=== PATIENT | female | born 1970 | race Caucasian/White ===

== ENCOUNTER 2019-11-18 09:57 | Outpatient (REF) | payer OTHER, SELFPAY | END 2019-11-18 09:58 | disposition home or self-care (01) | LOC: HO.HAP 09:57 | PROVIDERS: Visit Provider Nurse Practitioner Family | DX: Z46.1 Encounter for fitting and adjustment of hearing aid (principal) | CPT/HCPCS: 92700; V5160; V5261; V5267 ==

== ENCOUNTER 2019-11-29 09:13 | Outpatient (REF) | payer OTHER, SELFPAY ==
--- NOTE | 2019-11-29 09:19 | XR_ITS ---
EXAMINATION: XR WRIST, RIGHT XR HAND, RIGHT CLINICAL INFORMATION: Pain right wrist and right hand. COMPARISON: Radiographs right hand 06/15/2018 TECHNIQUE: The right wrist is imaged in 3 views. The right hand is imaged in an additional 3 views. There are a total of 6 views. FINDINGS: There is no fracture or dislocation right hand or right wrist. The ulnar variance is neutral. The bony mineralization is normal. There is no destructive process or periostitis. The carpus shows no joint narrowing or erosive change or chondrocalcinosis. The MCP and PIP joints are unremarkable. There is some borderline joint narrowing fourth and fifth finger DIP joints. There are no erosive changes. IMPRESSION: 1. No fracture, destructive process, or erosive changes. 2. Borderline joint narrowing fourth and fifth DIP joints.
== END 2019-11-29 09:14 | disposition home or self-care (01) ==
LOC: HO.HMGCX 09:13
PROVIDERS: PCP Nurse Practitioner Family; Visit Provider Hospitalist
DX: M25.531 Pain in right wrist (principal)
CPT/HCPCS: 73110; 73130

== ENCOUNTER 2019-12-02 12:05 | Outpatient (REF) | payer SELFPAY | END 2019-12-02 12:06 | disposition home or self-care (01) | LOC: HO.HAP 12:05 | PROVIDERS: PCP Nurse Practitioner Family; Referring Provider Nurse Practitioner Family; Visit Provider Nurse Practitioner Family | DX: Z13.89 Encounter for screening for other disorder (principal) | CPT/HCPCS: 92700 ==

== ENCOUNTER 2019-12-08 09:59 | Outpatient (REF) | payer SELFPAY ==
--- NOTE | 2019-12-09 10:54 | MHC.HEMONCSW ---
FAXED NEW [place] REQUEST FOR LOVENOX TO [facility]. REQUESTED EXPEDITED DECISION.
--- NOTE | 2019-12-09 15:15 | MHC.HEMONCSW ---
PER FAX, [facility] APPROVED LOVENOX 60MG BID FOR 30 DAY SUPPLY. EFFECTIVE DATES: 12/09/19 TO 06/08/20 FAX IS SUFFIENT DO NOT NEED AUTH NUMBER. FAX PLACED IN CHART.
== END 2019-12-08 10:00 | disposition home or self-care (01) ==
LOC: HO.HAP 09:59
PROVIDERS: PCP Nurse Practitioner Family; Visit Provider Nurse Practitioner Family
DX: Z13.89 Encounter for screening for other disorder (principal)

== ENCOUNTER 2019-12-08 10:49 | Outpatient (REF) | payer SELFPAY | END 2019-12-08 10:50 | disposition home or self-care (01) | LOC: HO.HAP 10:49 | PROVIDERS: Visit Provider Nurse Practitioner Family | DX: Z13.89 Encounter for screening for other disorder (principal) | CPT/HCPCS: 92700 ==

== ENCOUNTER 2019-12-16 16:00 | Outpatient (REF) | payer SELFPAY | END 2019-12-16 16:01 | disposition home or self-care (01) | LOC: HO.HAP 16:00 | PROVIDERS: Visit Provider Nurse Practitioner Family | DX: Z13.89 Encounter for screening for other disorder (principal) ==

== ENCOUNTER → 2019-12-19 08:27 | Outpatient (BNV) | payer OTHER, SELFPAY | PROVIDERS: PCP Nurse Practitioner Family; Visit Provider Internal Medicine | DX: N28.0 Ischemia and infarction of kidney (principal); D68.62 Lupus anticoagulant syndrome; Z79.01 Long term (current) use of anticoagulants | CPT/HCPCS: 99213; 99214 ==

== ENCOUNTER 2019-12-19 10:06 | Outpatient (REF) | payer SELFPAY | END 2019-12-19 10:07 | disposition home or self-care (01) | LOC: HO.HAP 10:06 | PROVIDERS: Visit Provider Nurse Practitioner Family | DX: Z13.89 Encounter for screening for other disorder (principal) | CPT/HCPCS: 92700 ==

== ENCOUNTER 2019-12-30 08:33 | Outpatient (REF) | payer SELFPAY | END 2019-12-30 08:34 | disposition home or self-care (01) | LOC: HO.HAP 08:33 | PROVIDERS: PCP Nurse Practitioner Family; Referring Provider Nurse Practitioner Family; Visit Provider Nurse Practitioner Family | DX: Z13.89 Encounter for screening for other disorder (principal) | CPT/HCPCS: 92700 ==

== ENCOUNTER → 2020-01-31 13:14 | Outpatient (BNVA) | payer OTHER, SELFPAY | PROVIDERS: PCP Nurse Practitioner Family; Visit Provider Internal Medicine Gastroenterology | DX: Z13.89 Encounter for screening for other disorder (principal) ==

== ENCOUNTER 2020-03-06 14:29 | Outpatient (REF) | payer SELFPAY | END 2020-03-06 14:30 | disposition home or self-care (01) | LOC: HO.HAP 14:29 | PROVIDERS: Visit Provider Nurse Practitioner Family | DX: Z13.89 Encounter for screening for other disorder (principal) ==

== ENCOUNTER 2020-03-22 15:27 | Outpatient (REF) | payer SELFPAY | END 2020-03-22 15:28 | disposition home or self-care (01) | LOC: HO.HAP 15:27 | PROVIDERS: Visit Provider Nurse Practitioner Family | DX: Z13.89 Encounter for screening for other disorder (principal) ==

== ENCOUNTER 2020-04-06 08:37 | Outpatient (REF) | payer OTHER, SELFPAY ==
[2020-04-06 11:10] LABS: MANUAL DIFF FLAG NO
[2020-04-06 11:30] LABS: Basophils Absolute Auto 0.1 X10*3/uL (0.0-0.2); Basophils Percent Auto 0.9 % (0-2); Eosinophils Absolute Auto 0.3 X10*3/uL (0.0-0.4); Hematocrit 35.6 % (37-47); Hemoglobin 11.8 g/dl (12.0-16.0); Imm Gran Abs Auto 0.02 X10*3/uL (0.00-0.03); Imm Gran Pct Auto 0.2 % (0.0-0.4); Lymphocytes Absolute Auto 3.2 X10*3/uL (1.2-4.9); Lymphocytes Percent Auto 38.8 % (20-40); Mean Corpuscular HGB Conc 33.1 g/dl (31.0-35.0); Mean Corpuscular Hemoglobin 32.5 pg (27.0-33.0); Mean Corpuscular Volume 98.1 fL (80-98); Mean Platelet Volume 12.7 fL (9.4-12.3); Monocytes Absolute Auto 0.7 X10*3/uL (0.1-1.2); Monocytes Percent Auto 9.1 % (2-11); Neutrophils Absolute Auto 3.8 X10*3/uL (2.0-8.3); Platelet Count 253 X10*3/uL (160-400); Red Blood Count 3.63 X10*6/uL (4.20-5.50); Red Cell Distribution Width 13.4 % (11.0-16.0); White Blood Count 8.2 X10*3/uL (4.8-10.8)
[2020-04-06 12:15] LABS: Alanine Aminotransferase 11 U/L (0-31); Albumin Level 4.2 g/dL (3.5-5.0); Alkaline Phosphatase 58 U/L (39-117); Anion Gap 14 (12-20); Aspartate Amino Transferase 12 U/L (5-31); Bilirubin Total 0.2 mg/dL (0.0-1.0); Blood Urea Nitrogen 9 mg/dL (9-16); Calcium 9.1 mg/dL (8.4-10.2); Carbon Dioxide 25 mmol/L (22-29); Chloride 106 mmol/L (96-108); Cholesterol 157 mg/dL; Estimated Glomerular Filt Rate > 60; Glucose Fasting 85 mg/dL (60-99); HDL Cholesterol 47 mg/dL; LDL Cholesterol Calculated 96 mg/dl; Potassium 4.5 mmol/L (3.3-5.1); Sodium 140 mmol/L (135-145); Total Protein 6.8 g/dL (6.5-8.0); Triglycerides 72 mg/dL
[2020-04-06 12:19] LABS: TSH reflex Free T4 0.76 uIU/mL (0.32-4.0)
[2020-04-06 12:44] LABS: SARS COV2 IgG Negative (Negative)
[2020-04-09 08:36] LABS: HBS Num1 17.13 mIU/mL (0-7.99); ~Hepatitis B Surface Antibody REACTIVE (Nonreactive)
[2020-04-10 17:37] LABS: Rubeola IgG (Measles) <13.50 AU/mL
== END 2020-04-06 08:38 | disposition home or self-care (01) ==
LOC: HO.HMGCLDS 08:37
PROVIDERS: Absent Provider Internal Medicine; PCP Nurse Practitioner Family; Visit Provider Internal Medicine
DX: Z00.00 Encounter for general adult medical examination without abnormal findings (principal); Z01.84 Encounter for antibody response examination; N28.0 Ischemia and infarction of kidney
CPT/HCPCS: 36415; 80053; 80061; 84443; 85025; 86706; 86735; 86762; 86765; 86769; 86787

== ENCOUNTER 2020-04-10 08:11 | Outpatient (REF) | payer OTHER, SELFPAY ==
[2020-04-11 07:02] LABS: Rubeola IgG (Measles) <13.50 AU/mL
[2020-04-11 08:30] LABS: HBS Num1 18.18 mIU/mL (0-7.99); ~Hepatitis B Surface Antibody REACTIVE (Nonreactive)
[2020-04-12 21:12] LABS: TS Negative Control Passed; TS Panel A 0; TS Panel B 0; TS Positive Control Passed; TSpotTB Negative (SeeBelow)
== END 2020-04-10 08:12 | disposition home or self-care (01) ==
LOC: HO.HMGCLDS 08:11
PROVIDERS: PCP Nurse Practitioner Family; Visit Provider Internal Medicine
DX: Z00.00 Encounter for general adult medical examination without abnormal findings (principal)
CPT/HCPCS: 36415; 86481; 86706; 86735; 86762; 86765; 86787

== ENCOUNTER 2020-04-24 11:01 | Outpatient (REF) | payer OTHER, SELFPAY ==
--- NOTE | ~2020-04-24 | XR_ITS ---
EXAMINATION: XR SHOULDER, RIGHT CLINICAL INFORMATION: Pain COMPARISON: Previous x-ray September 2008 TECHNIQUE: AP external rotation, Grashey, scapular Y, and axillary views of the right shoulder. FINDINGS: Bone alignment is normal. No fracture or dislocation is seen. The glenohumeral joint is normal. 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 There is soft tissue calcification adjacent to the right greater tuberosity suggestive of calcific tendinitis or bursitis. XR/XR shoulder RT min 2V IMPRESSION: Mild arthritis at the acromioclavicular joint. Soft tissue calcification adjacent to the greater tuberosity suggestive of calcific tendinitis or bursitis.
== END 2020-04-24 11:02 | disposition home or self-care (01) ==
LOC: HO.XRAY 11:01
PROVIDERS: PCP Nurse Practitioner Family; Visit Provider Nurse Practitioner Family
DX: M25.511 Pain in right shoulder (principal)
CPT/HCPCS: 73030

== ENCOUNTER 2020-04-27 11:33 | Emergency (ER) | payer OTHER, SELFPAY ==
--- NOTE | ~2020-04-27 | CT_ITS ---
EXAMINATION: CT OF THE HEAD AND CERVICAL SPINE WITHOUT CONTRAST CLINICAL INFORMATION: Head injury. Patient on blood thinning medicine. COMPARISON: Previous head CT most recent April 2018 TECHNIQUE: Axial images through the head and cervical spine without contrast. Sagittal and coronal reconstructions on the technologist workstation were performed. Patient dose 614+3 3 7 mg/cm. FINDINGS: Head CT: There is no evidence of an extra-axial collection. There is no evidence of intra-axial or extra-axial hemorrhage. The ventricles and extra-axial CSF spaces are appropriate. Gonzales-white matter differentiation is normal. No mass, mass effect or infarct is seen. Review of bone windows is normal. Visualized paranasal sinuses, mastoid air cells and middle ears are clear. Cervical spine: There is increased cervical kyphosis. Alignment is otherwise normal. No fracture or dislocation is seen. There is degenerative spondylosis at C4-C5 and C5-C6. There is disc space narrowing at C5-C6. There is left-sided neuroforaminal narrowing at C3-C4. Prevertebral soft tissues are normal. There are small bilateral cervical lymph nodes. There is evidence of mild emphysema. CT/CT head/brain wo con IMPRESSION: Head CT: Unremarkable exam. Cervical spine: Degenerative changes. No fracture or dislocation seen.
--- NOTE | ~2020-04-27 | CT_ITS ---
EXAMINATION: CT OF THE HEAD AND CERVICAL SPINE WITHOUT CONTRAST CLINICAL INFORMATION: Head injury. Patient on blood thinning medicine. COMPARISON: Previous head CT most recent April 2018 TECHNIQUE: Axial images through the head and cervical spine without contrast. Sagittal and coronal reconstructions on the technologist workstation were performed. Patient dose 614+3 3 7 mg/cm. FINDINGS: Head CT: There is no evidence of an extra-axial collection. There is no evidence of intra-axial or extra-axial hemorrhage. The ventricles and extra-axial CSF spaces are appropriate. Gonzales-white matter differentiation is normal. No mass, mass effect or infarct is seen. Review of bone windows is normal. Visualized paranasal sinuses, mastoid air cells and middle ears are clear. Cervical spine: There is increased cervical kyphosis. Alignment is otherwise normal. No fracture or dislocation is seen. There is degenerative spondylosis at C4-C5 and C5-C6. There is disc space narrowing at C5-C6. There is left-sided neuroforaminal narrowing at C3-C4. Prevertebral soft tissues are normal. There are small bilateral cervical lymph nodes. There is evidence of mild emphysema. CT/CT cervical spine wo con IMPRESSION: Head CT: Unremarkable exam. Cervical spine: Degenerative changes. No fracture or dislocation seen.
[2020-04-27 11:45] VITALS: BP 133/65; PULSE 85; RESP 18; TEMP 37.2; O2SAT 100; BMI 21.8
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
[2020-04-27] MEDS: Butalb/Acetamin/Caff 50/325/40 TABLET 1 TAB PO (13:37)
== END 2020-04-27 14:38 | disposition home or self-care (01) ==
PROVIDERS: Emergency Provider Emergency Medicine Emergency Medical Services; PCP Nurse Practitioner Family
DX: S09.90XA Unspecified injury of head, initial encounter (principal); S06.0X0A Concussion without loss of consciousness, initial encounter; Y04.2XXA Assault by strike against or bumped into by another person, initial encounter; G44.309 Post-traumatic headache, unspecified, not intractable; Y93.F9 Activity, other caregiving; Y92.531 Health care provider office as the place of occurrence of the external cause; Y99.0 Civilian activity done for income or pay
CPT/HCPCS: 70450; 72125; 99283; 99284

== ENCOUNTER → 2020-05-08 10:11 | Outpatient (BNVA) | payer OTHER, SELFPAY | PROVIDERS: PCP Nurse Practitioner Family; Visit Provider Internal Medicine Gastroenterology ==

== ENCOUNTER 2020-05-25 08:30 | Outpatient (REF) | payer OTHER, SELFPAY ==
[2020-05-26 08:21] LABS: Rubeola IgM (Measles) <20.00 AU/mL
== END 2020-05-25 08:31 | disposition home or self-care (01) ==
LOC: HO.HMGCLDS 08:30
PROVIDERS: PCP Nurse Practitioner Family; Visit Provider Nurse Practitioner Family
DX: Z01.84 Encounter for antibody response examination (principal)
CPT/HCPCS: 36415; 86735; 86762; 86765

== ENCOUNTER 2020-07-03 09:06 | Outpatient (REF) | payer OTHER, SELFPAY ==
[2020-07-04 09:27] LABS: Rubeola IgG (Measles) <13.50 AU/mL
== END 2020-07-03 09:07 | disposition home or self-care (01) ==
LOC: HO.HMGCLDS 09:06
PROVIDERS: PCP Nurse Practitioner Family; Visit Provider Nurse Practitioner Family
DX: Z01.84 Encounter for antibody response examination (principal)
CPT/HCPCS: 36415; 86735; 86762; 86765

== ENCOUNTER 2020-07-03 09:36 | Outpatient (REF) | payer OTHER, SELFPAY | END 2020-07-03 09:37 | disposition home or self-care (01) | LOC: HO.HAP 09:36 | PROVIDERS: Visit Provider Nurse Practitioner Family | DX: Z13.89 Encounter for screening for other disorder (principal) ==

== ENCOUNTER 2020-08-06 11:27 | Outpatient (REF) | payer OTHER, SELFPAY ==
--- NOTE | ~2020-08-06 | XR_ITS ---
EXAMINATION: XR RIBS, RIGHT CLINICAL INFORMATION: Trauma COMPARISON: Previous chest x-ray May 2019 TECHNIQUE: 3 views of the right ribs were obtained. FINDINGS: Lungs are clear. No consolidation, pneumothorax, or pleural effusion. The cardiomediastinal silhouette and pulmonary vasculature are normal. There are nondisplaced fractures of the right anterior ninth and 10th ribs. XR/XR ribs RT min 3V w CXR1V IMPRESSION: No evidence for acute disease in the chest. Nondisplaced right anterior ninth and 10th rib fractures.
== END 2020-08-06 11:28 | disposition home or self-care (01) ==
LOC: HO.HMGCX 11:27
PROVIDERS: PCP Nurse Practitioner Family; Visit Provider Nurse Practitioner Family
DX: S29.9XXA Unspecified injury of thorax, initial encounter (principal)
CPT/HCPCS: 71101

== ENCOUNTER 2020-08-08 08:21 | Outpatient (REF) | payer OTHER, SELFPAY ==
[2020-08-09 08:41] LABS: Rubeola IgG (Measles) <13.50 AU/mL
== END 2020-08-08 08:22 | disposition home or self-care (01) ==
LOC: HO.HMGCLDS 08:21
PROVIDERS: PCP Nurse Practitioner Family; Visit Provider Nurse Practitioner Family
DX: Z01.84 Encounter for antibody response examination (principal)
CPT/HCPCS: 36415; 86765

== ENCOUNTER 2020-08-20 08:44 | Outpatient (REF) | payer OTHER, SELFPAY ==
[2020-08-22 05:11] LABS: Rubeola IgG (Measles) <13.50 AU/mL
== END 2020-08-20 08:45 | disposition home or self-care (01) ==
LOC: HO.HMGCLDS 08:44
PROVIDERS: PCP Nurse Practitioner Family; Visit Provider Nurse Practitioner Family
DX: Z01.84 Encounter for antibody response examination (principal)
CPT/HCPCS: 36415; 86765

== ENCOUNTER 2020-10-26 16:03 | Outpatient (REF) | payer SELFPAY ==
--- NOTE | 2020-10-31 12:00 | MHC.AU.HFU ---
Hearing Instrument Follow-Up- Binaural Date of Visit: 10/29/20 Right Ear: Health Science Writer: Phonak Model: Rojaseo M 70-R Serial Number: [id number] Repair Warranty: 02/06/2023 S[employer] Tip #[id number] 03/10/2020 Battery Size: Rechargeable Color: Sand Beige Ditching Machine Operator: #1 Medium Type of Dome: Small open dome Type of Mold: C-Shell Skeleton Type of Wax Guard: CeruSheild Dispensed By: [facility] Date of Fittin11/18/2019 Left Ear: Health Science Writer: Phonak Model: Audeo M 70-R Serial Number: [id number] Repair Warranty: 02/06/2023 Slim Tip #[id number] 02/29/2020 Loss and Damage Warranty: Battery Size: Rechargeable Color: Sand Beige Ditching Machine Operator: #1 Medium Type of Dome: Small open dome Type of Mold: C-Shell Skeleton Type of Wax Guard: CeruShield Dispensed By: [facility] Date of Fittin11/18/2019 Follow-Up Summary: Both aids with web feeder dropped off 10/26/20 with patient noting on drop-off form the hearing aids are not changing. When web feeder was plugged in, the aids started charging and were fully charged on 10/31/20. Spoke with patient who reports the aids move around in the web feeder frequently and has only been able to use the new aids a few times a week. Mostly using old aids. Contacted Michelle at [facility] [employer] who is sending N/C web feeder. Recommendations (Other): AIDS ON OLD REPROGRAPHICS TECHNICIAN BY SOUND MEJIA RAMP. Schedule appointment when new web feeder in. Patient wants maintenance on old aids. Diagnosis Code(s): Primary Diagnosis: H90.3 Bilateral Sensorineural Hearing Loss Signature: Provider: Rojas Joe, RADHA-A
== END 2020-10-26 16:04 | disposition home or self-care (01) ==
LOC: HO.HAP 16:03
PROVIDERS: Visit Provider Nurse Practitioner Family
DX: Z13.89 Encounter for screening for other disorder (principal)

== ENCOUNTER 2020-11-08 10:28 | Outpatient (REF) | payer SELFPAY | END 2020-11-08 10:29 | disposition home or self-care (01) | LOC: HO.HAP 10:28 | PROVIDERS: Visit Provider Nurse Practitioner Family | DX: Z13.89 Encounter for screening for other disorder (principal) ==

== ENCOUNTER 2020-12-04 11:16 | Outpatient (REF) | payer OTHER, SELFPAY ==
[2020-12-04 13:44] LABS: MANUAL DIFF FLAG NO
[2020-12-04 13:56] LABS: Basophils Absolute Auto 0.1 X10*3/uL (0.0-0.2); Eosinophils Absolute Auto 0.3 X10*3/uL (0.0-0.4); Eosinophils Percent Auto 3.5 % (0-4); Hematocrit 36.3 % (37-47); Hemoglobin 12.2 g/dl (12.0-16.0); Imm Gran Abs Auto 0.02 X10*3/uL (0.00-0.03); Imm Gran Pct Auto 0.2 % (0.0-0.4); Lymphocytes Absolute Auto 3.6 X10*3/uL (1.2-4.9); Lymphocytes Percent Auto 44.2 % (20-40); Mean Corpuscular HGB Conc 33.6 g/dl (31.0-35.0); Mean Corpuscular Hemoglobin 32.6 pg (27.0-33.0); Mean Corpuscular Volume 97.1 fL (80-98); Mean Platelet Volume 12.6 fL (9.4-12.3); Monocytes Absolute Auto 0.7 X10*3/uL (0.1-1.2); Monocytes Percent Auto 8.5 % (2-11); Neutrophils Absolute Auto 3.4 X10*3/uL (2.0-8.3); Neutrophils Percent Auto 42.6 % (45-73); Platelet Count 252 X10*3/uL (160-400); Red Blood Count 3.74 X10*6/uL (4.20-5.50); Red Cell Distribution Width 13.3 % (11.0-16.0)
[2020-12-05 06:51] LABS: Immunoglobulin E 22 kU/L (<OR=114)
[2020-12-05 14:07] LABS: Absolute CD3 Count 2506 cells/uL (840-3060); Absolute CD4 Count 1340 cells/uL (490-1740); Absolute CD8 Count 1169 cells/uL (180-1170); Absolute Lymphocytes 3321 cells/uL (850-3900); CD4 CD8 Ratio 1.15 (0.86-5.00); Percent CD3 Cells 75 % (57-85); Percent CD4 Cells 40 % (30-61); Percent CD8 Cells 35 % (12-42)
[2020-12-06 08:53] LABS: HIV AB/AG Nonreactive (Nonreactive); HIV Num 1 0.06 S/CO (0.00-0.99)
[2020-12-06 11:31] LABS: Immunoglobulin A 233 mg/dL (47-310); Immunoglobulin G 896 mg/dL (600-1640); Immunoglobulin M 192 mg/dL (50-300)
== END 2020-12-04 11:17 | disposition home or self-care (01) ==
LOC: HO.HMGCLDS 11:16
PROVIDERS: PCP Nurse Practitioner Family; Visit Provider Pediatrics
DX: Z11.4 Encounter for screening for human immunodeficiency virus [HIV] (principal); Z11.1 Encounter for screening for respiratory tuberculosis
CPT/HCPCS: 36415; 82784; 82785; 85025; 86359; 86360; 86774; 87389

== ENCOUNTER 2020-12-27 09:16 | Outpatient (REF) | payer OTHER, SELFPAY ==
[2020-12-31 15:47] LABS: Complement Total CH50 >60 U/mL (31-60)
== END 2020-12-27 09:17 | disposition home or self-care (01) ==
LOC: HO.LAB 09:16
PROVIDERS: PCP Nurse Practitioner Family; Visit Provider Pediatrics
DX: D83.9 Common variable immunodeficiency, unspecified (principal)
CPT/HCPCS: 36415; 86162

== ENCOUNTER 2021-01-22 09:08 | Outpatient (REF) | payer OTHER, SELFPAY ==
[2021-01-22 10:56] LABS: MANUAL DIFF FLAG NO
[2021-01-22 11:06] LABS: Basophils Absolute Auto 0.1 X10*3/uL (0.0-0.2); Basophils Percent Auto 0.6 % (0-2); Eosinophils Absolute Auto 0.3 X10*3/uL (0.0-0.4); Eosinophils Percent Auto 2.8 % (0-4); Hematocrit 38.9 % (37.0-47.0); Hemoglobin 12.9 g/dl (12.0-16.0); Imm Gran Abs Auto 0.02 X10*3/uL (0.00-0.03); Imm Gran Pct Auto 0.2 % (0.0-0.4); Lymphocytes Absolute Auto 3.9 X10*3/uL (1.2-4.9); Lymphocytes Percent Auto 40.9 % (20-40); Mean Corpuscular HGB Conc 33.2 g/dl (31.0-35.0); Mean Corpuscular Hemoglobin 32.4 pg (27.0-33.0); Mean Corpuscular Volume 97.7 fL (80.0-98.0); Mean Platelet Volume 11.6 fL (9.4-12.3); Monocytes Absolute Auto 0.9 X10*3/uL (0.1-1.2); Monocytes Percent Auto 9.2 % (2-11); Neutrophils Absolute Auto 4.5 x10*3/uL (2.0-8.3); Neutrophils Percent Auto 46.3 % (45-73); Platelet Count 252 X10*3/uL (160-400); Red Blood Count 3.98 X10*6/uL (4.20-5.50); Red Cell Distribution Width 13.3 % (11.0-16.0); White Blood Count 9.6 X10*3/uL (4.8-10.8)
[2021-01-22 11:31] LABS: Alanine Aminotransferase 17 U/L (0-31); Albumin Level 4.6 g/dL (3.5-5.0); Alkaline Phosphatase 58 U/L (39-117); Anion Gap 14 (12-20); Aspartate Amino Transferase 16 U/L (5-31); Bilirubin Total 0.3 mg/dL (0.0-1.0); Blood Urea Nitrogen 11 mg/dL (9-16); Calcium 9.9 mg/dL (8.4-10.2); Carbon Dioxide 25 mmol/L (22-29); Chloride 105 mmol/L (96-108); Estimated Glomerular Filt Rate > 60; Glucose Random 92 mg/dL (60-115); Potassium 4.7 mmol/L (3.3-5.1); Sodium 139 mmol/L (135-145); Total Protein 7.5 g/dL (6.5-8.0)
[2021-01-22 11:52] LABS: Ferritin 66 ng/mL (10-250); Vitamin D 25-OH Total 51.9 ng/mL (>30)
[2021-01-22 12:42] LABS: Folate > 20.0 ng/mL (> or = 4.0); Vitamin B12 823 pg/mL (200-900)
[2021-01-25 18:42] LABS: Vitamin C 0.9 mg/dL (0.3-2.7)
[2021-01-25 23:11] LABS: Zinc 72 mcg/dL (60-130)
== END 2021-01-22 09:09 | disposition home or self-care (01) ==
LOC: HO.LAB 09:08
PROVIDERS: PCP Nurse Practitioner Family; Referring Provider Nurse Practitioner Family; Visit Provider Internal Medicine Gastroenterology
DX: K55.9 Vascular disorder of intestine, unspecified (principal); K21.9 Gastro-esophageal reflux disease without esophagitis; K75.81 Nonalcoholic steatohepatitis (NASH)
CPT/HCPCS: 36415; 80053; 82180; 82306; 82607; 82728; 82746; 84630; 85025

== ENCOUNTER 2021-01-22 10:09 | Outpatient (REF) | payer SELFPAY ==
--- NOTE | 2021-01-22 11:22 | MHC.AU.P13 ---
Hearing Instrument Problem Date of Visit: 01/22/21 Right Ear: Rotor Coil Taper: Phonak Model: Audeo M 70-R Serial Number: [id number] Repair Warranty: 02/06/2023 Repair and L&D S[employer] Tip #[id number] 03/10/2020 Battery Size: Rechargeable Color: Sand Beige Inside Outside Sales Representative: #1 Medium Type of Dome: Small open dome Type of Mold: C-Shell Skeleton Type of Wax Guard: CeruSheild Dispensed By: [facility] Date of Fittin11/18/2019 Left Ear: Rotor Coil Taper: Phonak Model: Audeo M 70-R Serial Number: [id number] Repair Warranty: 02/06/2023 Repair and L&D S[employer] Tip #[id number] 02/29/2020 Battery Size: Rechargeable Color: Sand Beige Inside Outside Sales Representative: #1 Medium Type of Dome: Small open dome Type of Mold: C-Shell Skeleton Type of Wax Guard: CeruShield Dispensed By: [facility] Date of Fittin11/18/2019 Follow-Up Summary: Hearing aids dropped off reporting left not working and no bluetooth. Aid was working. Both aids cleaned, charging looks ok, hooked up to ROSA M without difficulty. Left message for patient to schedule appointment to roll picker and possibly re-pair with patient's phone. Diagnosis Code(s): Primary Diagnosis: H90.3 Bilateral Sensorineural Hearing Loss Signature: Provider: Ivonne Couch BC-HIS
== END 2021-01-22 10:10 | disposition home or self-care (01) ==
LOC: HO.HAP 10:09
PROVIDERS: Visit Provider Nurse Practitioner Family
DX: Z13.89 Encounter for screening for other disorder (principal)

== ENCOUNTER 2021-01-23 13:33 | Outpatient (REF) | payer SELFPAY | END 2021-01-23 13:34 | disposition home or self-care (01) | LOC: HO.HAP 13:33 | PROVIDERS: Visit Provider Nurse Practitioner Family | DX: Z13.89 Encounter for screening for other disorder (principal) ==

== ENCOUNTER 2021-02-06 09:25 | Outpatient (REF) | payer OTHER, SELFPAY | END 2021-02-06 09:26 | disposition home or self-care (01) | LOC: HO.LAB 09:25 | PROVIDERS: PCP Nurse Practitioner Family; Visit Provider Pediatrics | DX: J30.9 Allergic rhinitis, unspecified (principal) | CPT/HCPCS: 36415; 82785; 86003 ==

== ENCOUNTER 2021-02-11 16:14 | Outpatient (REF) | payer OTHER, SELFPAY ==
--- NOTE | ~2021-02-11 | XR_ITS ---
EXAMINATION: XR FOOT, RIGHT CLINICAL INFORMATION: Pain COMPARISON: Previous x-ray December 2015 TECHNIQUE: AP, lateral, and oblique views of the right foot. FINDINGS: Bone alignment is normal. No acute fracture or dislocation is seen. There is mild joint space narrowing at the first MTP joint. There is a faint soft tissue calcification adjacent to the lateral fourth MTP joint. This is new in the interval from 2016 exam and questionable for changes related to old trauma. The joint spaces are otherwise normal. There are small calcaneal spurs. XR/XR foot RT min 3V IMPRESSION: Mild joint space narrowing at the first MTP joint. Faint soft tissue calcification adjacent to the lateral fourth MTP joint, question related to old trauma. Calcaneal spurs.
--- NOTE | ~2021-02-11 | XR_ITS ---
EXAMINATION: XR CHEST CLINICAL INFORMATION: Hiccups COMPARISON: Previous chest x-rays most recent July 2020 TECHNIQUE: 2 views of the chest were obtained. FINDINGS: No significant abnormality is noted involving the heart, lungs, mediastinum, bony thorax or soft tissues. XR/XR chest 2V IMPRESSION: Unremarkable examination.
== END 2021-02-11 16:15 | disposition home or self-care (01) ==
LOC: HO.HMGCX 16:14
PROVIDERS: Absent Provider Internal Medicine Gastroenterology; PCP Nurse Practitioner Family; Visit Provider Physician Assistant
DX: R06.6 Hiccough (principal); M79.671 Pain in right foot
CPT/HCPCS: 71046; 73630

== ENCOUNTER 2021-02-19 14:02 | Outpatient (REF) | payer OTHER, SELFPAY ==
--- NOTE | 2021-02-19 16:45 | MHC.AU.AHA ---
Adult Audiological Evaluation Date of Visit: 02/19/21 Reason for Appointment: Audiological re-evaluation to monitor the status of Ms. Hayes's hearing loss. She has a known bilateral, sensorineural hearing loss and uses hearing aids binaurally. She feels her hearing is gradually decreasing. She denies any significant changes to her medical history since her last visit. [place] [facility] [place] Borderline-normal/mild hearing loss sloping to a moderately severe sensorineural hearing loss bilaterally. Ear History: History of Ear Wax Buildup: Both Ears Medical History: Medical History: Tobacco Use, Blood clot in small intestine leading to emergency bowel resectioning in 2019, sepsist, gall bladder removal in 2018, GERD, Lupus, ESBL Allergies: Sulda, cefuroxime, metronidazole, oxycodone, egg, cefotetan, sulfacetamide, nitrofurantoin Medication List: albuterol sulfate 90 mcg/actuation (ProAir HFA) 2 puffs inhalation Q6H PRN, amitriptyline 75 mg PO DAILY, Bifidobacterium infantis (Align) 4 mg PO DAILY, budesonide-formoterol 160-4.5 mcg/actuation (Symbicort) 2 puffs inhalation Q12H 90 days, buspirone 10 mg PO BID, cholecalciferol (vitamin D3) 50 mcg PO DAILY, enoxaparin 70 mg subcut Q12H, famotidine 40 mg PO BEDTIME, fluticasone propionate 50 mcg/actuation 2 sprays intranasal DAILY, gemfibrozil 600 mg PO BID, ipratropium bromide 2.5 mL inhalation QID PRN, lansoprazole 30 mg PO DAILY, mecobalamin (vitamin B12) 1,000 mcg sublingual DAILY, montelukast 10 mg PO BEDTIME, multivitamin (Daily Multi-Vitamin) 1 tab PO DAILY, ondansetron 8 mg PO Q8H PRN, peppermint oil 50 mg PO; promethazine 12.5 mg PO Q6H PRN, tiotropium bromide 2.5 mcg/actuation (Spiriva Respimat) 2 puffs PO DAILY Hearing Instrument History- 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 Ear: 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: In[employer] In Context Model: Wheelyo M 70-R Serial Number: [id number] Battery Size: Rechargeable Repair Warranty: 02/06/2023 Loss and Damage Warranty: 02/06/2023 Dispensed By: [facility], [place] Date of Fittin11/18/2019 Hearing Instrument History- Left Ear: 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: Phonak Model: Audlieno M 70-R Serial Number: [id number] Battery Size: Rechargeable Warranty: 02/06/2023 Loss and Damage Warranty: 02/06/2023 Dispensed By: [facility], [place] Date of Fittin11/18/2019 Otoscopy: Right Ear: Partially occluded with cerumen Left Ear: Partially occluded with cerumen Tympanometry: Tympanometry performed due to: To assess integrity of the middle ear system Right Ear: Reduced Middle Ear Compliance (Type As) Left Ear: Reduced Middle Ear Compliance (Type As) Hearing Evaluation: Transducer(s) Used: Insert Earphones, Bone Conduction Method: Conventional Audiometry Stimuli Used: Pure Tones Right Ear: Description of Hearing: Borderline-normal hearing from 250-1000 Hz, sloping to a mild to moderately-severe sensorineural hearing loss from 8963-8872 Hz. Left Ear: Description of Hearing: Mild sloping to moderately-severe sensorineural hearing loss from 250-8000 Hz. Speech Recognition Threshold (SRT): Method Used: Monitored Live Voice Stimuli Used: Spondee Words Right Ear: 25 dBHL Left Ear: 30 dBHL Word Discrimination: Method: Recorded Lists Word Lists Used: NU-6 Right Ear: 84% at 70 dBHL Left Ear: 92% at 70 dBHL Comparison: Compared to the most recent evaluation: Hearing is stable. Recommendations: Audiological re-evaluation in one year. Hearing aid maintenance performed today. Hearing aid(s) reprogrammed with updated test results. Diagnosis: Primary Diagnosis: H90.3 Bilateral Sensorineural Hearing Loss Services Performed: Comprehensive Audiological Evaluation (CPT 57470) Tympanometry (CPT 49571) Signature: Provider: Ginny Asher, RADHA-A
== END 2021-02-19 14:03 | disposition home or self-care (01) ==
LOC: HO.SH 14:02
PROVIDERS: Visit Provider Nurse Practitioner Family
DX: H90.3 Sensorineural hearing loss, bilateral (principal)
CPT/HCPCS: 92557; 92567

== ENCOUNTER 2021-02-26 07:20 | Outpatient (REF) | payer OTHER, SELFPAY ==
[2021-02-26 11:50] LABS: INTERNATIONAL NORM RATIO 1.1 (0.9-1.1); Prothrombin Time 12.5 SEC (9.9-13.0)
--- NOTE | 2021-02-26 15:02 | MHC.HEMONC ---
INR 1.[address] Flor, pt to increase Warfarin to 7.5 mg daily and continue Lovenox as ordered. repeat INR on Thursday as she does not have appt at anticoagulant clinic until the . Pt is aware of all these directives.
== END 2021-02-26 07:21 | disposition home or self-care (01) ==
LOC: HO.HMGCLDS 07:20
PROVIDERS: Visit Provider Internal Medicine
DX: Z79.01 Long term (current) use of anticoagulants (principal)
CPT/HCPCS: 36415; 85610

== ENCOUNTER 2021-03-01 15:26 | Outpatient (REF) | payer OTHER, SELFPAY ==
[2021-03-01 16:00] LABS: INTERNATIONAL NORM RATIO 1.2 (0.9-1.1); Prothrombin Time 14.1 SEC (9.9-13.0)
[2021-03-01 16:19] LABS: MANUAL DIFF FLAG NO
[2021-03-01 16:39] LABS: Basophils Absolute Auto 0.1 X10*3/uL (0.0-0.2); Basophils Percent Auto 0.7 % (0-2); Eosinophils Absolute Auto 0.4 X10*3/uL (0.0-0.4); Eosinophils Percent Auto 3.9 % (0-4); Hematocrit 35.7 % (37.0-47.0); Hemoglobin 11.7 g/dl (12.0-16.0); Imm Gran Abs Auto 0.03 X10*3/uL (0.00-0.03); Imm Gran Pct Auto 0.3 % (0.0-0.4); Lymphocytes Absolute Auto 4.2 X10*3/uL (1.2-4.9); Lymphocytes Percent Auto 39.4 % (20-40); Mean Corpuscular HGB Conc 32.8 g/dl (31.0-35.0); Mean Corpuscular Hemoglobin 32.5 pg (27.0-33.0); Mean Corpuscular Volume 99.2 fL (80.0-98.0); Monocytes Percent Auto 9.6 % (2-11); Neutrophils Absolute Auto 4.9 x10*3/uL (2.0-8.3); Neutrophils Percent Auto 46.1 % (45-73); Platelet Count 208 X10*3/uL (160-400); Red Cell Distribution Width 13.2 % (11.0-16.0); White Blood Count 10.5 X10*3/uL (4.8-10.8)
[2021-03-01 16:41] LABS: Appearance Urine HAZY; Color Urine YELLOW; Glucose Urine UA NEG (NEG); Leukocyte Esterase Urine NEG (NEG); Nitrite Urine NEG (NEG); PH 7.5 (5.0-8.0); UACC Culture Trigger NO; Urine Blood 3+ (NEG); Urine Ketones NEG (NEG); Urine Protein 1+ MG/DL (NEG-TRACE)
[2021-03-01 17:10] LABS: RBC Urine TNTC /HPF (0); Squamous Epithelial Cell Urine TRACE /LPF; WBC Urine 0-2 /HPF (0-4)
== END 2021-03-01 15:27 | disposition home or self-care (01) ==
LOC: HO.LAB 15:26
PROVIDERS: PCP Nurse Practitioner Family; Visit Provider Internal Medicine
DX: D72.9 Disorder of white blood cells, unspecified (principal); Z79.01 Long term (current) use of anticoagulants
CPT/HCPCS: 36415; 81001; 85025; 85610

== ENCOUNTER 2021-05-01 02:57 | Inpatient (IN) | payer OTHER, SELFPAY ==
[2021-05-01] VITALS (10 sets, daily range): BP systolic 102–149; BP diastolic 56–82; PULSE 80–100; RESP 14–18; TEMP 36.6–36.9; O2SAT 97–100; BMI 23.4
--- NOTE | ~2021-05-01 | CT_ITS ---
EXAMINATION: CT ABDOMEN AND PELVIS WITH CONTRAST CLINICAL INFORMATION: left inguinal pain radiating into upper left thigh COMPARISON: 10/26/2019 TECHNIQUE: Multidetector volumetric images were obtained from the superior aspect of the liver through the pubic symphysis following administration 85 mL of Omnipaque 350 intravenous contrast. Sagittal and coronal reformatted images were obtained on the technologist's workstation. Oral contrast: No This CT examination was performed using dose optimization techniques as appropriate, variously including the following: *Automated exposure control *Adjustment of mA and/or kV according to patient size (this includes techniques or standardized protocols for targeted exams where dose is matched to indication/reason for exam; i.e. extremities or head) *Use of iterative reconstruction technique DLP: 442 mGy-cm FINDINGS: LUNG BASES: Mild dependent atelectasis. LIVER, GALLBLADDER, AND BILIARY TREE: The liver is normal in size, shape, and attenuation. No focal liver lesions are identified. Mild intrahepatic and extra hepatic biliary ductal dilatation is again noted, likely due in large part to prior cholecystectomy. The common bile duct measures up to 1 cm in diameter.. PANCREAS: Unremarkable. SPLEEN: Unremarkable. ADRENAL GLANDS: Unremarkable. KIDNEYS AND URETERS: There are multiple bilateral renal calculi at the calyces, numbering at least 5 on the left and 6 on the right. These measure up to 2 mm in diameter are not well assessed given the relatively small size. No hydronephrosis. Kidneys are normal in size and cortical thickness. No perinephric stranding. No hydroureter. BLADDER: Full. Normal with normal wall thickness and no calcifications. GASTROINTESTINAL TRACT: Anastomotic chain brenda are present in the right midabdomen. Stomach, small bowel, and colon are normal in caliber otherwise. Moderate volume of stool throughout the colon. There is fat stranding in the retroperitoneal fat extending from the left posterior pararenal space distally over the left iliopsoas. No intraperitoneal free air or free fluid. ABDOMINAL WALL: There is asymmetric expansion and soft tissue fullness in the left iliacus muscle with an ill-defined, complex collection measuring 5 x 3.5 x 14 cm (transverse by AP by craniocaudal). There is surrounding fat stranding in the adjacent fascial planes proximally and distally, more notable proximally in the retroperitoneum just anterior to the quadratus lumborum muscle. No separate collections are identified. Injection related changes are evident in the subcutaneous fat anteriorly. No hernias. LYMPH NODES: Normal. VASCULAR: Unremarkable. PELVIC VISCERA: An IUD is appropriately situated within the uterus. Ovaries are unremarkable. OSSEOUS STRUCTURES: Minimal degenerative spondylosis in the lumbar spine. Minimal osteoarthritis in the hips. Hip joints appear relatively well-preserved. CT/CT abdomen pelvis w con IMPRESSION: 1. Complex intramuscular collection within the left iliacus with surrounding fat stranding, potentially corresponding to an intramuscular hematoma or an abscess/infectious iliopsoas bursitis. No separate fluid collections are identified in this region. 2. Mild nephrolithiasis without evidence of obstructive uropathy.
--- NOTE | ~2021-05-01 | CT_ITS ---
EXAMINATION: CT ABDOMEN AND PELVIS WITHOUT CONTRAST CLINICAL INFORMATION: Left iliac is fluid collection. COMPARISON: None TECHNIQUE: Multidetector volumetric imaging was performed from the superior aspect of the liver through the pubic symphysis. Sagittal and coronal reformatted images were obtained on the technologist's workstation. This CT examination was performed using dose optimization techniques as appropriate, variously including the following: *Automated exposure control *Adjustment of mA and/or kV according to patient size (this includes techniques or standardized protocols for targeted exams where dose is matched to indication/reason for exam; i.e. extremities or head) *Use of iterative reconstruction technique DLP: 342 mGy-cm FINDINGS: LUNG BASES: There is minimal bibasilar atelectasis. The heart size is normal. LIVER, GALLBLADDER, AND BILIARY TREE: The liver is normal in size, shape, and attenuation. No focal hepatic lesion or biliary ductal dilatation is present. The gallbladder has been surgically removed. PANCREAS: Unremarkable. SPLEEN: Unremarkable. ADRENAL GLANDS: Unremarkable. KIDNEYS AND URETERS: The kidneys are normal in size, shape, and attenuation. There is a 1 mm nonobstructive radiopaque calculi upper pole calyx left kidney targeted and tumor radiopaque calculi lower pole right kidney. There is no hydronephrosis. BLADDER: The bladder is distended.. GASTROINTESTINAL TRACT: There is moderate to large scattered stool seen in the colon without any significant distention. The small bowel loops are normal caliber. Appendix is not seen well. The small bowel loops are normal caliber. There is anastomotic suture line in the redundant sigmoid colon left upper pelvis with widely patent lumen. The stomach is nondistended and appears unremarkable. ABDOMINAL WALL: No significant hernia is appreciated. LYMPH NODES: Normal. VASCULAR: Unremarkable. PELVIC VISCERA: Again visualized is moderate hematoma of left iliacus muscle with heterogeneity. The hyperdense area within measures 60 gallstones and consistent with hematoma. The surrounding hypodensities likely seroma or old hematoma. The hematoma measures 11.2 cm in craniocaudad length on sagittal image 43/5 and 5.7 x 3.8 cm on axial image 58/3. There is no free fluid in the pelvis. The uterus is anteverted and deviated to the left with a IUD in correct position. OSSEOUS STRUCTURES: No aggressive lytic or sclerotic process seen CT/CT abdomen pelvis wo con IMPRESSION: Large iliac is hematoma in various stages. There is no air fluid collection suspect any abscess at this time. Moderate to significant constipation without obstruction. Nonobstructive bilateral radiopaque renal calculi there is no hydronephrosis. The gallbladder has been surgical removed. Fleischner guidelines were followed.
[2021-05-01 03:53] LABS: Hematocrit 37.1 % (37.0-47.0); Hemoglobin 12.3 g/dl (12.0-16.0); Mean Corpuscular HGB Conc 33.2 g/dl (31.0-35.0); Mean Corpuscular Hemoglobin 31.9 pg (27.0-33.0); Mean Corpuscular Volume 96.1 fL (80.0-98.0); Mean Platelet Volume 11.7 fL (9.4-12.3); Platelet Count 219 X10*3/uL (160-400); Red Blood Count 3.86 X10*6/uL (4.20-5.50); Red Cell Distribution Width 13.5 % (11.0-16.0); White Blood Count 12.7 X10*3/uL (4.8-10.8)
[2021-05-01 04:06] LABS: Alanine Aminotransferase 18 U/L (0-31); Albumin Level 4.4 g/dL (3.5-5.0); Alkaline Phosphatase 55 U/L (39-117); Anion Gap 14 (12-20); Aspartate Amino Transferase 18 U/L (5-31); Bilirubin Total 0.4 mg/dL (0.0-1.0); Blood Urea Nitrogen 9 mg/dL (9-16); Calcium 9.7 mg/dL (8.4-10.2); Carbon Dioxide 24 mmol/L (22-29); Chloride 106 mmol/L (96-108); Creatinine Clr Calc Pharmacy 81.8; Estimated Glomerular Filt Rate > 60; Glucose Random 115 mg/dL (60-115); Potassium 4.4 mmol/L (3.3-5.1); Sodium 140 mmol/L (135-145); Total Protein 7.2 g/dL (6.5-8.0)
--- NOTE | 2021-05-01 04:48 | ED_ITS ---
HPI - Extremity Injury (Lower) General Chief Complaint: Extremity Injury, Lower Stated Complaint: upper leg pain Time Seen by Provider: 05/01/21 04:45 Source: patient Mode of arrival: EMS History of Present Illness HPI Narrative: 51-year-old female with history of lupus presents via EMS for left leg pain that has progressively worsened since Thursday and patient denies any trauma surrounding the pain. Of note, patient does require b.i.d. Lovenox dosing for her lupus condition and reportedly states that the Coumadin and Xarelto caused h er to bleed. Patient otherwise denies any nausea, vomiting, diarrhea but reports chills but no fevers. Related Data Home Medications Medication Instructions Recorded Confirmed Bifidobacterium infantis 4 mg 4 mg PO DAILY 11/21/19 03/11/21 capsule (Align) albuterol sulfate 90 mcg/actuation 2 puff INHALATION Q6H PRN 11/21/19 03/11/21 aerosol inhaler (ProAir HFA) ipratropium bromide 0.02 % 2.5 ml INHALATION QID PRN 11/21/19 03/11/21 solution for inhalation multivitamin (Daily Multi-Vitamin) 1 tab PO DAILY 11/21/19 03/11/21 promethazine 12.5 mg tablet 12.5 mg PO Q6H PRN 05/08/20 03/11/21 peppermint oil 50 mg 50 mg PO .COMPLEX cap 08/28/20 03/11/21 capsule,delayed release Previous Rx's Medication Instructions Recorded montelukast 10 mg tablet 10 mg PO BEDTIME #90 tab 05/15/20 famotidine 40 mg tablet 40 mg PO BEDTIME #90 tab 10/11/20 atorvastatin 20 mg tablet 20 mg PO BEDTIME 90 Days #90 tab 02/26/21 cholecalciferol (vitamin D3) 50 50 mcg PO DAILY 90 Days #90 cap 02/26/21 mcg (2,000 unit) capsule fluticasone propionate 50 2 spray INTRANASAL DAILY #48 ml 02/26/21 mcg/actuation nasal spray,suspension tiotropium bromide 2.5 2 puff PO DAILY #4 ml 03/08/21 mcg/actuation mist for inhalation (Spiriva Respimat) albuterol sulfate 2.5 mg (3 mL) INHALATION QID PRN 03/11/21 #90 ml amitriptyline 50 mg tablet 50 mg PO BEDTIME 90 Days #90 tab 03/11/21 lansoprazole 30 mg capsule,delayed 30 mg PO DAILY #90 cap 03/29/21 release sucralfate 100 mg/mL oral 10 ml PO BID #1000 ml 04/15/21 suspension (Carafate) ondansetron 8 mg disintegrating 8 mg PO Q8H PRN #30 tab 04/17/21 tablet buspirone 10 mg tablet 10 mg PO BID 90 Days #180 tab 04/18/21 mecobalamin (vitamin B12) 1,000 1,000 mcg SUBLINGUAL DAILY 30 Days 04/18/21 mcg disintegrating #30 tab tablet,sublingual budesonide-formoterol HFA 160 2 puff INHALATION Q12H 90 Days 04/24/21 mcg-4.5 mcg/actuation aerosol #10.2 g inhaler (Symbicort) enoxaparin 80 mg/0.8 mL 70 mg (0.7 mL) SUBCUT Q12H #60 ml 04/29/21 subcutaneous syringe Allergies Allergy/AdvReac Type Severity Reaction Status Date / Time Sulfa (Sulfonamide Allergy Severe ANAPHYLAXIS, Verified 03/11/21 08:32 Antibiotics) angioedema cefuroxime [From CEFTIN] Allergy Intermediate RASH Verified 03/11/21 08:32 metronidazole [From FLAGYL] Allergy Intermediate itch Verified 03/11/21 08:32 oxycodone [OXYCODONE] Allergy Intermediate ITCHY, Verified 03/11/21 08:32 itchiness, itching egg [EGG] Allergy Mild NAUSEA & Verified 03/11/21 08:32 VOMITING cefotetan Allergy Unknown rash Verified 03/11/21 08:32 sulfacetamide Allergy Unknown oral Verified 03/11/21 08:32 swelling, rash nitrofurantoin AdvReac Mild n/v Verified 03/11/21 08:32 [From MACROBID] Review of Systems Review of Systems: Pertinent positives and negatives as stated in HPI 10 point review of systems is otherwise negative. [facility] Past Medical History Source: nursing notes reviewed Medical History Carpal tunnel syndrome Encounter for screening for COVID-19 Immunizations incomplete Lupus Physical exam Right hand pain Right shoulder pain Right wrist pain Surgical History H/O left knee surgery H/O resection of small bowel History of esophagogastroduodenoscopy (EGD) History of shoulder surgery Hx of cholecystectomy Family History Family History Mother Multiple myeloma Father Bladder cancer Maternal Grandmother Lymphoma Maternal Grandfather Bone cancer Social History Social History Household Members: Significant Other Housing: Apartment Alcohol intake: current Alcohol intake frequency: does not drink Patient Tobacco Use Status: Former Tobacco user Quit Date: 2006 Tobacco use type: Cigarette Cigarette Packs Per Day: 1 e-Cigarette/Vaping Use: Never Used Advance Directives: No Advance Directives Information Provided: Yes 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al status: employed 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 GENERAL: Well developed, well nourished, in no acute distress. HEAD: Normocephalic/atraumatic EYES: PERRLA, EOMI OROPHARYNX: no oral lesions noted, posterior pharynx clear LUNGS: Normal breath sounds. No adventitious sounds or accessory muscle use. SpO2<97> CARDIOVASCULAR: Regular rate and rhythm without noted murmurs ABDOMEN: Soft, non-tender, non-distended with bowel sounds. MUSCULOSKELETAL: No tenderness, deformities, or effusions noted on gross inspection. EXTREMITIES: No cyanosis, clubbing or edema; LEFT LOWER EXTREMITY: No deformity noted, pain on palpation across quadriceps and into left inguinal area, distal DP/PT are palpable with warm foot and good capillary refill, no pain on full range of motion at ankle/knee, but patient experiencing significant pain on flexion at the hip. SKIN: Inspection of the skin reveals no rashes NEUROLOGIC: Alert and oriented x 4. Strength and sensation to light touch were grossly intact x 4. Course Course Course Narrative: 51-year-old female with history and clinical presentation concerning for possible intramuscular pathology as there is no palpable mass to suggest hernia and no overlying erythema or induration to suggest superficial abscess. Clinical exam and history inconsistent with radiculopathy. 0635: Review of all investigations significant for iliopsoas complex collection, and on re-evaluation after patient received pain medication she is resting comfortably and states that the pain has significantly improved. Will obtain lactic acid and blood cultures and ordered antibiotics. MDM - Extremity Injury (Lower) Lab Data Result diagrams: 05/01/21 03:40 05/01/21 03:40 Labs: Lab Results 05/01/21 05/01/21 05/01/21 Range/Units 03:40 03:40 03:40 WBC 12.7 H (4.8-10.8) X10*3/uL RBC 3.86 L (4.20-5.50) X10*6/uL Hgb 12.3 (12.0-16.0) g/dl Hct 37.1 (37.0-47.0) % MCV 96.1 (80.0-98.0) fL MCH 31.9 (27.0-33.0) pg MCHC 33.2 (31.0-35.0) g/dl RDW 13.5 (11.0-16.0) % Plt Count 219 (160-400) X10*3/uL MPV 11.7 (9.4-12.3) fL Absolute Nucleated RBC 0.000 (0.0-0.012) X10*3/uL Nucleated RBC % (auto) 0.0 (0.0-0.2) /100WBC ESR 42 H (0-20) MM/HR PT (9.9-13.0) SEC INR (0.9-1.1) APTT (24.1-38.0) SEC Sodium 140 (135-145) mmol/L Potassium 4.4 (3.3-5.1) mmol/L Chloride 106 (96-108) mmol/L Carbon Dioxide 24 (22-29) mmol/L Anion Gap 14 (12-20) BUN 9 (9-16) mg/dL Creatinine 0.74 (0.5-1.4) mg/dL Estim Creat Clear Calc 81.8 Estimated GFR > 60 Random Glucose 115 (60-115) mg/dL Calcium 9.7 (8.4-10.2) mg/dL Total Bilirubin 0.4 (0.0-1.0) mg/dL AST 18 (5-31) U/L ALT 18 (0-31) U/L Alkaline Phosphatase 55 (39-117) U/L C-Reactive Protein 0.99 H (< or = 0.50) mg/dL Total Protein 7.2 (6.5-8.0) g/dL Albumin 4.4 (3.5-5.0) g/dL 05/01/21 Range/Units 05:20 WBC (4.8-10.8) X10*3/uL RBC (4.20-5.50) X10*6/uL Hgb (12.0-16.0) g/dl Hct (37.0-47.0) % MCV (80.0-98.0) fL MCH (27.0-33.0) pg MCHC (31.0-35.0) g/dl RDW (11.0-16.0) % Plt Count (160-400) X10*3/uL MPV (9.4-12.3) fL Absolute Nucleated RBC (0.0-0.012) X10*3/uL Nucleated RBC % (auto) (0.0-0.2) /100WBC ESR (0-20) MM/HR PT 11.8 (9.9-13.0) SEC INR 1.0 (0.9-1.1) APTT 43.9 H (24.1-38.0) SEC Sodium (135-145) mmol/L Potassium (3.3-5.1) mmol/L Chloride (96-108) mmol/L Carbon Dioxide (22-29) mmol/L Anion Gap (12-20) BUN (9-16) mg/dL Creatinine (0.5-1.4) mg/dL Estim Creat Clear Calc Estimated GFR Random Glucose (60-115) mg/dL Calcium (8.4-10.2) mg/dL Total Bilirubin (0.0-1.0) mg/dL AST (5-31) U/L ALT (0-31) U/L Alkaline Phosphatase (39-117) U/L C-Reactive Protein (< or = 0.50) mg/dL Total Protein (6.5-8.0) g/dL Albumin (3.5-5.0) g/dL Discharge Plan Discharge Clinical Impression: Iliopsoas abscess, Lupus Patient Disposition: Admitted As Inpatient Prescriptions: No Action montelukast 10 mg tablet 10 mg PO BEDTIME Qty: 90 3RF famotidine 40 mg tablet 40 mg PO BEDTIME Qty: 90 1RF cholecalciferol (vitamin D3) 50 mcg (2,000 unit) capsule 50 mcg PO DAILY 90 Days Qty: 90 0RF atorvastatin 20 mg tablet 20 mg PO BEDTIME 90 Days Qty: 90 0RF fluticasone propionate 50 mcg/actuation spray,suspension 2 spray intranasal DAILY Qty: 48 1RF Spiriva Respimat 2.5 mcg/actuation mist 2 puff PO DAILY Qty: 4 2RF lansoprazole 30 mg capsule,delayed release(DR/EC) 30 mg PO DAILY Qty: 90 0RF sucralfate [Carafate] 100 mg/mL suspension 10 ml PO BID Qty: 1000 0RF ondansetron 8 mg tablet,disintegrating 8 mg PO Q8H PRN (Reason: for nausea/vomiting) Qty: 30 0RF buspirone 10 mg tablet 10 mg PO BID 90 Days Qty: 180 0RF mecobalamin (vitamin B12) 1,000 mcg tablet,disintegrating 1,000 mcg sublingual DAILY 30 Days Qty: 30 2RF Rx Instructions: place tablet under tongue and allow to dissolve for at least30 secs before swallowing budesonide-formoterol [Symbicort] 160-4.5 mcg/actuation HFA aerosol inhaler 2 puff inhalation Q12H 90 Days Qty: 10.2 4RF enoxaparin 80 mg/0.8 mL syringe 70 mg SUBCUT Q12H Qty: 60 6RF albuterol sulfate [ProAir HFA] 90 mcg/actuation HFA aerosol inhaler 2 puff inhalation Q6H PRN (Reason: Wheezing) 0RF ipratropium bromide 0.02 % solution 2.5 ml inhalation QID PRN (Reason: Wheezing) 0RF Align 4 mg capsule 4 mg PO DAILY 0RF multivitamin [Daily Multi-Vitamin] Tablet 1 tab PO DAILY 0RF peppermint oil 50 mg capsule,delayed release(DR/EC) 50 mg PO .COMPLEX 0RF Rx Instructions: 50 mg PO; amitriptyline 50 mg tablet 50 mg PO BEDTIME 90 Days Qty: 90 0RF albuterol sulfate 2.5 mg /3 mL (0.083 %) solution for nebulization 2.5 mg inhalation QID PRN (Reason: shortness of breath or wheezing) Qty: 90 0RF promethazine 12.5 mg tablet 12.5 mg PO Q6H PRN (Reason: Nausea) 0RF
[2021-05-01 04:59] LABS: C Reactive Protein 0.99 mg/dL (< or = 0.50)
[2021-05-01 05:28] LABS: Erythrocyte Sedimentation Rate 42 MM/HR (0-20)
[2021-05-01 05:34] LABS: Prothrombin Time 11.8 SEC (9.9-13.0)
[2021-05-01 05:36] LABS: Partial Thromboplastin Time 43.9 SEC (24.1-38.0)
[2021-05-01] MEDS: Ketorolac Tromethamine 15 MG/ML VIAL IM (05:40)
[2021-05-01] MEDS: iohexoL 350 MG/ML 100 ML INFUS..BTL 85 ML IV (05:56)
[2021-05-01] MEDS: Clindamycin Phosphate/D5W 600 MG/50 ML PIGGYBACK 100 MG IV (07:10)
--- NOTE | 2021-05-01 07:17 | PC.NURSE ---
I assumed nursing care of this pt upon her arrival to bed 2 from the waiting room. She presents seeking evaluation of L thigh/groin pain x 2-3 days. She denies any injury. She has remained alert, oriented x 3. She speaks in full sentences, no cyanosis, room air sat's WNL. No chest pain. No nausea or vomiting. Speech is clear and appropriate. She has taken PO fluids without difficulty. She has been to CT and has returned and is aware that she is TBADM. Blood cultures obtained. Clindamycin initiated (I was unable to scan this medication after mutiple attempts). Will continue to monitor.
--- NOTE | 2021-05-01 07:51 | PHA.MEDREC ---
Pharmacy Consult ? Medication Reconciliation Pharmacy has completed the medication reconciliation. Patient had a list of medications, she reports was updated last night with EMS. Patient confirms she is on Lovenoz 70 mg Q12H and last given at 04/30 @ 1630. Courtney Gordon, PharmD
[2021-05-01] MEDS: vancomycin HCL 1,250 MG in 0.9 % Sodium Chloride 250 ML 166.67 MG IV (08:14)
[2021-05-01 08:27] LABS: COVID-19 Test Negative (Negative)
[2021-05-01 08:29] LABS: Lactic Acid 0.4 mmol/L (0.5-2.0)
[2021-05-01 09:03] LABS: Hematocrit 34.4 % (37.0-47.0); Hemoglobin 11.5 g/dl (12.0-16.0)
--- NOTE | 2021-05-01 09:14 | P.HPHOSP_ITS ---
History of Present Illness Date of Service: 05/01/21 Chief Complaint: Leg pain This is a 51 year old female with a PMH of +lupus anticoagulant (on lovenox BID), prior portal vein thrombosis, asthma, and others listed below who presents to the emergency room with 3 days of progressive left leg pain. The patient rep orts that she first noticed the pain 3 days ago and that that point it was mild. 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 She denies any fevers or chills. She denies any symptoms of anemia such as dizziness/lightheadedness, chest pain/ sob. She denies any trauma to the region. She denies any bruising. In the ED, she was noted to have a L iliacus complex collectio measuring 5 x 3.5 x 14 cm. She was given IV vancomcyin + IV toradol. Her pain improved, but in light of her being on anticoagulation, she will be monitored closely. COVID 19 immunization status -- 3 doses of pfizer Review of Systems Review of Systems: negative except HPI [facility] Medical History (Updated 05/01/21 @ 09:43 by Bhargav Bauer MD) Carpal tunnel syndrome Encounter for screening for COVID-19 Immunizations incomplete Lupus Physical exam Portal vein thrombosis Right hand pain Right shoulder pain Right wrist pain Family History Mother Multiple myeloma Father Bladder cancer Maternal Grandmother Lymphoma Maternal Grandfather Bone cancer Surgical History H/O left knee surgery H/O resection of small bowel History of esophagogastroduodenoscopy (EGD) History of shoulder surgery Hx of cholecystectomy Social History Household Members: Significant Other Housing: Apartment Alcohol intake: current Alcohol intake frequency: does not drink Patient Tobacco Use Status: Former Tobacco user Quit Date: 2006 Tobacco use type: Cigarette Cigarette Packs Per Day: 1 e-Cigarette/Vaping Use: Never Used Use of substances other than those prescribed or required for medical reasons: No Advance Directives: No Advance Directives Information Provided: Yes 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al status: employed 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) Cognitive needs: No Hearing needs: No Vision needs: No Meds Allergies Allergy/AdvReac Type Severity Reaction Status Date / Time Sulfa (Sulfonamide Allergy Severe ANAPHYLAXIS, Verified 03/11/21 08:32 Antibiotics) angioedema cefuroxime [From CEFTIN] Allergy Intermediate RASH Verified 03/11/21 08:32 metronidazole [From FLAGYL] Allergy Intermediate itch Verified 03/11/21 08:32 oxycodone [OXYCODONE] Allergy Intermediate ITCHY, Verified 03/11/21 08:32 itchiness, itching egg [EGG] Allergy Mild NAUSEA & Verified 03/11/21 08:32 VOMITING cefotetan Allergy Unknown rash Verified 03/11/21 08:32 sulfacetamide Allergy Unknown oral Verified 03/11/21 08:32 swelling, rash nitrofurantoin AdvReac Mild n/v Verified 03/11/21 08:32 [From MACROBID] Active Medications: Current Medications Acetaminophen (Acetaminophen 325 Mg Tablet) 650 mg PO Q6H PRN PRN Reason: Pain, Mild (Pain Scale 1-3) Vancomycin HCl 1,250 mg/ (Sodium Chloride) 250 mls @ 166.667 mls/hr IV ONCE ONE Stop: 05/01/21 09:29 Last Admin: 05/01/21 08:14 Dose: 166.67 mls/hr Documented by: Ketorolac Tromethamine (Ketorolac Tromethamine 30 Mg/Ml Vial) 30 mg IVPUSH Q6H PRN PRN Reason: Pain, Severe (Pain Scale 7-10) Pharmacy Consult (Consult Rx Vancomycin Dosing) 1 each MISCELLANE DAILY PRN PRN Reason: Consult order Pharmacy Consult (Consult Rx Perform Med Rec) 1 each MISCELLANE ONCE PRN PRN Reason: Consult order Sodium Chloride (0.9 % Sodium Chloride Flush 3 Ml Syringe) 3 ml IVFLUSH [facility] Medications Medication Instructions Recorded Confirmed Last Taken Type Bifidobacterium infantis 4 mg 4 mg PO DAILY 11/21/19 05/01/21 04/30/21 History capsule (Align) albuterol sulfate 90 mcg/actuation 2 puff INHALATION Q6H PRN 11/21/19 05/01/21 Unknown History aerosol inhaler (ProAir HFA) ipratropium bromide 0.02 % 2.5 ml INHALATION QID PRN 11/21/19 05/01/21 Unknown History solution for inhalation multivitamin (Daily Multi-Vitamin) 1 tab PO DAILY 11/21/19 05/01/21 04/30/21 History cyanocobalamin (vitamin B-12) 1 tab SUBLINGUAL DAILY 05/01/21 05/01/21 04/30/21 History 1,000 mcg sublingual tablet Physical Exam Vital Signs and Narrative: Vital Signs: Last Vital Signs Temp 98.5 F 05/01/21 08:11 Pulse 84 05/01/21 08:11 Resp 17 05/01/21 08:11 BP 124/65 05/01/21 08:11 Pulse Ox 97 05/01/21 08:11 BMI result Body Mass Index 23.4 Const: Other: Constitutional - Awake and Alert, No apparent distress Eyes - PERRLA, EOMI Cardiovascular - S1S2, RRR, No edema Respiratory - Normal lung expansion, Normal respiratory effort, No respiratory distress, CTA bilaterally Gastrointestinal - NT / ND; +BS; No rebound or guarding - No CVA tenderness Extremities - no calf tenderness bilaterally, no swelling Musculoskeletal - LLE, mild fullness in the groin region; no ecchymosis / erythema apperciated; mild tenderness; L hip joint ROM limited secondary to pain Skin - Warm/Dry Neurological - Alert & oriented x3, No focal deficit Psychological - Appropriate affect Results Labs CBC and Chem 7: 05/01/21 08:57 05/01/21 03:40 Labs: Laboratory Results - last 24 hr 05/01/21 05/01/21 05/01/21 03:40 03:40 03:40 MCV 96.1 MCH 31.9 MCHC 33.2 RDW 13.5 Plt Count 219 MPV 11.7 Absolute Nucleated RBC 0.000 Nucleated RBC % (auto) 0.0 ESR 42 H PT INR APTT Anion Gap 14 Estim Creat Clear Calc 81.8 Estimated GFR > 60 Random Glucose 115 Lactic Acid Calcium 9.7 Total Bilirubin 0.4 AST 18 ALT 18 Alkaline Phosphatase 55 C-Reactive Protein 0.99 H Total Protein 7.2 Albumin 4.4 COVID-19 ([facility]) COVID-19 Clin Com 05/01/21 05/01/21 05/01/21 05:20 08:02 08:06 MCV MCH MCHC RDW Plt Count MPV Absolute Nucleated RBC Nucleated RBC % (auto) ESR PT 11.8 INR 1.0 APTT 43.9 H Anion Gap Estim Creat Clear Calc Estimated GFR Random Glucose Lactic Acid 0.4 L Calcium Total Bilirubin AST ALT Alkaline Phosphatase C-Reactive Protein Total Protein Albumin COVID-19 ([facility]) Negative COVID-19 Clin Com See Note Imaging Radiologist's Impressions: Impressions Abdomen/Pelvis CT 05/01/21 05:55 IMPRESSION: 1. Complex intramuscular collection within the left iliacus with surrounding fat stranding, potentially corresponding to an intramuscular hematoma or an abscess/infectious iliopsoas bursitis. No separate fluid collections are identified in this region. 2. Mild nephrolithiasis without evidence of obstructive uropathy. Assessment and Plan (1) Intramuscular hematoma: Status: Acute Plan This is a 51 year old female with a PMH of +lupus anticoagulant (on lovenox BID), prior portal vein thrombosis, asthma, and others listed below who presents to the emergency room with 3 days of progressive left leg pain. 1. Suspected L iliacus hematoma, acute blood loss with mild anemia less likely to be an abscess (no fevers, wbc count nearly normal, CRP on the lower side) possibly related to anticoagulation use given IV antibotics in the ED, will monitor off antibiotics at this time serial H/H -- q6 hours; transfuse if symptomatic of if drops below 8 Will get Gen surg on board 2. Chronic Lupus anticoagulant / anti-cardiolipin antibody has not tolerated xarelto + coumadin in the past and hence on lovenox; will hold for the time being 3. Chronic asthma continue baseline inhalers + meds 4. GERD continue baseline meds Full Code DVT pptx -- mechanical due to suspected hematoma Quality Stroke Does the patient have a stroke diagnosis?: No VTE Prior VTE?: No VTE Risk Level:: Medical - moderate - high VTE Device Contraindication: N/A - Device Ordered VTE Drug Contraindication: Treatment Not Indicated
[2021-05-01] MEDS: Ketorolac Tromethamine 30 MG/ML VIAL IVPUSH ×3 (10:06→22:35)
--- NOTE | 2021-05-01 13:03 | P.CONGS_ITS ---
History of Present Illness Consult details Consult date: 05/01/21 Narrative: 51-year-old female patient diagnosed with a lupus anticoagulant, currently on Lovenox after developing bleeding from Coumadin and Xarelto, now presenting with complaints of left groin pain. This started on Thursday and has gradually increased in severity. The pain increases with standing and walking. She denie s any history of trauma. She denied fever, chills, nausea or vomiting. She presented to the emergency department and underwent CT of the abdomen and pelvis. This revealed a hematoma of the left iliacus muscle measuring 5 x 3.4 x 14 cm. Review of Systems Constitutional: Constitutional: Denies chills, Denies fever(s), Denies headache(s) and Denies poor appetite ENT: Denies dizziness and Denies headache(s) Cardiovascular: Cardiovascular: Denies chest pain, Denies rapid heart rate, Denies palpitations and Denies slow heart rate Respiratory: Respiratory: Denies chest congestion, Denies cough, Denies pain on inspiration and Denies wheezing Gastrointestinal: Gastrointestinal: Reports abdominal pain, Denies bloating, Denies change in stool character, Denies constipation, Denies diarrhea, Denies nausea, Denies vomiting and Denies hematemesis Musculoskeletal: Musculoskeletal: Denies back pain, Denies arthralgias, Denies joint swelling, Reports muscle cramps and Denies numbness Integumentary/Breasts: Skin/Breast: Denies change in pigmentation, Denies erythema and Denies rash Neurologic: Denies dizziness, Denies headache(s) and Denies numbness Psychiatric: Psychiatric: Denies anxiety and Denies depression Endocrine: Endocrine: Denies palpitations Hematologic/Lymphatic: Hematologic/Lymphatic: Denies easy bleeding, Denies easy bruising and Denies lymphadenopathy Allergic/Immunologic: Allergic/Immunologic: Denies wheezing PMFSH Past Medical History Medical History Carpal tunnel syndrome Encounter for screening for COVID-19 Immunizations incomplete Lupus Physical exam Portal vein thrombosis Right hand pain Right shoulder pain Right wrist pain Family History Family History Mother Multiple myeloma Father Bladder cancer Maternal Grandmother Lymphoma Maternal Grandfather Bone cancer Surgical History Surgical History H/O left knee surgery H/O resection of small bowel History of esophagogastroduodenoscopy (EGD) History of shoulder surgery Hx of cholecystectomy Social History Social History Household Members: Significant Other Housing: Apartment Alcohol intake: current Alcohol intake frequency: does not drink Patient Tobacco Use Status: Former Tobacco user Quit Date: 2006 Tobacco use type: Cigarette Cigarette Packs Per Day: 1 e-Cigarette/Vaping Use: Never Used Use of substances other than those prescribed or required for medical reasons: No Advance Directives: No Advance Directives Information Provided: Yes 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al status: employed 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: [employer]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) Cognitive needs: No Hearing needs: No Vision needs: No Meds Allergies Allergy/AdvReac Type Severity Reaction Status Date / Time Sulfa (Sulfonamide Allergy Severe ANAPHYLAXIS, Verified 03/11/21 08:32 Antibiotics) angioedema cefuroxime [From CEFTIN] Allergy Intermediate RASH Verified 03/11/21 08:32 metronidazole [From FLAGYL] Allergy Intermediate itch Verified 03/11/21 08:32 oxycodone [OXYCODONE] Allergy Intermediate ITCHY, Verified 03/11/21 08:32 itchiness, itching egg [EGG] Allergy Mild NAUSEA & Verified 03/11/21 08:32 VOMITING cefotetan Allergy Unknown rash Verified 03/11/21 08:32 sulfacetamide Allergy Unknown oral Verified 03/11/21 08:32 swelling, rash nitrofurantoin AdvReac Mild n/v Verified 03/11/21 08:32 [From MACROBID] Active Medications: Current Medications Acetaminophen (Acetaminophen 325 Mg Tablet) 650 mg PO Q6H PRN PRN Reason: Pain, Mild (Pain Scale 1-3) Amitriptyline HCl (Amitriptyline Hcl 50 Mg Tablet) 50 mg PO BEDTIME [facility] Atorvastatin Calcium (Atorvastatin Calcium 20 Mg Tablet) 20 mg PO BEDTIME [facility] Buspirone HCl (Buspirone Hcl 10 Mg Tablet) 10 mg PO BID [facility] Famotidine (Famotidine 20 Mg Tablet) 40 mg PO BEDTIME [facility] Fluticasone/Vilanterol (Fluticasone/Vilanterol 200/25 Blst.W.Dev) 1 puff INHALE RDAILY [facility] Ketorolac Tromethamine (Ketorolac Tromethamine 30 Mg/Ml Vial) 30 mg IVPUSH Q6H PRN PRN Reason: Pain, Severe (Pain Scale 7-10) Last Admin: 05/01/21 10:06 Dose: 30 mg Documented by: Montelukast Sodium (Montelukast Sodium 10 Mg Tablet) 10 mg PO BEDTIME [facility] Multivitamins/Vitamin C (Multivitamin Tablet) 1 tab PO DAILY [facility] Omeprazole (Omeprazole 20 Mg Capsule.Dr) 20 mg PO DAILY@0630 [facility] Pharmacy Consult (Consult Rx Vancomycin Dosing) 1 each MISCELLANE DAILY PRN PRN Reason: Consult order Pharmacy Consult (Consult Rx Perform Med Rec) 1 each MISCELLANE ONCE PRN PRN Reason: Consult order Sodium Chloride (0.9 % Sodium Chloride Flush 3 Ml Syringe) 3 ml IVFLUSH QSHIFT [facility] Tiotropium [place] (Tiotropium [place] 18 Mcg Cap.W.Dev) 1 puff INHALE RDAILY [facility] Vitamin D (Cholecalciferol (Vitamin D3) 25 Mcg Tablet) 50 mcg PO DAILY [facility] Home Medications Medication Instructions Recorded Confirmed Last Taken Type Bifidobacterium infantis 4 mg 4 mg PO DAILY 11/21/19 05/01/21 04/30/21 History capsule (Align) albuterol sulfate 90 mcg/actuation 2 puff INHALATION Q6H PRN 11/21/19 05/01/21 Unknown History aerosol inhaler (ProAir HFA) ipratropium bromide 0.02 % 2.5 ml INHALATION QID PRN 11/21/19 05/01/21 Unknown History solution for inhalation multivitamin (Daily Multi-Vitamin) 1 tab PO DAILY 11/21/19 05/01/21 04/30/21 History cyanocobalamin (vitamin B-12) 1 tab SUBLINGUAL DAILY 05/01/21 05/01/21 04/30/21 History 1,000 mcg sublingual tablet Physical Exam Vital Signs: Vital Signs: Last Vital Signs Temp 98.5 F 05/01/21 08:11 Pulse 85 05/01/21 10:03 Resp 17 05/01/21 10:03 BP 135/79 05/01/21 10:03 Pulse Ox 99 05/01/21 10:03 BMI result Body Mass Index 23.4 Const: General: cooperative, comfortable and well developed Nutritional Appearance: well nourished Orientation/consciousness: patient oriented x3 Eyes: Sclerae: sclerae normal EOM: EOMs intact bilaterally Neck: Neck: Yes normal visual inspection Resp: Effort & Inspection: normal respiratory effort, no cough, no respiratory distress and no stridor Cardio: Jugular venous distension: no JVD GI: Other: Ecchymosis on abdominal wall from Lovenox injection Inspection: Yes normal to inspection Palpation (GI): Soft to palpation, nontender, no guarding and not rigid Skin: General skin exam: dry skin Rashes: no rashes Neuro: General: patient oriented x3 and no focal motor deficits Extrem: General: Yes full ROM and Yes no clubbing, cyanosis or edema Psych: Appearance: grossly normal Results Labs Result diagrams: 05/01/21 08:57 05/01/21 03:40 Labs: Abnormal lab results 05/01/21 05/01/21 05/01/21 Range/Units 03:40 03:40 03:40 WBC 12.7 H (4.8-10.8) X10*3/uL RBC 3.86 L (4.20-5.50) X10*6/uL Hgb (12.0-16.0) g/dl Hct (37.0-47.0) % ESR 42 H (0-20) MM/HR APTT (24.1-38.0) SEC Lactic Acid (0.5-2.0) mmol/L C-Reactive Protein 0.99 H (< or = 0.50) mg/dL 05/01/21 05/01/21 05/01/21 Range/Units 05:20 08:06 08:57 WBC (4.8-10.8) X10*3/uL RBC (4.20-5.50) X10*6/uL Hgb 11.5 L (12.0-16.0) g/dl Hct 34.4 L (37.0-47.0) % ESR (0-20) MM/HR APTT 43.9 H (24.1-38.0) SEC Lactic Acid 0.4 L (0.5-2.0) mmol/L C-Reactive Protein (< or = 0.50) mg/dL Short CBC 05/01/21 05/01/21 Range/Units 03:40 08:57 WBC 12.7 H (4.8-10.8) X10*3/uL Hgb 12.3 11.5 L (12.0-16.0) g/dl Hct 37.1 34.4 L (37.0-47.0) % Plt Count 219 (160-400) X10*3/uL BMP 05/01/21 03:40 Sodium 140 Potassium 4.4 Chloride 106 Carbon Dioxide 24 BUN 9 Creatinine 0.74 Calcium 9.7 Liver Function 05/01/21 Range/Units 03:40 Total Bilirubin 0.4 (0.0-1.0) mg/dL AST 18 (5-31) U/L ALT 18 (0-31) U/L Alkaline Phosphatase 55 (39-117) U/L Albumin 4.4 (3.5-5.0) g/dL All other labs normal. Imaging Abdomen CT scan report/results: image reviewed CT scan - pelvis: image reviewed Assessment and Plan (1) Intramuscular hematoma: Status: Acute Plan 51-year-old female patient presenting with complaints of left groin pain of 4 d ays duration. Workup reveals a isolated iliacus hematoma on the left side Most likely related to the anticoagulation for lupus anticoagulant. Patient should be observed off anticoagulation if possible and re-scanned in 1-2 days. I would not recommend operative exploration at this time and will follow along with you. Procedures Date of Service Date of Service: 05/01/21
[2021-05-01] MEDS: Acetaminophen 325 MG TABLET 650 MG PO (13:38)
[2021-05-01] MEDS: 0.9 % Sodium Chloride Flush 3 ML SYRINGE IVFLUSH ×2 (14:36→23:06)
[2021-05-01 14:52] LABS: Hematocrit 33.4 % (37.0-47.0); Hemoglobin 11.3 g/dl (12.0-16.0)
--- NOTE | 2021-05-01 18:16 | MHC.CM.PN ---
CM met with patient with bed assignment. JOY 05/01. HCP on file. HCP/S.O. Arnulfo Ureña ([phone]). PCP Jamaal López. 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 Vaccinated x3 with [employer]. No services. No DME. D/C plan: Home without services. Pt to arrange transportation. CM to follow for d/c needs.
[2021-05-01] MEDS: Morphine Sulfate 4 MG/ML CARTRIDGE IVPUSH (19:43)
[2021-05-01 21:00] LABS: Hematocrit 32.8 % (37.0-47.0); Hemoglobin 10.7 g/dl (12.0-16.0)
[2021-05-01] MEDS: busPIRone HCl 10 MG TABLET PO (21:10)
[2021-05-01] MEDS: Famotidine 20 MG TABLET 40 MG PO (21:10)
[2021-05-01] MEDS: Montelukast Sodium 10 MG TABLET PO (21:10)
[2021-05-01] MEDS: Atorvastatin Calcium 20 MG TABLET PO (21:10)
[2021-05-01] MEDS: Amitriptyline HCl 50 MG TABLET PO (21:10)
--- NOTE | 2021-05-01 23:49 | PC.NURSE ---
Pt arrived from ED around 2300. Pt A&OX3, pleasant and cooperative. Speech is clear and appropriate and pt is able to speak in complete sentences. LS-CTA. No cough or sob. BS+. Denies N/V/D. Left thigh has some petechia. Pt wanted to know if ordered anything for breakthrough pain. Pt states she cannot stand or move her left leg. States she has to lift it with her hands. Left leg up on a pillow for comfort. No c/o pain at present time unless moving leg around. Will continue to monitor.
[2021-05-02] MEDS: Morphine Sulfate 4 MG/ML CARTRIDGE IVPUSH ×5 (00:38→22:35)
[2021-05-02 03:08] LABS: Hematocrit 33.8 % (37.0-47.0)
[2021-05-02] MEDS: Acetaminophen 325 MG TABLET 650 MG PO ×2 (03:59→15:44)
[2021-05-02] MEDS: Ketorolac Tromethamine 30 MG/ML VIAL IVPUSH (04:40)
[2021-05-02] MEDS: Omeprazole 20 MG CAPSULE.DR PO (06:01)
--- NOTE | 2021-05-02 06:56 | PC.NURSE ---
Pt required a lot of attention throughout the shift trying to relieve her pain in the left thigh. See MAR. Pt rotated ice packs and hot packs. Repositioned several times with multiple pillows to support her left leg. Dr was notified earlier for Morphine for breakthrough pain which was ordered and given. Pt educated on Morphine and pain mgmt. Notified again this am with concerns of patient level of pain as patient slept very little, complained of pain and spasms and pt ws crying at time. Will pass this along in am.
[2021-05-02] MEDS: Cholecalciferol (Vitamin D3) 25 MCG TABLET 50 MCG PO (08:53)
[2021-05-02] MEDS: busPIRone HCl 10 MG TABLET PO ×2 (08:53→21:03)
[2021-05-02] MEDS: 0.9 % Sodium Chloride Flush 3 ML SYRINGE IVFLUSH ×2 (08:53→17:27)
[2021-05-02] MEDS: Multivitamin TABLET 1 TAB PO (08:53)
[2021-05-02 08:58] VITALS: BP 113/77; PULSE 96; RESP 18; O2SAT 98
[2021-05-02] MEDS: Fluticasone/Vilanterol 200/25 BLST.W.DEV 1 PUFF INHALE (11:50)
--- NOTE | 2021-05-02 11:50 | PC.NURSE ---
pts inhalers note yet brought up by pharmacy when med due at 0800 this morning. AM RT/RN documented not given. When medication became available through pharmacy, RT called to administer. Unable to undo previous not given documentation - documented as unscheduled dose given by RT.
--- NOTE | 2021-05-02 12:51 | PC.NURSE ---
pt BF/HCP at bedside with multiple concerns regarding plan of care of pt - this RN explained plan of care to both pt and BF/HCP - plan for CT today and pain management. BF?HCP not satisfied with t/w explanation of plan, requesting to speak with provider. Shy Moreau made aware of pt/visitor requests.
--- NOTE | 2021-05-02 13:33 | HO.PM.IMPN ---
Subjective Subjective Date of Service: 05/02/21 Interval History: Seen and examined this morning Reporting left thigh pain Denies fever, chills Review of Systems Review of Systems: Yes all other systems are reviewed and are negative Constitutional Constitutional: Denies chills and Denies fever(s) Cardiovascular Cardiovascular: Denies palpitations and Denies dyspnea Respiratory Respiratory: Denies cough and Denies dyspnea Gastrointestinal Gastrointestinal: Denies abdominal pain Endocrine Endocrine: Denies palpitations Physical Exam Vital Signs: Vital Signs: Last Vital Signs Temp 98.4 F 05/01/21 22:00 Pulse 96 05/02/21 08:58 Resp 18 05/02/21 08:58 BP 113/77 05/02/21 08:58 Pulse Ox 98 05/02/21 08:58 BMI result Body Mass Index 23.4 Const: Other: Awake, alert, appears uncomfortable Nutritional Appearance: average body habitus Resp: Effort & Inspection: normal respiratory effort and able to speak in complete sentences Cardio: Rate: regular rate Heart sounds: S1 normal heart sound present and S2 normal heart sound present GI: Other: Abdomen soft, nondistended, nontender Extrem: Other: no bruising or leg edema; moving all extremities spontaneously Objective Data Active Medications Acetaminophen (Acetaminophen 325 Mg Tablet) 650 mg PO Q6H PRN PRN Reason: Pain, Mild (Pain Scale 1-3) Last Admin: 05/02/21 03:59 Dose: 650 mg Documented by: NELLY Amitriptyline HCl (Amitriptyline Hcl 50 Mg Tablet) 50 mg PO BEDTIME [facility] Last Admin: 05/01/21 21:10 Dose: 50 mg Documented by: CHAPARRO Atorvastatin Calcium (Atorvastatin Calcium 20 Mg Tablet) 20 mg PO BEDTIME [facility] Last Admin: 05/01/21 21:10 Dose: 20 mg Documented by: CHAPARRO Buspirone HCl (Buspirone Hcl 10 Mg Tablet) 10 mg PO BID [facility] Last Admin: 05/02/21 08:53 Dose: 10 mg Documented by: YASMEEN Famotidine (Famotidine 20 Mg Tablet) 40 mg PO BEDTIME [facility] Last Admin: 05/01/21 21:10 Dose: 40 mg Documented by: CHAPARRO Fluticasone/Vilanterol (Fluticasone/Vilanterol 200/25 Blst.W.Dev) 1 puff INHALE RDAILY [facility] Last Admin: 05/02/21 11:50 Dose: 1 puff Documented by: YASMEEN Comments: see note Montelukast Sodium (Montelukast Sodium 10 Mg Tablet) 10 mg PO BEDTIME [facility] Last Admin: 05/01/21 21:10 Dose: 10 mg Documented by: CHAPARRO Morphine Sulfate (Morphine Sulfate 4 Mg/Ml Cartridge) 4 mg IVPUSH Q4H PRN; Protocol PRN Reason: Pain, Severe (Pain Scale 7-10) Last Admin: 05/02/21 12:43 Dose: 4 mg Documented by: YASMEEN Multivitamins/Vitamin C (Multivitamin Tablet) 1 tab PO DAILY [facility] Last Admin: 05/02/21 08:53 Dose: 1 tab Documented by: YASMEEN Omeprazole (Omeprazole 20 Mg Capsule.Dr) 20 mg PO DAILY@0630 [facility] Last Admin: 05/02/21 06:01 Dose: 20 mg Documented by: NELLY Pharmacy Consult (Consult Rx Vancomycin Dosing) 1 each MISCELLANE DAILY PRN PRN Reason: Consult order Pharmacy Consult (Consult Rx Perform Med Rec) 1 each MISCELLANE ONCE PRN PRN Reason: Consult order Sodium Chloride (0.9 % Sodium Chloride Flush 3 Ml Syringe) 3 ml IVFLUSH QSHIFT [facility] Last Admin: 05/02/21 08:53 Dose: 3 ml Documented by: YASMEEN Tiotropium [place] (Tiotropium [place] 18 Mcg Cap.W.Dev) 1 puff INHALE RDAILY [facility] Last Admin: 05/02/21 11:50 Dose: 1 puff Documented by: YASMEEN Comments: see note Vitamin D (Cholecalciferol (Vitamin D3) 25 Mcg Tablet) 50 mcg PO DAILY [facility] Last Admin: 05/02/21 08:53 Dose: 50 mcg Documented by: YASMEEN Labs CBC & Chem 7: 05/02/21 03:00 05/01/21 03:40 Microbiology Microbiology Results: Microbiology 05/01/21 07:07 Blood Culture - Preliminary Blood - Venous No growth after 24 hours. 05/01/21 07:07 Blood Culture - Preliminary Blood - Venous No growth after 24 hours. Assessment and Plan (1) Intramuscular hematoma: Status: Acute Plan This is a 51 year old female with a PMH of +lupus anticoagulant (on lovenox BID), prior portal vein thrombosis, asthma, and others listed below who presents to the emergency room with 3 days of progressive left leg pain. 1. Suspected L iliacus hematoma, acute blood loss with mild anemia less likely to be an abscess (no fevers, wbc count nearly normal, CRP on the lower side) possibly related to anticoagulation use given IV antibotics in the ED, will monitor off antibiotics at this time H/H has remained stable; transfuse if symptomatic or if drops below 8 hold Lovenox General surgery following Repeat CT scan this afternoon Pain management 2. Chronic Lupus anticoagulant / anti-cardiolipin antibody has not tolerated xarelto + coumadin in the past and hence on lovenox; will hold for the time being. d/w hematology likely resume early next week 3. Chronic asthma continue baseline inhalers + meds 4. GERD continue baseline meds Full Code DVT pptx -- mechanical due to suspected hematoma Attending-Dr. Bauer Requires ongoing inpatient hospitalization secondary to intramuscular hematoma requiring pain control with IV analgesia, repeat imaging Quality Stroke Does the patient have a stroke diagnosis?: No VTE Prior VTE?: No VTE Risk Level:: Medical - moderate - high VTE Device Contraindication: N/A - Device Ordered VTE Drug Contraindication: Treatment Not Indicated
[2021-05-02 16:00] VITALS: BP 123/75; PULSE 105; RESP 15; TEMP 38.2; O2SAT 99
--- NOTE | 2021-05-02 16:56 | PC.NURSE ---
PATIENT WAS INC OF URINE ,PATIENT WAS GIVEN A BED BATH ,BEDDING WAS CHANGE AND PATIENT REPOSITION .
[2021-05-02 18:18] VITALS: TEMP 37.2
[2021-05-02 20:00] VITALS: BP 108/71; PULSE 72; RESP 16; TEMP 37.1; O2SAT 99
[2021-05-02] MEDS: Montelukast Sodium 10 MG TABLET PO (21:03)
[2021-05-02] MEDS: Famotidine 20 MG TABLET 40 MG PO (21:03)
[2021-05-02] MEDS: Amitriptyline HCl 50 MG TABLET PO (21:03)
[2021-05-02] MEDS: Atorvastatin Calcium 20 MG TABLET PO (21:03)
[2021-05-03] VITALS (10 sets, daily range): BP systolic 93–113; BP diastolic 55–72; PULSE 83–94; RESP 18–20; TEMP 36.1–37.2; O2SAT 96–100; BMI 23.1; BMI 23.5
[2021-05-03] MEDS: Acetaminophen 325 MG TABLET 650 MG PO ×2 (00:33→07:39)
[2021-05-03] MEDS: 0.9 % Sodium Chloride Flush 3 ML SYRINGE IVFLUSH ×2 (00:35→17:56)
[2021-05-03] MEDS: Morphine Sulfate 4 MG/ML CARTRIDGE IVPUSH ×2 (02:29→06:47)
[2021-05-03] MEDS: Omeprazole 20 MG CAPSULE.DR PO (06:02)
--- NOTE | 2021-05-03 06:04 | PM.EVENT ---
Event Note Date of Service: 05/03/21 Event Note: Blood cultures show 1/2 bottles growing Gram-positive cocci. Likely contaminant, will start with IV antibiotics, repeat blood cultures
--- NOTE | 2021-05-03 06:41 | PHA.PROG ---
Admission Date/Time: May 01, 2021 09:05 Indication:BACTEREMIA Weight in k.1 kg Adjusted body weight in K.8 Jackson body weight in K Obesity Dosing Indication % IBW:12 % OVERWEIGHT Serum Creatinine - Last 168 Hours 05/01/21 03:40 Creatinine 0.74 Estimated CrCl and GFR - Last 168 Hours 05/01/21 03:40 Estim Creat Clear Calc 81.8 Estimated GFR > 60 Vancomycin Loading Dose: 1250 MG Current Vancomycin Dosing Regimen:1000 MG Q 12 HOURS Vancomycin Monitoring using AUC goal of 400 - 600 range with trough as surrogate marker: Date and Time for next Vancomycin Level to be drawn: Pharmacist Comments on Vancomycin Plan:PREDICTED AUC OF 541, WILL CHECK LEVEL AFTER 3 DOSES, ORDERED A NEW STAT SCR Vancomycin dosing will take advantage of [employer] as a clinical decision support tool that uses Bayesian modeling to calculate individual patient's pharmacokinetic parameters and forecast the patient's drug concentration time course with the target goal AUC 24 range of 400 - 600 mg/L/hr.
[2021-05-03] MEDS: vancomycin HCL 1,250 MG in 0.9 % Sodium Chloride 250 ML 166.67 MG IV (06:48)
[2021-05-03 06:51] LABS: Hematocrit 33.6 % (37.0-47.0); Mean Corpuscular HGB Conc 32.7 g/dl (31.0-35.0); Mean Corpuscular Hemoglobin 32.1 pg (27.0-33.0); Mean Platelet Volume 12.4 fL (9.4-12.3); Platelet Count 185 X10*3/uL (160-400); Red Blood Count 3.43 X10*6/uL (4.20-5.50); Red Cell Distribution Width 13.4 % (11.0-16.0); White Blood Count 10.5 X10*3/uL (4.8-10.8)
[2021-05-03 07:09] LABS: Creatinine Clr Calc Pharmacy 106.3; Estimated Glomerular Filt Rate > 60
[2021-05-03] MEDS: Cholecalciferol (Vitamin D3) 25 MCG TABLET 50 MCG PO (07:40)
[2021-05-03] MEDS: Multivitamin TABLET 1 TAB PO (07:40)
[2021-05-03 09:13] LABS: Basophils Percent Auto 0.4 % (0-2); Eosinophils Absolute Auto 0.3 X10*3/uL (0.0-0.4); Eosinophils Percent Auto 2.7 % (0-4); Imm Gran Abs Auto 0.04 X10*3/uL (0.00-0.03); Imm Gran Pct Auto 0.4 % (0.0-0.4); Lymphocytes Absolute Auto 2.6 X10*3/uL (1.2-4.9); Lymphocytes Percent Auto 25.2 % (20-40); MANUAL DIFF FLAG NO; Monocytes Percent Auto 9.7 % (2-11); Neutrophils Absolute Auto 6.2 x10*3/uL (2.0-8.3); Neutrophils Percent Auto 61.6 % (45-73)
[2021-05-03] MEDS: Fluticasone/Vilanterol 200/25 BLST.W.DEV 1 PUFF INHALE (09:25)
[2021-05-03 09:50] LABS: Lactic Acid 1.7 mmol/L (0.5-2.0)
[2021-05-03] MEDS: busPIRone HCl 10 MG TABLET PO ×2 (10:20→21:28)
[2021-05-03] MEDS: Morphine Sulfate 4 MG/ML CARTRIDGE 2 MG IVPUSH ×2 (12:13→17:55)
--- NOTE | 2021-05-03 14:12 | P.PNIM_ITS ---
Subjective Subjective Date of Service: 05/03/21 Interval History: seen and examined this morning pain under better control, still reporting pain with ambulation Review of Systems Review of Systems: Yes all other systems are reviewed and are negative Constitutional Constitutional: Denies chills and Denies fever(s) Cardiovascular Cardiovascular: Denies chest pain, Denies palpitations and Denies dyspnea Respiratory Respiratory: Denies cough and Denies dyspnea Endocrine Endocrine: Denies palpitations Physical Exam Vital Signs: Vital Signs: Last Vital Signs Temp 97.8 F 05/03/21 11:11 Pulse 83 05/03/21 11:11 Resp 18 05/03/21 11:11 BP 102/67 05/03/21 11:11 Pulse Ox 96 05/03/21 11:11 BMI result Body Mass Index 23.5 Const: General: cooperative, comfortable, no acute distress, alert and awake Nutritional Appearance: average body habitus Orientation/consciousness: patient oriented x3 Resp: Effort & Inspection: normal respiratory effort and able to speak in complete sentences Cardio: Rate: regular rate Heart sounds: S1 normal heart sound present and S2 normal heart sound present GI: Other: Abdomen soft, nondistended, nontender Neuro: General: patient oriented x3 Extrem: Other: no bruising or leg edema; moving all extremities spontaneously Objective Data Active Medications Acetaminophen (Acetaminophen 325 Mg Tablet) 650 mg PO Q6H PRN PRN Reason: Pain, Mild (Pain Scale 1-3) Last Admin: 05/03/21 07:39 Dose: 650 mg Documented by: OPHELIA Hydrocodone Bitart/Acetaminophen (Hydrocodone Bit/Acetam 5/325 Tablet) 1 tab PO Q4H PRN PRN Reason: Pain, Moderate (Pain Scale 4-6 Amitriptyline HCl (Amitriptyline Hcl 50 Mg Tablet) 50 mg PO BEDTIME [facility] Last Admin: 05/02/21 21:03 Dose: 50 mg Documented by: JOAN Atorvastatin Calcium (Atorvastatin Calcium 20 Mg Tablet) 20 mg PO BEDTIME [facility] Last Admin: 05/02/21 21:03 Dose: 20 mg Documented by: JOAN Buspirone HCl (Buspirone Hcl 10 Mg Tablet) 10 mg PO BID [facility] Last Admin: 05/03/21 10:20 Dose: 10 mg Documented by: OPHELIA Famotidine (Famotidine 20 Mg Tablet) 40 mg PO BEDTIME [facility] Last Admin: 05/02/21 21:03 Dose: 40 mg Documented by: JOAN Fluticasone/Vilanterol (Fluticasone/Vilanterol 200/25 Blst.W.Dev) 1 puff INHALE RDAILY [facility] Last Admin: 05/03/21 09:25 Dose: 1 puff Documented by: MARIANNA Vancomycin HCl 1,000 mg/ (Sodium Chloride) 270 mls @ 270 mls/hr IV Q12H [facility] Montelukast Sodium (Montelukast Sodium 10 Mg Tablet) 10 mg PO BEDTIME [facility] Last Admin: 05/02/21 21:03 Dose: 10 mg Documented by: JOAN Morphine Sulfate (Morphine Sulfate 4 Mg/Ml Cartridge) 2 mg IVPUSH Q4H PRN; Protocol PRN Reason: Pain, Severe (Pain Scale 7-10) Last Admin: 05/03/21 12:13 Dose: 2 mg Documented by: OPHELIA Multivitamins/Vitamin C (Multivitamin Tablet) 1 tab PO DAILY [facility] Last Admin: 05/03/21 07:40 Dose: 1 tab Documented by: OPHELIA Omeprazole (Omeprazole 20 Mg Capsule.Dr) 20 mg PO DAILY@0630 [facility] Last Admin: 05/03/21 06:02 Dose: 20 mg Documented by: VIANEY Pharmacy Consult (Consult Rx Vancomycin Dosing) 1 each MISCELLANE DAILY PRN PRN Reason: Consult order Pharmacy Consult (Consult Rx Perform Med Rec) 1 each MISCELLANE ONCE PRN PRN Reason: Consult order Pharmacy Consult (Consult Rx Vancomycin Dosing) 1 each MISCELLANE DAILY PRN PRN Reason: Consult order Sodium Chloride (0.9 % Sodium Chloride Flush 3 Ml Syringe) 3 ml IVFLUSH QSHIFT [facility] Last Admin: 05/03/21 07:40 Dose: Not Given Documented by: OPHELIA Non-Admin Reason: IV Running Tiotropium Leonard (Tiotropium Leonard 18 Mcg Cap.W.Dev) 1 puff INHALE RDAILY [facility] Last Admin: 05/03/21 09:25 Dose: 1 puff Documented by: MARIANNA Vitamin D (Cholecalciferol (Vitamin D3) 25 Mcg Tablet) 50 mcg PO DAILY [facility] Last Admin: 05/03/21 07:40 Dose: 50 mcg Documented by: OPHELIA Labs CBC & Chem 7: 05/03/21 06:17 05/03/21 06:17 Labs: Laboratory Results - last 24 hr 05/03/21 05/03/21 05/03/21 06:17 06:17 09:17 MCV 98.0 MCH 32.1 MCHC 32.7 RDW 13.4 Plt Count 185 MPV 12.4 H Immature Gran % (Auto) 0.4 Neut % (Auto) 61.6 Lymph % (Auto) 25.2 [place] % (Auto) 9.7 Eos % (Auto) 2.7 Baso % (Auto) 0.4 Lymph # (Auto) 2.6 [place] # (Auto) 1.0 Eos # (Auto) 0.3 Baso # (Auto) 0.0 Abs Immat Gran (auto) 0.04 H Absolute Neuts (auto) 6.2 Absolute Nucleated RBC 0.000 Nucleated RBC % (auto) 0.0 Estim Creat Clear Calc 106.3 Estimated GFR > 60 Lactic Acid 1.7 C-Reactive Protein 6.90 H Microbiology Microbiology Results: Microbiology 05/01/21 07:07 Blood Culture - Preliminary Blood - Venous No growth after 48 hours. 05/01/21 07:07 Blood Culture - Preliminary Blood - Venous Prelim: GPC Gram Stain only Assessment and Plan (1) Intramuscular hematoma: Status: Acute Plan This is a 51 year old female with a PMH of +lupus anticoagulant (on lovenox BID), prior portal vein thrombosis, asthma, and others listed below who presents to the emergency room with 3 days of progressive left leg pain. 1. Suspected L iliacus hematoma, acute blood loss with mild anemia less likely to be an abscess, initially no fevers, leukocytosis - isolated fever 100.8 05/02 and 1/2 BCx growing GPC - empirically started on vancomycin possibly related to anticoagulation use H/H has remained stable; transfuse if symptomatic or if drops below 8 hold Lovenox General surgery following Repeat CT scan 05/02 shows decrease in hematoma Continue Pain management Follow final blood culture results 2. Chronic Lupus anticoagulant / anti-cardiolipin antibody has not tolerated xarelto + coumadin in the past and hence on lovenox lovenox on hold due to hematoma. d/w hematology will hold Lovenox on d/c, she will follow up with Dr. Flor on Thursday and will likely resume at lower dose 3. Chronic asthma continue baseline inhalers + meds 4. GERD continue baseline meds Full Code DVT pptx -- mechanical due to suspected hematoma Attending-Dr. Bauer Seen by PT - rec home with PT and RW Requires ongoing inpatient hospitalization secondary to intramuscular hematoma requiring pain control with IV analgesia, repeat imaging Quality Stroke Does the patient have a stroke diagnosis?: No VTE Prior VTE?: No VTE Risk Level:: Medical - moderate - high VTE Device Contraindication: N/A - Device Ordered VTE Drug Contraindication: Treatment Not Indicated
--- NOTE | 2021-05-03 15:13 | MHC.CM.PN ---
Female 51 DX Leg pain No discharge planned for today. DP is home with out services. Family will provide transportation.
[2021-05-03] MEDS: Albuterol Sulfate (0.083%) 2.5 MG/3 ML VIAL.NEB INHALE (16:01)
[2021-05-03] MEDS: Nystatin Powder 15 GM BOTTLE 1 APPL TOPICAL ×2 (18:01→21:28)
[2021-05-03] MEDS: vancomycin HCL 1,000 MG in 0.9 % Sodium Chloride 250 ML 270 MG IV (21:19)
[2021-05-03] MEDS: HYDROcodone Bit/Acetam 5/325 TABLET 1 TAB PO (21:26)
[2021-05-03] MEDS: Famotidine 20 MG TABLET 40 MG PO (21:27)
[2021-05-03] MEDS: Amitriptyline HCl 50 MG TABLET PO (21:27)
[2021-05-03] MEDS: Atorvastatin Calcium 20 MG TABLET PO (21:27)
[2021-05-03] MEDS: Montelukast Sodium 10 MG TABLET PO (21:27)
[2021-05-04] MEDS: 0.9 % Sodium Chloride Flush 3 ML SYRINGE IVFLUSH ×2 (00:55→06:46)
[2021-05-04] MEDS: HYDROcodone Bit/Acetam 5/325 TABLET 1 TAB PO ×2 (02:46→06:57)
[2021-05-04 04:00] VITALS: BP 115/72; PULSE 76; RESP 18; TEMP 36.1; O2SAT 97
[2021-05-04 06:39] LABS: MANUAL DIFF FLAG NO
[2021-05-04 06:46] LABS: Basophils Absolute Auto 0.1 X10*3/uL (0.0-0.2); Basophils Percent Auto 0.6 % (0-2); Eosinophils Absolute Auto 0.4 X10*3/uL (0.0-0.4); Eosinophils Percent Auto 4.6 % (0-4); Hematocrit 32.6 % (37.0-47.0); Hemoglobin 10.6 g/dl (12.0-16.0); Imm Gran Abs Auto 0.02 X10*3/uL (0.00-0.03); Imm Gran Pct Auto 0.2 % (0.0-0.4); Lymphocytes Absolute Auto 2.8 X10*3/uL (1.2-4.9); Lymphocytes Percent Auto 33.7 % (20-40); Mean Corpuscular HGB Conc 32.5 g/dl (31.0-35.0); Mean Corpuscular Hemoglobin 31.7 pg (27.0-33.0); Mean Corpuscular Volume 97.6 fL (80.0-98.0); Monocytes Absolute Auto 1.1 X10*3/uL (0.1-1.2); Monocytes Percent Auto 12.9 % (2-11); Neutrophils Absolute Auto 3.9 x10*3/uL (2.0-8.3); Platelet Count 192 X10*3/uL (160-400); Red Blood Count 3.34 X10*6/uL (4.20-5.50); Red Cell Distribution Width 13.2 % (11.0-16.0); White Blood Count 8.2 X10*3/uL (4.8-10.8)
[2021-05-04] MEDS: vancomycin HCL 1,000 MG in 0.9 % Sodium Chloride 250 ML 270 MG IV (06:46)
[2021-05-04] MEDS: Omeprazole 20 MG CAPSULE.DR PO (06:46)
[2021-05-04 07:25] LABS: Anion Gap 12 (12-20); Blood Urea Nitrogen 8 mg/dL (9-16); Calcium 9.3 mg/dL (8.4-10.2); Carbon Dioxide 27 mmol/L (22-29); Chloride 104 mmol/L (96-108); Creatinine Clr Calc Pharmacy 90.4; Estimated Glomerular Filt Rate > 60; Glucose Random 91 mg/dL (60-115); Potassium 4.4 mmol/L (3.3-5.1); Sodium 139 mmol/L (135-145)
[2021-05-04 08:00] VITALS: BP 105/57; PULSE 71; RESP 20; TEMP 35.7; O2SAT 98
[2021-05-04] MEDS: Fluticasone/Vilanterol 200/25 BLST.W.DEV 1 PUFF INHALE (08:30)
[2021-05-04 08:31] VITALS: PULSE 86; RESP 17; O2SAT 97
--- NOTE | 2021-05-04 09:46 | PM.DS ---
DS: Providers Provider Date of Service: 05/04/21 Date of admission: 05/03/21 10:30 Date of discharge: 05/04/21 Primary care physician: PATRICIO Holland-TAYLOR Consults: 05/01/21 09:05 Consult to General Surgery Routine Consulting Provider: Jamaal Mendoza Reason for consultation: L iliacus collection -- likely hematoma Attending physician on discharge: Cristal Urbina Discharging clinician: Shy Moreau DS: Diagnosis Discharge Diagnosis (1) Intramuscular hematoma: Status: Acute DS: Summary Hospital Course Hospital Course: From H&P on day of admission This is a 51 year old female with a PMH of +lupus anticoagulant (on lovenox BID), prior portal vein thrombosis, asthma, and others listed below who presents to the emergency room with 3 days of progressive left leg pain. The patient reports that she first noticed the pain 3 days ago and that that point it was mild. 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 She denies any fevers or chills. She denies any symptoms of anemia such as dizziness/lightheadedness, chest pain/sob. She denies any trauma to the region. She denies any bruising. In the ED, she was noted to have a L iliacus complex collectio measuring 5 x 3.5 x 14 cm. She was given IV vancomcyin + IV toradol. Her pain improved, but in light of her being on anticoagulation, she will be monitored closely. Suspected L iliacus hematoma, acute blood loss with mild anemia. Likely related to use of lovenox for anticoagulation. Less likely to be an abscess. Mild leukocystosis on day of admission resolved. Had isolated fever 100.8 05/02 and 1/2 BCx growing GPC, was empirically started on vancomycin. Blood cultures ultimately returned as coagulase-negative Staph. She received 2 days of vancomycin in the hospital and will be discharged home to complete 7 day course of antibiotics to cover for any possible superimposed infection. Lovenox was placed on hold. She was seen by general surgery, but no intervention was required. Repeat CT scan 05/02 shows decrease in hematoma size. H/H has remained stable since admission. Patient is on Lovenox due to Chronic Lupus anticoagulant/anti-cardiolipin antibody. Has not tolerated xarelto + coumadin in the past and hence on lovenox. Discussed with hematology will hold Lovenox on discharge and she will follow up with Dr. Flor on Saturday 05/06 and will likely resume Lovenox at lower dose. She was seen by PT who recommended home with physical therapy. Time Spent with Patient Time attestation: Total time spent providing and/or coordinating discharge services: Discharge coordination time: Greater than 30 minutes Quality: Stroke Does the patient have a stroke diagnosis?: No Physical Exam Vital Signs: Vital Signs: Last Vital Signs Temp 96.3 F L 05/04/21 08:00 Pulse 86 05/04/21 08:31 Resp 17 05/04/21 08:31 BP 105/57 L 05/04/21 08:00 Pulse Ox 98 05/04/21 08:00 BMI result Body Mass Index 23.5 Const: Other: Awake, alert, appears uncomfortable General: cooperative, comfortable, no acute distress, alert and awake Nutritional Appearance: average body habitus Orientation/consciousness: patient oriented x3 Resp: Effort & Inspection: normal respiratory effort and able to speak in complete sentences Cardio: Rate: regular rate Heart sounds: S1 normal heart sound present and S2 normal heart sound present GI: Other: Abdomen soft, nondistended, nontender Neuro: General: patient oriented x3 Extrem: Other: no bruising or leg edema; moving all extremities spontaneously DS: Data Data Completed and Pending Labs on day of discharge: Laboratory Results - last 24 hr 05/03/21 05/04/21 05/04/21 09:17 06:17 06:17 WBC 8.2 RBC 3.34 L Hgb 10.6 L Hct 32.6 L MCV 97.6 MCH 31.7 MCHC 32.5 RDW 13.2 Plt Count 192 MPV 12.0 Immature Gran % (Auto) 0.2 Neut % (Auto) 48.0 Lymph % (Auto) 33.7 [place] % (Auto) 12.9 H Eos % (Auto) 4.6 H Baso % (Auto) 0.6 Lymph # (Auto) 2.8 [place] # (Auto) 1.1 Eos # (Auto) 0.4 Baso # (Auto) 0.1 Abs Immat Gran (auto) 0.02 Absolute Neuts (auto) 3.9 Absolute Nucleated RBC 0.000 Nucleated RBC % (auto) 0.0 Sodium 139 Potassium 4.4 Chloride 104 Carbon Dioxide 27 Anion Gap 12 BUN 8 L Creatinine 0.67 Estim Creat Clear Calc 90.4 Estimated GFR > 60 Random Glucose 91 Lactic Acid 1.7 Calcium 9.3 Preliminary micro results at discharge 05/03/21 06:17 Blood Culture - Preliminary Blood - Venous No growth after 24 hours. 05/03/21 06:17 Blood Culture - Preliminary Blood - Venous No growth after 24 hours. 05/01/21 07:07 Blood Culture - Preliminary Blood - Venous No growth after 48 hours. Discharge Plan Discharge Patient Disposition: Home Health Service Discharge Diagnosis: left iliacus hematoma Referrals: Shameka ROMERO [Outside] - 1 Week Jamaal López FNP- [Primary Care Provider] - 1 Week Discharge Medications: New hydrocodone-acetaminophen 5-325 mg tablet 1 tab PO Q6H PRN (Reason: pain) Qty: 12 0RF doxycycline hyclate 100 mg tablet 100 mg PO BID 5 Days Qty: 10 0RF (DME) Ultra-Light Rollator Misc See Rx Instructions .Route Qty: 1 0RF Rx Instructions: As directed Continued montelukast 10 mg tablet 10 mg PO BEDTIME Qty: 90 3RF famotidine 40 mg tablet 40 mg PO BEDTIME Qty: 90 1RF cholecalciferol (vitamin D3) 50 mcg (2,000 unit) capsule 50 mcg PO DAILY 90 Days Qty: 90 0RF atorvastatin 20 mg tablet 20 mg PO BEDTIME 90 Days Qty: 90 0RF fluticasone propionate 50 mcg/actuation spray,suspension 2 spray intranasal DAILY Qty: 48 1RF Spiriva Respimat 2.5 mcg/actuation mist 2 puff PO DAILY Qty: 4 2RF lansoprazole 30 mg capsule,delayed release(DR/EC) 30 mg PO DAILY Qty: 90 0RF ondansetron 8 mg tablet,disintegrating 8 mg PO Q8H PRN (Reason: for nausea/vomiting) Qty: 30 0RF buspirone 10 mg tablet 10 mg PO BID 90 Days Qty: 180 0RF budesonide-formoterol [Symbicort] 160-4.5 mcg/actuation HFA aerosol inhaler 2 puff inhalation Q12H 90 Days Qty: 10.2 4RF cyanocobalamin (vitamin B-12) 1,000 mcg tablet, sublingual 1 tab sublingual DAILY 0RF albuterol sulfate [ProAir HFA] 90 mcg/actuation HFA aerosol inhaler 2 puff inhalation Q6H PRN (Reason: Wheezing) 0RF ipratropium bromide 0.02 % solution 2.5 ml inhalation QID PRN (Reason: Wheezing) 0RF Align 4 mg capsule 4 mg PO DAILY 0RF multivitamin [Daily Multi-Vitamin] Tablet 1 tab PO DAILY 0RF amitriptyline 50 mg tablet 50 mg PO BEDTIME 90 Days Qty: 90 0RF albuterol sulfate 2.5 mg /3 mL (0.083 %) solution for nebulization 2.5 mg inhalation QID PRN (Reason: shortness of breath or wheezing) Qty: 90 0RF Held enoxaparin 80 mg/0.8 mL syringe 70 mg SUBCUT Q12H Qty: 60 6RF Hold Instructions: hold until you follow up with Dr. Flor Discharge Orders: Discharge Order (Routine); Ordered 05/04/21 Ordered By: Shy Moreau Diet: advance to usual diet Activity on Discharge: As tolerated Stand Alone Forms: Patient Portal Discharge page, Work/School Release Care Plan Goals: Resolution of hematoma Health Concerns: Left iliacus hematoma Plan of Treatment: Can use pain medication as prescribed for more severe pain, for less severe pain use Tylenol not to exceed 3g/day of Tylenol Take antibiotics as directed Do not take lovenox until follow up appointment with Dr. Flor on Saturday 05/06 Assessment: see discharge summary Discharge Date/Time: 05/04/21 13:10
--- NOTE | 2021-05-04 09:58 | W.MHC.F2F ---
Service Date Service Date: 05/04/21 Encounter Date of encounter: 05/04/21 Reasons for Services Signs and symptoms assessed: deconditioning, muscle weakness, impaired gait Reason for physical therapy: home safety and mobility, therapeutic exercises and gait/transfer training Overseeing Care: Jamaal López Homebound: Leaving the home is medically contraindicated at this time without the asist of a device and/or another person due th the listed conditions above and below. Reason homebound: unsteady gait / fall risk, pain with ambulation and poor balance / fall risk Certification: Based on the above findings, I certify that this patient is confined to the home and needs intermittent chcf care, physical therapy and/or speech therapy, or continues to need occupational therapy. The patient is under my care, and I have initiated the establishment of the plan of care. The patient will be followed by a physician who will periodically review the plan of care.
--- NOTE | 2021-05-04 10:24 | P.PNGS_ITS ---
Subjective Subjective Date of Service: 05/04/21 Interval history: Patient feels much improved. Able to ambulate without walker. Physical Exam Vital Signs: Vital Signs: Last Vital Signs Temp 96.3 F L 05/04/21 08:00 Pulse 86 05/04/21 08:31 Resp 17 05/04/21 08:31 BP 105/57 L 05/04/21 08:00 Pulse Ox 98 05/04/21 08:00 BMI result Body Mass Index 23.5 Const: General: cooperative and no acute distress Nutritional Appearance: well nourished Orientation/consciousness: patient oriented x3 Limitations: no limitations Resp: Effort & Inspection: normal respiratory effort GI: Other: Soft, nondistended, minimal tenderness to deep palpation in the left lower quadrant. Skin: Other: Warm, dry, no rash Neuro: General: patient oriented x3 Objective Data Active Medications Acetaminophen (Acetaminophen 325 Mg Tablet) 650 mg PO Q6H PRN PRN Reason: Pain, Mild (Pain Scale 1-3) Last Admin: 05/03/21 07:39 Dose: 650 mg Documented by: OPHELIA Hydrocodone Bitart/Acetaminophen (Hydrocodone Bit/Acetam 5/325 Tablet) 1 tab PO Q4H PRN PRN Reason: Pain, Moderate (Pain Scale 4-6 Last Admin: 05/04/21 06:57 Dose: 1 tab Documented by: ELSA Albuterol Sulfate (Albuterol Sulfate 90 Mcg 8 Gm Inhaler) 2 puff INHALE Q6H PRN PRN Reason: Wheezing Albuterol Sulfate (Albuterol Sulfate (0.083%) 2.5 Mg/3 Ml Vial.Neb) 2.5 mg INHALE QID PRN PRN Reason: shortness of breath or wheezing Last Admin: 05/03/21 16:01 Dose: 2.5 mg Documented by: MARIANNA Amitriptyline HCl (Amitriptyline Hcl 50 Mg Tablet) 50 mg PO BEDTIME [facility] Last Admin: 05/03/21 21:27 Dose: 50 mg Documented by: MARIANA Atorvastatin Calcium (Atorvastatin Calcium 20 Mg Tablet) 20 mg PO BEDTIME [facility] Last Admin: 05/03/21 21:27 Dose: 20 mg Documented by: MARIANA Buspirone HCl (Buspirone Hcl 10 Mg Tablet) 10 mg PO BID [facility] Last Admin: 05/03/21 21:28 Dose: 10 mg Documented by: MARIANA Famotidine (Famotidine 20 Mg Tablet) 40 mg PO BEDTIME [facility] Last Admin: 05/03/21 21:27 Dose: 40 mg Documented by: MARIANA Fluticasone/Vilanterol (Fluticasone/Vilanterol 200/25 Blst.W.Dev) 1 puff INHALE RDAILY [facility] Last Admin: 05/04/21 08:30 Dose: 1 puff Documented by: MARIANNA Vancomycin HCl 1,000 mg/ (Sodium Chloride) 270 mls @ 270 mls/hr IV Q12H [facility] Last Infusion: 05/04/21 09:39 Dose: 0 mls/hr Documented by: LEE Montelukast Sodium (Montelukast Sodium 10 Mg Tablet) 10 mg PO BEDTIME [facility] Last Admin: 05/03/21 21:27 Dose: 10 mg Documented by: MARIANA Morphine Sulfate (Morphine Sulfate 4 Mg/Ml Cartridge) 2 mg IVPUSH Q4H PRN; Protocol PRN Reason: Pain, Severe (Pain Scale 7-10) Last Admin: 05/03/21 17:55 Dose: 2 mg Documented by: MARIANA Multivitamins/Vitamin C (Multivitamin Tablet) 1 tab PO DAILY [facility] Last Admin: 05/03/21 07:40 Dose: 1 tab Documented by: OPHELIA Nystatin (Nystatin Powder 15 Gm Bottle) 1 appl TOPICAL TID [facility]; Protocol Last Admin: 05/03/21 21:28 Dose: 1 appl Documented by: MARIANA Omeprazole (Omeprazole 20 Mg Capsule.) 20 mg PO DAILY@0630 [facility] Last Admin: 05/04/21 06:46 Dose: 20 mg Documented by: ELSA Pharmacy Consult (Consult Rx Vancomycin Dosing) 1 each MISCELLANE DAILY PRN PRN Reason: Consult order Pharmacy Consult (Consult Rx Perform Med Rec) 1 each MISCELLANE ONCE PRN PRN Reason: Consult order Pharmacy Consult (Consult Rx Vancomycin Dosing) 1 each MISCELLANE DAILY PRN PRN Reason: Consult order Sodium Chloride (0.9 % Sodium Chloride Flush 3 Ml Syringe) 3 ml IVFLUSH QSHIFT [facility] Last Admin: 05/04/21 06:46 Dose: 3 ml Documented by: ELSA Tiotropium [place]arn[place] (Tiotropium [place] 18 Mcg Cap.W.Dev) 1 puff INHALE RDAILY [facility] Last Admin: 05/04/21 08:30 Dose: 1 puff Documented by: MARIANNA Vitamin D (Cholecalciferol (Vitamin D3) 25 Mcg Tablet) 50 mcg PO DAILY [facility] Last Admin: 05/03/21 07:40 Dose: 50 mcg Documented by: OPHELIA Labs CBC & Chem 7: 05/04/21 06:17 05/04/21 06:17 Labs: Laboratory Results - last 24 hr 05/04/21 05/04/21 06:17 06:17 MCV 97.6 MCH 31.7 MCHC 32.5 RDW 13.2 Plt Count 192 MPV 12.0 Immature Gran % (Auto) 0.2 Neut % (Auto) 48.0 Lymph % (Auto) 33.7 [place] % (Auto) 12.9 H Eos % (Auto) 4.6 H Baso % (Auto) 0.6 Lymph # (Auto) 2.8 [place] # (Auto) 1.1 Eos # (Auto) 0.4 Baso # (Auto) 0.1 Abs Immat Gran (auto) 0.02 Absolute Neuts (auto) 3.9 Absolute Nucleated RBC 0.000 Nucleated RBC % (auto) 0.0 Anion Gap 12 Estim Creat Clear Calc 90.4 Estimated GFR > 60 Random Glucose 91 Calcium 9.3 Microbiology Microbiology Results: Microbiology 05/03/21 06:17 Blood Culture - Preliminary Blood - Venous No growth after 24 hours. 05/03/21 06:17 Blood Culture - Preliminary Blood - Venous No growth after 24 hours. 05/01/21 07:07 Blood Culture - Final Blood - Venous Coag negative Staphylococcus 05/01/21 07:07 Blood Culture - Preliminary Blood - Venous No growth after 48 hours. Procedures Date of Service Date of Service: 05/04/21 Progress Note: A&P Assessment and plan (1) Intramuscular hematoma: Status: Acute Plan Patient continues to improve with decreased leg and abdominal pain today. Discharge today as planned. No surgical follow-up required. Fall Risk Details Current Medications: Current Medications Acetaminophen (Acetaminophen 325 Mg Tablet) 650 mg PO Q6H PRN PRN Reason: Pain, Mild (Pain Scale 1-3) Last Admin: 05/03/21 07:39 Dose: 650 mg Documented by: Hydrocodone Bitart/Acetaminophen (Hydrocodone Bit/Acetam 5/325 Tablet) 1 tab PO Q4H PRN PRN Reason: Pain, Moderate (Pain Scale 4-6 Last Admin: 05/04/21 06:57 Dose: 1 tab Documented by: Albuterol Sulfate (Albuterol Sulfate 90 Mcg 8 Gm Inhaler) 2 puff INHALE Q6H PRN PRN Reason: Wheezing Albuterol Sulfate (Albuterol Sulfate (0.083%) 2.5 Mg/3 Ml Vial.Neb) 2.5 mg INHALE QID PRN PRN Reason: shortness of breath or wheezing Last Admin: 05/03/21 16:01 Dose: 2.5 mg Documented by: Amitriptyline HCl (Amitriptyline Hcl 50 Mg Tablet) 50 mg PO BEDTIME [facility] Last Admin: 05/03/21 21:27 Dose: 50 mg Documented by: Atorvastatin Calcium (Atorvastatin Calcium 20 Mg Tablet) 20 mg PO BEDTIME [facility] Last Admin: 05/03/21 21:27 Dose: 20 mg Documented by: Buspirone HCl (Buspirone Hcl 10 Mg Tablet) 10 mg PO BID [facility] Last Admin: 05/03/21 21:28 Dose: 10 mg Documented by: Famotidine (Famotidine 20 Mg Tablet) 40 mg PO BEDTIME [facility] Last Admin: 05/03/21 21:27 Dose: 40 mg Documented by: Fluticasone/Vilanterol (Fluticasone/Vilanterol 200/25 Blst.W.Dev) 1 puff INHALE RDAILY [facility] Last Admin: 05/04/21 08:30 Dose: 1 puff Documented by: Vancomycin HCl 1,000 mg/ (Sodium Chloride) 270 mls @ 270 mls/hr IV Q12H [facility] Last Infusion: 05/04/21 09:39 Dose: Infused Documented by: Montelukast Sodium (Montelukast Sodium 10 Mg Tablet) 10 mg PO BEDTIME [facility] Last Admin: 05/03/21 21:27 Dose: 10 mg Documented by: Morphine Sulfate (Morphine Sulfate 4 Mg/Ml Cartridge) 2 mg IVPUSH Q4H PRN; Protocol PRN Reason: Pain, Severe (Pain Scale 7-10) Last Admin: 05/03/21 17:55 Dose: 2 mg Documented by: Multivitamins/Vitamin C (Multivitamin Tablet) 1 tab PO DAILY [facility] Last Admin: 05/03/21 07:40 Dose: 1 tab Documented by: Nystatin (Nystatin Powder 15 Gm Bottle) 1 appl TOPICAL TID [facility]; Protocol Last Admin: 05/03/21 21:28 Dose: 1 appl Documented by: Omeprazole (Omeprazole 20 Mg Capsule.Dr) 20 mg PO DAILY@0630 [facility] Last Admin: 05/04/21 06:46 Dose: 20 mg Documented by: Pharmacy Consult (Consult Rx Vancomycin Dosing) 1 each MISCELLANE DAILY PRN PRN Reason: Consult order Pharmacy Consult (Consult Rx Perform Med Rec) 1 each MISCELLANE ONCE PRN PRN Reason: Consult order Pharmacy Consult (Consult Rx Vancomycin Dosing) 1 each MISCELLANE DAILY PRN PRN Reason: Consult order Sodium Chloride (0.9 % Sodium Chloride Flush 3 Ml Syringe) 3 ml IVFLUSH QSHIFT [facility] Last Admin: 05/04/21 06:46 Dose: 3 ml Documented by: Tiotropium Farnam (Tiotropium [place] 18 Mcg Cap.W.Dev) 1 puff INHALE RDAILY [facility] Last Admin: 05/04/21 08:30 Dose: 1 puff Documented by: Vitamin D (Cholecalciferol (Vitamin D3) 25 Mcg Tablet) 50 mcg PO DAILY [facility] Last Admin: 05/03/21 07:40 Dose: 50 mcg Documented by: Time Spent With Patient Time: Total time spent is greater than 50% in coordination of care (as documented) at patient's floor/unit and/or counseling patient: Quality Stroke Does the patient have a stroke diagnosis?: No VTE Prior VTE?: No VTE Risk Level:: Medical - moderate - high VTE Device Contraindication: N/A - Device Ordered VTE Drug Contraindication: Treatment Not Indicated
--- NOTE | 2021-05-04 10:27 | MHC.CM.PN ---
Patient has been medically cleared for dc to home today, with home PT. [facility] is able to initiate home PT on 05/10/21 and [facility] is aware and has approved a 05/10/21 [facility] SOC.
[2021-05-04] MEDS: Cholecalciferol (Vitamin D3) 25 MCG TABLET 50 MCG PO (11:25)
[2021-05-04] MEDS: busPIRone HCl 10 MG TABLET PO (11:25)
[2021-05-04] MEDS: Multivitamin TABLET 1 TAB PO (11:26)
[2021-05-04] MEDS: Nystatin Powder 15 GM BOTTLE 1 APPL TOPICAL (11:26)
== END 2021-05-04 13:10 | disposition home health service (06) | DRG 556 ==
LOC: HO.ED 06:51 → HO.EDOVER 09:18 → HO.IMC 05-02 23:22
PROVIDERS: Internal Medicine; Admitting Provider Family Medicine; Emergency Provider Student in an Organized Health Care Education/Training Program; PCP Nurse Practitioner Family; Visit Provider Physician Assistant Medical
DX: M79.81 Nontraumatic hematoma of soft tissue (principal); D68.62 Lupus anticoagulant syndrome; D62 Acute posthemorrhagic anemia; T45.515A Adverse effect of anticoagulants, initial encounter; K21.9 Gastro-esophageal reflux disease without esophagitis; J45.909 Unspecified asthma, uncomplicated; Z20.822 Contact with and (suspected) exposure to COVID-19; Z87.891 Personal history of nicotine dependence; Z88.2 Allergy status to sulfonamides; Z79.51 Long term (current) use of inhaled steroids; Z79.899 Other long term (current) drug therapy
CPT/HCPCS: 36415; 74176; 74177; 80048; 80053; 82565; 83605; 85014; 85018; 85025; 85027; 85610; 85652; 85730; 86140; 87040; 87147; 87205; 87635; 96365; 96372; 97161; 99219; 99285; J1885; J2270; J3370; Q9967

== ENCOUNTER 2021-05-08 06:12 | Outpatient (REF) | payer OTHER, SELFPAY ==
[2021-05-08 11:33] LABS: Appearance Urine CLEAR; Color Urine YELLOW; Glucose Urine UA NEG (NEG); Leukocyte Esterase Urine NEG (NEG); Nitrite Urine NEG (NEG); Urine Blood NEG (NEG); Urine Ketones NEG (NEG); Urine Protein NEG (NEG-TRACE)
[2021-05-08 13:00] LABS: TSH reflex Free T4 3.45 uIU/mL (0.32-4.0)
[2021-05-08 13:32] LABS: Alanine Aminotransferase 18 U/L (0-31); Albumin Level 4.2 g/dL (3.5-5.0); Alkaline Phosphatase 56 U/L (39-117); Anion Gap 13 (12-20); Aspartate Amino Transferase 16 U/L (5-31); Bilirubin Total 0.3 mg/dL (0.0-1.0); Blood Urea Nitrogen 13 mg/dL (9-16); Calcium 9.7 mg/dL (8.4-10.2); Carbon Dioxide 26 mmol/L (22-29); Chloride 107 mmol/L (96-108); Cholesterol 99 mg/dL; Estimated Glomerular Filt Rate > 60; Glucose Fasting 101 mg/dL (60-99); HDL Cholesterol 31 mg/dL; LDL Cholesterol Calculated 46 mg/dl; Potassium 4.8 mmol/L (3.3-5.1); Sodium 141 mmol/L (135-145); Triglycerides 114 mg/dL
[2021-05-10 23:11] LABS: TS Negative Control Passed; TS Panel A 0; TS Panel B 0; TS Positive Control Passed; TSpotTB Negative (Negative)
== END 2021-05-08 06:13 | disposition home or self-care (01) ==
LOC: HO.HMGCLDS 06:12
PROVIDERS: PCP Nurse Practitioner Family; Visit Provider Nurse Practitioner Family
DX: Z00.00 Encounter for general adult medical examination without abnormal findings (principal); Z13.220 Encounter for screening for lipoid disorders; Z13.29 Encounter for screening for other suspected endocrine disorder; Z11.1 Encounter for screening for respiratory tuberculosis
CPT/HCPCS: 36415; 80053; 80061; 81003; 84443; 86481

== ENCOUNTER 2021-06-09 10:37 | Emergency (ER) | payer OTHER, SELFPAY ==
--- NOTE | ~2021-06-09 | XR_ITS ---
EXAMINATION: XR ribs LT min 3V w CXR1V CLINICAL INFORMATION: Reason for Exam left posterior rib pain s/p trauma COMPARISON: Chest radiograph 02/11/2021 TECHNIQUE: 3 views of the Left ribs. 1 view of the chest. XR/XR ribs LT min 3V w CXR1V FINDINGS/IMPRESSION: No displaced rib fracture. Please note that rib radiographs have low sensitivity for detection of rib fractures and if continued clinical concern CT chest is advised. Clear lungs. No pneumothorax. No pleural effusion. Normal cardiomediastinal silhouette. Right upper quadrant cholecystectomy clips.
[2021-06-09 10:51] VITALS: BP 132/82; PULSE 89; RESP 18; TEMP 36.8; O2SAT 100; BMI 22.8
--- NOTE | 2021-06-09 11:10 | PC.NURSE ---
Patient presented to ED with c/o rolling over right ankle in bouncy house obstacle house . Patient had own crutches used to transfer .Patient has been self treating with crow wrap , ibuprofen and ice . Wants to make sure nothing is broken .
--- NOTE | 2021-06-09 11:37 | ED.GENADULT ---
HPI - General Adult General Chief complaint: General Medical Stated complaint: l rib area inj at work Time Seen by Provider: 06/09/21 11:06 Source: patient Mode of arrival: ambulatory Limitations: no limitations History of Present Illness HPI narrative: 51 y/o female with history of +lupus anticoagulant on lovenox, hx portal vein thrombosis, asthma, recent admission her for iliopsoas hematoma who presents to the ER for evaluation of left posterior rib pain after she with hit in the back with a metal door from a med cart while at work yesterday morning. She reports some mild pain at the time. Last night she was able to sleep well because she is on muscle relaxers for her prior muscle hematoma. When she went to work this morning and was doing her regular duties there, including bending, lifting and twisting she had increased pain in her left middle back. She is worried about another intramuscular hematoma given she is on Lovenox. She denies any shortness of breath or chest pain. No hemoptysis. She denies any bruising or area of trauma on her back. MD complaint: Posterior rib pain on the left Onset (ago): day(s) (1) Location: back Radiation: non-radiation Severity: moderate Severity scale (1-10): 7 Quality: aching and sharp Pain Consistency: intermittent Relieving factors: rest Exacerbating factors: movement Associated symptoms: denies other symptoms Treatments prior to arrival: none Related Data Home Medications Medication Instructions Recorded Confirmed Bifidobacterium infantis 4 mg 4 mg PO DAILY 11/21/19 05/23/21 capsule (Align) albuterol sulfate 90 mcg/actuation 2 puff INHALATION Q6H PRN 11/21/19 05/23/21 aerosol inhaler (ProAir HFA) ipratropium bromide 0.02 % 2.5 ml INHALATION QID PRN 11/21/19 05/23/21 solution for inhalation multivitamin (Daily Multi-Vitamin) 1 tab PO DAILY 11/21/19 05/23/21 cyanocobalamin (vitamin B-12) 1 tab SUBLINGUAL DAILY 05/01/21 05/23/21 1,000 mcg sublingual tablet Previous Rx's Medication Instructions Recorded montelukast 10 mg tablet 10 mg PO BEDTIME #90 tab 05/15/20 famotidine 40 mg tablet 40 mg PO BEDTIME #90 tab 10/11/20 fluticasone propionate 50 2 spray INTRANASAL DAILY #48 ml 02/26/21 mcg/actuation nasal spray,suspension tiotropium bromide 2.5 2 puff PO DAILY #4 ml 03/08/21 mcg/actuation mist for inhalation (Spiriva Respimat) albuterol sulfate 2.5 mg (3 mL) INHALATION QID PRN 03/11/21 #90 ml lansoprazole 30 mg capsule,delayed 30 mg PO DAILY #90 cap 03/29/21 release ondansetron 8 mg disintegrating 8 mg PO Q8H PRN #30 tab 04/17/21 tablet buspirone 10 mg tablet 10 mg PO BID 90 Days #180 tab 04/18/21 budesonide-formoterol HFA 160 2 puff INHALATION Q12H 90 Days 04/24/21 mcg-4.5 mcg/actuation aerosol #10.2 g inhaler (Symbicort) enoxaparin 60 mg/0.6 mL 60 mg (0.6 mL) SUBCUT Q12H #60 ml 05/23/21 subcutaneous syringe atorvastatin 20 mg tablet 20 mg PO BEDTIME 90 Days #90 tab 05/29/21 cholecalciferol (vitamin D3) 50 50 mcg PO DAILY 90 Days #90 cap 05/29/21 mcg (2,000 unit) capsule cyclobenzaprine 5 mg tablet 5 mg PO DAILY PRN 4 Days #14 tab 05/29/21 amitriptyline 50 mg tablet 50 mg PO BEDTIME 90 Days #90 tab 06/05/21 Allergies Allergy/AdvReac Type Severity Reaction Status Date / Time Sulfa (Sulfonamide Allergy Severe ANAPHYLAXIS, Verified 05/23/21 09:10 Antibiotics) angioedema cefuroxime [From CEFTIN] Allergy Intermediate RASH Verified 05/23/21 09:10 metronidazole [From FLAGYL] Allergy Intermediate itch Verified 05/23/21 09:10 oxycodone [OXYCODONE] Allergy Intermediate ITCHY, Verified 05/23/21 09:10 itchiness, itching cefotetan Allergy Unknown rash Verified 05/23/21 09:10 sulfacetamide Allergy Unknown oral Verified 05/23/21 09:10 swelling, rash nitrofurantoin AdvReac Mild n/v Verified 05/23/21 09:10 [From MACROBID] Review of Systems Review of Systems: Constitutional: No Fever, No Chills Cardiovascular: No Chest Pain, No SOB Respiratory: No Cough, No Sputum, No Wheezing, No dyspnea Gastrointestinal: No Nausea, No Vomiting, No abdominal Pain Genitourinary: No Hematuria Musculoskeletal: No joint pain, + Myalgias Skin: No Skin Lesions, No rash Neuro: No Weakness, No Numbness, No Dizziness, No Headache Psych: + Anxiety/Panic, No Depression Heme/Lymph: No Bruising, No Lymphadenopathy PMFSH Past Medical History Medical History Carpal tunnel syndrome Encounter for screening for COVID-19 Immunizations incomplete Lupus Physical exam Portal vein thrombosis Right hand pain Right shoulder pain Right wrist pain Surgical History H/O left knee surgery H/O resection of small bowel History of esophagogastroduodenoscopy (EGD) History of shoulder surgery Hx of cholecystectomy Family History Family History Mother Multiple myeloma Father Bladder cancer Maternal Grandmother Lymphoma Maternal Grandfather Bone cancer Social History Social History Household Members: Significant Other Housing: Apartment Are you a primary career advisor to a significant other at home: No Do you presently have visiting nurse or other home services: No Alcohol intake: current Alcohol intake frequency: does not drink Patient Tobacco Use Status: Former Tobacco user Quit Date: 2006 Tobacco use type: Cigarette Cigarette Packs Per Day: 1 e-Cigarette/Vaping Use: Never Used Advance Directives: Yes Advance Directives on File: Yes Advance Directives Date on File: 05/02/21 Patient : No service: No 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al status: employed 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 Oriented X3. No acute distress. HEENT: normal external inspection Neck: Normal inspection. Neck supple. CVS: Normal heart rate and rhythm. Pulses normal. Respiratory: No respiratory distress. Breath sounds normal. Abdomen: Soft and nontender. +BS x4 Back: Normal inspection, no swelling, bruising, signs of trauma. Left lower posterior ribs with some generalized tenderness in the thoracic area without any point tenderness. Skin: Skin warm and dry. Normal skin color. Normal skin turgor. No rashes. Extremities: No lower extremity edema. Atraumatic x4 Neuro: Oriented X 3. Grossly normal, nonfocal Course Course Course Narrative: 51-year-old female presents to the ER for evaluation of left back, left posterior rib pain after minor trauma yesterday. On examination there is no swelling, hematoma, ecchymosis, point tenderness. She is concerned because she is on anticoagulation and had a recent intramuscular hematoma. Low clinical suspicion for pulmonary contusion, hematoma of the thoracic wall given there is no external evidence of this. Will get x-rays to assess for possible rib fracture. Reevaluation(s) Reevaluation #1: X-rays are negative, lungs are clear. At this time she is stable for discharge home with Tylenol, outpatient follow-up and light duty at work given pain. Stable for DC. Patient agrees with plan. Critical Care Time Critical Care Time Critical Care Time: No Discharge Plan Discharge Clinical Impression: Contusion of rib on left side Patient Disposition: Home, Self-Care Instructions: Rib Contusion (ED) Additional Instructions: Your x-ray today did not show any broken ribs Recommend icing the area several times per day Recommend Tylenol 1,000 mg every 6 hours as needed for pain Follow up with your PCP If you develop new or worsening symptoms call 911 or come back to the ER for further evaluation. Prescriptions: No Action montelukast 10 mg tablet 10 mg PO BEDTIME Qty: 90 3RF famotidine 40 mg tablet 40 mg PO BEDTIME Qty: 90 1RF fluticasone propionate 50 mcg/actuation spray,suspension 2 spray intranasal DAILY Qty: 48 1RF Spiriva Respimat 2.5 mcg/actuation mist 2 puff PO DAILY Qty: 4 2RF lansoprazole 30 mg capsule,delayed release(DR/EC) 30 mg PO DAILY Qty: 90 0RF ondansetron 8 mg tablet,disintegrating 8 mg PO Q8H PRN (Reason: for nausea/vomiting) Qty: 30 0RF buspirone 10 mg tablet 10 mg PO BID 90 Days Qty: 180 0RF budesonide-formoterol [Symbicort] 160-4.5 mcg/actuation HFA aerosol inhaler 2 puff inhalation Q12H 90 Days Qty: 10.2 4RF cholecalciferol (vitamin D3) 50 mcg (2,000 unit) capsule 50 mcg PO DAILY 90 Days Qty: 90 0RF atorvastatin 20 mg tablet 20 mg PO BEDTIME 90 Days Qty: 90 0RF cyclobenzaprine 5 mg tablet 5 mg PO DAILY PRN (Reason: muscle spasm) 4 Days Qty: 14 0RF amitriptyline 50 mg tablet 50 mg PO BEDTIME 90 Days Qty: 90 0RF enoxaparin 60 mg/0.6 mL Syringe 60 mg SUBCUT Q12H Qty: 60 3RF cyanocobalamin (vitamin B-12) 1,000 mcg tablet, sublingual 1 tab sublingual DAILY 0RF albuterol sulfate [ProAir HFA] 90 mcg/actuation HFA aerosol inhaler 2 puff inhalation Q6H PRN (Reason: Wheezing) 0RF ipratropium bromide 0.02 % solution 2.5 ml inhalation QID PRN (Reason: Wheezing) 0RF Align 4 mg capsule 4 mg PO DAILY 0RF multivitamin [Daily Multi-Vitamin] Tablet 1 tab PO DAILY 0RF albuterol sulfate 2.5 mg /3 mL (0.083 %) solution for nebulization 2.5 mg inhalation QID PRN (Reason: shortness of breath or wheezing) Qty: 90 0RF Referrals: Jamaal López, [employer] [Primary Care Provider] - (s/p left posterior rib/back injury) Stand Alone Forms: Work/School Release
[2021-06-09] MEDS: Lidocaine 4 % Patch ADH..PATCH 1 PATCH TRANSDERMA (12:33)
== END 2021-06-09 12:39 | disposition home or self-care (01) ==
PROVIDERS: Emergency Provider Emergency Medicine; PCP Nurse Practitioner Family
DX: S20.212A Contusion of left front wall of thorax, initial encounter (principal); R76.0 Raised antibody titer; J45.909 Unspecified asthma, uncomplicated; Z86.718 Personal history of other venous thrombosis and embolism; Z79.01 Long term (current) use of anticoagulants; W20.8XXA Other cause of strike by thrown, projected or falling object, initial encounter; Y93.9 Activity, unspecified; Y92.9 Unspecified place or not applicable; Y99.0 Civilian activity done for income or pay
CPT/HCPCS: 71101; 99283

== ENCOUNTER 2021-06-28 11:42 | Outpatient (REF) | payer OTHER, SELFPAY ==
[2021-07-01 04:04] LABS: HBS Num1 18.08 mIU/mL (0-7.99); ~Hepatitis B Surface Antibody REACTIVE (Nonreactive)
== END 2021-06-28 11:43 | disposition home or self-care (01) ==
LOC: HO.HMGCLDS 11:42
PROVIDERS: PCP Nurse Practitioner Family; Visit Provider Nurse Practitioner Family
DX: Z01.84 Encounter for antibody response examination (principal)
CPT/HCPCS: 36415; 86706

== ENCOUNTER 2021-08-02 07:35 | Outpatient (REF) | payer OTHER, SELFPAY ==
--- NOTE | ~2021-08-02 | CT_ITS ---
EXAMINATION: CT ABDOMEN AND PELVIS WITHOUT CONTRAST CLINICAL INFORMATION: Follow-up hematoma COMPARISON: Previous CT of the abdomen and pelvis April 2021 TECHNIQUE: Multidetector volumetric imaging was performed from the superior aspect of the liver through the pubic symphysis. Sagittal and coronal reformatted images were obtained on the technologist's workstation. This CT examination was performed using dose optimization techniques as appropriate, variously including the following: *Automated exposure control *Adjustment of mA and/or kV according to patient size (this includes techniques or standardized protocols for targeted exams where dose is matched to indication/reason for exam; i.e. extremities or head) *Use of iterative reconstruction technique DLP: 328 mGy-cm FINDINGS: LUNG BASES: The visualized lung bases are unremarkable. LIVER, GALLBLADDER, AND BILIARY TREE: The liver is normal in size, shape, and attenuation. No focal hepatic lesion or biliary ductal dilatation is present. The gallbladder has been removed. PANCREAS: Unremarkable. SPLEEN: Unremarkable. ADRENAL GLANDS: Unremarkable. KIDNEYS AND URETERS: There are small bilateral nonobstructing renal stones measuring 1 to 2 mm. BLADDER: Unremarkable. GASTROINTESTINAL TRACT: There is stool throughout the colon questionable for constipation. There are postsurgical changes to the small bowel. There is mild dilatation of the small bowel surgical anastomotic suture line. This is similar to previous. Small and large bowel are otherwise unremarkable. ABDOMINAL WALL: The previously identified left iliacus muscle hematoma is no longer seen. LYMPH NODES: Normal. VASCULAR: Unremarkable. PELVIC VISCERA: IUD in the uterus. OSSEOUS STRUCTURES: CT/CT abdomen pelvis wo con IMPRESSION: Resolved left iliacus muscle hematoma from April 2021. Small bilateral renal stones. Fleischner guidelines were followed.
== END 2021-08-02 07:36 | disposition home or self-care (01) ==
LOC: HO.CT 07:35
PROVIDERS: Visit Provider Internal Medicine
DX: S30.1XXD Contusion of abdominal wall, subsequent encounter (principal)
CPT/HCPCS: 74176

== ENCOUNTER → 2021-08-23 10:14 | Outpatient (BNVA) | payer OTHER, SELFPAY | PROVIDERS: PCP Nurse Practitioner Family; Referring Provider Nurse Practitioner Family; Visit Provider Internal Medicine Gastroenterology | DX: R10.9 Unspecified abdominal pain (principal) | CPT/HCPCS: 99212; Q3014 ==

== ENCOUNTER 2021-11-07 15:25 | Outpatient (REF) | payer MEDICAID, SELFPAY | END 2021-11-07 15:26 | disposition home or self-care (01) | LOC: HO.HAP 15:25 | PROVIDERS: Visit Provider Nurse Practitioner Family | DX: Z46.1 Encounter for fitting and adjustment of hearing aid (principal); H90.3 Sensorineural hearing loss, bilateral | CPT/HCPCS: V5267 ==

== ENCOUNTER 2022-02-05 07:57 | Outpatient (REF) | payer OTHER, SELFPAY ==
[2022-02-05 11:17] LABS: MANUAL DIFF FLAG NO
[2022-02-05 11:23] LABS: Basophils Percent Auto 0.5 % (0-2); Eosinophils Absolute Auto 0.3 X10*3/uL (0.0-0.4); Eosinophils Percent Auto 3.8 % (0-4); Hematocrit 40.5 % (37.0-47.0); Hemoglobin 13.5 g/dl (12.0-16.0); Imm Gran Abs Auto 0.02 X10*3/uL (0.00-0.03); Imm Gran Pct Auto 0.2 % (0.0-0.4); Lymphocytes Absolute Auto 3.1 X10*3/uL (1.2-4.9); Mean Corpuscular HGB Conc 33.3 g/dl (31.0-35.0); Mean Corpuscular Hemoglobin 32.3 pg (27.0-33.0); Mean Corpuscular Volume 96.9 fL (80.0-98.0); Mean Platelet Volume 12.2 fL (9.4-12.3); Monocytes Absolute Auto 0.9 X10*3/uL (0.1-1.2); Monocytes Percent Auto 9.9 % (2-11); Neutrophils Absolute Auto 4.5 x10*3/uL (2.0-8.3); Neutrophils Percent Auto 50.6 % (45-73); Platelet Count 236 X10*3/uL (160-400); Red Blood Count 4.18 X10*6/uL (4.20-5.50); Red Cell Distribution Width 13.5 % (11.0-16.0); White Blood Count 8.8 X10*3/uL (4.8-10.8)
[2022-02-05 11:51] LABS: Alanine Aminotransferase 17 U/L (0-31); Albumin Level 4.5 g/dL (3.5-5.0); Alkaline Phosphatase 75 U/L (39-117); Anion Gap 14 (12-20); Aspartate Amino Transferase 16 U/L (5-31); Bilirubin Total 0.3 mg/dL (0.0-1.0); Blood Urea Nitrogen 11 mg/dL (9-16); Calcium 10.1 mg/dL (8.4-10.2); Carbon Dioxide 26 mmol/L (22-29); Chloride 104 mmol/L (96-108); Estimated Glomerular Filt Rate > 60; Glucose Random 109 mg/dL (60-115); Magnesium 1.9 mg/dL (1.6-2.6); Potassium 5.1 mmol/L (3.3-5.1); Sodium 139 mmol/L (135-145); Total Protein 7.4 g/dL (6.5-8.0)
[2022-02-05 12:43] LABS: Vitamin B12 759 pg/mL (200-900)
== END 2022-02-05 07:58 | disposition home or self-care (01) ==
LOC: HO.HMGCLDS 07:57
PROVIDERS: PCP Nurse Practitioner Family; Visit Provider Nurse Practitioner Family
DX: M62.838 Other muscle spasm (principal)
CPT/HCPCS: 36415; 80053; 82607; 82746; 83735; 85025

== ENCOUNTER 2022-02-18 16:08 | Outpatient (REF) | payer OTHER, SELFPAY ==
[2022-02-21 02:19] LABS: TS Negative Control Passed; TS Panel A 0; TS Panel B 1; TS Positive Control Passed; TSpotTB Negative (Negative)
== END 2022-02-18 16:09 | disposition home or self-care (01) ==
LOC: HO.LAB 16:08
PROVIDERS: PCP Nurse Practitioner Family; Visit Provider Nurse Practitioner Family
DX: Z11.1 Encounter for screening for respiratory tuberculosis (principal)
CPT/HCPCS: 36415; 86481

== ENCOUNTER 2022-03-07 14:47 | Outpatient (REF) | payer OTHER, SELFPAY ==
--- NOTE | 2022-03-10 10:07 | MHC.AU.HA3 ---
Hearing Instrument Follow-Up- Binaural Date of Visit: 03/07/22 Right Ear: Lauri, , Color, Serial Number: Denisse Worthy [id number]-R, #[id number] Adoption Coordinator Repair Warranty: 02/06/2023 Adoption Coordinator Loss and Damage Warranty: 02/06/2023 Battery Size: Rechargeable Weight Yardage Checker/Slim Tube: 0 M Earmold/Dome/CShell/SlimTip:C-Shell Skeleton Type of Wax Guard: CeruSheild Dispensed By: [facility] Date of Fittin11/18/2019 Left Ear: Lauri, Model, Color, Serial Number: Denisse Worthy M70-R, #[id number] Adoption Coordinator Repair Warranty: 02/06/2023 Adoption Coordinator Loss and Damage Warranty: 02/06/2023 Battery Size: Rechargeable Weight Yardage Checker/Slim Tube: 0 M Earmold/Dome/CShell/SlimTip: C-Shell Skeleton Type of Wax Guard: CeruShield Dispensed By: [facility] Date of Fittin11/18/2019 Follow-Up Summary: Patient's hearing aids were dropped off in the afternoon on 03/07/22. They were inspected Thursday morning, 03/10/22. She reports the left side has unexpectedly shut off twice while she was wearing it, and the right side is not automatically turning back on . She has to put it back in the scrap charger and wiggle it around for it to turn back on. [facility] A replacement scrap charger was also requested. Recommendations: Patient will be contacted when materials have arrived. Diagnosis Code(s): Primary Diagnosis: H90.3 Bilateral Sensorineural Hearing Loss Signature: Provider: Erick Addison, CCC-A
== END 2022-03-07 14:48 | disposition home or self-care (01) ==
LOC: HO.HAP 14:47
PROVIDERS: Visit Provider Nurse Practitioner Family
DX: Z13.89 Encounter for screening for other disorder (principal)

== ENCOUNTER 2022-03-18 08:45 | Outpatient (REF) | payer OTHER, SELFPAY ==
[2022-03-19 07:51] LABS: HBS Num1 16.54 mIU/mL (0-7.99); HBc Num1 0.13 S/CO (0.00-0.79); Hepatitis A Antibody IgM 0.15 Index (0-0.79); Hepatitis B Core Antibody Nonreactive (Nonreactive); Hepatitis B Surface Antigen Negative (Negative); ~HepC Num1 0.23 S/CO (0.00-0.79); ~Hepatitis A Antibody IgM Nonreactive (Nonreactive); ~Hepatitis B Surface Antibody REACTIVE (Nonreactive); ~Hepatitis C Antibody Nonreactive (Nonreactive)
[2022-03-19 22:58] LABS: Rubeola IgG (Measles) <13.50 AU/mL; Varicella IgG Antibody >4000.00 index
[2022-03-20 20:38] LABS: TS Negative Control Passed; TS Panel A 1; TS Panel B 1; TS Positive Control Passed; TSpotTB Negative (Negative)
== END 2022-03-18 08:46 | disposition home or self-care (01) ==
LOC: HO.HMGCLDS 08:45
PROVIDERS: PCP Nurse Practitioner Family; Visit Provider Nurse Practitioner Family
DX: Z01.84 Encounter for antibody response examination (principal); Z11.1 Encounter for screening for respiratory tuberculosis
CPT/HCPCS: 36415; 86481; 86704; 86706; 86709; 86735; 86762; 86765; 86787; 86803; 87340

== ENCOUNTER 2022-03-21 12:34 | Outpatient (REF) | payer OTHER, SELFPAY | END 2022-03-21 12:35 | disposition home or self-care (01) | LOC: HO.HAP 12:34 | PROVIDERS: Visit Provider Nurse Practitioner Family | DX: Z13.89 Encounter for screening for other disorder (principal) ==

== ENCOUNTER → 2022-04-04 11:00 | Outpatient (BNVA) | payer OTHER, SELFPAY | PROVIDERS: PCP Nurse Practitioner Family; Visit Provider Internal Medicine Gastroenterology | DX: K31.9 Disease of stomach and duodenum, unspecified (principal); K58.9 Irritable bowel syndrome, unspecified; Z79.899 Other long term (current) drug therapy | CPT/HCPCS: 99212 ==

== ENCOUNTER 2022-06-11 06:54 | Outpatient (REF) | payer OTHER, SELFPAY ==
[2022-06-11 11:09] LABS: MANUAL DIFF FLAG NO
[2022-06-11 11:26] LABS: Appearance Urine Clear; Color Urine Yellow; Glucose Urine UA Negative (Negative); Leukocyte Esterase Urine Negative (Negative); Nitrite Urine Negative (Negative); Urine Blood Negative (Negative); Urine Ketones Negative (Negative); Urine Protein Negative (Neg-Trace)
[2022-06-11 11:28] LABS: Basophils Absolute Auto 0.1 X10*3/uL (0.0-0.2); Basophils Percent Auto 0.6 % (0-2); Eosinophils Absolute Auto 0.4 X10*3/uL (0.0-0.4); Eosinophils Percent Auto 3.8 % (0-4); Hematocrit 40.9 % (37.0-47.0); Hemoglobin 13.5 g/dl (12.0-16.0); Imm Gran Abs Auto 0.01 X10*3/uL (0.00-0.03); Imm Gran Pct Auto 0.1 % (0.0-0.4); Lymphocytes Absolute Auto 3.3 X10*3/uL (1.2-4.9); Mean Corpuscular Hemoglobin 31.6 pg (27.0-33.0); Mean Corpuscular Volume 95.8 fL (80.0-98.0); Monocytes Percent Auto 10.2 % (2-11); Neutrophils Absolute Auto 4.8 x10*3/uL (2.0-8.3); Neutrophils Percent Auto 50.3 % (45-73); Platelet Count 216 X10*3/uL (160-400); Red Blood Count 4.27 X10*6/uL (4.20-5.50); Red Cell Distribution Width 13.8 % (11.0-16.0); White Blood Count 9.5 X10*3/uL (4.8-10.8)
[2022-06-11 12:13] LABS: Alanine Aminotransferase 16 U/L (0-31); Albumin Level 4.3 g/dL (3.5-5.0); Alkaline Phosphatase 68 U/L (39-117); Anion Gap 10 (12-20); Aspartate Amino Transferase 19 U/L (5-31); Bilirubin Total 0.5 mg/dL (0.0-1.0); Blood Urea Nitrogen 12 mg/dL (9-16); Calcium 9.4 mg/dL (8.4-10.2); Carbon Dioxide 29 mmol/L (22-29); Chloride 108 mmol/L (96-108); Cholesterol 126 mg/dL; Estimated Glomerular Filt Rate > 60; Glucose Fasting 90 mg/dL (60-99); HDL Cholesterol 41 mg/dL; LDL Cholesterol Calculated 64 mg/dl; Sodium 142 mmol/L (135-145); TSH reflex Free T4 1.21 uIU/mL (0.32-4.0); Triglycerides 107 mg/dL
[2022-06-11 12:15] LABS: HIV AB/AG Nonreactive (Nonreactive); HIV Num 1 0.08 S/CO (0.00-0.99)
[2022-06-13 16:19] LABS: Absolute CD3 Count 2323 cells/uL (840-3060); Absolute CD4 Count 1179 cells/uL (490-1740); Absolute CD8 Count 1156 cells/uL (180-1170); Absolute Lymphocytes 3124 cells/uL (850-3900); CD4 CD8 Ratio 1.02 (0.86-5.00); Percent CD3 Cells 74 % (57-85); Percent CD4 Cells 38 % (30-61); Percent CD8 Cells 37 % (12-42)
== END 2022-06-11 06:55 | disposition home or self-care (01) ==
LOC: HO.HMGCLDS 06:54
PROVIDERS: Absent Provider Pediatrics; PCP Nurse Practitioner Family; Visit Provider Nurse Practitioner Family
DX: Z00.00 Encounter for general adult medical examination without abnormal findings (principal); Z11.4 Encounter for screening for human immunodeficiency virus [HIV]; Z91.09 Other allergy status, other than to drugs and biological substances
CPT/HCPCS: 36415; 80053; 80061; 81003; 84443; 85025; 86003; 86359; 86360; 87389

== ENCOUNTER → 2022-06-13 13:55 | Outpatient (BNVA) | payer OTHER, SELFPAY | PROVIDERS: PCP Nurse Practitioner Family; Visit Provider Orthopaedic Surgery | DX: M32.9 Systemic lupus erythematosus, unspecified (principal); R20.0 Anesthesia of skin; R20.2 Paresthesia of skin; Z98.890 Other specified postprocedural states | CPT/HCPCS: 99202 ==

== ENCOUNTER 2022-07-30 08:30 | Outpatient (REF) | payer OTHER, SELFPAY ==
--- NOTE | 2022-07-30 08:34 | EMG_ITS ---
Please see scanned EMG / Nerve Conduction Report. MTDD
== END 2022-07-30 08:31 | disposition home or self-care (01) ==
LOC: HO.NEURO 08:30
PROVIDERS: PCP Nurse Practitioner Family; Visit Provider Orthopaedic Surgery
DX: R20.0 Anesthesia of skin (principal); R20.2 Paresthesia of skin
CPT/HCPCS: 95885; 95910

== ENCOUNTER 2022-08-05 11:35 | Outpatient (REF) | payer OTHER, SELFPAY ==
--- NOTE | 2022-08-06 16:14 | MHC.AU.HA3 ---
Hearing Instrument Follow-Up- Binaural Date of Visit: 08/06/22 Right Ear: Model Lauri, Color, Serial Number: Denisse [id number] #[id number] Supervisor Grips Repair Warranty: 02/06/2023 Supervisor Grips Loss and Damage Warranty: 02/06/2023 Battery Size: Rechargeable Medical Grade Shoemaker/Slim Tube: 0 M Earmold/Dome/CShell/SlimTip:Small open dome Type of Wax Guard: CeruSheild Dispensed By: [facility] Date of Fittin11/18/2019 Left Ear: Lauri, , Color, Serial Number: Denisse [id number]-RToshia #[id number] Supervisor Grips Repair Warranty: 02/06/2023 Supervisor Grips Loss and Damage Warranty: 02/06/2023 Battery Size: Rechargeable Medical Grade Shoemaker/Slim Tube: 0 M Earmold/Dome/CShell/SlimTip: Small open dome Type of Wax Guard: CeruShield Dispensed By: [facility] Date of Fittin11/18/2019 Follow-Up Summary: Shawna dropped off both hearing aids, hemodialysis lab technician, and USB cord (no wall adapter) reporting that the hearing aids are not holding a charge. Fully charged hearing aids over night. Took off the hemodialysis lab technician at 8:45AM the next morning and let sit until 3:45PM. Connected to [employer] software and battery levels were still at 75% in both hearing aids. Spoke with Shawna who reported that she heard the battery warning signal after only 2 hours of use in her right hearing aid. She requested that the hearing aids and hemodialysis lab technician be sent for repair while they are still under warranty. Recommendations: Patient will be contacted when materials have arrived. Diagnosis Code(s): Primary Diagnosis: H90.3 Bilateral Sensorineural Hearing Loss Signature: Provider: Erick Hawley, [facility]
== END 2022-08-05 11:36 | disposition home or self-care (01) ==
LOC: HO.HAP 11:35
PROVIDERS: Visit Provider Nurse Practitioner Family
DX: Z13.89 Encounter for screening for other disorder (principal)

== ENCOUNTER 2022-08-15 14:01 | Outpatient (REF) | payer OTHER, SELFPAY | END 2022-08-15 14:02 | disposition home or self-care (01) | LOC: HO.HAP 14:01 | PROVIDERS: Visit Provider Nurse Practitioner Family | DX: Z13.89 Encounter for screening for other disorder (principal) ==

== ENCOUNTER 2022-09-03 09:29 | Outpatient (REF) | payer OTHER, MEDICAID, SELFPAY ==
--- NOTE | 2022-09-03 11:18 | MHC.AU.HA3 ---
Hearing Instrument Follow-Up- Binaural Date of Visit: 09/03/22 Right Ear: Lauri, Model, Color, Serial Number: Denisse Worthy M70-R SN: [id number] Color: Sand Beige Petroleum Inspector Supervisor Repair Warranty: 02/06/2023 Petroleum Inspector Supervisor Loss and Damage Warranty: 02/06/2023 Battery Size: Rechargeable Edi Architect/Slim Tube: 0 M Earmold/Dome/CShell/SlimTip:Small open dome Type of Wax Guard: CeruShield Dispensed By: [facility] Date of Fittin11/18/2019 Left Ear: Lauri, Model, Color, Serial Number: Denisse Worthy M70-R SN: [id number] Color: Sand Besuzette Petroleum Inspector Supervisor Repair Warranty: 02/06/2023 Petroleum Inspector Supervisor Loss and Damage Warranty: 02/06/2023 Battery Size: Rechargeable Edi Architect/Slim Tube: 0 M Earmold/Dome/CShell/SlimTip: Small open dome Type of Wax Guard: CeruShield Dispensed By: [facility] Date of Fittin11/18/2019 Follow-Up Summary: Hearing aids were cleaned and reprogrammed following updated audio (see separate report). Decreased to 90% gain level as Shawna reported that the hearing aids were too loud. She reported an intermittent static sound even before reprogramming - perhaps her hair on the microphones. Also cleaned and retubed her old Bolero [id number] slim tube hearing aids and reprogrammed at her request to have as back up. Shawna reported that she tends to prefer the physical fit and sound quality of her old hearing aids. Data logging of her new hearing aids showed about 6 hours of use per day. Encouraged more consistent use to re-acclimate to the hearing aids and discussed the balance between comfort and audibility. Shawna will trial new settings and call if she continues to have issues with the sound quality. Recommendations: Hearing instrument follow-up or maintenance as needed. Please contact our clinic with any questions or concerns. Patient will call if problems persist. Diagnosis Code(s): Primary Diagnosis: H90.3 Bilateral Sensorineural Hearing Loss Signature: Provider: Erick Hawley, [facility]
== END 2022-09-03 09:30 | disposition home or self-care (01) ==
LOC: HO.SH 09:29
PROVIDERS: Visit Provider Nurse Practitioner Family
DX: Z01.118 Encounter for examination of ears and hearing with other abnormal findings (principal); H90.3 Sensorineural hearing loss, bilateral
CPT/HCPCS: 92557; 92567

== ENCOUNTER 2022-09-19 08:36 | Outpatient (REF) | payer OTHER, MEDICAID, SELFPAY | END 2022-09-19 08:37 | disposition home or self-care (01) | LOC: HO.HAP 08:36 | PROVIDERS: Visit Provider Nurse Practitioner Family | DX: Z13.89 Encounter for screening for other disorder (principal) ==

== ENCOUNTER 2022-09-21 22:24 | Emergency (ER) | payer OTHER, MEDICAID, SELFPAY ==
[2022-09-21 22:32] VITALS: BP 142/88; PULSE 108; RESP 18; TEMP 36; O2SAT 98; BMI 26.4
--- NOTE | 2022-09-21 23:11 | ED_ITS ---
HPI - Asthma General Chief Complaint: Asthma Stated Complaint: asthma Time Seen by Provider: 09/21/22 23:10 Source: patient Mode of arrival: ambulatory Limitations: no limitations History of Present Illness HPI Narrative: Patient is a 52 year old assigned female at with a history of asthma presenting to the emergency department today with an asthma exacerbation. Patient states that she did some intense cardio at work and is now having an asthma exacerbation. Patient denies any dizziness, lightheadedness, abdominal pain, nausea, vomiting, fever, chills, blurry vision, double vision, loss of vision, chest pain, difficulty breathing, shortness of breath, back pain, night sweats, pain with urination, increased urinary frequency, increased urinary urgency, blood in her urine or stool, syncope or a near syncopal episode, recent trauma or falls, bowel incontinence, bladder incontinence, bowel retention, bladder retention, or any other complaints at this time. MD complaint: asthma attack and wheezing Severity: mild Context: exercise Related Data Current Asthma Therapy: inhaled bronchodilator Home Medications Medication Instructions Recorded Confirmed ipratropium bromide 0.02 % 2.5 ml inhalation QID PRN Wheezing 11/21/19 08/25/22 solution for inhalation epinephrine 0.3 mg/0.3 mL 0.3 mg IM DIRECTED allergies 05/28/22 08/25/22 injection, auto-injector Previous Rx's Medication Instructions Recorded lidocaine 5 % topical patch 2 patch topical DAILY PRN pain #30 10/09/21 (Lidoderm) ea montelukast 10 mg tablet 10 mg PO BEDTIME #90 tabs 10/09/21 fluticasone propionate 50 2 spray intranasal DAILY #48 mL 10/14/21 mcg/actuation nasal spray,suspension bcnvuozsro-xzkpmfeqrytlm-vnlnrskz 1 cap PO DAILY PRN severe headache 12/08/21 50 mg-300 mg-40 mg capsule 5 days #5 caps (Fioricet) Bifidobacterium infantis 4 mg 4 mg PO BEDTIME 90 days #90 caps 01/27/22 capsule (Align) famotidine 40 mg tablet 40 mg PO BEDTIME #90 tabs 04/04/22 hyoscyamine sulfate 0.125 mg 0.125 mg PO BID-QID for 04/04/22 disintegrating tablet indigestion #90 tabs lansoprazole 30 mg capsule,delayed 30 mg PO DAILY #90 caps 04/04/22 release ondansetron 8 mg disintegrating 8 mg PO Q8H PRN for 04/04/22 tablet nausea/vomiting #30 tabs tiotropium bromide 2.5 2 puff PO DAILY #4 grams 05/15/22 mcg/actuation mist for inhalation (Spiriva Respimat) cyclobenzaprine 5 mg tablet 5 mg PO DAILY PRN muscle spasm 4 06/04/22 days #14 tabs cholecalciferol (vitamin D3) 50 50 mcg PO DAILY 90 days #90 caps 06/14/22 mcg (2,000 unit) capsule cyanocobalamin (vitamin B-12) 1,000 mcg sublingual DAILY #90 tabs 06/18/22 1,000 mcg sublingual tablet multivitamin (Daily Multi-Vitamin 1 tab PO DAILY #90 tabs 06/18/22 tablet) buspirone 15 mg tablet 15 mg PO BID 90 days #180 tabs 06/20/22 albuterol sulfate 2.5 mg/3 mL 2.5 mg (3 mL) inhalation QID PRN 07/04/22 (0.083 %) solution for nebulization shortness of breath or wheezing #90 mL albuterol sulfate 90 mcg/actuation 2 puff inhalation Q6H PRN Wheezing 07/04/22 aerosol inhaler (ProAir HFA) #8.5 grams atorvastatin 20 mg tablet 20 mg PO BEDTIME #90 tabs 07/04/22 budesonide-formoterol HFA 160 2 puff inhalation Q12H 90 days 08/07/22 mcg-4.5 mcg/actuation aerosol #10.2 grams inhaler (Symbicort) nystatin 100,000 unit/gram topical 1 appl topical DAILY #60 grams 08/19/22 powder apixaban 5 mg tablet (Eliquis) 5 mg PO BID #60 tabs 08/25/22 amitriptyline 50 mg tablet 50 mg PO BEDTIME 90 days #90 tabs 09/17/22 prednisone 20 mg tablet 20 mg PO DAILY 7 days #7 tabs 09/21/22 Allergies Allergy/AdvReac Type Severity Reaction Status Date / Time Sulfa (Sulfonamide Allergy Severe ANAPHYLAXIS, Verified 09/21/22 22:31 Antibiotics) angioedema cefuroxime [From CEFTIN] Allergy Intermediate RASH Verified 09/21/22 22:31 metronidazole [From FLAGYL] Allergy Intermediate itch Verified 09/21/22 22:31 cefotetan Allergy Unknown rash Verified 09/21/22 22:31 sulfacetamide Allergy Unknown oral Verified 09/21/22 22:31 swelling, rash oxycodone [From OxyContin] Allergy Itching Verified 09/21/22 22:31 nitrofurantoin AdvReac Mild n/v Verified 09/21/22 22:31 [From MACROBID] Review of Systems Constitutional: Constitutional: Reports no additional constitutional complaints, Denies chills, Denies fever(s) and Denies night sweats Eyes: Eyes: Reports no additional eye complaints, Denies blurry vision, Denies change in vision, Denies diplopia, Denies eye discharge, Denies loss of vision and Denies eye pain ENT: Denies dizziness Cardiovascular: Cardiovascular: Reports no additional cardiovascular complaints, Denies chest pain, Denies lightheadedness, Denies Loss of Consciousness and Denies dyspnea Respiratory: Respiratory: Reports no additional respiratory complaints, Denies dyspnea and Reports wheezing Gastrointestinal: Gastrointestinal: Reports no additional gastrointestinal complaints, Denies abdominal pain, Denies melena, Denies hematochezia, Denies change in bowel habits and Denies change in stool character Genitourinary: Genitourinary: Denies hematuria, Denies urinary frequency, Denies dysuria, Denies urinary incontinence, Denies urinary hesitancy and Denies urinary urgency Musculoskeletal: Musculoskeletal: Reports no additional musculoskeletal complaints, Denies numbness and Denies tingling Neurologic: Denies dizziness, Denies loss of vision, Denies numbness and Denies tingling Psychiatric: Psychiatric: Reports no additional psychiatric complaints Endocrine: Endocrine: Reports no additional endocrine complaints Hematologic/Lymphatic: Hematologic/Lymphatic: Reports no additional hematologic/lymphatic complaints Allergic/Immunologic: Allergic/Immunologic: Reports no additional allergic/immunologic complaints and Reports wheezing PMFSH Past Medical History Attestation statement: The following information was validated with the patient. Source: old records reviewed and nursing notes reviewed Medical History Carpal tunnel syndrome Encounter for screening for COVID-19 Immunizations incomplete Lupus Lupus Physical exam Portal vein thrombosis Right hand pain Right shoulder pain Right wrist pain Surgical History H/O left knee surgery H/O resection of small bowel History of esophagogastroduodenoscopy (EGD) History of shoulder surgery Hx of cholecystectomy Hx of colonoscopy Family History Family History Mother Multiple myeloma Mental health disorder Father Bladder cancer Maternal Grandmother Lymphoma Maternal Grandfather Bone cancer Social History Social History Household Members: Significant Other Housing: Apartment Are you a primary care management associate to a significant other at home: No Do you presently have visiting nurse or other home services: No Alcohol intake: current Alcohol intake frequency: does not drink Patient Tobacco Use Status: Former Tobacco user Quit Date: 2006 Tobacco use type: Cigarette Cigarette Packs Per Day: 1 e-Cigarette/Vaping Use: Never Used Second Hand Smoke Exposure: Yes Advance Directives: Yes Advance Directives on File: Yes Advance Directives Date on File: 05/02/21 service: No 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al status: employed 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/ [employer] 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) Cognitive needs: No Hearing needs: No Vision needs: No Physical Exam Vital Signs: Vital Signs: Last Vital Signs Temp 96.8 F 09/21/22 22:32 Pulse 120 H 09/21/22 23:21 Resp 18 09/21/22 23:21 BP 142/88 H 09/21/22 22:32 Pulse Ox 98 09/21/22 22:32 O2 Del Method Room Air 09/21/22 22:32 BMI result Body Mass Index 26.4 Const: General: cooperative, no acute distress, alert and awake Nutritional Appearance: well nourished Orientation/consciousness: patient oriented x3 Limitations: no limitations HEENT: Head: Yes normal to inspection and Yes atraumatic Ears: hearing grossly normal bilaterally and external ears normal General nose exam: Normal external nose present, no nasal discharge noted and no epistaxis Face and sinus: Yes normal facial exam, No abrasion and No laceration Mouth: Normal oral and palatal mucosa present, no drooling and no muffled voice Eyes: General: appearance normal, both eyes and all related structures Periorbital: periorbital findings normal Eyelids: Yes eyelids normal Conjunctivae: conjunctivae normal Pupils: Equal, round and reactive pupils present EOM: EOMs intact bilaterally Neck: Neck: Yes normal visual inspection, Yes full ROM and Yes no lymphadenopathy Chest: Chest palpation & inspection: normal inspection of the chest Resp: Effort & Inspection: normal respiratory effort and able to speak in complete sentences Auscultation: wheezes scattered wheezes and throughout Cardio: Rate: regular rate Rhythm: regular rhythm GI: Inspection: Yes normal to inspection Palpation (GI): Soft to palpation, not firm, nontender and no guarding Neuro: General: patient oriented x3 and moves all extremities Cranial nerves: Yes Equal, round and reactive pupils present Cognition (Neuro): normal cognition Motor exam (neuro): 5/5 motor strength present throughout Sensory Exam: Normal double simultaneous stimulation for sensation Coordination: [id number]-[id number]-epdp test normal Extrem: General: Yes normal to inspection, Yes full ROM and Yes capillary refill normal Psych: Appearance: grossly normal Mental Status: mental status grossly normal Affect: normal affect Attitude: cooperative Thought process: Normal thought process present Thought content: Normal thought content present Insight: Good insight present (Psych) Medications Administered Discontinued Medications Generic Name Dose Route Start Last Admin Trade Name Rasheeda PRN Reason Stop Dose Admin Albuterol Sulfate 7.5 mg/ 0 mg 09/21/22 23:08 09/21/22 23:24 Albuterol/Ipratropium 3 ml INHALE 09/21/22 23:09 7.5 each ONCE ONE Administration Methylprednisolone Sodium Succinate 60 mg 09/21/22 23:08 09/21/22 23:16 Methylprednisolone Sod Succ 125 Mg/2 Ml Vial IM 09/21/22 23:09 60 mg ONCE ONE Administration Medical Decision Making Medical Decision Making MDM Narrative: Patient is a 52 year old assigned female at with a history of asthma presenting to the emergency department today with an asthma exacerbation. Patient's physical exam was as noted in the physical exam portion of this note. I explained my physical exam findings to the patient. I answered all questions asked by the patient. Patient received a breathing treatment and IM Solu-medrol which she stated helped her symptoms significantly. I stressed the importance of the patient taking her medication as prescribed. I stressed the importance of the patient following up with her primary care provider. I stressed the importance of the patient returning to the emergency department immediately if her symptoms were to worsen or if she were to develop any dizziness, shortness of breath, difficulty breathing, chest pain, blurry vision, loss of vision, nausea, vomiting, abdominal pain, fever, chills, back pain, or any other complaints. Patient verbalized agreement and understanding with this treatment plan and discharge. Differential Diagnosis Differential Diagnoses: The differential diagnosis associated with the presentation includes Asthma Wheezing Prescription Management I considered prescription management with: Other (patient prescribed prednisone) Chronic Conditions Patient?s care impacted by: Other (asthma) Discharge Plan Discharge Clinical Impression: Asthma exacerbation Patient Disposition: Home, Self-Care Instructions: Asthma (DC) Additional Instructions: Follow up with your primary care provider. Return to the emergency department immediately if your symptoms worsen or if you develop any dizziness, shortness of breath, difficulty breathing, chest pain, blurry vision, loss of vision, nausea, vomiting, abdominal pain, fever, chills, back pain, or any other complaints. Prescriptions: New prednisone 20 mg tablet 20 mg PO DAILY 7 Days Qty: 7 0RF No Action lidocaine [Lidoderm] 5 % adhesive patch,medicated 2 patch topical DAILY PRN (Reason: pain) Qty: 30 0RF Rx Instructions: leave on most painful area for up to 12 hrs montelukast 10 mg tablet 10 mg PO BEDTIME Qty: 90 3RF fluticasone propionate 50 mcg/actuation spray,suspension 2 spray intranasal DAILY Qty: 48 1RF pvmhoqajsq-rbaxzygsllpka-hsgt [Fioricet] 50-300-40 mg capsule 1 cap PO DAILY PRN (Reason: severe headache) 5 Days Qty: 5 0RF Align 4 mg capsule 4 mg PO BEDTIME 90 Days Qty: 90 0RF Spiriva Respimat 2.5 mcg/actuation mist 2 puff PO DAILY Qty: 4 5RF cyclobenzaprine 5 mg tablet 5 mg PO DAILY PRN (Reason: muscle spasm) 4 Days Qty: 14 0RF cholecalciferol (vitamin D3) 50 mcg (2,000 unit) capsule 50 mcg PO DAILY 90 Days Qty: 90 0RF multivitamin [Daily Multi-Vitamin] Tablet 1 tab PO DAILY Qty: 90 1RF cyanocobalamin (vitamin B-12) 1,000 mcg tablet, sublingual 1,000 mcg sublingual DAILY Qty: 90 1RF buspirone 15 mg tablet 15 mg PO BID 90 Days Qty: 180 1RF atorvastatin 20 mg tablet 20 mg PO BEDTIME Qty: 90 1RF albuterol sulfate [ProAir HFA] 90 mcg/actuation HFA aerosol inhaler 2 puff inhalation Q6H PRN (Reason: Wheezing) Qty: 8.5 0RF albuterol sulfate 2.5 mg /3 mL (0.083 %) solution for nebulization 2.5 mg inhalation QID PRN (Reason: shortness of breath or wheezing) Qty: 90 0RF budesonide-formoterol [Symbicort] 160-4.5 mcg/actuation HFA aerosol inhaler 2 puff inhalation Q12H 90 Days Qty: 10.2 4RF nystatin 100,000 unit/gram powder 1 appl topical DAILY Qty: 60 1RF amitriptyline 50 mg tablet 50 mg PO BEDTIME 90 Days Qty: 90 1RF Eliquis 5 mg Tablet 5 mg PO BID Qty: 60 6RF ipratropium bromide 0.02 % solution 2.5 ml inhalation QID PRN (Reason: Wheezing) epinephrine 0.3 mg/0.3 mL auto-injector 0.3 mg IM DIRECTED lansoprazole 30 mg capsule,delayed release(DR/EC) 30 mg PO DAILY Qty: 90 2RF ondansetron 8 mg tablet,disintegrating 8 mg PO Q8H PRN (Reason: for nausea/vomiting) Qty: 30 0RF famotidine 40 mg tablet 40 mg PO BEDTIME Qty: 90 1RF hyoscyamine sulfate 0.125 mg tablet,disintegrating 0.125 mg PO BID-QID Qty: 90 1RF Referrals: Jamaal López, [facility] [Primary Care Provider] - Stand Alone Forms: Work/School Release Interventions: ED Discharge Assessment Last Done: 09/21/22 23:41 Discharge Date/Time: 09/22/22 00:08 Print Language: Danish
[2022-09-21] MEDS: methylPREDNISolone Sod Succ 125 MG/2 ML VIAL 60 MG IM (23:16)
--- NOTE | 2022-09-21 23:20 | PC.NURSE ---
pt brought back into room reporting worsening sob/audible wheezing, medicated per APR, resp at bedside for breathing treatment.
[2022-09-21 23:21] VITALS: PULSE 120; RESP 18; O2SAT 96
[2022-09-21] MEDS: Albuterol Sulfate 7.5 MG, Albuterol/Iprat 2.5/0.5MG 3 ML 3 ML INHALE (23:24)
== END 2022-09-22 00:08 | disposition home or self-care (01) ==
PROVIDERS: Emergency Provider Internal Medicine; PCP Nurse Practitioner Family
DX: J45.901 Unspecified asthma with (acute) exacerbation (principal); Z87.891 Personal history of nicotine dependence; Z79.899 Other long term (current) drug therapy
CPT/HCPCS: 94640; 96372; 99283; 99284; J2930

== ENCOUNTER 2022-09-23 07:34 | Outpatient (AMB) | payer OTHER, MEDICAID, SELFPAY ==
--- NOTE | 2022-09-23 07:18 | MHC.PC.OV ---
Intake Visit Reasons: Asthma exacerbation~ Android [phone] Allergies Sulfa (Sulfonamide Antibiotics) Allergy (Severe, Verified 09/21/22 22:31) ANAPHYLAXIS, angioedema cefuroxime [From CEFTIN] Allergy (Intermediate, Verified 09/21/22 22:31) RASH metronidazole [From FLAGYL] Allergy (Intermediate, Verified 09/21/22 22:31) itch cefotetan Allergy (Unknown, Verified 09/21/22 22:31) rash sulfacetamide Allergy (Unknown, Verified 09/21/22 22:31) oral swelling, rash oxycodone [From OxyContin] Allergy (Verified 09/21/22 22:31) Itching nitrofurantoin [From MACROBID] Adverse Reaction (Mild, Verified 09/21/22 22:31) n/v Tobacco use date assessed: 05/28/22 HPI Asthma exacerbation~ Android [phone] HPI Details Pt was seen in the ER on 09/21 with an asthma exacerbation. She was exerting herself at work when she had an asthma attack. Pt was given a breathing treatment and solu-medrol which helped. Pt was d/c with prednisone for 7 days. Pt reports ongoing cough but states that her breathing is doing well. She will let me know how she is feeling when she finished the prednisone. Denies chest pain, shortness of breath, and dizziness. [facility] Medical History Carpal tunnel syndrome Encounter for screening for COVID-19 Immunizations incomplete Lupus Lupus Physical exam Portal vein thrombosis Right hand pain Right shoulder pain Right wrist pain Surgical History H/O left knee surgery H/O resection of small bowel History of esophagogastroduodenoscopy (EGD) History of shoulder surgery Hx of cholecystectomy Hx of colonoscopy Family History Mother Multiple myeloma Mental health disorder Father Bladder cancer Maternal Grandmother Lymphoma Maternal Grandfather Bone cancer Social History Household Members: Significant Other Housing: Apartment Are you a primary career based intervention coordinator to a significant other at home: No Do you presently have visiting nurse or other home services: No Alcohol intake: current Alcohol intake frequency: does not drink Patient Tobacco Use Status: Former Tobacco user Quit Date: 2006 Tobacco use type: Cigarette Cigarette Packs Per Day: 1 e-Cigarette/Vaping Use: Never Used Second Hand Smoke Exposure: Yes Advance Directives Date on File: 05/02/21 service: No 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al status: employed 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 Tyler Jordan, Ying Juárez, Marito Gutierrez and colleagues, with an educational angela from [employer]. Review of Systems Const Reports as per HPI Physical exam (Primary Care) Tobacco/Smoking Status: Tobacco use Status Tobacco use date assessed 05/28/22 09/23/22 07:23 Patient Tobacco Use Status Former Tobacco user 09/23/22 07:23 Tobacco use type Cigarette 09/23/22 07:23 e-Cigarette/Vaping Use Never Used 09/23/22 07:23 Thrive Assessment: Date of Thrive Assessment Date Thrive assessed 03/11/21 09/23/22 07:23 Const General: cooperative Orientation/consciousness: patient oriented x3 Neuro General: patient oriented x3 Psych Appearance: grossly normal Mental Status: mental status grossly normal Speech and movement: Clear speech present Affect: normal affect Attitude: cooperative Thought process: Normal thought process present Thought content: Normal thought content present Insight: Good insight present (Psych) Judgement: Good judgement present (Psych) Telehealth Telehealth Location of provider rendering services: practice address Location of patient: address on file Patient Identification confirmed using: Name, : Yes Telehealth method: video Patient verbally consented to treatment: Yes Patient verbally consented to billing insurance company: Yes Patient informed of any privacy concerns related to visit: Yes Minutes spent on Phone/Video with Pt.: 10 Assessment and Plan Assessment & Plan (1) Asthma exacerbation: Code(s): J45.901 - Unspecified asthma with (acute) exacerbation Plan The patient agreed to the use of a medical i d sales for this encounter. Scribed for LYN Carbajal by Ami Horner medical i d sales, on 09/23/2022 at 07:15 EST. Medications: Discontinued apixaban 5 mg PO BID 60 tabs 6RF Coding Level of Care Code Tele Est Pt Level 3 (97120) Diagnoses Asthma exacerbation J45.901
== END 2022-09-23 13:44 | disposition home or self-care (01) ==
LOC: HO.HMGC 07:34
PROVIDERS: PCP Nurse Practitioner Family; Visit Provider Nurse Practitioner Family
DX: J45.901 Unspecified asthma with (acute) exacerbation (principal)
CPT/HCPCS: 99213

== ENCOUNTER 2022-10-07 10:29 | Outpatient (REF) | payer OTHER, MEDICAID, SELFPAY | END 2022-10-07 10:30 | disposition home or self-care (01) | LOC: HO.HAP 10:29 | PROVIDERS: Visit Provider Nurse Practitioner Family | DX: Z13.89 Encounter for screening for other disorder (principal) ==

== ENCOUNTER 2022-10-16 11:06 | Outpatient (REF) | payer OTHER, MEDICAID, SELFPAY ==
--- NOTE | 2022-10-16 12:52 | MHC.AU.HA3 ---
Hearing Instrument Follow-Up- Binaural Date of Visit: 10/16/22 Right Ear: Model Lauri, Color, Serial Number: Denisse Worthy [id number] SN: [id number] Color: Sand Beige Insurance Verify Rep Repair Warranty: 02/06/2023 Insurance Verify Rep Loss and Damage Warranty: 02/06/2023 Battery Size: Rechargeable Pants Busheler/Slim Tube: 0 M Earmold/Dome/CShell/SlimTip:Small open dome Type of Wax Guard: CeruSheild Dispensed By: [facility] Date of Fittin11/18/2019 Left Ear: Lauri, , Color, Serial Number: Denisse Worthy [id number] SN: [id number] Color: Toshia Besuzette Insurance Verify Rep Repair Warranty: 02/06/2023 Insurance Verify Rep Loss and Damage Warranty: 02/06/2023 Battery Size: Rechargeable Pants Busheler/Slim Tube: 0 M Earmold/Dome/CShell/SlimTip: Small open dome Type of Wax Guard: CeruShield Dispensed By: [facility] Date of Fittin11/18/2019 Follow-Up Summary: Shawna reported that she has been getting excessive feedback from her newer hearing aids, especially when she places her hand on her head. Minimal feedback in office; however, reran feedback billing services manager. Following feedback test, no feedback noted even with hand close to ear. Shawna also reported that the hearing aids seem to be intermittent - the sound appears to cut out as if she was connected/streaming via bluetooth. Could not replicate in office. Shawna will try again and if the problem persists, she will drop the hearing aids off to be sent to the pump servicer supervisor for an in-warranty repair. Otherwise, she will drop them off at end of Dec/beginning of Jan to be sent to the pump servicer supervisor for a full clean and check prior to warranty expiring. Shawna also reported that programming changes to her old hearing aids have not been helpful and she prefers the old settings. Restored settings from December 2019. Shawna was happier with overall sound quality. Changed notification beeps to medium frequency so Shawna can better identify the volume neutral and volume change notifications. Recommendations: Hearing instrument follow-up or maintenance as needed. Diagnosis Code(s): Primary Diagnosis: H90.3 Bilateral Sensorineural Hearing Loss Signature: Provider: Erick Hawley, [facility]
== END 2022-10-16 11:07 | disposition home or self-care (01) ==
LOC: HO.HAP 11:06
PROVIDERS: Visit Provider Nurse Practitioner Family
DX: Z13.89 Encounter for screening for other disorder (principal)

== ENCOUNTER 2022-10-30 08:08 | Outpatient (REF) | payer OTHER, MEDICAID, SELFPAY ==
[2022-11-04 21:08] LABS: HPV mRNA E6/E7 rflx Not Detected (Not Detected)
== END 2022-10-30 08:09 | disposition home or self-care (01) ==
LOC: HO.LNP 08:08
PROVIDERS: PCP Nurse Practitioner Family; Visit Provider Advanced Practice Midwife
DX: Z01.419 Encounter for gynecological examination (general) (routine) without abnormal findings (principal); Z11.51 Encounter for screening for human papillomavirus (HPV)
CPT/HCPCS: 87624; 88142

== ENCOUNTER 2022-10-30 08:08 | Outpatient (AMB) | payer OTHER, MEDICAID, SELFPAY ==
--- NOTE | 2022-10-30 08:14 | A.OFFVIS_ITS ---
Intake Vital Signs 10/30/22 08:20 Height 5 ft 5 in Weight 166 lb BMI 27.6 BP 100/66 Intake Visit Reasons: [employer] annual exam Intake Note: The patient agreed to use of a medical record transcriber during this encounter. Scribed for DRE Chase by Grisel Couch medical record transcriber, on 10/30/2022 at 8:39 am EST. Engineering Inspection Assistant: Engineering Inspection Assistant Present (Christina) Allergies Sulfa (Sulfonamide Antibiotics) Allergy (Severe, Verified 10/30/22 08:20) ANAPHYLAXIS, angioedema cefuroxime [From CEFTIN] Allergy (Intermediate, Verified 10/30/22 08:20) RASH metronidazole [From FLAGYL] Allergy (Intermediate, Verified 10/30/22 08:20) itch cefotetan Allergy (Unknown, Verified 10/30/22 08:20) rash sulfacetamide Allergy (Unknown, Verified 10/30/22 08:20) oral swelling, rash oxycodone [From OxyContin] Allergy (Verified 10/30/22 08:20) Itching nitrofurantoin [From MACROBID] Adverse Reaction (Mild, Verified 10/30/22 08:20) n/v Post menopausal: Yes HPI HPI Comments History of Present Illness Details She is a perimenopausal woman presenting for annual exam. Patient admits she tries to eat a healthy diet including Calcium and Vitamin D supplements. She stays active with exercise. She has concerns of when she would start menopause and admits to hot flashes. Currently sexually active. Uses Mirena IUD for BC, is uncertain it was inserted in 2019 and has questions of longevity of IUD. Denies vaginal itching and irritation. STD screening offered; she declines. Denies family hx of breast, colon and ovarian cancer. Last pap smear 12/27/20. Last mammogram 01/17/22. UTD on colonoscopy. [facility] Medical History H/O abnormal cervical Papanicolaou smear [place]-menopausal control counseling Migraine with aura Portal vein thrombosis Lupus Right shoulder pain Immunizations incomplete Encounter for screening for COVID-19 Physical exam Lupus Carpal tunnel syndrome Right hand pain Right wrist pain Surgical History Hx of colonoscopy H/O resection of small bowel History of esophagogastroduodenoscopy (EGD) History of shoulder surgery H/O left knee surgery Hx of cholecystectomy Family History Mother Multiple myeloma Mental health disorder Father Bladder cancer Maternal Grandmother Lymphoma Maternal Grandfather Bone cancer Social History Household Members: Significant Other Housing: Apartment Are you a primary urgent care nurse practitioner to a significant other at home: No Do you presently have visiting nurse or other home services: No Alcohol intake: current Alcohol intake frequency: does not drink Patient Tobacco Use Status: Former Tobacco user Quit Date: 2006 Tobacco use type: Cigarette Cigarette Packs Per Day: 1 e-Cigarette/Vaping Use: Never Used Second Hand Smoke Exposure: Yes Advance Directives Date on File: 05/02/21 service: No 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al status: employed 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) Sexual orientation: Straight/Heterosexual Gender identity: Female Cognitive needs: No Hearing needs: No Vision needs: No Female Reproductive History Menstrual control method: progestin IUCD (Mirena 08/05/2018; IUD strings visible 10/30/22) Menopause type: natural Total pregnancies: 0 Date of last pap smear: 12/27/20 ([place]) History of abnormal pap smear: Yes (04/25 lgsil +hpv 09/25 colpo 12/30 ascus 01/29 colpo) Date of Mammogram: 01/17/22 Physical Exam Vital Signs: Last Vital Signs BP 100/66 10/30/22 08:20 BMI result Body Mass Index 27.6 Const General: cooperative, healthy appearing, no acute distress, well developed and alert Orientation/consciousness: patient oriented x3 HEENT Head: Yes normal to inspection Eyes General: appearance normal, both eyes and all related structures Neck Neck: Yes normal visual inspection Thyroid: Thyroid normal Chest Chest palpation & inspection: normal inspection of the chest Breast/axilla inspection: normal inspection of the breasts (no puckering, dimpling, peau de orange, retraction, discharge, masses) Breast/axilla palpation: normal palpation of the breasts Resp Effort & Inspection: normal respiratory effort GI Inspection: Yes normal to inspection Palpation (GI): Soft to palpation (to palpation) Rectal Exam - Female: deferred General: Yes bladder normal to inspection External Female Exam: normal external appearance and normal appearance of the urethra Speculum Exam - Vagina: normal appearance of the vagina, normal palpation and normal vaginal discharge Speculum Exam - Cervix: normal appearance of the cervix, normal palpation and Other cervical findings present (IUD strings visible) Bimanual exam- vagina & uterus: normal palpation and normal palpation Bimanual Exam- Adnexa, other: normal adnexae and no masses Skin General skin exam: no rashes or lesions noted Neuro General: patient oriented x3 Cognition (Neuro): normal cognition Extrem General: Yes normal to inspection Psych Attitude: cooperative Thought process: Normal thought process present Assessment & Plan Assessment & Plan (1) Encounter for well woman exam: Code(s): Z01.419 - Encounter for gynecological examination (general) (routine) without abnormal findings Plan: Discussed: Current recommendations for pap smears per ASCCP guidelines. Breast awareness and periodic self breast exams. Mammogram ordered. Maintaining a healthy lifestyle including a well balanced diet and routine exercise. Counseled about avoiding second hand smoke and risks for second hand smoking. All of her questions and concerns were addressed to the best of my ability. RTO in one year for AG. (2) control counseling: Code(s): Z30.09 - Encounter for other general counseling and advice on contraception Plan: Reviewed use of Mirena IUD. Contact office regarding date of Mirena insertion. She is aware that this is approved for 8 years. (3) Hot flashes: Code(s): R23.2 - [place] Plan: Lab work ordered. Follow up for results. (4) [place]-menopausal: Code(s): N95.1 - Menopausal and female climacteric states (5) Hot flashes: Code(s): R23.2 - [place] (6) H/O abnormal cervical Papanicolaou smear: Comment: 2017-LGSIL/HPV+,Colpo neg. Pap 12/2020 ASCUS/neg, Colpo 01/2021-neg. Pap 10/2022...pending Code(s): Z87.42 - Personal history of other diseases of the female genital tract Orders: Orders MM tomosynthesis screening BI Today Z12.31 - Encounter for screening mammogram for malignant neoplasm of breast Follicle Stimulating Hormone Today R23.2 - [place] Pap Smear Today Z01.419 - Encounter for gynecological examination (general) (routine) without abnormal findings Coding Level of Care Code New Pt Prev Care 40-64y(68615) Diagnoses Encounter for well woman exam Z01.419 control counseling Z30.09 Hot flashes R23.2 [place]-menopausal N95.1 H/O abnormal cervical Papanicolaou smear Z87.42
[2022-10-30 08:20] VITALS: BP 100/66; BMI 27.6
== END 2022-10-30 08:55 | disposition home or self-care (01) ==
PROVIDERS: PCP Nurse Practitioner Family; Visit Provider Advanced Practice Midwife
DX: Z01.419 Encounter for gynecological examination (general) (routine) without abnormal findings (principal); N95.1 Menopausal and female climacteric states; R23.2 Flushing; Z87.42 Personal history of other diseases of the female genital tract
CPT/HCPCS: 99386

== ENCOUNTER 2022-11-04 11:30 | Outpatient (AMB) | payer OTHER, MEDICAID, SELFPAY ==
--- NOTE | 2022-11-04 11:31 | AM.OFFWIN_ITS ---
Intake Vital Signs 11/04/22 11:32 Height 5 ft 5 in Weight 165 lb 8 oz BMI 27.5 BP 132/80 Blood Pressure Location Lt brachial Position Sitting Pulse 78 Pulse Source Pulse Oximeter Temp 98.0 F Temp Source Temporal Artery Scan Pulse Oximetry (%) 100 Oxygen Delivery Method Room Air Intake Visit Reasons: EST/fever last night, body aches(masked lobby) Intake Note: pt is here for c/o fever last night, body aches, cough with phelm Patient Tobacco Use Status: Former Tobacco user Quit Date: 2006 Allergies Sulfa (Sulfonamide Antibiotics) Allergy (Severe, Verified 11/04/22 11:59) ANAPHYLAXIS, angioedema cefuroxime [From CEFTIN] Allergy (Intermediate, Verified 11/04/22 11:59) RASH metronidazole [From FLAGYL] Allergy (Intermediate, Verified 11/04/22 11:59) itch cefotetan Allergy (Unknown, Verified 11/04/22 11:59) rash sulfacetamide Allergy (Unknown, Verified 11/04/22 11:59) oral swelling, rash oxycodone [From OxyContin] Allergy (Verified 11/04/22 11:59) Itching nitrofurantoin [From MACROBID] Adverse Reaction (Mild, Verified 11/04/22 11:59) n/v Medication List - Last Reconciled 11/04/22 by Antonio Barnes MD albuterol sulfate 90 mcg/actuation (Ventolin HFA) 2 puffs inhalation Q6H PRN albuterol sulfate 2.5 mg (3 mL) inhalation QID PRN amitriptyline 50 mg PO BEDTIME 90 days apixaban (Eliquis) 5 mg PO BID apixaban (Eliquis) 5 mg PO BID atorvastatin 20 mg PO BEDTIME Bifidobacterium infantis (Align) 4 mg PO BEDTIME 90 days budesonide-formoterol 160-4.5 mcg/actuation (Symbicort) 2 puffs inhalation Q12H 90 days buspirone 15 mg PO BID 90 days hupzbwggte-tgfconsbhrdde-rbdz 50-300-40 mg (Fioricet) 1 cap PO DAILY PRN 5 days cholecalciferol (vitamin D3) 50 mcg PO DAILY 90 days cyanocobalamin (vitamin B-12) 1,000 mcg sublingual DAILY cyclobenzaprine 5 mg PO DAILY PRN 4 days epinephrine 0.3 mg IM DIRECTED famotidine 40 mg PO BEDTIME fluticasone propionate 50 mcg/actuation 2 sprays intranasal DAILY hyoscyamine sulfate 0.125 mg PO BID-QID inhalational spacing device (Flexichamber spacer) As directed with inhaler ipratropium bromide 2.5 mL inhalation QID PRN lansoprazole 30 mg PO DAILY lidocaine 5% (Lidoderm) 2 patches topical DAILY PRN magnesium oxide 420 mg PO BEDTIME montelukast 10 mg PO BEDTIME multivitamin (Daily Multi-Vitamin tablet) 1 tab PO DAILY [nebulizer tubing and supplies As directed] nebulizers (Compact Compressor Nebulizer) As directed nystatin 1 appl topical DAILY nystatin 4 mL PO TID 7 days ondansetron 8 mg PO Q8H PRN tiotropium bromide 2.5 mcg/actuation (Spiriva Respimat) 2 puffs PO DAILY vitamin B complex 1 tab PO DAILY Do you need a note to return to daycare/school/sports/work: Yes HPI EST/fever last night, body aches(masked lobby) HPI Details Patient presents for a sick visit. Reporting symptoms of sinus congestion, sore throat and difficulty swallowing. Low-grade fever. No family member is sick. No recent travel. Patient reports symptoms of malaise and fatigue. [facility] Medical History H/O abnormal cervical Papanicolaou smear [place]-menopausal control counseling Migraine with aura Portal vein thrombosis Lupus Right shoulder pain Immunizations incomplete Encounter for screening for COVID-19 Physical exam Lupus Carpal tunnel syndrome Right hand pain Right wrist pain Surgical History Hx of colonoscopy H/O resection of small bowel History of esophagogastroduodenoscopy (EGD) History of shoulder surgery H/O left knee surgery Hx of cholecystectomy Family History Mother Multiple myeloma Mental health disorder Father Bladder cancer Maternal Grandmother Lymphoma Maternal Grandfather Bone cancer Social History Household Members: Significant Other Housing: Apartment Are you a primary critical care physician assistant to a significant other at home: No Do you presently have visiting nurse or other home services: No Alcohol intake: current Alcohol intake frequency: does not drink Patient Tobacco Use Status: Former Tobacco user Quit Date: 2006 Tobacco use type: Cigarette Cigarette Packs Per Day: 1 e-Cigarette/Vaping Use: Never Used Second Hand Smoke Exposure: Yes Advance Directives Date on File: 05/02/21 service: No 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al status: employed 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) Sexual orientation: Straight/Heterosexual Gender identity: Female Cognitive needs: No Hearing needs: No Vision needs: No Physical Exam Vital Signs: Last Vital Signs Temp 98.0 F 11/04/22 11:32 Pulse 78 11/04/22 11:32 BP 132/80 11/04/22 11:32 Pulse Ox 100 11/04/22 11:32 Oxygen Delivery Method Room Air 11/04/22 11:32 BMI result Body Mass Index 27.5 Const General: cooperative and healthy appearing Nutritional Appearance: well nourished Orientation/consciousness: patient oriented x3 Limitations: no limitations HEENT Head: Yes normal to inspection Eyes General: appearance normal, both eyes and all related structures Neck Neck: Yes normal visual inspection Chest Chest palpation & inspection: normal palpation of entire chest wall Resp Effort & Inspection: normal respiratory effort Neuro General: patient oriented x3 Assessment & Plan Assessment & Plan (1) Upper respiratory tract infection: Code(s): J06.9 - Acute upper respiratory infection, unspecified Plan: Increase fluid intake. Tylenol for aches and pains. If symptoms worsen, follow-up here for a recheck. No antibiotics needed. If symptoms not better to follow-up here. Coding Level of Care Code Est Pt Level 3 (40141) Diagnoses Upper respiratory tract infection J06.9
[2022-11-04 11:32] VITALS: BP 132/80; PULSE 78; TEMP 36.7; O2SAT 100; BMI 27.5
== END 2022-11-04 12:40 | disposition home or self-care (01) ==
PROVIDERS: PCP Nurse Practitioner Family; Visit Provider Internal Medicine
DX: J06.9 Acute upper respiratory infection, unspecified (principal)
CPT/HCPCS: 99213

== ENCOUNTER 2022-11-14 08:39 | Outpatient (AMB) | payer OTHER, MEDICAID, SELFPAY ==
--- NOTE | 2022-11-14 08:43 | MHC.OFFVIS ---
Intake Vital Signs 11/14/22 08:45 Height 5 ft 5 in Weight 165 lb 5.547 oz BMI 27.5 BP 125/82 Blood Pressure Location Lt brachial Position Sitting Pulse 91 Intake Visit Reasons: 8 month follow up Intake Note: Shawna presents in the office as a 8 month follow up. CC: She is here today for her follow up - she states that she is getting more constipated but not sure if it the magnesium. Journeyman Electrician Required: No Allergies Sulfa (Sulfonamide Antibiotics) Allergy (Severe, Verified 11/14/22 08:45) ANAPHYLAXIS, angioedema cefuroxime [From CEFTIN] Allergy (Intermediate, Verified 11/14/22 08:45) RASH metronidazole [From FLAGYL] Allergy (Intermediate, Verified 11/14/22 08:45) itch cefotetan Allergy (Unknown, Verified 11/14/22 08:45) rash sulfacetamide Allergy (Unknown, Verified 11/14/22 08:45) oral swelling, rash oxycodone [From OxyContin] Allergy (Verified 11/14/22 08:45) Itching nitrofurantoin [From MACROBID] Adverse Reaction (Mild, Verified 11/14/22 08:45) n/v HPI 8 month follow up HPI Details 52 y/o f w hx of asthma, partial bowel resection due to ischemic bowel from lupus anticoagulant, cholecystectomy dec 2017, and depression/anxiety seen? for f/u? RECAP from index visit: 05/2018 ? 1 yr ago had nausea and vomiting, weight loss of 20# ? then had trial of PPI by Dr Barron at [facility] ? she had endoscopes top and bottom and all normal ? PPi was not helping, changed to nexium ? due to ongoing sx she had repeat EGD 04/2018 which apparently revealed gastritis ? path 04/2018- EGD w barretts and gastritis, per report there was erosions in the stomach. ? same month had the bowel resection of mid to distal small bowel, renal infarct also noted on imaging ? when she had Gb taken out she felt well for short while ? She was c/o rectal bleeding and diarrhea and had EGD/colonoscopy 05/2018 ? erosive gastritis, duodenitis, hemorrhoids w some bleeding noted ? path with active esophagitis and reactive gastritis ? carafate added, PPI started ? she was given prevacid and zofran ? when seen 07/2018 she was doing well ? however she had an attack of abdo pain, nausea and diarrhea 08/2018 went to ED< given GI cocktail and went away, lasted for few days ? short lived attack on ? RAST: pos for egg white, advised to avoid ? doing well when seen 12/2018, nausea was markedly improved ? however at visit 05/2019- ? she had recurrence of nausea for 3 weeks, with upper abdo pain ? PCP gave her promethazine, using zofran prn ? she went to ED and was given bentyl ? she is using levsin scheduled ? she feels lansoprazole might not be working as well ? she took pepcid and felt it helped more ? she feels sx are resolving and improving now ? 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 she was recommended to try open capsule PPI, levsin ? at f/u 07/25/2019-- she was doing well with treatments and no further n/v, with good appetite at visit 10/10/2019 : ? had nausea for several days with poor appetite ? she had slow recovery, with an episode of esophageal spasm, and abdominal pain ? she went to the ER at [facility] ? her wcc was elevated at 18, hgb nml, BMP, LFT were nml ? UA was normal ? A CT was normal I arranged capsule endoscopy --severe gastritis and duodentiis rept EGD: 10/2019--possible ischemic gastropathy with multiple areas pf apllor and redness she was sent to ED to r/o infarction or clot, had neg CTA (CT angio--personally reviewed, no embolism, fecal loading, prominent cbd, contracted stomach with thickened lining) was rx with carafate dr Flor increased lovenox to BID dose was then again increased recently due to low anti Xa and some resumption of her sx INTERIM: she has been doing really well, gaining too much weight onyl c/o constipation but been on magnesium for restless legs stool can be hard and not going as much v occ nausea, no vomiting still on eliquis last colo 2019 with fair to poor prep EXAM: GENERAL: The patient is well developed and nontoxic. VITAL SIGNS:see workflow HEENT: Nonicteric sclerae, PERRLA, EOMI. Oropharynx clear. Moist mucous membranes. Conjunctivae appear well perfused. No thyroid mass. CHEST: Chest wall is nontender. HEART: Regular rate and rhythm without murmurs. LUNGS: Clear to auscultation bilaterally. ABDOMEN: Soft, positive bowel sounds, nontender, no organomegaly.no flank tenderness SKIN: No rash, no excessive bruising, petechiae, or purpura. NEUROLOGIC: Cranial nerves II-XII intact without motor/sensory deficit. Psych--nml affect Assessment & Plan 1/ ischemic gastropathy and IBS 2/ constipation prob from Magnesium use but last colo 2019 was fair to poor prep PLAN: 1/ cont with current treatment regimens, elavil, levsin, zofran, and PPI 2/ will use miralax BID --works well for her in the past 3/ colonoscopy PFSH Medical History H/O abnormal cervical Papanicolaou smear [place]-menopausal control counseling Migraine with aura Portal vein thrombosis Lupus Right shoulder pain Immunizations incomplete Encounter for screening for COVID-19 Physical exam Lupus Carpal tunnel syndrome Right hand pain Right wrist pain Surgical History Hx of colonoscopy H/O resection of small bowel History of esophagogastroduodenoscopy (EGD) History of shoulder surgery H/O left knee surgery Hx of cholecystectomy Family History Mother Multiple myeloma Mental health disorder Father Bladder cancer Maternal Grandmother Lymphoma Maternal Grandfather Bone cancer Social History Household Members: Significant Other Housing: Apartment Are you a primary skin care consultant to a significant other at home: No Do you presently have visiting nurse or other home services: No Alcohol intake: current Alcohol intake frequency: does not drink Patient Tobacco Use Status: Former Tobacco user Quit Date: 2006 Tobacco use type: Cigarette Cigarette Packs Per Day: 1 e-Cigarette/Vaping Use: Never Used Second Hand Smoke Exposure: Yes Advance Directives Date on File: 05/02/21 service: No 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al status: employed 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
[2022-11-14 08:45] VITALS: BP 125/82; PULSE 91; BMI 27.5
== END 2022-11-14 09:49 | disposition home or self-care (01) ==
PROVIDERS: PCP Nurse Practitioner Family; Visit Provider Internal Medicine Gastroenterology
DX: K58.1 Irritable bowel syndrome with constipation (principal)
CPT/HCPCS: 99213

== ENCOUNTER → 2022-11-14 08:39 | Outpatient (BNVA) | payer OTHER, MEDICAID, SELFPAY | PROVIDERS: PCP Nurse Practitioner Family; Visit Provider Internal Medicine Gastroenterology ==

== ENCOUNTER 2022-11-19 08:07 | Outpatient (REF) | payer OTHER, MEDICAID, SELFPAY ==
--- NOTE | ~2022-11-19 | MM_ITS ---
EXAMINATION: MM SCREENING DIGITAL BREAST TOMOSYNTHESIS, BILATERAL CLINICAL INFORMATION: Screening. Asymptomatic. COMPARISON: Mammography: This study is compared with the prior exams dating back to 2019. TECHNIQUE: Digital breast tomosynthesis is performed in both the craniocaudal and mediolateral oblique views along with computer-aided detection (CAD). Synthesized 2D images are generated from the tomosynthesis. FINDINGS: The breasts are almost entirely fatty (ACR BI-RADS breast composition Category a). There are no significant masses, abnormal calcifications, or other abnormalities. MM/MM tomosynthesis screening BI IMPRESSION: No mammographic evidence of malignancy. ASSESSMENT: BI-RADS BI-RADS 1 - Negative RECOMMENDATION: Routine annual mammography screening. 1 year F/U This examination should not preclude the clinical evaluation of a suspicious palpable abnormality. This patient's information was entered into a reminder system with a target due date for their next mammogram.
== END 2022-11-19 08:08 | disposition home or self-care (01) ==
LOC: HO.MAMMO 08:07
PROVIDERS: PCP Nurse Practitioner Family; Visit Provider Advanced Practice Midwife
DX: Z12.31 Encounter for screening mammogram for malignant neoplasm of breast (principal)
CPT/HCPCS: 77063; 77067

== ENCOUNTER → 2022-11-19 08:15 | Outpatient (BNV) | payer OTHER, MEDICAID, SELFPAY | PROVIDERS: PCP Nurse Practitioner Family; Visit Provider Radiology Diagnostic Radiology | DX: Z12.31 Encounter for screening mammogram for malignant neoplasm of breast (principal) | CPT/HCPCS: 77063; 77067 ==

== ENCOUNTER 2022-11-19 08:53 | Outpatient (REF) | payer OTHER, MEDICAID, SELFPAY ==
[2022-11-20 20:38] LABS: Follicle Stimulating Hormone 95.4 mIU/mL
== END 2022-11-19 08:54 | disposition home or self-care (01) ==
LOC: HO.HMGCLDS 08:53
PROVIDERS: PCP Nurse Practitioner Family; Visit Provider Advanced Practice Midwife
DX: R23.2 Flushing (principal)
CPT/HCPCS: 36415; 83001

== ENCOUNTER 2022-11-26 08:16 | Outpatient (AMB) | payer OTHER, MEDICAID, SELFPAY ==
--- NOTE | 2022-11-26 08:19 | A.OFFPC_ITS ---
Vital Signs 11/26/22 08:20 Weight 168 lb BP 120/82 Blood Pressure Location Lt brachial Position Sitting Pulse 74 Pulse Source Pulse Oximeter Pulse Oximetry (%) 98 Oxygen Delivery Method Room Air Intake Visit Reasons: 6 month Follow UP Allergies Sulfa (Sulfonamide Antibiotics) Allergy (Severe, Verified 11/26/22 08:20) ANAPHYLAXIS, angioedema cefuroxime [From CEFTIN] Allergy (Intermediate, Verified 11/26/22 08:20) RASH metronidazole [From FLAGYL] Allergy (Intermediate, Verified 11/26/22 08:20) itch cefotetan Allergy (Unknown, Verified 11/26/22 08:20) rash sulfacetamide Allergy (Unknown, Verified 11/26/22 08:20) oral swelling, rash oxycodone [From OxyContin] Allergy (Verified 11/26/22 08:20) Itching nitrofurantoin [From MACROBID] Adverse Reaction (Mild, Verified 11/26/22 08:20) n/v Tobacco use date assessed: 05/28/22 HPI 6 month Follow UP HPI Details Pt reports having a respiratory virus last week. She reports doing better. Pt does report intermittent clear drainage of her left eye. ? viral conjunctivitis. Explained to pt that this should resolve in the near future. Denies fever, chills, and dizziness. [facility] Medical History H/O abnormal cervical Papanicolaou smear [place]-menopausal control counseling Migraine with aura Portal vein thrombosis Lupus Right shoulder pain Immunizations incomplete Encounter for screening for COVID-19 Physical exam Lupus Carpal tunnel syndrome Right hand pain Right wrist pain Surgical History Hx of colonoscopy H/O resection of small bowel History of esophagogastroduodenoscopy (EGD) History of shoulder surgery H/O left knee surgery Hx of cholecystectomy Family History Mother Multiple myeloma Mental health disorder Father Bladder cancer Maternal Grandmother Lymphoma Maternal Grandfather Bone cancer Social History Household Members: Significant Other Housing: Apartment Are you a primary client care representative to a significant other at home: No Do you presently have visiting nurse or other home services: No Alcohol intake: current Alcohol intake frequency: does not drink Patient Tobacco Use Status: Former Tobacco user Quit Date: 2006 Tobacco use type: Cigarette Cigarette Packs Per Day: 1 e-Cigarette/Vaping Use: Never Used Second Hand Smoke Exposure: Yes Advance Directives Date on File: 05/02/21 service: No 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al status: employed 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 Tyler Jordan, Ying Juárez, Marito Gutierrez and colleagues, with an educational angela from [employer]. Review of Systems Const Reports as per HPI Physical exam (Primary Care) Vital Signs: Last Vital Signs Pulse 74 11/26/22 08:20 BP 120/82 11/26/22 08:20 Pulse Ox 98 11/26/22 08:20 Oxygen Delivery Method Room Air 11/26/22 08:20 Tobacco/Smoking Status: Tobacco use Status Tobacco use date assessed 05/28/22 11/26/22 08:22 Patient Tobacco Use Status Former Tobacco user 11/26/22 08:22 Tobacco use type Cigarette 11/26/22 08:22 e-Cigarette/Vaping Use Never Used 11/26/22 08:22 Thrive Assessment: Date of Thrive Assessment Date Thrive assessed 03/11/21 11/26/22 08:22 Const General: cooperative Orientation/consciousness: patient oriented x3 Eyes Other: left lower conjunctivae erythematous, scleras nonicteric Resp Effort & Inspection: normal respiratory effort Auscultation: clear to auscultation bilaterally Cardio Rate: regular rate Rhythm: regular rhythm Heart sounds: S1 normal heart sound present and S2 normal heart sound present Neuro General: patient oriented x3 Psych Appearance: grossly normal Mental Status: mental status grossly normal Speech and movement: Normal speech and movement present Affect: normal affect Attitude: cooperative Thought process: Normal thought process present Thought content: Normal thought content present Insight: Good insight present (Psych) Judgement: Good judgement present (Psych) Assessment and Plan Assessment & Plan (1) Viral conjunctivitis of left eye: Code(s): B30.9 - Viral conjunctivitis, unspecified Plan: Do not touch eye, symptoms should resolve in the near future Plan The patient agreed to the use of a medical information specialist for this encounter. Scribed for PATRICIO Carbajal-TAYLOR by Ami Horner medical information specialist, on 11/26/2022 at 08:35 EST Coding Level of Care Code Est Pt Level 3 (73768) Diagnoses Viral conjunctivitis of left eye B30.9
[2022-11-26 08:20] VITALS: BP 120/82; PULSE 74; O2SAT 98
== END 2022-11-26 08:47 | disposition home or self-care (01) ==
PROVIDERS: Visit Provider Nurse Practitioner Family
DX: B30.9 Viral conjunctivitis, unspecified (principal)
CPT/HCPCS: 99213

== ENCOUNTER 2023-01-05 14:07 | Outpatient (REF) | payer SELFPAY | END 2023-01-05 14:08 | disposition home or self-care (01) | LOC: HO.HAP 14:07 | PROVIDERS: Visit Provider Nurse Practitioner Family | DX: Z13.89 Encounter for screening for other disorder (principal) ==

== ENCOUNTER 2023-01-14 12:30 | Outpatient (AMB) | payer OTHER, SELFPAY ==
--- NOTE | 2023-01-14 12:41 | MHC.OFFWIV ---
Intake Vital Signs 01/14/23 12:42 Height 5 ft 5 in Weight 77.564 kg BMI 28.5 BP 110/72 Blood Pressure Location Rt brachial Position Sitting Pulse 99 Pulse Source Pulse Oximeter Temp 97.1 F Temp Source Temporal Artery Scan Pulse Oximetry (%) 99 Oxygen Delivery Method Room Air Intake Visit Reasons: EP, congestion, cough ([phone]) Intake Note: pt is here today for congestion, cough started with fever thursday Patient Tobacco Use Status: Former Tobacco user Quit Date: 2006 Allergies Sulfa (Sulfonamide Antibiotics) Allergy (Severe, Verified 01/14/23 12:42) ANAPHYLAXIS, angioedema cefuroxime [From CEFTIN] Allergy (Intermediate, Verified 01/14/23 12:42) RASH metronidazole [From FLAGYL] Allergy (Intermediate, Verified 01/14/23 12:42) itch cefotetan Allergy (Unknown, Verified 01/14/23 12:42) rash sulfacetamide Allergy (Unknown, Verified 01/14/23 12:42) oral swelling, rash oxycodone [From OxyContin] Allergy (Verified 01/14/23 12:42) Itching nitrofurantoin [From MACROBID] Adverse Reaction (Mild, Verified 01/14/23 12:42) n/v Do you need a note to return to daycare/school/sports/work: Yes HPI HPI Comments History of Present Illness Details 1323 52-year-old female presents with cough, fatigue, malaise, fevers T-max a 101 degrees F on Thursday, symptoms since Thursday, patient reports nonproductive cough she has been around people with RSV, 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 Reports associated myalgias. No chest pain, shortness of breath, nausea, vomiting, abdominal pain. Physical exam benign stable vital signs likely flu versus COVID versus RSV. Unlikely pneumonia, pulmonary embolism, acute respiratory distress, ACS. Plan prednisone, albuterol peer Educated patient on diagnosis and treatment plan, answered all question, patient verbalizes understanding. At this time patient will be discharged home, advised to return with new or worsening symptoms. Educated on worrisome signs and symptoms and when to return. At this time I feel comfortable discharge home. [facility] Medical History H/O abnormal cervical Papanicolaou smear [place]-menopausal control counseling Migraine with aura Portal vein thrombosis Lupus Right shoulder pain Immunizations incomplete Encounter for screening for COVID-19 Physical exam Lupus Carpal tunnel syndrome Right hand pain Right wrist pain Surgical History Hx of colonoscopy H/O resection of small bowel History of esophagogastroduodenoscopy (EGD) History of shoulder surgery H/O left knee surgery Hx of cholecystectomy Family History Mother Multiple myeloma Mental health disorder Father Bladder cancer Maternal Grandmother Lymphoma Maternal Grandfather Bone cancer Social History Household Members: Significant Other Housing: Apartment Are you a primary nanny caregiver to a significant other at home: No Do you presently have visiting nurse or other home services: No Alcohol intake: current Alcohol intake frequency: does not drink Patient Tobacco Use Status: Former Tobacco user Quit Date: 2006 Tobacco use type: Cigarette Cigarette Packs Per Day: 1 e-Cigarette/Vaping Use: Never Used Second Hand Smoke Exposure: Yes Advance Directives Date on File: 05/02/21 service: No 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al status: employed 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) Sexual orientation: Straight/Heterosexual Gender identity: Female Cognitive needs: No Hearing needs: No Vision needs: No Review of Systems Const Details: Constitutional : No Weight loss, No Fever, No Chills, No Fatigue, No Malaise ENT/Mouth : No sore throat, No Rhinorrhea Eyes: No Eye Pain, No Swelling, No Redness Cardiovascular : No Chest Pain, No SOB, No Dyspnea on Exertion, No Orthopnea, No Edema, No Palpitations Respiratory : No Cough, No Sputum, No Wheezing Gastrointestinal : No Nausea, No Vomiting, No Diarrhea, No Constipation, No abdominal Pain, No Hematochezia, No Melena Genitourinary : No Dysuria, No Urinary Frequency, No Hematuria, Musculoskeletal : No joint pain, No Myalgias, No Joint Swelling Skin : No Skin Lesions, No rash Neuro : No Weakness, No Numbness, No Dizziness, No Headache All other systems reviewed and are negative All systems reviewed & are unremarkable except as noted in HPI and below Physical Exam Vital Signs: Last Vital Signs Temp 97.1 F 01/14/23 12:42 Pulse 99 01/14/23 12:42 BP 110/72 01/14/23 12:42 Pulse Ox 99 01/14/23 12:42 Oxygen Delivery Method Room Air 01/14/23 12:42 BMI result Body Mass Index 28.5 vss Appearance: Alert.? Oriented X3.? No acute distress.? Head: Normocephalic, atraumatic, no step-offs or deformities Eyes: Pupils equal, round and reactive to light.? CVS: Normal heart rate and rhythm.? Pulses normal.? Respiratory: No respiratory distress.? Breath sounds normal.? Abdomen: Soft and nontender.? Skin: Skin warm and dry.? Normal skin color.? Normal skin turgor.? Extremities: No lower extremity edema.? No calf ttp. 5/5 strength to bilateral upper and lower extremities Neuro: Oriented X 3.? No motor deficit.? No sensory deficit. CN 2-12 intact Assessment & Plan Assessment & Plan (1) Viral respiratory illness: Code(s): J98.8 - Other specified respiratory disorders; B97.89 - Other viral agents as the cause of diseases classified elsewhere Plan Take your medications as prescribed. If you were prescribed antibiotics today, it is important that you take your medication to their entirety, do not skip any doses, do not finish them early. Follow-up with your primary care provider this week. Return to the emergency department with new or worsening symptoms. In case of emergency call 911 Medications: New prednisone 40 mg (2 x 20 mg) PO DAILY 10 tabs 0RF 5 days albuterol sulfate 90 mcg/actuation 2 puffs inhalation Q6H PRN 6.7 grams 0RF shortness of breath or wheezing Coding Level of Care Code Est Pt Level 3 (12313) Diagnoses Viral respiratory illness J98.8; B97.89
[2023-01-14 12:42] VITALS: BP 110/72; PULSE 99; TEMP 36.2; O2SAT 99; BMI 28.5
== END 2023-01-14 13:13 | disposition home or self-care (01) ==
LOC: HO.HMGWI 12:30
PROVIDERS: PCP Nurse Practitioner Family
DX: J98.8 Other specified respiratory disorders (principal); B97.89 Other viral agents as the cause of diseases classified elsewhere
CPT/HCPCS: 99213

== ENCOUNTER 2023-01-14 16:29 | Outpatient (REF) | payer OTHER, SELFPAY ==
[2023-01-14 18:10] LABS: Influenza A PCR NEGATIVE (Negative); Influenza B PCR NEGATIVE (Negative); Resp Syncy Virus RNA Qual PCR NEGATIVE (Negative); SARS COV2 PCR INHOUSE POSITIVE (Negative)
== END 2023-01-14 16:30 | disposition home or self-care (01) ==
LOC: HO.HMGCLNP 16:29
PROVIDERS: Visit Provider Physician Assistant
DX: Z11.52 Encounter for screening for COVID-19 (principal); Z20.822 Contact with and (suspected) exposure to COVID-19; B34.9 Viral infection, unspecified
CPT/HCPCS: 0241U

== ENCOUNTER 2023-01-22 06:45 | Day surgery (SDC) | payer OTHER, SELFPAY ==
[2023-01-20 13:40] VITALS: BMI 28.0
--- NOTE | 2023-01-21 09:17 | P.CONAN_ITS ---
Documented by User: Abbey Brock NP 01/21/23 09:20 HPI - Anesthesia Eval Consult details Narrative: 52yo F for Upper Endoscopy and Colonoscopy Eliquis for Positive lupus anticoagulant, persistent positive anti cardiolipin antibody, portal vein thrombosis PMFSH Active Problems Active Problems: All Active Problems (Updated 01/20/23 @ 13:33 by Zainab Magallanes RN) Viral conjunctivitis of left eye (Acute) Upper respiratory tract infection (Acute) Hot flashes (Acute) Encounter for well woman exam (Acute) Change in hearing (Acute) History of carpal tunnel surgery of left wrist (Acute) History of carpal tunnel surgery of right wrist (Acute) Numbness and tingling in right hand (Acute) Decreased hearing of both ears (Acute) Muscle spasms of both lower extremities (Acute) Rib injury (Acute) Intramuscular hematoma (Acute) Screening for tuberculosis (Acute) Intractable hiccups (Acute) Decreased hearing of both ears (Acute) Abdominal discomfort (Acute) [place] of foot (Acute) Rib fracture (Acute) Chest wall injury (Acute) Renal infarction (Acute) Concussion (Acute) History of recurrent UTIs (Acute) Lung disease (Acute) Mesenteric ischemia (Acute) Familial hypercholesterolemia (Acute) Hypertension (Acute) GERD (gastroesophageal reflux disease) (Acute) Paralytic ileus (Acute) Asthma (Acute) Depression (Acute) Anticoagulated by anticoagulation treatment (Acute) Neutrophilic leukocytosis (Acute) Physical exam (Acute) Epigastric abdominal pain (Acute) Lupus (Acute) Renal infarction (Chronic) Contusion of leg, right (Acute) H/O abnormal cervical Papanicolaou smear (Acute) [place]-menopausal (Acute) control counseling (Acute) Immunizations incomplete (Acute) Carpal tunnel syndrome (Acute) Past Medical History Medical History Small bowel ischemia COVID-19 Paralytic ileus H/O abnormal cervical Papanicolaou smear [place]-menopausal control counseling Migraine with aura Portal vein thrombosis Lupus Right shoulder pain Immunizations incomplete Encounter for screening for COVID-19 Carpal tunnel syndrome Right hand pain Right wrist pain Family History Family History Mother Multiple myeloma Mental health disorder Father Bladder cancer Maternal Grandmother Lymphoma Maternal Grandfather Bone cancer Surgical History Surgical History Hx of carpal tunnel repair Hx of colonoscopy H/O resection of small bowel History of esophagogastroduodenoscopy (EGD) History of shoulder surgery H/O left knee surgery Hx of cholecystectomy Social History Social History Household Members: Significant Other Housing: Apartment Are you a primary rn wound care to a significant other at home: No Do you presently have visiting nurse or other home services: No Alcohol intake: current Alcohol intake frequency: does not drink Patient Tobacco Use Status: Former Tobacco user Quit Date: 2006 Tobacco use type: Cigarette Cigarette Packs Per Day: 1 e-Cigarette/Vaping Use: Never Used Second Hand Smoke Exposure: Yes Are you DNR?: No Advance Directives: No Advance Directives Information Provided: Yes Advance Directives Date on File: 05/02/21 Nutrition Risks: No Nutritional Risk service: No 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al status: employed 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) Sexual orientation: Straight/Heterosexual Gender identity: Female Cognitive needs: No Hearing needs: No Vision needs: No Meds Allergies Allergy/AdvReac Type Severity Reaction Status Date / Time Sulfa (Sulfonamide Allergy Severe ANAPHYLAXIS, Verified 01/22/23 07:24 Antibiotics) angioedema cefuroxime [From CEFTIN] Allergy Intermediate RASH Verified 01/22/23 07:24 metronidazole [From FLAGYL] Allergy Intermediate itch Verified 01/22/23 07:24 cefotetan Allergy Unknown rash Verified 01/22/23 07:24 sulfacetamide Allergy Unknown oral Verified 01/22/23 07:24 swelling, rash oxycodone [From OxyContin] Allergy Itching Verified 01/22/23 07:24 nitrofurantoin AdvReac Mild n/v Verified 01/22/23 07:24 [From MACROBID] Home Medications Medication Instructions Recorded Confirmed Last Taken Type epinephrine 0.3 mg/0.3 mL 0.3 mg IM DIRECTED allergies 05/28/22 01/20/23 Unknown History injection, auto-injector vitamin B complex 1 tab PO DAILY 10/30/22 01/20/23 Unknown History hyoscyamine sulfate 0.125 mg 0.125 mg sublingual TID 11/14/22 01/20/23 Unknown History sublingual tablet Exam Height,Weight and Vital Signs: Height 5 ft 5 in Weight 76.204 kg Pertinent Lab Results Pertinent Lab Results: Laboratory Tests 08/25/22 08:03 WBC 9.6 Hgb 12.6 Hct 37.7 Plt Count 210 Sodium 140 Potassium 4.3 Chloride 106 Carbon Dioxide 24 BUN 11 Creatinine 0.75 Assessment and Plan Assessment Anesthesia Assessment: Chart Reviewed Documented by User: Sedrick Sullivan MD 01/22/23 07:34 [facility] Past Medical History Medical History Small bowel ischemia COVID-19 Paralytic ileus H/O abnormal cervical Papanicolaou smear [place]-menopausal control counseling Migraine with aura Portal vein thrombosis Lupus Right shoulder pain Immunizations incomplete Encounter for screening for COVID-19 Carpal tunnel syndrome Right hand pain Right wrist pain Family History Family History Mother Multiple myeloma Mental health disorder Father Bladder cancer Maternal Grandmother Lymphoma Maternal Grandfather Bone cancer Family history of problems with anesthesia: No Surgical History Surgical History Hx of carpal tunnel repair Hx of colonoscopy H/O resection of small bowel History of esophagogastroduodenoscopy (EGD) History of shoulder surgery H/O left knee surgery Hx of cholecystectomy History of Problems with Anesthesia: No Social History Social History Household Members: Significant Other Housing: Apartment Are you a primary rn wound care to a significant other at home: No Do you presently have visiting nurse or other home services: No Alcohol intake: current Alcohol intake frequency: does not drink Patient Tobacco Use Status: Former Tobacco user Quit Date: 2006 Tobacco use type: Cigarette Cigarette Packs Per Day: 1 e-Cigarette/Vaping Use: Never Used Second Hand Smoke Exposure: Yes Are you DNR?: No Advance Directives: No Advance Directives Information Provided: Yes Advance Directives Date on File: 05/02/21 Nutrition Risks: No Nutritional Risk service: No 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al status: employed 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) Sexual orientation: Straight/Heterosexual Gender identity: Female Cognitive needs: No Hearing needs: No Vision needs: No Meds Allergies Allergy/AdvReac Type Severity Reaction Status Date / Time Sulfa (Sulfonamide Allergy Severe ANAPHYLAXIS, Verified 01/22/23 07:24 Antibiotics) angioedema cefuroxime [From CEFTIN] Allergy Intermediate RASH Verified 01/22/23 07:24 metronidazole [From FLAGYL] Allergy Intermediate itch Verified 01/22/23 07:24 cefotetan Allergy Unknown rash Verified 01/22/23 07:24 sulfacetamide Allergy Unknown oral Verified 01/22/23 07:24 swelling, rash oxycodone [From OxyContin] Allergy Itching Verified 01/22/23 07:24 nitrofurantoin AdvReac Mild n/v Verified 01/22/23 07:24 [From MACROBID] Home Medications Medication Instructions Recorded Confirmed Last Taken Type epinephrine 0.3 mg/0.3 mL 0.3 mg IM DIRECTED allergies 05/28/22 01/20/23 Unknown History injection, auto-injector vitamin B complex 1 tab PO DAILY 10/30/22 01/20/23 Unknown History hyoscyamine sulfate 0.125 mg 0.125 mg sublingual TID 11/14/22 01/20/23 Unknown History sublingual tablet Exam Airway Mallampati Class: II TM Dist: >3cm Neck ROM: Limited Lungs: cta Assessment and Plan Assessment Anesthesia Assessment: Anesthesia Plan Discussed Final Anesthetic Review Family History of Problems with Anesthesia: No History of Problems with Anesthesia: No NPO: Yes ASA Class: III Final Preanesthetic Review: No Changes in Pt Med Stat, Meds/Allgs Chart Reviewed, Consent Obtained/Reviewed and Anes Risks/Benef Reviewed Patient Risk: Intermediate Procedure Risk: Intermediate Anesthetic Plan Anesthetic Plan: GA and Agree w/ Assess. and Plan Disposition: Standard PACU
--- NOTE | 2023-01-22 06:37 | P.HPSUR_ITS ---
Pre-Procedural Eval Section A Date of Service: 01/22/23 Section B Chief Complaint: IBS,diseases of stomach and duoderm,ross's Details of Present Illness: altered bowel habit Relevant Family History (Specify if Yes): No Relevant Social History: None Present Medications: see Short Stay Collaborative assessment Medical History: Significant History (H/O abnormal cervical Papanicolaou smear [place]-menopausal control counseling Migraine with aura Portal vein thrombosis Lupus Right shoulder pain Immunizations incomplete Encounter for screening for COVID-19 Physical exam Lupus Carpal tunnel syndrome Right hand pain Right wrist pain) History of Previous Operations: Relevant previous surgery/procedure and date(s) (Hx of carpal tunnel repair Hx of colonoscopy H/O resection of small bowel History of esophagogastroduodenoscopy (EGD) History of shoulder surgery H/O left knee surgery Hx of cholecystectomy) Allergies: Allergies Allergy/AdvReac Type Severity Reaction Status Date / Time Sulfa (Sulfonamide Allergy Severe ANAPHYLAXIS, Verified 01/14/23 12:42 Antibiotics) angioedema cefuroxime [From CEFTIN] Allergy Intermediate RASH Verified 01/14/23 12:42 metronidazole [From FLAGYL] Allergy Intermediate itch Verified 01/14/23 12:42 cefotetan Allergy Unknown rash Verified 01/14/23 12:42 sulfacetamide Allergy Unknown oral Verified 01/14/23 12:42 swelling, rash oxycodone [From OxyContin] Allergy Itching Verified 01/14/23 12:42 nitrofurantoin AdvReac Mild n/v Verified 01/14/23 12:42 [From MACROBID] Review of Systems Sugical H&P ROS: Negative: Constitution, Cardiovascular, Respiratory, Neurol ogical, Psychiatric, Hem-Onc, Allergic/Immunologic, Gastrointestinal, Genitourinary, Musculoskeletal, Integumentary, Endocrine and Eyes/Ears/Nose/Throat Exam Surgical H&P Exam: Normal: HEENT, Normal: Heart, Normal: Lungs, Normal: Extremities, Normal: Abdomen, Normal: Skin and Normal: Neurological Plan Diagnosis/Plan: Unchanged I have reviewed the history and physical and performed a pertinent physical examination on my patient. No changes have occurred unless specified. Time Spent With Patient Time: Total time managing care of this patient today ____ minutes.
[2023-01-22 07:00] VITALS: BMI 27.4
[2023-01-22] MEDS: Lactated Ringers 1,000 ML 100 ML IVCONT (07:05)
[2023-01-22 07:23] VITALS: BP 134/74; PULSE 85; RESP 18; TEMP 36.7; O2SAT 99
--- NOTE | 2023-01-22 07:37 | PC.NURSE ---
dr. silva updated that patient has history of copd and used her symbicort this morning. aware that lungs are clear, but slightly diminished throughtout. ok to proceed. no interventions at this time.
--- NOTE | 2023-01-22 08:39 | P.OP_ITS ---
Operative Note Operative Note Date of Service: 01/22/23 Narrative: Operative Information Procedure Description: EGD, Colonoscopy Indication: hx of barretts and altered bowel habit Anesthesia: MAC FLEXIBLE TRANSORAL UPPER GASTROINTESTINAL ENDOSCOPY AND COLONOSCOPY PROCEDURE NOTE UPPER ENDOSCOPY Consent: Indications for the procedure and potential complications of bleeding, perforation, reaction to medications and missed diagnosis were discussed with the patient and informed consent was obtained. Instrument: Olympus GIF H 190 J mid size upper endoscope Monitoring: Vital signs and clinical assessment, continuous EKG monitoring, Pulse oximetry, Carbon Dioxide monitoring and blood pressure monitoring were done throughout the procedure. Procedure: The patient was placed in the left lateral decubitis position and pre-procedure medications were administered and a bite block was placed. The endoscope was inserted into the mouth and advanced under direct vision to the third part of duodenum. A careful inspection was made as the upper endoscope was withdrawn including a retroflexed examination of the proximal stomach; Findings and interventions are described below. Findings: Larynx:normal Esophagus: GE junction at 42 cm, diaphragm hiatus at 42 cm, irregular z line suspicious for Barretts, bx taken, also from distal esophagus in separate jar--lax LES Stomach: Patchy pallor and erythema. Biopsies were obtained. Grade 2 flap valve on retroflexed examination of the cardia. Duodenum: Normal bulb and descending duodenum, bx taken Intervention: Biopsies as noted above COLONOSCOPY Instrument: Olympus variable stiffness pediatric scope 190L Colonoscopy Monitoring: Vital signs and clinical assessment, continuous EKG monitoring, Pulse oximetry, Carbon Dioxide monitoring and blood pressure monitoring were done throughout the procedure. Colon withdrawal time was 10 minutes. Procedure: The patient was placed in the left lateral decubitis position and pre-procedure medications were administered. After a digital rectal examination of the ano-rectum, the video colonoscope was inserted into the rectum and advanced through the colon to the cecum/TI. The colonoscope was slowly withdrawn in a retrograde panoramic fashion and the colon mucosa was carefully examined including a retroflexed view of the rectum. Findings and interventions are described below. Procedure Difficulty:moderate Findings: Terminal Ileum-normal Patchy pallor and granular mucosa, random bx taken from TI and colon Cecum:normal Ascending Colon: proximal colon with lipoma about 1 cm, benign Transverse Colon -normal Descending Colon:normal Sigmoid Colon: normal Rectum: Retroflexion with small internal hemorrhoids, grade I Anorectum - normal Colon preparation: [place] Bowel Preparation Scale Right colon; 3 Transverse colon: 3 Left colon; 3 (0 = Unprepared colon segment with mucosa not seen due to solid stool that cannot be cleared. 1 = Portion of mucosa of the colon segment seen, but other areas of the colon segment not well seen due to staining, residual stool and/or opaque liquid. 2 = Minor amount of residual staining, small fragments of stool and/or opaque liquid, but mucosa of colon segment seen well. 3 = Entire mucosa of colon segment seen well with no residual staining, small fragments of stool or opaque liquid) Impression and Post Procedure Diagnosis: Endoscopy Findings: gastric pallor lax LES Barretts Colonoscopy Findings: lipoma, internal hemorrhoids tortuous colon Plan: Await Pathology results Repeat Colonoscopy in 5 years due to prior hx of colon polyps or earlier if clinically indicated High fiber diet leaflet avoid straining at stool, epsom salts and sitz bath, anusol supps or cream restart eliquis tonight Above findings were reviewed with the patient and relevant handouts were provided if indicated.
[2023-01-22 09:19] VITALS: BP 118/65; PULSE 92; RESP 16; TEMP 36.6; O2SAT 97
[2023-01-22 09:34] VITALS: BP 141/92; PULSE 89; RESP 18; TEMP 36.3; O2SAT 97
== END 2023-01-22 10:09 | disposition home or self-care (01) ==
PROVIDERS: PCP Nurse Practitioner Family; Visit Provider Internal Medicine Gastroenterology
PROC: (CPT 43239; principal; 2023-01-22 09:00)
DX: K55.8 Other vascular disorders of intestine (principal); K22.9 Disease of esophagus, unspecified; K22.70 Barrett's esophagus without dysplasia; K56.2 Volvulus; D17.5 Benign lipomatous neoplasm of intra-abdominal organs; K64.0 First degree hemorrhoids; K31.89 Other diseases of stomach and duodenum; I10 Essential (primary) hypertension; E78.01 Familial hypercholesterolemia; K58.0 Irritable bowel syndrome with diarrhea; K56.0 Paralytic ileus; J45.909 Unspecified asthma, uncomplicated; J98.4 Other disorders of lung; M32.9 Systemic lupus erythematosus, unspecified; Z79.01 Long term (current) use of anticoagulants; Z87.891 Personal history of nicotine dependence; Z87.440 Personal history of urinary (tract) infections; Z90.49 Acquired absence of other specified parts of digestive tract
CPT/HCPCS: 43239; 45380; 88305; 88342; J2704

== ENCOUNTER → 2023-01-22 06:45 | Outpatient (BNV) | payer OTHER, SELFPAY | PROVIDERS: PCP Nurse Practitioner Family; Visit Provider Internal Medicine Gastroenterology | DX: K22.70 Barrett's esophagus without dysplasia (principal); K64.0 First degree hemorrhoids; D17.5 Benign lipomatous neoplasm of intra-abdominal organs; K63.89 Other specified diseases of intestine | CPT/HCPCS: 43239; 45380 ==

== ENCOUNTER 2023-01-23 12:41 | Outpatient (REF) | payer SELFPAY | END 2023-01-23 12:42 | disposition home or self-care (01) | LOC: HO.HAP 12:41 | PROVIDERS: Visit Provider Nurse Practitioner Family | DX: Z13.89 Encounter for screening for other disorder (principal) | CPT/HCPCS: 92700 ==

== ENCOUNTER 2023-01-24 21:16 | Emergency (ER) | payer OTHER, SELFPAY ==
--- NOTE | ~2023-01-24 | CT_ITS ---
EXAMINATION CT CHEST, ABDOMEN AND PELVIS WITHOUT CONTRAST CLINICAL INFORMATION: Abdominal pain, nausea and vomiting for days status post endoscopy. COMPARISON: 08/02/2021 TECHNIQUE: Multidetector volumetric CT imaging of the chest, abdomen and pelvis was obtained without intravenous contrast. Oral Omnipaque was administered.. Coronal and sagittal reformats were reviewed. This CT examination was performed using dose optimization techniques as appropriate, variously including the following: *Automated exposure control *Adjustment of mA and/or kV according to patient size (this includes techniques or standardized protocols for targeted exams where dose is matched to indication/reason for exam; i.e. extremities or head) *Use of iterative reconstruction technique DLP: 770 mGy-cm. FINDINGS: CHEST LUNGS/PLEURA: The lungs are clear with no evidence of inflammation or nodules. There is no pleural effusion. No pleural mass or thickening. MEDIASTINUM/AMOL: Normal heart size. Mild coronary calcifications. No pericardial effusion. Great vessels normal caliber. No mediastinal or hilar lymphadenopathy. Oral contrast present within the esophagus. No extraluminal contrast. CHEST WALL/AXILLA: Unremarkable. ABDOMEN/PELVIS HEPATOBILIARY: Liver normal in size, contour and morphology. No suspicious lesions. No intra or extrahepatic biliary dilation. Cholecystectomy. PANCREAS: Unremarkable. SPLEEN: Unremarkable. ADRENAL GLANDS: Unremarkable. KIDNEYS, URETERS AND BLADDER: Kidneys normal in size, axis and morphology. No hydronephrosis or urinary calculi. Ureters normal in course and caliber. Bladder grossly unremarkable.. GASTROINTESTINAL TRACT: Unremarkable stomach. There is redundancy of the second portion of the duodenum which reflects upon itself before crossing midline though this is unchanged from prior. Stable and intact enteroenteric anastomosis in the right lower quadrant. Colon unremarkable. Normal appendix. PELVIC VISCERA: IUD present within the uterus. Ovaries unremarkable. LYMPH NODES: No lymphadenopathy. PERITONEUM/BODY WALL: No free fluid or intraperitoneal air. VASCULAR STRUCTURES: Aorta mildly atherosclerotic but normal caliber. OSSEOUS STRUCTURES No acute or suspicious osseous abnormalities. CT/CT abdomen pelvis wo IV con IMPRESSION: * No acute findings within the chest, abdomen or pelvis to explain the patient's symptomatology. * No evidence of esophageal or gastric perforation. * No intraperitoneal free air to suggest colonic perforation. * Stable and intact enteroenteric anastomosis in the right lower quadrant. * Cholecystectomy.
[2023-01-24 21:27] VITALS: BP 108/81; PULSE 111; RESP 18; TEMP 36.9; O2SAT 97; BMI 28.3
[2023-01-24 22:07] LABS: Appearance Urine Clear; Basophils Absolute Auto 0.1 X10*3/uL (0.0-0.2); Basophils Percent Auto 0.3 % (0-2); Color Urine Dark Yellow; Eosinophils Absolute Auto 0.2 X10*3/uL (0.0-0.4); Eosinophils Percent Auto 0.7 % (0-4); Glucose Urine UA Negative (Negative); Hematocrit 39.3 % (37.0-47.0); Hemoglobin 13.3 g/dl (12.0-16.0); Imm Gran Abs Auto 0.15 X10*3/uL (0.00-0.03); Imm Gran Pct Auto 0.5 % (0.0-0.4); Leukocyte Esterase Urine Negative (Negative); Lymphocytes Absolute Auto 2.7 X10*3/uL (1.2-4.9); Lymphocytes Percent Auto 9.8 % (20-40); MANUAL DIFF FLAG SCAN; Mean Corpuscular HGB Conc 33.8 g/dl (31.0-35.0); Mean Corpuscular Volume 94.5 fL (80.0-98.0); Mean Platelet Volume 11.1 fL (9.4-12.3); Monocytes Absolute Auto 2.9 X10*3/uL (0.1-1.2); Monocytes Percent Auto 10.6 % (2-11); Neutrophils Absolute Auto 21.5 x10*3/uL (2.0-8.3); Neutrophils Percent Auto 78.1 % (45-73); Nitrite Urine Negative (Negative); PH 5.5 (5.0-9.0); Platelet Count 258 X10*3/uL (160-400); Red Blood Count 4.16 X10*6/uL (4.20-5.50); Red Cell Distribution Width 14.3 % (11.0-16.0); SCAN SMEAR FLAG 1; Specific Gravity - Urine 1.025 (1.005-1.025); Urine Blood Negative (Negative); Urine Ketones Trace mg/dL (Negative); Urine Protein Negative (Neg-Trace); White Blood Count 27.6 X10*3/uL (4.8-10.8)
[2023-01-24 22:10] LABS: Bacteria Urine None Seen (None Seen); Hyaline Casts Urine 0-2 /LPF (0-2); RBC Urine 0-2 /HPF (0-2); Squamous Epithelial Cell Urine 0-2 /HPF (0-2); WBC Urine 0-5 /HPF (0-5)
[2023-01-24 22:21] LABS: Alanine Aminotransferase 21 U/L (0-31); Albumin Level 4.4 g/dL (3.5-5.0); Alkaline Phosphatase 70 U/L (39-117); Anion Gap 16 (12-20); Aspartate Amino Transferase 18 U/L (5-31); Bilirubin Total 0.3 mg/dL (0.0-1.0); Blood Urea Nitrogen 15 mg/dL (9-16); Calcium 9.9 mg/dL (8.4-10.2); Carbon Dioxide 21 mmol/L (22-29); Chloride 109 mmol/L (96-108); Creatinine Clr Calc Pharmacy 83.3; Estimated Glomerular Filt Rate > 60; Glucose Random 135 mg/dL (60-115); Potassium 3.9 mmol/L (3.3-5.1); Sodium 142 mmol/L (135-145); Total Protein 7.7 g/dL (6.5-8.0)
[2023-01-24 22:24] LABS: SLIDE REVIEW VERIFIED
[2023-01-24 22:50] LABS: Influenza A PCR NEGATIVE (Negative); Influenza B PCR NEGATIVE (Negative); Resp Syncy Virus RNA Qual PCR NEGATIVE (Negative); SARS COV2 PCR INHOUSE POSITIVE (Negative)
--- NOTE | 2023-01-25 01:24 | ED_ITS ---
HPI - Abdominal Pain General Chief Complaint: Abdominal Pain Stated Complaint: vomiting, pain, lightheaded Time Seen by Provider: 01/25/23 01:03 Source: patient Mode of arrival: ambulatory Limitations: no limitations History of Present Illness HPI narrative: 52-year-old female history of GERD, depression, mesenteric ischemia with small- bowel resection 2019-on Eliquis since then who presents emergency department for evaluation of nausea, vomiting, general malaise, abdominal pain since 18:00 hours. 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 She states that around 18:00 hours she developed nausea and vomiting. She states that since that time she has vomited multiple times with no blood in the emesis. She denied having diarrhea. She is feeling lightheaded and dizzy. She does complain of abdominal pain . She describes the upper abdominal pain as a bandlike pain across her upper abdomen which is 7/10 at its worst. Patient also states she had an asthma attack while she was here in the emergency department this is now resolved. The patient was COVID positive on 01/10/2023 but states that she tested negative prior to getting the endoscopy and colonoscopy 4 days prior. The Eliquis was stopped before the procedure and then restarted after the procedure. She denied fever, chills, rhinorrhea, sore throat. She does have a nonproductive cough. She was feeling short of breath but this resolved. Patient has not been able to hold down any food or fluid since onset of her symptoms. Related Data Home Medications Medication Instructions Recorded Confirmed epinephrine 0.3 mg/0.3 mL 0.3 mg IM DIRECTED allergies 05/28/22 01/20/23 injection, auto-injector vitamin B complex 1 tab PO DAILY 10/30/22 01/20/23 hyoscyamine sulfate 0.125 mg 0.125 mg sublingual TID 11/14/22 01/20/23 sublingual tablet Previous Rx's Medication Instructions Recorded qjoyksyrji-uliulepxhfzes-fomkiynn 1 cap PO DAILY PRN severe headache 12/08/21 50 mg-300 mg-40 mg capsule 5 days #5 caps (Fioricet) Bifidobacterium infantis 4 mg 4 mg PO BEDTIME 90 days #90 caps 01/27/22 capsule (Align) cyclobenzaprine 5 mg tablet 5 mg PO DAILY PRN muscle spasm 4 06/04/22 days #14 tabs budesonide-formoterol HFA 160 2 puff inhalation Q12H 90 days 08/07/22 mcg-4.5 mcg/actuation aerosol #10.2 grams inhaler (Symbicort) amitriptyline 50 mg tablet 50 mg PO BEDTIME 90 days #90 tabs 09/17/22 albuterol sulfate 2.5 mg/3 mL 2.5 mg (3 mL) inhalation QID PRN 09/29/22 (0.083 %) solution for nebulization shortness of breath or wheezing #90 mL ondansetron 8 mg disintegrating 8 mg PO Q8H PRN nausea and 09/30/22 tablet vomiting #30 tabs cholecalciferol (vitamin D3) 50 50 mcg PO DAILY 90 days #90 caps 10/03/22 mcg (2,000 unit) capsule tiotropium bromide 2.5 2 puff PO DAILY #4 grams 10/21/22 mcg/actuation mist for inhalation (Spiriva Respimat) nebulizer tubing and supplies #12 ea 10/22/22 nebulizers (Compact Compressor #1 ea 10/22/22 Nebulizer) famotidine 40 mg tablet 40 mg PO BEDTIME #90 tabs 10/24/22 apixaban 5 mg tablet (Eliquis) 5 mg PO BID #60 tabs 11/03/22 inhalational spacing device #1 ea 11/04/22 (Flexichamber spacer) lansoprazole 30 mg capsule,delayed 30 mg PO DAILY #90 caps 11/10/22 release sodium,potassium,mag sulfates 17.5 See Rx Instructions PO .COMPLEX 11/14/22 gram-3.13 gram-1.6 gram oral soln #354 mL (Suprep Bowel Prep Kit) melatonin 5 mg capsule 5 mg PO BEDTIME 90 days #90 caps 11/18/22 polyethylene glycol 3350 17 17 g PO BID #510 caps 11/19/22 gram/dose oral powder fluticasone propionate 50 2 spray intranasal DAILY #48 mL 11/25/22 mcg/actuation nasal spray,suspension lidocaine 5 % topical patch 2 patch topical DAILY PRN pain #30 12/10/22 (Lidoderm) ea cyanocobalamin (vitamin B-12) 1,000 mcg PO DAILY #90 tabs 12/14/22 1,000 mcg tablet (Vitamin B-12) magnesium oxide 400 mg PO BEDTIME 30 days #30 tabs 12/30/22 multivitamin (Daily Multi-Vitamin 1 tab PO DAILY #90 tabs 12/30/22 tablet) atorvastatin 20 mg tablet 20 mg PO BEDTIME #90 tabs 01/04/23 buspirone 15 mg tablet 15 mg PO BID 90 days #180 tabs 01/04/23 montelukast 10 mg tablet 10 mg PO BEDTIME #90 tabs 01/04/23 albuterol sulfate 90 mcg/actuation 2 puff inhalation Q6H PRN 01/14/23 aerosol inhaler shortness of breath or wheezing #6.7 grams prednisone 20 mg tablet 40 mg (2 x 20 mg) PO DAILY 5 days 01/14/23 #10 tabs lorazepam 1 mg tablet 1 mg PO .COMPLEX PRN anxiety 1 day 01/22/23 #2 tabs morphine 15 mg immediate release 15 mg PO Q6H PRN pain #10 tabs 01/25/23 tablet promethazine 25 mg rectal 25 mg GA Q6H PRN nausea and 01/25/23 suppository (Promethegan) vomiting #20 ea Allergies Allergy/AdvReac Type Severity Reaction Status Date / Time Sulfa (Sulfonamide Allergy Severe ANAPHYLAXIS, Verified 01/22/23 07:24 Antibiotics) angioedema cefuroxime [From CEFTIN] Allergy Intermediate RASH Verified 01/22/23 07:24 metronidazole [From FLAGYL] Allergy Intermediate itch Verified 01/22/23 07:24 cefotetan Allergy Unknown rash Verified 01/22/23 07:24 sulfacetamide Allergy Unknown oral Verified 01/22/23 07:24 swelling, rash oxycodone [From OxyContin] Allergy Itching Verified 01/22/23 07:24 nitrofurantoin AdvReac Mild n/v Verified 01/22/23 07:24 [From MACROBID] Review of Systems Review of Systems Yes all other systems are reviewed and are negative [facility] Past Medical History [facility] Narrative: Social history: 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 Medical History (Updated 01/25/23 @ 03:40 by Nicko Mosqueda MD) Small bowel ischemia COVID-19 Paralytic ileus H/O abnormal cervical Papanicolaou smear [place]-menopausal control counseling Migraine with aura Portal vein thrombosis Lupus Right shoulder pain Immunizations incomplete Encounter for screening for COVID-19 Carpal tunnel syndrome Right hand pain Right wrist pain Surgical History Hx of carpal tunnel repair Hx of colonoscopy H/O resection of small bowel History of esophagogastroduodenoscopy (EGD) History of shoulder surgery H/O left knee surgery Hx of cholecystectomy Family History Family History Mother Multiple myeloma Mental health disorder Father Bladder cancer Maternal Grandmother Lymphoma Maternal Grandfather Bone cancer Social History Social History Household Members: Significant Other Housing: Apartment Are you a primary rn complex care to a significant other at home: No Do you presently have visiting nurse or other home services: No Alcohol intake: current Alcohol intake frequency: does not drink Patient Tobacco Use Status: Former Tobacco user Quit Date: 2006 Tobacco use type: Cigarette Cigarette Packs Per Day: 1 e-Cigarette/Vaping Use: Never Used Second Hand Smoke Exposure: Yes Advance Directives: Yes Advance Directives on File: Yes Advance Directives Date on File: 05/02/21 service: No 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al status: employed 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/ [employer] 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) Sexual orientation: Straight/Heterosexual Gender identity: Female Cognitive needs: No Hearing needs: No Vision needs: No Physical Exam ED Vital Signs: Vital Signs - 24 hr 01/24/23 21:27 Temperature 98.4 F Pulse Rate 111 H Respiratory Rate 18 Blood Pressure 108/81 Pulse Oximetry 97 Oxygen Delivery Method Room Air BMI result Body Mass Index 28.3 Vital signs revealed an elevated heart rate of 111 otherwise unremarkable Exam: General: Awake, alert in no distress Head: Normocephalic, atraumatic EENT: PERRL, Lids normal, sclera normal, conjunctiva normal, nose normal , ears normal, throat without erythema or exudates Neck: Supple, no adenopathy, no trachea midline or C-spine tenderness Lung: breath sounds symmetric, no wheezing, rales or rhonchi Chest: symmetric movement, nontender Heart: regular rate and rhythm, normal S1, S2 no murmurs or rubs Abdomen: soft, moderate epigastric and right upper quadrant tenderness, no rebound, no voluntary or involuntary guarding, normal bowel sounds Back: no vertebral tenderness, no CVAT Extremities: no deformities, moves all extremities symmetricallyh Neuro: Awake, alert, oriented, normal speech, moves all extremities symmetrically Psych: Pleasant, cooperative Medical Decision Making Medical Decision Making [facility] Narrative: 52-year-old female history of GERD, depression, mesenteric ischemia with small- bowel resection 2019-on Eliquis since then who presents emergency department for evaluation of nausea, vomiting, general malaise, abdominal pain since 18:00 hours yesterday.. Complains of bandlike pain across her upper abdomen, she has had multiple episodes of emesis with no diarrhea. She was short of breath but this symptom resolved. Patient was recently COVID positive on 01/10/2023 but then tested negative. Examination did reveal epigastric and right upper quadrant tenderness otherwise was unremarkable. Following evaluation was ordered: CBC, CMP, urinalysis, COVID-19, flu, RSV, CT scan of the chest abdomen pelvis with IV contrast The patient was treated with morphine 4 mg IV, Zofran 4 mg IV and normal saline x1 L. 01:37 The patient is COVID positive however this could be residual detection of the virus without active disease since she 1st tested positive 01/10/2023 which was 15 days prior. I am concerned that the patient's symptoms may be related to the colonoscopy / endoscopy or mesenteric ischemia therefore will obtain CT scans of the chest abdomen pelvis will be obtained. I did discuss my concerns with the radiologist . He recommended that patient get the IV contrast preparation orally just before the chest CT study and no IV contrast for the CT chest, abdomen or pelvis. 03:34 Patient is feeling better but her nausea and pain is coming back. Therefore the patient was ordered to get morphine 4 mg IV and Phenergan 12.5 mg IV. At this time I do not have a clear etiology for the patient's symptoms, could be that she has gotten another variant of COVID-19 or this may be her underlying gastritis which is giving her symptoms Patient was prescribed Phenergan suppositories 25 mg q.6 hours as needed for nausea and vomiting and morphine 15 mg every 6 hours as needed for pain She was given printed and verbal instructions discharged home. Differential Diagnosis Differential Diagnoses: The differential diagnosis associated with the presentation includes 01:38 Differential diagnosis includes was not limited to viral syndrome, COVID-19, influenza, RSV, esophageal perforation, aspiration pneumonia, colonic perforation, colonic abscess Lab Data MDM Lab Attestation statement: I reviewed the patient's lab results. See MDM above 01/24/23 21:56 01/24/23 21:56 Labs: Lab Results 01/24/23 Range/Units 21:56 WBC 27.6 H (4.8-10.8) X10*3/uL RBC 4.16 L (4.20-5.50) X10*6/uL Hgb 13.3 (12.0-16.0) g/dl Hct 39.3 (37.0-47.0) % MCV 94.5 (80.0-98.0) fL MCH 32.0 (27.0-33.0) pg MCHC 33.8 (31.0-35.0) g/dl RDW 14.3 (11.0-16.0) % Plt Count 258 (160-400) X10*3/uL MPV 11.1 (9.4-12.3) fL Immature Gran % (Auto) 0.5 H (0.0-0.4) % Neut % (Auto) 78.1 H (45-73) % Lymph % (Auto) 9.8 L (20-40) % [place] % (Auto) 10.6 (2-11) % Eos % (Auto) 0.7 (0-4) % Baso % (Auto) 0.3 (0-2) % Lymph # (Auto) 2.7 (1.2-4.9) X10*3/uL [place] # (Auto) 2.9 H (0.1-1.2) X10*3/uL Eos # (Auto) 0.2 (0.0-0.4) X10*3/uL Baso # (Auto) 0.1 (0.0-0.2) X10*3/uL Abs Immat Gran (auto) 0.15 H (0.00-0.03) X10*3/uL Absolute Neuts (auto) 21.5 H (2.0-8.3) x10*3/uL Absolute Nucleated RBC 0.000 (0.0-0.012) X10*3/uL Nucleated RBC % (auto) 0.0 (0.0-0.2) /100WBC Smear Tech's Comments VERIFIED Sodium 142 (135-145) mmol/L Potassium 3.9 (3.3-5.1) mmol/L Chloride 109 H (96-108) mmol/L Carbon Dioxide 21 L (22-29) mmol/L Anion Gap 16 (12-20) BUN 15 (9-16) mg/dL Creatinine 0.82 (0.5-1.4) mg/dL Estim Creat Clear Calc 83.3 Estimated GFR > 60 Random Glucose 135 H (60-115) mg/dL Calcium 9.9 (8.4-10.2) mg/dL Total Bilirubin 0.3 (0.0-1.0) mg/dL AST 18 (5-31) U/L ALT 21 (0-31) U/L Alkaline Phosphatase 70 (39-117) U/L Total Protein 7.7 (6.5-8.0) g/dL Albumin 4.4 (3.5-5.0) g/dL Urine Color Dark Yellow Urine Appearance Clear Urine pH 5.5 (5.0-9.0) Ur Specific [place] 1.025 (1.005-1.025) Urine Protein Negative (Neg-Trace) mg/dL Urine Glucose (UA) Negative (Negative) mg/dL Urine Ketones Trace (Negative) mg/dL Urine Blood Negative (Negative) Urine Nitrite Negative (Negative) Ur Leukocyte Esterase Negative (Negative) Urine RBC 0-2 (0-2) /HPF Urine WBC 0-5 (0-5) /HPF Ur Squamous Epith Cells 0-2 (0-2) /HPF Urine Bacteria None Seen (None Seen) Hyaline Casts 0-2 (0-2) /LPF Influenza Type A (PCR) NEGATIVE (Negative) Influenza Type B (PCR) NEGATIVE (Negative) RSV RNA Qual (PCR) NEGATIVE (Negative) SARS-CoV-2 RNA (RT-PCR) POSITIVE A (Negative) Radiology Impression Discussion of test interpretation with radiology: I have reviewed the radiologist's reading. Radiologist Impression: CT chest wo IV con IMPRESSION: * No acute findings within the chest, abdomen or pelvis to explain the patient's symptomatology. * No evidence of esophageal or gastric perforation. * No intraperitoneal free air to suggest colonic perforation. * Stable and intact enteroenteric anastomosis in the right lower quadrant. * Cholecystectomy. Dictated By: Yusef Brown MD Medications Administered Discontinued Medications Generic Name Dose Route Start Last Admin Trade Name Rasheeda PRN Reason Stop Dose Admin Sodium Chloride 1,000 mls @ 999 mls/hr 01/25/23 01:24 01/25/23 02:40 Ns IV 01/25/23 02:24 999 mls/hr .Q1H1M STA Administration Morphine Sulfate 4 mg 01/25/23 01:24 01/25/23 02:40 Morphine Sulfate 4 Mg/Ml Cartridge IVPUSH 01/25/23 01:25 4 mg ONCE STA Administration Protocol Ondansetron HCl 4 mg 01/25/23 00:52 01/25/23 01:14 Ondansetron Odt 4 Mg Tab.Rapdis TRANSLINGU 01/25/23 00:53 Not Given ONCE ONE Ondansetron HCl 4 mg 01/25/23 01:24 01/25/23 02:40 Ondansetron Hcl 4 Mg/2 Ml Vial IVPUSH 01/25/23 01:25 4 mg ONCE ONE Administration Critical Care Time Critical Care Time Critical Care Time: Yes Total Critical Care Time: 45 Attestation: Critical Care: The patient was critically ill with a high probability of imminent or life threatening deterioration. I spent greater than 30 minutes of discontinuous time evaluating the patient,delivering critical care at the bedside, discussing and evaluating pertinent data with consultants. Critical care time does not include time spent performing separately billable procedures or teaching. Total time spent performing critical care was 45 minutes. Discharge Plan Discharge Clinical Impression: COVID-19 virus infection Abdominal pain Qualifiers: Abdominal location: epigastric Qualified Code(s): R10.13 - Epigastric pain Vomiting Qualifiers: Vomiting type: unspecified Nausea presence: with nausea Qualified Code(s): R 11.2 - Nausea with vomiting, unspecified Patient Disposition: Home, Self-Care Instructions: Abdominal Pain (ED), COVID-19 (Coronavirus Disease 2019) (ED) Additional Instructions: Your COVID-19 test was positive. It is possible that you have a another COVID- 19 infection from a different variant of COVID or is possible this COVID-19 test is still positive from your previous COVID infection. Your blood work did [place] [id number] scan of your chest, abdomen pelvis did not reveal any perforation from the endoscopies colonoscopy and no other significant finding to explain your pain, elevated white blood cell count, nausea and vomiting Take Phenergan (promethazine) 25 mg suppositories, 1 suppository per rectum every 6 hours as needed for nausea and vomiting. Take Tylenol (acetaminophen) 500 mg, 2 pills every 6 hours as needed for pain. For pain not relieved by Tylenol take morphine 15 mg pills, 1 pill ever64 hours as needed for pain. This medication will make you sleepy, do not drive or work while taking this medication. Morphine is a narcotic medication and can be addicting. If you are concerned about addiction you can ask the pharmacist for less pills or do not get this prescription filled. Follow-up with your doctor in 2 days. Please return to the emergency department if your symptoms get worse or if you develop any symptoms that are concerning to you. Your COVID positive and will need to isolate at home for 5 days. See work note Prescriptions: New promethazine [Promethegan] 25 mg suppository 25 mg GA Q6H PRN (Reason: nausea and vomiting) Qty: 20 0RF morphine 15 mg tablet 15 mg PO Q6H PRN (Reason: pain) Qty: 10 0RF Rx Instructions: The patient may ask for partial fill; Partial Fill upon patient request. No Action ctjvehlvef-uxjlmxufeugzw-bfxv [Fioricet] 50-300-40 mg capsule 1 cap PO DAILY PRN (Reason: severe headache) 5 Days Qty: 5 0RF Align 4 mg capsule 4 mg PO BEDTIME 90 Days Qty: 90 0RF cyclobenzaprine 5 mg tablet 5 mg PO DAILY PRN (Reason: muscle spasm) 4 Days Qty: 14 0RF budesonide-formoterol [Symbicort] 160-4.5 mcg/actuation HFA aerosol inhaler 2 puff inhalation Q12H 90 Days Qty: 10.2 4RF amitriptyline 50 mg tablet 50 mg PO BEDTIME 90 Days Qty: 90 1RF albuterol sulfate 2.5 mg /3 mL (0.083 %) solution for nebulization 2.5 mg inhalation QID PRN (Reason: shortness of breath or wheezing) Qty: 90 0RF ondansetron 8 mg tablet,disintegrating 8 mg PO Q8H PRN (Reason: nausea and vomiting) Qty: 30 0RF cholecalciferol (vitamin D3) 50 mcg (2,000 unit) capsule 50 mcg PO DAILY 90 Days Qty: 90 1RF Spiriva Respimat 2.5 mcg/actuation mist 2 puff PO DAILY Qty: 4 5RF (DME) nebulizers [Compact Compressor Nebulizer] Misc See Rx Instructions .Route Qty: 1 0RF Rx Instructions: As directed (DME) nebulizer tubing and supplies See Rx Instructions .Route .MEDSUPPLY Qty: 12 0RF Rx Instructions: As directed famotidine 40 mg tablet 40 mg PO BEDTIME Qty: 90 1RF (DME) Flexichamber Spacer See Rx Instructions .Route Qty: 1 0RF Rx Instructions: As directed with inhaler lansoprazole 30 mg capsule,delayed release(DR/EC) 30 mg PO DAILY Qty: 90 2RF melatonin 5 mg capsule 5 mg PO BEDTIME 90 Days Qty: 90 0RF polyethylene glycol 3350 17 gram/dose powder 17 g PO BID Qty: 510 2RF fluticasone propionate 50 mcg/actuation spray,suspension 2 spray intranasal DAILY Qty: 48 1RF lidocaine [Lidoderm] 5 % adhesive patch,medicated 2 patch topical DAILY PRN (Reason: pain) Qty: 30 0RF Rx Instructions: leave on most painful area for up to 12 hrs cyanocobalamin (vitamin B-12) [Vitamin B-12] 1,000 mcg tablet 1,000 mcg PO DAILY Qty: 90 1RF magnesium oxide 400 mg magnesium tablet 400 mg PO BEDTIME 30 Days Qty: 30 2RF multivitamin [Daily Multi-Vitamin] Tablet 1 tab PO DAILY Qty: 90 1RF atorvastatin 20 mg tablet 20 mg PO BEDTIME Qty: 90 1RF buspirone 15 mg tablet 15 mg PO BID 90 Days Qty: 180 1RF montelukast 10 mg tablet 10 mg PO BEDTIME Qty: 90 1RF lorazepam 1 mg tablet 1 mg PO .COMPLEX PRN (Reason: anxiety) 1 Days Qty: 2 0RF Rx Instructions: 1 mg orally take one tab 45 minutes before the procedure, may repeat if one tab does not work. Eliquis 5 mg Tablet 5 mg PO BID Qty: 60 6RF epinephrine 0.3 mg/0.3 mL auto-injector 0.3 mg IM DIRECTED prednisone 20 mg tablet 40 mg PO DAILY 5 Days Qty: 10 0RF albuterol sulfate 90 mcg/actuation HFA aerosol inhaler 2 puff inhalation Q6H PRN (Reason: shortness of breath or wheezing) Qty: 6.7 0RF hyoscyamine sulfate 0.125 mg tablet, sublingual 0.125 mg sublingual TID sodium,potassium,mag sulfates [Suprep Bowel Prep Kit] 17.5-3.13-1.6 gram recon soln See Rx Instructions PO .COMPLEX Qty: 354 0RF Rx Instructions: DILUTE; drink 1/2 at 6-8 pm and half at 11 PM- 1AM vitamin B complex Tablet 1 tab PO DAILY Stand Alone Forms: Work/School Release
[2023-01-25] MEDS: 0.9 % Sodium Chloride 1,000 ML 999 ML IV (02:40)
[2023-01-25] MEDS: Morphine Sulfate 4 MG/ML CARTRIDGE IVPUSH ×2 (02:40→04:17)
[2023-01-25] MEDS: ondansetron HCL 4 MG/2 ML VIAL IVPUSH (02:40)
[2023-01-25] MEDS: Apixaban 5 MG TABLET PO (03:48)
[2023-01-25 04:08] VITALS: BP 142/86; PULSE 92; RESP 16; O2SAT 97
== END 2023-01-25 04:30 | disposition home or self-care (01) ==
PROVIDERS: Emergency Provider Emergency Medicine Emergency Medical Services; PCP Nurse Practitioner Family
DX: U07.1 COVID-19 (principal); R05.9 Cough, unspecified; R10.9 Unspecified abdominal pain; R11.2 Nausea with vomiting, unspecified; R53.81 Other malaise; K21.9 Gastro-esophageal reflux disease without esophagitis; R42 Dizziness and giddiness; M32.9 Systemic lupus erythematosus, unspecified; G56.00 Carpal tunnel syndrome, unspecified upper limb; Z79.01 Long term (current) use of anticoagulants
CPT/HCPCS: 0241U; 71250; 74176; 80053; 81001; 85025; 96374; 96375; 99284; J2270; J2405; J2550

== ENCOUNTER 2023-02-06 09:09 | Outpatient (AMB) | payer OTHER, SELFPAY ==
--- NOTE | 2023-02-06 09:10 | MHC.OFFVIS ---
Intake Intake Visit Reasons: S/P [place]; Dr. So Intake Note: CC: She states that at the moment she is feeling okay. She had a CT scan and had a flare up where she ended in the ER on the Jan. It was gastritis and she states she ended up with COVID as well. Allergies Sulfa (Sulfonamide Antibiotics) Allergy (Severe, Verified 02/06/23 09:11) ANAPHYLAXIS, angioedema cefuroxime [From CEFTIN] Allergy (Intermediate, Verified 02/06/23 09:11) RASH metronidazole [From FLAGYL] Allergy (Intermediate, Verified 02/06/23 09:11) itch cefotetan Allergy (Unknown, Verified 02/06/23 09:11) rash sulfacetamide Allergy (Unknown, Verified 02/06/23 09:11) oral swelling, rash oxycodone [From OxyContin] Allergy (Verified 02/06/23 09:11) Itching nitrofurantoin [From MACROBID] Adverse Reaction (Mild, Verified 02/06/23 09:11) n/v HPI S/P [place]; Dr. So HPI Details 52 y/o f w hx of asthma, partial bowel resection due to ischemic bowel from lupus anticoagulant, cholecystectomy dec 2017, and depression/anxiety called for f/u RECAP from index visit: 05/2018 1 yr ago had nausea and vomiting, weight loss of 20# then had trial of PPI by Dr Barron at [facility] she had endoscopes top and bottom and all normal PPi was not helping, changed to nexium due to ongoing sx she had repeat EGD 04/2018 which apparently revealed gastritis path 04/2018- EGD w barretts and gastritis, per report there was erosions in the stomach. same month had the bowel resection of mid to distal small bowel, renal infarct also noted on imaging when she had Gb taken out she felt well for short while She was c/o rectal bleeding and diarrhea and had EGD/colonoscopy 05/2018 erosive gastritis, duodenitis, hemorrhoids w some bleeding noted path with active esophagitis and reactive gastritis carafate added, PPI started she was given prevacid and zofran when seen 07/2018 she was doing well however she had an attack of abdo pain, nausea and diarrhea 08/2018 went to ED< given GI cocktail and went away, lasted for few days short lived attack on RAST: pos for egg white, advised to avoid doing well when seen 12/2018, nausea was markedly improved however at visit 05/2019- she had recurrence of nausea for 3 weeks, with upper abdo pain PCP gave her promethazine, using zofran prn she went to ED and was given bentyl she is using levsin scheduled she feels lansoprazole might not be working as well she took pepcid and felt it helped more she feels sx are resolving and improving now she works at [employer] lots of people off due to covid she was recommended to try open capsule PPI, levsin at f/u 07/25/2019-- she was doing well with treatments and no further n/v, with good appetite at visit 10/10/2019 : had nausea for several days with poor appetite she had slow recovery, with an episode of esophageal spasm, and abdominal pain she [place] [facility] [place] wcc was elevated at 18, hgb nml, BMP, LFT were nml UA was normal A CT was normal I arranged capsule endoscopy --severe gastritis and duodentiis rept EGD: 10/2019--possible ischemic gastropathy with multiple areas pf apllor and redness she was sent to ED to r/o infarction or clot, had neg CTA (CT angio--personally reviewed, no embolism, fecal loading, prominent cbd, contracted stomach with thickened lining) was rx with carafate dr Flor increased lovenox to BID dose was then again increased recently due to low anti Xa and some resumption of her sx She had rept EGD/colo 01/2023 no polyps, granular mucosa of colon, ischemic changes in stomach PATH: TI- nml colon-random- bx with non specifc repair of prior mucosal injury esophagus-focal IM compatible with Barretts stomach: mild chronic inflamamtion INTERIM: she was doing poorly for 1 week after the EGD/colo now she is back to normal her appetite is fair back on eliquis not as constipated since colonoscopy Video EXAM: GENERAL: The patient is well developed and nontoxic-relaxed Assessment & Plan 1/ ischemic gastropathy and IBS--in future she should get lovenox bridging for any procedures 2/ constipation, better since colonoscopy 3/ barretts PLAN: 1/ cont with current treatment regimens, elavil, levsin, zofran, and PPI 2/ cont with miralax as needed 3/ rept EGD in 3-5 yrs [facility] Medical History Small bowel ischemia COVID-19 Paralytic ileus H/O abnormal cervical Papanicolaou smear [place]-menopausal control counseling Migraine with aura Portal vein thrombosis Lupus Right shoulder pain Immunizations incomplete Encounter for screening for COVID-19 Carpal tunnel syndrome Right hand pain Right wrist pain Surgical History Hx of carpal tunnel repair Hx of colonoscopy H/O resection of small bowel History of esophagogastroduodenoscopy (EGD) History of shoulder surgery H/O left knee surgery Hx of cholecystectomy Family History Mother Multiple myeloma Mental health disorder Father Bladder cancer Maternal Grandmother Lymphoma Maternal Grandfather Bone cancer Social History Household Members: Significant Other Housing: Apartment Are you a primary dialysis patient care technician to a significant other at home: No Do you presently have visiting nurse or other home services: No Alcohol intake: never Patient Tobacco Use Status: Former Tobacco user Quit Date: 2006 Tobacco use type: Cigarette Cigarette Packs Per Day: 1 e-Cigarette/Vaping Use: Never Used Second Hand Smoke Exposure: Yes Advance Directives Date on File: 05/02/21 service: No 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al status: employed 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) Sexual orientation: Straight/Heterosexual Gender identity: Female Cognitive needs: No Hearing needs: No Vision needs: No Assessment & Plan Assessment & Plan (1) Ischemic gastroenteritis: Code(s): K52.89 - Other specified noninfective gastroenteritis and colitis Plan: Assessment & Plan 1/ ischemic gastropathy and IBS--in future she should get lovenox bridging for any procedures 2/ constipation, better since colonoscopy 3/ barretts PLAN: 1/ cont with current treatment regimens, elavil, levsin, zofran, and PPI 2/ cont with miralax as needed 3/ rept EGD in 3-5 yrs Telehealth Telehealth Location of provider rendering services: practice address Location of patient: address on file Patient Identification confirmed using: Name, : Yes Telehealth method: video Patient verbally consented to treatment: Yes Patient verbally consented to billing insurance company: Yes Patient informed of any privacy concerns related to visit: Yes Minutes spent on Phone/Video with Pt.: 12 Coding Level of Care Code Tele Est Pt Level 3 (15845) Diagnoses Ischemic gastroenteritis K52.89
== END 2023-02-06 09:38 | disposition home or self-care (01) ==
LOC: HO.HGI 09:09
PROVIDERS: PCP Nurse Practitioner Family; Visit Provider Internal Medicine Gastroenterology
DX: K52.89 Other specified noninfective gastroenteritis and colitis (principal)
CPT/HCPCS: 99213

== ENCOUNTER → 2023-02-06 09:09 | Outpatient (BNVA) | payer OTHER, SELFPAY | PROVIDERS: PCP Nurse Practitioner Family; Visit Provider Internal Medicine Gastroenterology ==

== ENCOUNTER 2023-03-12 15:58 | Outpatient (AMB) | payer OTHER, SELFPAY ==
[2023-03-12 16:06] VITALS: BP 118/68; PULSE 103; TEMP 36.3; O2SAT 98; BMI 28.3
--- NOTE | 2023-03-12 16:06 | MHC.OFFWIV ---
Intake Vital Signs 03/12/23 16:06 Height 5 ft 5 in Weight 170 lb BMI 28.3 BP 118/68 Blood Pressure Location Lt brachial Position Sitting Pulse 103 H Pulse Source Pulse Oximeter Temp 97.3 F Temp Source Temporal Artery Scan Pulse Oximetry (%) 98 Oxygen Delivery Method Room Air Intake Visit Reasons: EP RT elbow Intake Note: pt is here today for rt elbow started 2 weeks ago Patient Tobacco Use Status: Former Tobacco user Quit Date: 2006 Allergies Sulfa (Sulfonamide Antibiotics) Allergy (Severe, Verified 03/12/23 16:07) ANAPHYLAXIS, angioedema cefuroxime [From CEFTIN] Allergy (Intermediate, Verified 03/12/23 16:07) RASH metronidazole [From FLAGYL] Allergy (Intermediate, Verified 03/12/23 16:07) itch cefotetan Allergy (Unknown, Verified 03/12/23 16:07) rash sulfacetamide Allergy (Unknown, Verified 03/12/23 16:07) oral swelling, rash oxycodone [From OxyContin] Allergy (Verified 03/12/23 16:07) Itching nitrofurantoin [From MACROBID] Adverse Reaction (Mild, Verified 03/12/23 16:07) n/v Do you need a note to return to daycare/school/sports/work: Yes (return thursday) Return to daycare/school/sports/work/other note: work HPI HPI Comments History of Present Illness Details 52 y/o female presents to walk in clinic with c/o right elbow pain for 2 weeks now. Denies injuries or trauma to the elbow. Denies numbness or tingling to the fingers. She has been taking Acetaminophen for pain relief. [facility]LY [facility] Medical History Small bowel ischemia COVID-19 Paralytic ileus H/O abnormal cervical Papanicolaou smear [place]-menopausal control counseling Migraine with aura Portal vein thrombosis Lupus Right shoulder pain Immunizations incomplete Encounter for screening for COVID-19 Carpal tunnel syndrome Right hand pain Right wrist pain Surgical History Hx of carpal tunnel repair Hx of colonoscopy H/O resection of small bowel History of esophagogastroduodenoscopy (EGD) History of shoulder surgery H/O left knee surgery Hx of cholecystectomy Family History Mother Multiple myeloma Mental health disorder Father Bladder cancer Maternal Grandmother Lymphoma Maternal Grandfather Bone cancer Social History Household Members: Significant Other Housing: Apartment Are you a primary transitional care liaison to a significant other at home: No Do you presently have visiting nurse or other home services: No Alcohol intake: never Patient Tobacco Use Status: Former Tobacco user Quit Date: 2006 Tobacco use type: Cigarette Cigarette Packs Per Day: 1 e-Cigarette/Vaping Use: Never Used Second Hand Smoke Exposure: Yes Advance Directives Date on File: 05/02/21 service: No 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al status: employed 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) Sexual orientation: Straight/Heterosexual Gender identity: Female Cognitive needs: No Hearing needs: No Vision needs: No Review of Systems Const All systems reviewed & are unremarkable except as noted in HPI and below Physical Exam Vital Signs: Last Vital Signs Temp 97.3 F 03/12/23 16:06 Pulse 103 H 03/12/23 16:06 BP 118/68 03/12/23 16:06 Pulse Ox 98 03/12/23 16:06 Oxygen Delivery Method Room Air 03/12/23 16:06 BMI result Body Mass Index 28.3 Const Orientation/consciousness: patient oriented x3 Skin General skin exam: no rashes or lesions noted Neuro General: patient oriented x3 Cranial nerves: Yes CN's II-XII intact bilaterally Gait exam (Neuro): Normal gait present Motor exam (neuro): 5/5 motor strength present throughout Extrem Right upper extremity: elbow/forearm Details: tenderness Location: of the olecranon and normal ROM; no swelling, no unusual warmth, no ecchymosis and no crepitus Left upper extremity: normal to inspection and full ROM Right lower extremity: normal to inspection Left lower extremity: normal to inspection Assessment & Plan Assessment & Plan (1) Right elbow pain: Code(s): M25.521 - Pain in right elbow Plan: - RICE - Warm/cold pads - Acetaminophen for pain relief. Orders: Orders XR elbow RT 2V Today M25.521 - Pain in right elbow Medications: New acetaminophen 1,000 mg (2 x 500 mg) PO Q6H PRN 30 caps 0RF elbow pain M25.521 - Pain in right elbow Changed From lidocaine 5% (Lidoderm) leave on most painful area for up to 12 hrs 2 patches topical DAILY PRN 30 ea 0RF pain M25.521 - Pain in right elbow To lidocaine 5% (Lidoderm) leave on most painful area for up to 12 hrs 1 patch topical DAILY PRN 30 ea 0RF Elbow pain M25.521 - Pain in right elbow Coding Level of Care Code Est Pt Level 3 (54954) Diagnoses Right elbow pain M25.521 Time Spent (min) 15
== END 2023-03-12 17:13 | disposition home or self-care (01) ==
PROVIDERS: PCP Nurse Practitioner Family; Visit Provider Nurse Practitioner Family
DX: M25.521 Pain in right elbow (principal)
CPT/HCPCS: 99213

== ENCOUNTER 2023-03-12 16:31 | Outpatient (REF) | payer OTHER, SELFPAY ==
--- NOTE | ~2023-03-12 | XR_ITS ---
EXAMINATION: XR ELBOW, RIGHT CLINICAL INFORMATION: Pain in the right elbow. COMPARISON: None available. TECHNIQUE: AP, lateral, and oblique views of the right elbow. FINDINGS: No fracture or subluxation. Minimal degenerative osteoarthritis. No joint effusion. Normal soft tissues. XR/XR elbow RT 2V IMPRESSION: No acute fracture or malalignment. Minimal degenerative osteoarthritis.
== END 2023-03-12 16:32 | disposition home or self-care (01) ==
LOC: HO.HMGCX 16:31
PROVIDERS: PCP Nurse Practitioner Family; Visit Provider Nurse Practitioner Family
DX: M25.521 Pain in right elbow (principal)
CPT/HCPCS: 73070

== ENCOUNTER 2023-03-26 14:22 | Outpatient (REF) | payer OTHER, SELFPAY | END 2023-03-26 14:23 | disposition home or self-care (01) | LOC: HO.HAP 14:22 | PROVIDERS: Visit Provider Nurse Practitioner Family | DX: Z13.89 Encounter for screening for other disorder (principal) ==

== ENCOUNTER 2023-03-27 12:43 | Outpatient (REF) | payer SELFPAY | END 2023-03-27 12:44 | disposition home or self-care (01) | LOC: HO.HAP 12:43 | PROVIDERS: Visit Provider Nurse Practitioner Family | DX: Z46.1 Encounter for fitting and adjustment of hearing aid (principal) | CPT/HCPCS: V5267 ==

== ENCOUNTER 2023-03-31 14:20 | Outpatient (REF) | payer OTHER, SELFPAY ==
[2023-03-31 16:21] LABS: Appearance Urine Clear; Color Urine Dark Yellow; Glucose Urine UA Negative (Negative); Leukocyte Esterase Urine Small (1+) (Negative); Nitrite Urine Negative (Negative); PH 6.5 (5.0-9.0); UMIC TRIGGER UA YES; Urine Blood Negative (Negative); Urine Ketones Trace mg/dL (Negative); Urine Protein Negative (Neg-Trace)
[2023-03-31 16:40] LABS: Bacteria Urine Trace (None Seen); Hyaline Casts Urine 0-2 /LPF (0-2); RBC Urine 0-2 /HPF (0-2); Squamous Epithelial Cell Urine 0-2 /HPF (0-2)
== END 2023-03-31 14:21 | disposition home or self-care (01) ==
LOC: HO.HMGCLDS 14:20
PROVIDERS: PCP Nurse Practitioner Family; Visit Provider Nurse Practitioner Family
DX: R30.0 Dysuria (principal)
CPT/HCPCS: 81001; 87086; 87088; 87186

== ENCOUNTER 2023-04-27 13:30 | Outpatient (RCR) | payer OTHER, SELFPAY ==
--- NOTE | 2023-04-13 14:32 | MHC.OT.EP ---
[address] [phone] Occupational Therapy Plan of Care Patient Name: Shawna Gonzalez Date of Evaluation: 04/13/23 Diagnosis: R ELBOW PAIN Pain Location: R ELBOW 3/10 AT REST, DULL PAIN 5/10 WITH USE, END OF DAY Pain Score: 3-5/10 Pain Scale Used: Numeric (0 - 10) Aggravating Factors: WORSE AT NIGHT, OPENING TIGHT ITEMS Alleviating Factors: COMPRESSION SLEEVE, TYLENOL, USING HEAT, LIDOCANE PATCH Assessment: MS GONZALEZ P/W R ELBOW PAIN. 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 INCREASE IN PATIENT CARE/ JOB DUTIES AT NEW PLACE OF EMPLOYMENT. SHE HAS A HISTORY OF R TENNIS ELBOW MANY YEARS AGO, AND RECENT IMAGING SHOWING R ELBOW OA. A 20% LIMITATION IS REPORTED PER THE QUICK DASH ASSESSMENT. SHE WOULD BENEFIT FROM ONGOING SKILLED TO ADDRESS AREAS MENTIONED BELOW. Frequency and Duration: The patient will be seen 2X/WEEK FOR 4 WEEKS Short Term Goals: IND HEP IND USE OF CFB IND JT PROTECTION AND ACTIVITY MODIFICATIONS IND USE OF ICE REPORT MOSTLY PAINFREE AT REST Care Home Goals: QUICK DASH <10% REPORT <2/10 PAIN WITH LIFTING AND CARRYING 20 POUNDS IND PROGRESSION OF TENNIS ELBOW PROGRAM Treatment Plan: Therapeutic Exercise Therapeutic Activity Home Exercise Program Splinting Neuro Re-ed Patient Education Desensitization/Sensory Re-ed Edema Control ADL Training Ultrasound NMES Iontophoresis Paraffin Fluidotherapy MHP Cold Packs Joint Mobilization Soft Tissue Mobilization Kinesiotaping Other (see comments) Electronically Signed By: PHILL MOSELEY OTR/L Please Sign and return to therapist. Thank you once again for your referral.
--- NOTE | 2023-05-04 11:32 | MHC.OT.DC ---
[address] [phone] F: [phone] Occupational Therapy Discharge Note Patient Name: Shawna Hayes Provider: Fouzia Gil Diagnosis: R ELBOW PAIN Date of Evaluation: 04/13/23 Date of Discharge: 05/04/23 Treatments to Date: 3 Cancellations to Date: 0 No Shows to Date: 0 Discharge Status: Improved Function Independent with HEP Patient Elected to Stop Discharge Summary: MS HAYES HAS PROGRESSED WELL WITH HER OT RX SESSIONS. SHE IS IND WITH HER HEP AND REPORTS LOW PAIN. SHE WISHES TO DISCONTINUE OT AND WILL TRANSITION TO A HOME BASED PROGRAM. SELF-D/C FROM OT. Electronically Signed By: PHILL MOSELEY OTR/L Reviewed/agree with student documentation: N/A Therapist: Please Sign and return to therapist, thank you for your referral.
== END 2023-05-04 11:30 | disposition home or self-care (01) ==
LOC: HO.OT 13:30
PROVIDERS: PCP Nurse Practitioner Family; Visit Provider Internal Medicine
DX: M25.521 Pain in right elbow (principal)
CPT/HCPCS: 97035; 97110; 97140; 97165

== ENCOUNTER 2023-06-03 07:29 | Outpatient (AMB) | payer OTHER, MEDICAID, SELFPAY ==
--- NOTE | 2023-06-03 07:46 | A.OFFPC_ITS ---
Vital Signs 06/03/23 07:49 Height 5 ft 5 in Weight 171 lb 8 oz BMI 28.5 BP 118/72 Blood Pressure Location Rt brachial Position Sitting Pulse 82 Pulse Source Pulse Oximeter Pulse Oximetry (%) 97 Oxygen Delivery Method Room Air Intake Visit Reasons: Annual PE Intake Note: Patient here for physical exam. pt would like to talk about inhaler options. mammo: 2022-due last pap: 2022-oct appt Allergies Sulfa (Sulfonamide Antibiotics) Allergy (Severe, Verified 06/03/23 07:57) ANAPHYLAXIS, angioedema cefuroxime [From CEFTIN] Allergy (Intermediate, Verified 06/03/23 07:57) RASH metronidazole [From FLAGYL] Allergy (Intermediate, Verified 06/03/23 07:57) itch cefotetan Allergy (Unknown, Verified 06/03/23 07:57) rash sulfacetamide Allergy (Unknown, Verified 06/03/23 07:57) oral swelling, rash oxycodone [From OxyContin] Allergy (Verified 06/03/23 07:57) Itching nitrofurantoin [From MACROBID] Adverse Reaction (Mild, Verified 06/03/23 07:57) n/v Medication List - Last Reconciled 06/03/23 by PATRICIO Lorenzo-TAYLOR acetaminophen 1,000 mg (2 x 500 mg) PO Q6H PRN albuterol sulfate 90 mcg/actuation (Ventolin HFA) 2 puffs inhalation Q6H PRN albuterol sulfate 2.5 mg (3 mL) inhalation QID PRN amitriptyline 50 mg PO BEDTIME 90 days apixaban (Eliquis) 5 mg PO BID atorvastatin 20 mg PO BEDTIME Bifidobacterium infantis (Align) 4 mg PO BEDTIME 90 days budesonide-formoterol 160-4.5 mcg/actuation (Symbicort) 2 puffs inhalation Q12H 90 days buspirone 15 mg PO BID 90 days buspirone 20 mg PO BEDTIME lvesdxayvk-kdemhrzcwsfgi-rcla 50-300-40 mg (Fioricet) 1 cap PO DAILY PRN 5 days cholecalciferol (vitamin D3) 50 mcg PO DAILY 90 days cyanocobalamin (vitamin B-12) (Vitamin B-12) 1,000 mcg PO DAILY cyclobenzaprine 5 mg PO DAILY PRN 4 days epinephrine 0.3 mg IM DIRECTED escitalopram oxalate 5 mg PO DAILY famotidine 40 mg PO BEDTIME fluticasone propion-salmeterol 250-50 mcg/dose (Wixela Inhub) 1 inh inhalation Q12H fluticasone propionate 50 mcg/actuation 2 sprays intranasal DAILY hydroxyzine HCl 10 mg PO BEDTIME hyoscyamine sulfate 0.125 mg PO BID-QID 30 days inhalational spacing device (Flexichamber spacer) As directed with inhaler lansoprazole 30 mg PO DAILY lidocaine 5% (Lidoderm) 1 patch topical DAILY PRN lorazepam 1 mg orally take one tab 45 minutes before the procedure, may repeat if one tab does not work. 1 day magnesium oxide 400 mg PO BEDTIME 30 days montelukast 10 mg PO BEDTIME multivitamin with folic acid 400 mcg (Daily-Garrett (with folic acid)) 1 tab PO DAILY [nebulizer tubing and supplies As directed] nebulizers (Compact Compressor Nebulizer) As directed ondansetron 8 mg PO Q8H PRN polyethylene glycol 3350 17 grams PO BID sodium,potassium,mag sulfates 17.5-3.13-1.6 gram (Suprep Bowel Prep Kit) DILUTE; drink 1/2 at 6-8 pm and half at 11 PM- 1AM tiotropium bromide 2.5 mcg/actuation (Spiriva Respimat) 2 puffs PO DAILY vitamin B complex 1 tab PO DAILY Tobacco use date assessed: 06/03/23 Dental Screening Dental Screen Date: 06/03/23 Did you have a dental visit in the last 12 months?: Yes Did you have a dental problem in the last 6 months where you did not have access to dental care?: No Was dental information given to patient?: Patient has dentist HPI Annual PE HPI Details Pt is here for a PE. Will order labs. Colon screen is up to date. Mammo is up to date. 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 [facility]LY [facility] Medical History Small bowel ischemia COVID-19 Paralytic ileus H/O abnormal cervical Papanicolaou smear [place]-menopausal control counseling Migraine with aura Portal vein thrombosis Lupus Right shoulder pain Immunizations incomplete Encounter for screening for COVID-19 Carpal tunnel syndrome Right hand pain Right wrist pain Surgical History Hx of carpal tunnel repair Hx of colonoscopy H/O resection of small bowel History of esophagogastroduodenoscopy (EGD) History of shoulder surgery H/O left knee surgery Hx of cholecystectomy Family History Mother Multiple myeloma Mental health disorder Father Bladder cancer Maternal Grandmother Lymphoma Maternal Grandfather Bone cancer Social History Household Members: Significant Other Housing: Apartment Are you a primary acute care clinical nurse specialist to a significant other at home: No Do you presently have visiting nurse or other home services: No Alcohol intake: never Patient Tobacco Use Status: Former Tobacco user Quit Date: 2006 Tobacco use type: Cigarette Cigarette Packs Per Day: 1 e-Cigarette/Vaping Use: Never Used Second Hand Smoke Exposure: Yes Advance Directives Date on File: 05/02/21 service: No 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al status: employed 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 Tyler Jordan, Ying Juárez, Marito Gutierrez and colleagues, with an educational angela from [employer]. Review of Systems Const Denies chills and Denies fever(s) Eyes Denies blurry vision ENT Denies vertigo, Denies dizziness and Denies sore throat Card Denies chest pain at rest, Denies chest pain with activity, Denies diaphoresis, Denies dyspnea and Denies dyspnea on exertion Resp Denies cough, Denies dyspnea, Denies dyspnea on exertion and Denies wheezing GI Denies abdominal pain, Denies melena, Denies hematochezia, Denies constipation, Denies diarrhea and Denies loose stools Denies hematuria Musc Denies numbness and Denies tingling Skin/Breast Denies lesions Neuro Denies vertigo, Denies dizziness, Denies numbness and Denies tingling Psych Denies anxiety, Denies depression, Denies homicidal ideation, Denies suicidal ideation and Denies other (substance abuse) Aller/Immun Denies wheezing Physical exam (Primary Care) Vital Signs: Last Vital Signs Pulse 82 06/03/23 07:49 BP 118/72 06/03/23 07:49 Pulse Ox 97 06/03/23 07:49 Oxygen Delivery Method Room Air 06/03/23 07:49 BMI result Body Mass Index 28.5 Tobacco/Smoking Status: Tobacco use Status Tobacco use date assessed 06/03/23 06/03/23 07:57 Patient Tobacco Use Status Former Tobacco user 06/03/23 07:49 Tobacco use type Cigarette 06/03/23 07:49 e-Cigarette/Vaping Use Never Used 06/03/23 07:49 Thrive Assessment: Date of Thrive Assessment Date Thrive assessed 03/11/21 06/03/23 07:49 Const General: cooperative Nutritional Appearance: well nourished Orientation/consciousness: patient oriented x3 HENMT Head: Yes normal to inspection, Yes normocephalic and Yes atraumatic Ears: TM's normal bilaterally Eyes General: appearance normal, both eyes and all related structures Alignment and Position: alignment normal and position normal Neck Neck: Yes normal visual inspection and Yes no lymphadenopathy Thyroid: Thyroid normal Resp Effort & Inspection: normal respiratory effort Auscultation: clear to auscultation bilaterally Cardio Rate: regular rate Rhythm: regular rhythm Heart sounds: S1 normal heart sound present, S2 normal heart sound present and no murmurs GI Palpation (GI): Soft to palpation and nontender Auscultation: normal bowel sounds Skin Rashes: no rashes Neuro General: patient oriented x3, moves all extremities, no focal motor deficits and deep tendon reflexes 2+ bilaterally Romberg Test: Negative Psych Appearance: grossly normal Mental Status: mental status grossly normal Speech and movement: Normal speech and movement present Affect: normal affect Attitude: cooperative Thought process: Normal thought process present Thought content: Normal thought content present Insight: Good insight present (Psych) Judgement: Good judgement present (Psych) Assessment and Plan Assessment & Plan (1) Physical exam: Code(s): Z00.00 - Encounter for general adult medical examination without abnormal findings Plan: Labs ordered Plan The patient agreed to the use of a medical reviewer for this encounter. Scribed for Jamaal López DEPARTMENT OF MATHEMATICS CHAIR- by Ami Horner, medical reviewer, on 06/03/2023 at 08:00 EST. Orders: Orders TSH reflex Free T4 Today Z00.00 - Encounter for general adult medical examination without abnormal findings Lipid Panel Today Z00.00 - Encounter for general adult medical examination without abnormal findings Complete Blood Count Auto Diff Today Z00.00 - Encounter for general adult medical examination without abnormal findings Comprehensive [place]. Panel Fast Today Z00.00 - Encounter for general adult medical examination without abnormal findings UA CC w/rflx Micro + Cult Today Z00.00 - Encounter for general adult medical examination without abnormal findings Vitamin D 25-OH Total Today Z00.00 - Encounter for general adult medical examination without abnormal findings Coding Level of Care Code Est Pt Prev Care 40-64y(89934) Diagnoses Physical exam Z00.00
[2023-06-03 07:49] VITALS: BP 118/72; PULSE 82; O2SAT 97; BMI 28.5
== END 2023-06-03 08:30 | disposition home or self-care (01) ==
PROVIDERS: Visit Provider Nurse Practitioner Family
DX: Z00.00 Encounter for general adult medical examination without abnormal findings (principal)
CPT/HCPCS: 99396

== ENCOUNTER 2023-06-03 08:12 | Outpatient (REF) | payer OTHER, SELFPAY ==
[2023-06-03 10:21] LABS: Appearance Urine Clear; Color Urine Yellow; Glucose Urine UA Negative (Negative); Leukocyte Esterase Urine Negative (Negative); Nitrite Urine Negative (Negative); Specific Gravity - Urine <= 1.005 (1.005-1.025); Urine Blood Negative (Negative); Urine Ketones Negative (Negative); Urine Protein Negative (Neg-Trace)
[2023-06-03 10:25] LABS: MANUAL DIFF FLAG NO
[2023-06-03 10:37] LABS: Basophils Absolute Auto 0.1 X10*3/uL (0.0-0.2); Basophils Percent Auto 0.8 % (0-2); Eosinophils Absolute Auto 0.3 X10*3/uL (0.0-0.4); Eosinophils Percent Auto 3.1 % (0-4); Hemoglobin 13.2 g/dl (12.0-16.0); Imm Gran Abs Auto 0.03 X10*3/uL (0.00-0.03); Imm Gran Pct Auto 0.3 % (0.0-0.4); Lymphocytes Absolute Auto 3.1 X10*3/uL (1.2-4.9); Lymphocytes Percent Auto 30.8 % (20-40); Mean Corpuscular Hemoglobin 31.4 pg (27.0-33.0); Mean Platelet Volume 12.1 fL (9.4-12.3); Monocytes Absolute Auto 1.1 X10*3/uL (0.1-1.2); Monocytes Percent Auto 10.6 % (2-11); Neutrophils Absolute Auto 5.6 x10*3/uL (2.0-8.3); Neutrophils Percent Auto 54.4 % (45-73); Platelet Count 225 X10*3/uL (160-400); Red Blood Count 4.21 X10*6/uL (4.20-5.50); White Blood Count 10.2 X10*3/uL (4.8-10.8)
[2023-06-03 11:06] LABS: Alanine Aminotransferase 19 U/L (0-31); Albumin Level 4.3 g/dL (3.5-5.0); Alkaline Phosphatase 79 U/L (39-117); Anion Gap 12 (12-20); Aspartate Amino Transferase 21 U/L (5-31); Bilirubin Total 0.2 mg/dL (0.0-1.0); Blood Urea Nitrogen 11 mg/dL (9-16); Calcium 9.6 mg/dL (8.4-10.2); Carbon Dioxide 28 mmol/L (22-29); Chloride 106 mmol/L (96-108); Cholesterol 113 mg/dL (<200); Estimated Glomerular Filt Rate > 60; Glucose Fasting 118 mg/dL (60-99); HDL Cholesterol 42 mg/dL (>40); LDL Cholesterol Calculated 58 mg/dL (<100); Potassium 4.9 mmol/L (3.3-5.1); Sodium 141 mmol/L (135-145); Total Protein 7.6 g/dL (6.5-8.0); Triglycerides 69 mg/dL (<150)
[2023-06-03 11:25] LABS: TSH reflex Free T4 0.93 uIU/mL (0.32-4.0); Vitamin D 25-OH Total 49.1 ng/mL (>30)
== END 2023-06-03 08:13 | disposition home or self-care (01) ==
LOC: HO.HMGCLDS 08:12
PROVIDERS: PCP Nurse Practitioner Family; Visit Provider Nurse Practitioner Family
DX: Z00.00 Encounter for general adult medical examination without abnormal findings (principal); Z20.2 Contact with and (suspected) exposure to infections with a predominantly sexual mode of transmission
CPT/HCPCS: 36415; 80053; 80061; 81003; 82306; 84443; 85025

== ENCOUNTER 2023-07-16 07:40 | Outpatient (AMB) | payer OTHER, SELFPAY ==
--- NOTE | 2023-07-16 07:13 | MHC.PC.OV ---
Intake Visit Reasons: Discuss inhaler, needs PA for Symbicort Allergies Sulfa (Sulfonamide Antibiotics) Allergy (Severe, Verified 06/03/23 07:57) ANAPHYLAXIS, angioedema cefuroxime [From CEFTIN] Allergy (Intermediate, Verified 06/03/23 07:57) RASH metronidazole [From FLAGYL] Allergy (Intermediate, Verified 06/03/23 07:57) itch cefotetan Allergy (Unknown, Verified 06/03/23 07:57) rash sulfacetamide Allergy (Unknown, Verified 06/03/23 07:57) oral swelling, rash oxycodone [From OxyContin] Allergy (Verified 06/03/23 07:57) Itching nitrofurantoin [From MACROBID] Adverse Reaction (Mild, Verified 06/03/23 07:57) n/v Medication List - Last Reconciled 07/16/23 by FRANCISCO LorenzoP- acetaminophen 1,000 mg (2 x 500 mg) PO Q6H PRN albuterol sulfate 90 mcg/actuation (Ventolin HFA) 2 puffs inhalation Q6H PRN albuterol sulfate 2.5 mg (3 mL) inhalation QID PRN amitriptyline 50 mg PO BEDTIME 90 days apixaban (Eliquis) 5 mg PO BID atorvastatin 20 mg PO BEDTIME Bifidobacterium infantis (Align) 4 mg PO BEDTIME 90 days budesonide-formoterol 160-4.5 mcg/actuation (Symbicort) 2 puffs inhalation BID buspirone 15 mg PO BID 90 days buspirone 20 mg PO BEDTIME bzdznlikjw-uroiqhnytelkf-bagw 50-300-40 mg (Fioricet) 1 cap PO DAILY PRN 5 days cholecalciferol (vitamin D3) 50 mcg PO DAILY 90 days cyanocobalamin (vitamin B-12) (Vitamin B-12) 1,000 mcg PO DAILY cyclobenzaprine 5 mg PO DAILY PRN 4 days epinephrine 0.3 mg IM DIRECTED escitalopram oxalate 5 mg PO DAILY famotidine 40 mg PO BEDTIME fluticasone propionate 50 mcg/actuation 2 sprays intranasal DAILY hydroxyzine HCl 10 mg PO BEDTIME hyoscyamine sulfate 0.125 mg PO BID-QID 30 days inhalational spacing device (Flexichamber spacer) As directed with inhaler lansoprazole 30 mg PO DAILY lidocaine 5% (Lidoderm) 1 patch topical DAILY PRN lorazepam 1 mg orally take one tab 45 minutes before the procedure, may repeat if one tab does not work. 1 day magnesium oxide 400 mg PO BEDTIME 30 days montelukast 10 mg PO BEDTIME multivitamin with folic acid 400 mcg (Daily-Garrett (with folic acid)) 1 tab PO DAILY [nebulizer tubing and supplies As directed] nebulizers (Compact Compressor Nebulizer) As directed ondansetron 8 mg PO Q8H PRN polyethylene glycol 3350 17 grams PO BID sodium,potassium,mag sulfates 17.5-3.13-1.6 gram (Suprep Bowel Prep Kit) DILUTE; drink 1/2 at 6-8 pm and half at 11 PM- 1AM tiotropium bromide 2.5 mcg/actuation (Spiriva Respimat) 2 puffs PO DAILY vitamin B complex 1 tab PO DAILY Tobacco use date assessed: 06/03/23 Dental Screening Dental Screen Date: 06/03/23 HPI Discuss inhaler, needs PA for Symbicort HPI Details Pt reports that when she uses Wixela she develops a cough due to the powder, then starts to wheeze, having to use her rescue inhaler (reporting using this way more often since starting Wixela). Pt states that Symbicort worked well for her. Will work on PA for this. Denies chest pain, shortness of breath, and dizziness. [facility] Medical History Small bowel ischemia COVID-19 Paralytic ileus H/O abnormal cervical Papanicolaou smear [place]-menopausal control counseling Migraine with aura Portal vein thrombosis Lupus Right shoulder pain Immunizations incomplete Encounter for screening for COVID-19 Carpal tunnel syndrome Right hand pain Right wrist pain Surgical History Hx of carpal tunnel repair Hx of colonoscopy H/O resection of small bowel History of esophagogastroduodenoscopy (EGD) History of shoulder surgery H/O left knee surgery Hx of cholecystectomy Family History Mother Multiple myeloma Mental health disorder Father Bladder cancer Maternal Grandmother Lymphoma Maternal Grandfather Bone cancer Social History Household Members: Significant Other Housing: Apartment Are you a primary managed care specialist to a significant other at home: No Do you presently have visiting nurse or other home services: No Alcohol intake: never Patient Tobacco Use Status: Former Tobacco user Tobacco use type: Cigarette Cigarette Packs Per Day: 1 e-Cigarette/Vaping Use: Never Used Second Hand Smoke Exposure: Yes Advance Directives Date on File: 05/02/21 service: No 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al status: employed 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 Tyler Jordan, Ying Juárez, Marito Gutierrez and colleagues, with an educational angela from [employer]. Review of Systems Const Reports as per HPI Physical exam (Primary Care) Tobacco/Smoking Status: Tobacco use Status Tobacco use date assessed 06/03/23 07/16/23 07:14 Patient Tobacco Use Status Former Tobacco user 07/16/23 07:14 Tobacco use type Cigarette 07/16/23 07:14 e-Cigarette/Vaping Use Never Used 07/16/23 07:14 Thrive Assessment: Date of Thrive Assessment Date Thrive assessed 03/11/21 07/16/23 07:14 Const General: cooperative Orientation/consciousness: patient oriented x3 Neuro General: patient oriented x3 Psych Appearance: grossly normal Mental Status: mental status grossly normal Speech and movement: Clear speech present Affect: normal affect Attitude: cooperative Thought process: Normal thought process present Thought content: Normal thought content present Insight: Good insight present (Psych) Judgement: Good judgement present (Psych) Telehealth Telehealth Telehealth Platform: [facility] Location of provider rendering services: practice address Location of patient: address on file Patient Identification confirmed using: Name, : Yes Telehealth method: video Patient verbally consented to treatment: Yes Patient verbally consented to billing insurance company: Yes Patient informed of any privacy concerns related to visit: Yes Minutes spent on Phone/Video with Pt.: 10 Assessment and Plan Assessment & Plan (1) Asthma: Code(s): J45.909 - Unspecified asthma, uncomplicated Plan: will send symbicort and follow through with PA if needed Plan The patient agreed to the use of a biomedical manager for this encounter. Scribed for LYN Carbajal by Ami Horner biomedical manager, on 07/16/2023 at 07:15 EST. Medications: New budesonide-formoterol 160-4.5 mcg/actuation (Symbicort) 2 puffs inhalation BID 10.2 grams 1RF Discontinued budesonide-formoterol 80-4.5 mcg/actuation (Symbicort) Discontinued Reason: Doctor's Order 1 inh inhalation BID 10.2 grams 2RF Coding Level of Care Code Est Pt Level 3 (43485) Diagnoses Asthma J45.909
== END 2023-07-16 08:40 | disposition home or self-care (01) ==
LOC: HO.HMGC 07:40
PROVIDERS: PCP Nurse Practitioner Family; Visit Provider Nurse Practitioner Family
DX: J45.909 Unspecified asthma, uncomplicated (principal)
CPT/HCPCS: 99213

== ENCOUNTER 2023-08-27 10:25 | Outpatient (AMB) | payer OTHER, SELFPAY ==
--- NOTE | 2023-08-27 10:32 | MHC.OFFWIV ---
Intake Vital Signs 08/27/23 10:35 Height 5 ft 5 in Weight 176 lb BMI 29.3 BP 118/66 Blood Pressure Location Rt brachial Position Sitting Pulse 90 Pulse Source Pulse Oximeter Temp 98.1 F Temp Source Oral Pulse Oximetry (%) 96 Oxygen Delivery Method Room Air Intake Visit Reasons: EP RT hand injury Intake Note: Pt c/o RT hand injury. Happened last night. Crushed between canopy Patient Tobacco Use Status: Former Tobacco user Allergies Sulfa (Sulfonamide Antibiotics) Allergy (Severe, Verified 08/27/23 10:33) ANAPHYLAXIS, angioedema cefuroxime [From CEFTIN] Allergy (Intermediate, Verified 08/27/23 10:33) RASH metronidazole [From FLAGYL] Allergy (Intermediate, Verified 08/27/23 10:33) itch cefotetan Allergy (Unknown, Verified 08/27/23 10:33) rash sulfacetamide Allergy (Unknown, Verified 08/27/23 10:33) oral swelling, rash oxycodone [From OxyContin] Allergy (Verified 08/27/23 10:33) Itching nitrofurantoin [From MACROBID] Adverse Reaction (Mild, Verified 08/27/23 10:33) n/v Do you need a note to return to daycare/school/sports/work: No HPI HPI Comments History of Present Illness Details Patient is a 53-year-old female complaining of right wrist pain. She states that last evening she was helping her boyfriend get the water that was collecting off the top of a canopy. When they were doing this, the canopy collapsed down and crushed her right wrist and forearm. She states she takes a blood thinner and has had a large hematoma in her leg previously and she wants to make sure she does not have another one as she can already see the bruising starting. She states she has normal strength and sensation in her hand but it is tender along her wrist extending into her forearm. She states it is worse when you push on the area and it is better with rest. She has not taken any medications to try to make it better. [facility] Medical History Small bowel ischemia COVID-19 Paralytic ileus H/O abnormal cervical Papanicolaou smear [place]-menopausal control counseling Migraine with aura Portal vein thrombosis Lupus Right shoulder pain Immunizations incomplete Encounter for screening for COVID-19 Carpal tunnel syndrome Right hand pain Right wrist pain Surgical History Hx of carpal tunnel repair Hx of colonoscopy H/O resection of small bowel History of esophagogastroduodenoscopy (EGD) History of shoulder surgery H/O left knee surgery Hx of cholecystectomy Family History Mother Multiple myeloma Mental health disorder Father Bladder cancer Maternal Grandmother Lymphoma Maternal Grandfather Bone cancer Social History Household Members: Significant Other Housing: Apartment Are you a primary rn care manager to a significant other at home: No Do you presently have visiting nurse or other home services: No Alcohol intake: never Patient Tobacco Use Status: Former Tobacco user Tobacco use type: Cigarette Cigarette Packs Per Day: 1 e-Cigarette/Vaping Use: Never Used Second Hand Smoke Exposure: Yes Advance Directives Date on File: 05/02/21 service: No 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al status: employed 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) Sexual orientation: Straight/Heterosexual Gender identity: Female Cognitive needs: No Hearing needs: No Vision needs: No Review of Systems Const All systems reviewed & are unremarkable except as noted in HPI and below Physical Exam Vital Signs: Last Vital Signs Temp 98.1 F 08/27/23 10:35 Pulse 90 08/27/23 10:35 BP 118/66 08/27/23 10:35 Pulse Ox 96 08/27/23 10:35 Oxygen Delivery Method Room Air 08/27/23 10:35 BMI result Body Mass Index 29.3 Const General: cooperative, healthy appearing, comfortable and no acute distress Orientation/consciousness: patient oriented x3 Limitations: no limitations HEENT Head: Yes normal to inspection Resp Effort & Inspection: normal respiratory effort and able to speak in complete sentences Neuro General: patient oriented x3 Extrem Right upper extremity: wrist Details: normal to inspection, tenderness Location: of the distal radius; not of the anatomic snuffbox, normal ROM, ecchymosis (distal radius 1cm round area), normal vascular exam and radial pulse present; no swelling, no unusual warmth, no abrasions, no lacerations and no deformity and Extremity exam: right hand Details: normal to inspection, normal capillary refill, neuromotor exam normal, tendon exam normal, vascular exam Details: radial pulse present, ulnar pulse present and normal capillary refill and normal ROM of fingers; no tenderness, no unusual warmth, no swelling, no abrasions, no lacerations and no ecchymosis Assessment & Plan Assessment & Plan (1) Anticoagulated by anticoagulation treatment: Comment: On [place] Code(s): 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 Wrist/Hand x-ray showed no acute fracture, still waiting for final read, gave patient right wrist splint to rest it, use ice and if it does not get better she should follow up with her PCP Orders: Orders XR wrist RT w scaphoid Today S63.501A - Unspecified sprain of right wrist, initial encounter, Z79.01 - residential (current) use of anticoagulants Coding Level of Care Code Est Pt Level 4 (54568) Diagnoses Anticoagulated by anticoagulation treatment Z79.01
[2023-08-27 10:35] VITALS: BP 118/66; PULSE 90; TEMP 36.7; O2SAT 96; BMI 29.3
== END 2023-08-27 12:02 | disposition home or self-care (01) ==
PROVIDERS: PCP Nurse Practitioner Family; Visit Provider Physician Assistant
DX: Z79.01 Long term (current) use of anticoagulants (principal)
CPT/HCPCS: 99214

== ENCOUNTER 2023-08-27 10:54 | Outpatient (REF) | payer OTHER, SELFPAY ==
--- NOTE | ~2023-08-27 | XR_ITS ---
Examination: Right wrist CLINICAL INFORMATION: Sprain of right wrist COMPARISON: None TECHNIQUE: 4 views of right wrist FINDINGS: There is no evidence of fracture, dislocation, soft tissue abnormalities. Bones are well mineralized. XR/XR wrist RT w scaphoid IMPRESSION: Normal right wrist.
== END 2023-08-27 10:55 | disposition home or self-care (01) ==
LOC: HO.HMGCX 10:54
PROVIDERS: PCP Nurse Practitioner Family; Visit Provider Physician Assistant
DX: S63.501A Unspecified sprain of right wrist, initial encounter (principal); Z79.01 Long term (current) use of anticoagulants
CPT/HCPCS: 73110

== ENCOUNTER 2023-08-31 12:54 | Outpatient (AMB) | payer OTHER, SELFPAY ==
--- NOTE | 2023-08-31 12:59 | MHC.OFFVIS ---
Vital Signs 08/31/23 13:01 Height 5 ft 5 in Weight 174 lb 2.643 oz BMI 29.0 BP 110/53 L Blood Pressure Location Lt brachial Position Sitting Pulse 93 Intake Visit Reasons: Ischemic Gastroenteritis Intake Note: Shawna presents in the office as a follow up for ischemic gastroenteritis. CC: Manager Heavy Duty Required: No Allergies Sulfa (Sulfonamide Antibiotics) Allergy (Severe, Verified 08/31/23 13:01) ANAPHYLAXIS, angioedema cefuroxime [From CEFTIN] Allergy (Intermediate, Verified 08/31/23 13:01) RASH metronidazole [From FLAGYL] Allergy (Intermediate, Verified 08/31/23 13:01) itch cefotetan Allergy (Unknown, Verified 08/31/23 13:01) rash sulfacetamide Allergy (Unknown, Verified 08/31/23 13:01) oral swelling, rash oxycodone [From OxyContin] Allergy (Verified 08/31/23 13:01) Itching nitrofurantoin [From MACROBID] Adverse Reaction (Mild, Verified 08/31/23 13:01) n/v HPI HPI Ischemic Gastroenteritis: Details: 53 y/o f w hx of asthma, partial bowel resection due to ischemic bowel from lupus anticoagulant, cholecystectomy dec 2017, and depression/anxiety called for f/u RECAP from index visit: 05/2018 1 yr ago had nausea and vomiting, weight loss of 20# then had trial of PPI by Dr Barron at [facility] she had endoscopes top and bottom and all normal PPi was not helping, changed to nexium due to ongoing sx she had repeat EGD 04/2018 which apparently revealed gastritis path 04/2018- EGD w barretts and gastritis, per report there was erosions in the stomach. same month had the bowel resection of mid to distal small bowel, renal infarct also noted on imaging when she had Gb taken out she felt well for short while She was c/o rectal bleeding and diarrhea and had EGD/colonoscopy 05/2018 erosive gastritis, duodenitis, hemorrhoids w some bleeding noted path with active esophagitis and reactive gastritis carafate added, PPI started she was given prevacid and zofran when seen 07/2018 she was doing well however she had an attack of abdo pain, nausea and diarrhea 08/2018 went to ED< given GI cocktail and went away, lasted for few days short lived attack on RAST: pos for egg white, advised to avoid doing well when seen 12/2018, nausea was markedly improved however at visit 05/2019- she had recurrence of nausea for 3 weeks, with upper abdo pain PCP gave her promethazine, using zofran prn she went to ED and was given bentyl she is using levsin scheduled she feels lansoprazole might not be working as well she took pepcid and felt it helped more she feels sx are resolving and improving now she works at [employer] lots of people off due to covid she was recommended to try open capsule PPI, levsin at f/u 07/25/2019-- she was doing well with treatments and no further n/v, with good appetite at visit 10/10/2019 : had nausea for several days with poor appetite she had slow recovery, with an episode of esophageal spasm, and abdominal pain she went to the ER at [facility] her wcc was elevated at 18, hgb nml, BMP, LFT were nml UA was normal A CT was normal I arranged capsule endoscopy --severe gastritis and duodentiis rept EGD: 10/2019--possible ischemic gastropathy with multiple areas pf apllor and redness she was sent to ED to r/o infarction or clot, had neg CTA (CT angio--personally reviewed, no embolism, fecal loading, prominent cbd, contracted stomach with thickened lining) was rx with carafate dr Flor increased lovenox to BID dose was then again increased recently due to low anti Xa and some resumption of her sx She had rept EGD/colo 01/2023 no polyps, granular mucosa of colon, ischemic changes in stomach PATH: TI- nml colon-random- bx with non specifc repair of prior mucosal injury esophagus-focal IM compatible with Barretts stomach: mild chronic inflamamtion INTERIM: few episodes here an there but not that bad with nausea overall she is ahppy her appetite is good, she has gained a lot of weight still on eliquis still enjoying her job --[employer] home no constipation EXAM: GENERAL: The patient is well developed and nontoxic. VITAL SIGNS:see workflow HEENT: Nonicteric sclerae, PERRLA, EOMI. Oropharynx clear. Moist mucous membranes. Conjunctivae appear well perfused. No thyroid mass. CHEST: Chest wall is nontender. HEART: Regular rate and rhythm without murmurs. LUNGS: Clear to auscultation bilaterally. ABDOMEN: Soft, positive bowel sounds, nontender, no organomegaly.no flank tenderness SKIN: No rash, no excessive bruising, petechiae, or purpura. NEUROLOGIC: Cranial nerves II-XII intact without motor/sensory deficit. Psych: normal affect Assessment & Plan 1/ ischemic gastropathy and IBS--in future she should get lovenox bridging for any procedures --stable 2/ constipation, resolved 3/ barretts PLAN: 1/ cont with current treatment regimens, elavil, levsin, zofran, and PPI 2/ cont with miralax as needed 3/ rept EGD in 3-5 yrs [facility] Medical History Small bowel ischemia COVID-19 Paralytic ileus H/O abnormal cervical Papanicolaou smear [place]-menopausal control counseling Migraine with aura Portal vein thrombosis Lupus Right shoulder pain Immunizations incomplete Encounter for screening for COVID-19 Carpal tunnel syndrome Right hand pain Right wrist pain Surgical History Hx of carpal tunnel repair Hx of colonoscopy H/O resection of small bowel History of esophagogastroduodenoscopy (EGD) History of shoulder surgery H/O left knee surgery Hx of cholecystectomy Family History Mother Multiple myeloma Mental health disorder Father Bladder cancer Maternal Grandmother Lymphoma Maternal Grandfather Bone cancer Social History Household Members: Significant Other Housing: Apartment Are you a primary healthcare network pricing consultant to a significant other at home: No Do you presently have visiting nurse or other home services: No Alcohol intake: never Patient Tobacco Use Status: Former Tobacco user Tobacco use type: Cigarette Cigarette Packs Per Day: 1 e-Cigarette/Vaping Use: Never Used Second Hand Smoke Exposure: Yes Advance Directives Date on File: 05/02/21 service: No 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al status: employed 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
[2023-08-31 13:01] VITALS: BP 110/53; PULSE 93; BMI 29.0
== END 2023-08-31 13:21 | disposition home or self-care (01) ==
PROVIDERS: PCP Nurse Practitioner Family; Visit Provider Internal Medicine Gastroenterology
DX: K52.89 Other specified noninfective gastroenteritis and colitis (principal)
CPT/HCPCS: 99213

== ENCOUNTER → 2023-08-31 12:54 | Outpatient (BNVA) | payer OTHER, SELFPAY | PROVIDERS: PCP Nurse Practitioner Family; Visit Provider Internal Medicine Gastroenterology ==

== ENCOUNTER 2023-10-29 10:42 | Outpatient (REF) | payer OTHER, SELFPAY ==
[2023-10-30 08:37] LABS: HBc Num1 0.22 S/CO (0.00-0.79); HBsAGNum1 0.26 S/CO (0.00-0.99); Hepatitis A Antibody IgM 0.19 Index (0-0.79); Hepatitis B Core Antibody Nonreactive (Nonreactive); Hepatitis B Surface Antigen Negative (Negative); ~HepC Num1 0.29 S/CO (0.00-0.79); ~Hepatitis A Antibody IgM Nonreactive (Nonreactive); ~Hepatitis B Surface Antibody REACTIVE (Nonreactive); ~Hepatitis C Antibody Nonreactive (Nonreactive)
[2023-10-30 22:23] LABS: Rubeola IgG (Measles) <13.50 AU/mL
[2023-11-01 23:18] LABS: TS Negative Control Passed; TS Panel A 4; TS Panel B 0; TS Positive Control Passed; TSpotTB Negative (Negative)
== END 2023-10-29 10:43 | disposition home or self-care (01) ==
LOC: HO.HMGCLDS 10:42
PROVIDERS: PCP Nurse Practitioner Family; Visit Provider Nurse Practitioner Family
DX: Z01.84 Encounter for antibody response examination (principal); Z28.39 Other underimmunization status
CPT/HCPCS: 36415; 86481; 86704; 86706; 86709; 86735; 86762; 86765; 86787; 86803; 87340

== ENCOUNTER 2023-11-13 08:35 | Outpatient (AMB) | payer OTHER, SELFPAY ==
--- OUTSIDE RECORDS SUMMARY | 2023-11-13 08:36 | XMS_ITS ---
Author Organization [facility] Address [address] [place] [address] Care Team Providers Care Vice President Corporate Communications Name Role Phone Jamaal Early Primary Care Provider Unav ailable Nurys Miller Unavailable [phone] REASON FOR VISIT Payment Encounters Encounter Location Date Provider Diagnosis [facility] [address] [place] [address] 08/01/2022 Nurys Miller PLAN OF TREATMENT No Information
--- OUTSIDE RECORDS SUMMARY | 2023-11-13 08:37 | XMS_ITS ---
Author Organization [facility] Address [address] [place] [address] Care Team Providers Care Supervisor Advertising Dispatch Clerks Name Role Phone Jamaal Early Primary Care Provider Unav ailable Nurys Miller Unavailable [phone] REASON FOR VISIT Payment Encounters Encounter Location Date [facility] [address] [place] [id number] 06/20/2022 Nurys Miller PLAN OF TREATMENT No Information
--- OUTSIDE RECORDS SUMMARY | 2023-11-13 08:37 | XMS_ITS | Patient Health Record ---
Author Organization [facility] Address [address] [place] [address] Care Team Providers Care Contact Officer Name Role Phone Jamaal Early Primary Care Provider Unav ailable Nurys Miller Unavailable [phone] ALLERGIES Allergen (clinical drug ingredient) Drug/Non Drug Allergy documented on EMR Reaction Allergy Type Onset Date Status ibuprofen Advil gastritis Drug Allergy Active Ceftin Unknown Drug Allergy Active metronidazole Flagyl Unknown Drug Allergy Act amrik Keflex Rash Drug Allergy Active Eggs or Egg-derived Products Unknown Drug Allergy Active oxycodone Oxycodone itching Drug Allergy Active Shellfish (FN) Shellfish-derived Products Unknown Drug Allergy Active Substance with sulfonamide structure and antibacterial mechanism of action (substance) Sulfa Antibiotics Unknown Drug Allergy Active REASON FOR REFERRAL No Information MEDICATIONS Medication SIG (Take, Route, Frequency, Duration) Notes Start Date End Date Status Vitamin B12 1000 MCG 1 tablet Orally Onc e a day for 30 day(s) Active Tiotropium [place] Monohydrate 1.25 MCG/ACT 2 puffs Inhalation Once a day Active School Note . . . Patient to wear cast boot to right foot until healed 02/19/2021 Not-Taking Shoes . . . Medically necessary to wear special shoe at work/school until foot is 100% healed 03/12/2021 Active Ondansetron 4 MG 1 tablet on the tong ue and allow to dissolve Orally Once a day for 30 day(s) Active Cholecalciferol Acti ve Amitriptyline HCl 50 MG as directed Orally Active Omeprazole Not-Takin g Bifidobacterium Longum Infant - as directed Orally Active traMADol HCl Not-Julian ing Amitriptyline HCl 75 MG 1 tablet at bedt dennis Orally Once a day for 30 day(s) Not-Taking Albuterol Sulfate HFA 108 (90 Base) MCG/ACT 1 puff as needed Inhalation every 4 hrs Active Citalopram Hydrobromide Not-Taking Gemfibrozil 600 MG 1 tablet 30 minutes before morning and evening meals Orally Twice a day Not-Taking Budesonide-Formoterol Fumarate 160-4.5 MCG/ACT 2 puffs Inhalation Twice a day Active Amoxicillin 500 MG 1 capsule Orally ramón ry 8 hrs Not-Taking busPIRone HCl 5 MG 1 tablet Orally Twic e a day Active Doxycycline Hyclate 100 MG TAKE 1 TABLET BY MOUTH EVERY 12 HOURS Oral for 10 Not-Taking Famotidine 40 MG 1 tablet at bedtime Orally Once a day for 30 day(s) Active Enoxaparin Sodium 60 MG/0.6ML as directed Subcutaneous Active oxyCODONE HCl 5 MG 1 tablet as needed Orally every 4 hrs as needed Not-Taking LORazepam Not-Taking Symbicort Not-Taking Montelukast Sodium 10 MG 1 tablet Orally Once a day for 30 day(s) Active Melatonin 5 MG 1 capsule at bedtime as needed Orally Once a day for 30 day(s) Active Hyoscyamine Sulfate 0.125 MG/5ML 5 ml as needed Orally every 4 hrs Active Fluticasone Propionate Active Lansoprazole 30 MG 1 capsule before a meal Orally Once a day for 30 day(s) Active Ipratropium [place] Active IMMUNIZATIONS Vaccine Route Administration Date Status Comme nts COVID-19 Pfizer BioNTech Vaccine Unknown 11/09/2020 Administered 1st 02/08/21 2nd 06/01/20 SOCIAL HISTORY Tobacco Use: Social History Observation Description Date Details (start date - stop date) Former Smoker NA - NA Sex Assigned At : Social History Observation Description Sex Assigned At Unknown Tobacco Use/Smoking Question Answer Notes Are you a: former smoker Additional Findings: Tobacco Non-User Ex-cigaret te smoker Alcohol Screen Question Answer Notes Did you have a drink containing alcohol in the p ast year? No Points 0 Interpretation Negative Tobacco use other than smoking: Question Answer Notes Are you an other tobacco user? No PROBLEMS Problem Type ICD Code Onset Dates Problem Status W/U Status Risk SNOMED Code Notes Problem Plantar wart (B07.0) Active confirmed Plantar wart (92190388) PLAN OF TREATMENT Pending Test Test Name Order Date [id number] NAIL, 6 OR MORE 01/16/2016 [id number] NAIL, 6 OR MORE 09/19/2016 [id number] NAIL, 6 OR MORE 12/25/2015 [id number] Destruction, 1-14 11/20/2020 [id number], [id number]/INJECT, JOINT/BURSA 0 08/26/2016 Insurance Providers Payer Name Payer Address Payer Phone Subscriber Number Group Number Insured Name Patient Relationship to Insured Coverage Start Date Coverage End Date [facility] [address] [place] [address] [id number] Shawna Hayes Self - patient is the insured MEDICAL (GENERAL) HISTORY Medical History History ICD Code Anxiety Arthritis asthma Broken bones CAD (Cholesterol) Depression Headaches Migraines Psoriasis/eczema Sinusitis Chicken pox Gall bladder problems Osteoporosis Reflux ( GERD) Positive PPT Lupus Anticolaugant sepsis Urinary tract infections Embolism mesenteric ischemia gastritis ESBL.E.Coli carrier Surgical History Surgery Date(Month/Year) arthroscopic knee surgery 1996,,2003 left shoulder surgery cyst removal oral surgery 09/18/2016 bowel resectioning 03/2018 gall bladder surgery 12/2017 carpal tunnel cholecystectomy
--- NOTE | 2023-11-13 08:39 | AM.OFFWIN_ITS ---
Intake Vital Signs 11/13/23 08:42 Height 5 ft 5 in Weight 177 lb BMI 29.5 BP 114/76 Blood Pressure Location Rt brachial Position Sitting Pulse 78 Pulse Source Pulse Oximeter Temp 98.0 F Temp Source Oral Pulse Oximetry (%) 96 Oxygen Delivery Method Room Air Intake Visit Reasons: EP-b/l ear pain Intake Note: Patient here for bilat ear pain that has been present since the . Patient Tobacco Use Status: Former Tobacco user Allergies Sulfa (Sulfonamide Antibiotics) Allergy (Severe, Verified 11/13/23 08:42) ANAPHYLAXIS, angioedema cefuroxime [From CEFTIN] Allergy (Intermediate, Verified 11/13/23 08:42) RASH metronidazole [From FLAGYL] Allergy (Intermediate, Verified 11/13/23 08:42) itch cefotetan Allergy (Unknown, Verified 11/13/23 08:42) rash sulfacetamide Allergy (Unknown, Verified 11/13/23 08:42) oral swelling, rash oxycodone [From OxyContin] Allergy (Verified 11/13/23 08:42) Itching nitrofurantoin [From MACROBID] Adverse Reaction (Mild, Verified 11/13/23 08:42) n/v Do you need a note to return to daycare/school/sports/work: Yes HPI HPI Comments History of Present Illness Details 53 y/o female patient who presents to [facility] walk in clinic with c/o Sinus Pressure, and congestion. Reports that has h/o chronic Sinusitis from Allergies. She is currently taking Flonase, Cetirizine, Singulair and other inhalers. Denies fevers, chills, nausea or vomiting. She does live with a male partner who smokes cigarettes daily. [facility] Medical History Small bowel ischemia COVID-19 Paralytic ileus H/O abnormal cervical Papanicolaou smear [place]-menopausal control counseling Migraine with aura Portal vein thrombosis Lupus Right shoulder pain Immunizations incomplete Encounter for screening for COVID-19 Carpal tunnel syndrome Right hand pain Right wrist pain Surgical History Hx of carpal tunnel repair Hx of colonoscopy H/O resection of small bowel History of esophagogastroduodenoscopy (EGD) History of shoulder surgery H/O left knee surgery Hx of cholecystectomy Family History Mother Multiple myeloma Mental health disorder Father Bladder cancer Maternal Grandmother Lymphoma Maternal Grandfather Bone cancer Social History Household Members: Significant Other Housing: Apartment Are you a primary medicare contact specialist to a significant other at home: No Do you presently have visiting nurse or other home services: No Alcohol intake: never Patient Tobacco Use Status: Former Tobacco user Tobacco use type: Cigarette Cigarette Packs Per Day: 1 e-Cigarette/Vaping Use: Never Used Second Hand Smoke Exposure: Yes Advance Directives Date on File: 05/02/21 service: No 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al status: employed 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/ [employer] 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) Sexual orientation: Straight/Heterosexual Gender identity: Female Cognitive needs: No Hearing needs: No Vision needs: No Review of Systems Const All systems reviewed & are unremarkable except as noted in HPI and below Physical Exam Vital Signs: BMI result Body Mass Index 29.5 Const General: cooperative Nutritional Appearance: overweight Orientation/consciousness: patient oriented x3 HEENT Head: Yes normocephalic Ears: external ears normal and TM abnormal erythematous and with fluid behind the TM General nose exam: Abnormal mucous membranes and turbinates present boggy and erythematous Face and sinus: Yes sinuses nontender Mouth: moist mucous membranes Throat: Yes postnasal drainage Resp Effort & Inspection: normal respiratory effort Auscultation: clear to auscultation bilaterally, no crackles, no rales, no rhonchi and no wheezes Cardio Heart sounds: S1 normal heart sound present and S2 normal heart sound present Neuro General: patient oriented x3, gait normal and moves all extremities Psych Speech and movement: Normal speech and movement present Assessment & Plan Assessment & Plan (1) Allergic rhinitis: Code(s): J30.9 - Allergic rhinitis, unspecified Qualifiers: Allergic rhinitis trigger: pollen Allergic rhinitis seasonality: seasonal Qualified Code(s): J30.1 - Allergic rhinitis due to pollen Plan: Advised ENT and Environmental Services Director referral Advised to avoid cigarette smoke continue on current regiment F/U with PCP. Coding Level of Care Code Est Pt Level 3 (84755) Diagnoses Seasonal allergic rhinitis due to pollen J30.1 Allergic rhinitis trigger: pollen Allergic rhinitis seasonality: seasonal Time Spent (min) 15
[2023-11-13 08:42] VITALS: BP 114/76; PULSE 78; TEMP 36.7; O2SAT 96; BMI 29.5
== END 2023-11-13 09:26 | disposition home or self-care (01) ==
PROVIDERS: PCP Nurse Practitioner Family; Visit Provider Nurse Practitioner Family
DX: J30.1 Allergic rhinitis due to pollen (principal)

== ENCOUNTER → 2023-11-13 08:35 | Outpatient (BNVA) | payer OTHER, SELFPAY | PROVIDERS: PCP Nurse Practitioner Family ==

== ENCOUNTER 2023-11-19 09:47 | Outpatient (AMB) | payer OTHER, SELFPAY ==
--- NOTE | 2023-11-19 09:49 | A.OFFPC_ITS ---
Vital Signs 11/19/23 09:50 11/19/23 10:22 Height 5 ft 5 in Weight 179 lb BMI 29.8 BP 132/90 H 112/74 Blood Pressure Location Rt brachial Rt brachial Position Sitting Sitting Pulse 85 Pulse Source Pulse Oximeter Pulse Oximetry (%) 98 Oxygen Delivery Method Room Air Intake Visit Reasons: 6 month follow up Intake Note: pt is here for 6 month follow up Patient Representative Required: No Accompanied by: Self / Same As Patient Allergies Sulfa (Sulfonamide Antibiotics) Allergy (Severe, Verified 11/19/23 10:05) ANAPHYLAXIS, angioedema cefuroxime [From CEFTIN] Allergy (Intermediate, Verified 11/19/23 10:05) RASH metronidazole [From FLAGYL] Allergy (Intermediate, Verified 11/19/23 10:05) itch cefotetan Allergy (Unknown, Verified 11/19/23 10:05) rash sulfacetamide Allergy (Unknown, Verified 11/19/23 10:05) oral swelling, rash oxycodone [From OxyContin] Allergy (Verified 11/19/23 10:05) Itching nitrofurantoin [From MACROBID] Adverse Reaction (Mild, Verified 11/19/23 10:05) n/v Tobacco use date assessed: 11/19/23 Dental Screening Dental Screen Date: 11/19/23 HPI 6 month follow up HPI Details Pt reports symptoms of a viral illness. She reports slight post-nasal drip and a slight cough. Pt reports that she is improving. Recommended OTC treatments. Denies fever, chills, and dizziness. PFSH Medical History Small bowel ischemia COVID-19 Paralytic ileus H/O abnormal cervical Papanicolaou smear [place]-menopausal control counseling Migraine with aura Portal vein thrombosis Lupus Right shoulder pain Immunizations incomplete Encounter for screening for COVID-19 Carpal tunnel syndrome Right hand pain Right wrist pain Surgical History Hx of carpal tunnel repair Hx of colonoscopy H/O resection of small bowel History of esophagogastroduodenoscopy (EGD) History of shoulder surgery H/O left knee surgery Hx of cholecystectomy Family History Mother Multiple myeloma Mental health disorder Father Bladder cancer Maternal Grandmother Lymphoma Maternal Grandfather Bone cancer Social History Household Members: Significant Other Housing: Apartment Are you a primary home health care respiratory therapist to a significant other at home: No Do you presently have visiting nurse or other home services: No Alcohol intake: never Patient Tobacco Use Status: Former Tobacco user Tobacco use type: Cigarette Cigarette Packs Per Day: 1 e-Cigarette/Vaping Use: Never Used Second Hand Smoke Exposure: Yes Advance Directives Date on File: 05/02/21 service: No 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al status: employed 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 1. Little interest or pleasure in doing things: not at all 2. Feeling down, depressed, or hopeless: not at all 3. Trouble falling or staying asleep, or sleeping too much: not at all 4. Feeling tired or having little energy: not at all 5. Poor appetite or overeating: several days Source: Developed by Drs. Tyler Jordan, Ying Juárez, Marito Gutierrez and colleagues, with an educational angela from [employer]. Thrive Questionnaire Date Thrive assessed: 11/12/23 I am a: Patient What is your living situation today?: I have a steady place to live Within the past 12 months, did the food you bought not last and you didn't have the money to get more?: Never true Within the past 12 months, did you worry whether your food would run out before you got money to buy more?: Never true Do you have trouble paying for medicines?: No Do you have trouble getting transportation to medical appointments?: No Do you have trouble paying your heating and electricity bill?: No Do you have trouble taking care of your child, family member or friend?: No Do you have trouble with day-to-day activities such as bathing, preparing meals, shopping, managing finances, etc.?: No Are you interested in more education?: No Please select the resources that you would like help with: None Currently or been in a relationship where the following occur: No concerns reported THRIVE Score: 0 AUDIT C Alcohol Use Questionnaire (AUDIT-C) 1. How often do you have a drink containing alcohol?: Monthly or less 2. How many drinks containing alcohol do you have on a typical day when you are drinking?: 1 or 2 3. How often do you have six or more drinks on one occasion?: Never Total Score: 1 TOM-7 AMB Questionnaire TOM-7 Date TOM - 7 assessed: 11/19/23 Feeling nervous, anxious, or on edge: 3 = Nearly every day Not being able to stop or control worryin = Nearly every day Worrying too much about different things: 3 = Nearly every day Trouble relaxin = More than half the days Being so restless that it is hard to sit still: 2 = More than half the days Becoming easily annoyed or irritable: 1 = Several days Feeling afraid as if something awful might happen: 0 = Not at all Total TOM-7 score (0-4 normal; 5-9 mild; 10-14 moderate; 15-21 severe): 14 Source: Developed by Drs. Tyler Jordan, Ying Juárez, Marito Gutierrez and colleagues, with an educational angela from [employer]. Review of Systems Const Reports as per HPI Physical exam (Primary Care) Vital Signs: Last Vital Signs Pulse 85 11/19/23 09:50 BP 132/90 H 11/19/23 09:50 Pulse Ox 98 11/19/23 09:50 Oxygen Delivery Method Room Air 11/19/23 09:50 BMI result Body Mass Index 29.8 Tobacco/Smoking Status: Tobacco use Status Tobacco use date assessed 11/19/23 11/19/23 10:06 Patient Tobacco Use Status Former Tobacco user 11/19/23 09:49 Tobacco use type Cigarette 11/19/23 09:49 e-Cigarette/Vaping Use Never Used 11/19/23 09:49 Thrive Assessment: Date of Thrive Assessment Date Thrive assessed 11/12/23 11/19/23 09:49 Currently or been in a relationship where the following occur: No concerns reported Const General: cooperative Orientation/consciousness: patient oriented x3 HENMT Ears: TM's normal bilaterally Neck Neck: Yes no lymphadenopathy Resp Effort & Inspection: normal respiratory effort Auscultation: clear to auscultation bilaterally Cardio Rate: regular rate Rhythm: regular rhythm Heart sounds: S1 normal heart sound present and S2 normal heart sound present Neuro General: patient oriented x3 Psych Appearance: grossly normal Mental Status: mental status grossly normal Speech and movement: Normal speech and movement present Affect: normal affect Attitude: cooperative Thought process: Normal thought process present Thought content: Normal thought content present Insight: Good insight present (Psych) Judgement: Good judgement present (Psych) Coding Level of Care Code Est Pt Level 3 (38160) Diagnoses Viral illness B34.9 Assessment & Plan Assessment & Plan (1) Viral illness: Code(s): B34.9 - Viral infection, unspecified Category: Medical Plan: please use OTC treatments Plan The patient agreed to the use of a biomedical engineering technician for this encounter. Scribed for LYN Carbajal by Ami Horner biomedical engineering technician, on 11/19/2023 at 10:10 EST.
[2023-11-19 09:50] VITALS: BP 132/90; PULSE 85; O2SAT 98; BMI 29.8
[2023-11-19 10:22] VITALS: BP 112/74
== END 2023-11-19 13:33 | disposition home or self-care (01) ==
PROVIDERS: PCP Nurse Practitioner Family; Visit Provider Nurse Practitioner Family
DX: B34.9 Viral infection, unspecified (principal)

== ENCOUNTER → 2023-11-19 09:47 | Outpatient (BNVA) | payer OTHER, SELFPAY | PROVIDERS: PCP Nurse Practitioner Family; Visit Provider Nurse Practitioner Family ==

== ENCOUNTER 2024-03-10 08:26 | Outpatient (REF) | payer OTHER, SELFPAY ==
--- OUTSIDE RECORDS SUMMARY | 2024-03-10 11:15 | XMS_ITS | Patient Health Record ---
Author Organization [facility] Address [address] [place] [address] Care Team Providers Care Business Quality Assurance Analyst Name Role Phone Jamaal Early Primary Care Provider Unav ailable Nurys Miller Unavailable [phone] Allergies Allergen (clinical drug ingredient) Drug/Non Drug Allergy [...] (substance) Sulfa Antibiotics Unknown Drug Allergy Active Reason For Referral No Information Medications Medication SIG (Take, Route, Frequency, Duration) Notes Start Date End Date Status Vitamin B12 1000 MCG 1 tablet Orally Onc e a day for 30 day(s) Active Tiotropium [place] Monohydrate 1.25 MCG/ACT 2 puffs Inhalation Once [...] Orally Active Omeprazole Not-Takin g Bifidobacterium Longum - as directed Orally Active traMADol HCl [...] a day for 30 day(s) Active Ipratropium [place] Active Immunizations Vaccine Route Administration Date Status Comme nts COVID-19 Pfizer BioNTech Vaccine Unknown 11/09/2020 Administered 1st 02/08/21 2nd 06/01/20 Social History Tobacco Use: Social History Observation Description Date Details (start date - stop date) Former Smoker NA - NA Tobacco Use/Smoking Question Answer Notes Are you a: former smoker Additional Findings: Tobacco Non-User Ex-cigaret te smoker Alcohol Screen Question Answer Notes Did you have a drink containing alcohol in the p ast year? No Points 0 Interpretation Negative Tobacco use other than smoking: Question Answer Notes Are you an other tobacco user? No Problems Problem Type SNOMED Code ICD Code Onset Dates Problem Status W/U Status Risk Notes Problem Plantar wart (53482913) Plantar wart (B07.0) Active confirmed Plan Of Treatment Pending Test Test Name Order Date [id number] NAIL, 6 OR MORE 12/25/2015 [id number] NAIL, 6 OR MORE 01/16/2016 [id number] NAIL, 6 OR MORE 09/19/2016 [id number] Destruction, 1-14 11/20/2020 81127, [id number]/INJECT, JOINT/BURSA 0 08/26/2016 Insurance Providers Payer Name Payer Address Payer Phone Subscriber Number Group Number Insured Name Patient Relationship to Insured Coverage Start Date Coverage End Date [facility] [address] [place] [address] [id number] Shawna Hayes Self - patient is the insured Medical (General) History Medical History History ICD Code Anxiety Arthritis [...]
--- OUTSIDE RECORDS SUMMARY | 2024-03-10 11:15 | XMS_ITS | Data Portability ---
Author Organization [facility], [id number] Address [address] [place] [address] Assessment No assessment recorded. Plan of Treatment Reminders Order Date Submit Date Provider Last Modified By Organization Details Last Modified Time Details Appointments None record ed. Lab None record ed. Referral None record ed. Procedures None record ed. Surgeries None record ed. Imaging None record ed. Medication Orders None record ed. Patient TargetsNo targets recorded. Patient InstructionsNo instructions recorded. Reason for Referral None Reported. Procedures Surgical History Date Name Laterality Status Provider Name and Address Organization Details Recorded Time OC- Physical completed J CARLOS [facility] 03/14/2022 18:51:15 Imaging Results None recorded. Procedure Notes None recorded. Medical Equipment None Reported. Medications Name Sig Start Date Stop Date Status Note LastModified by Organization Details LastModified Time atorvastatin 20 mg tablet TAKE 1 TABLET BY MOUTH AT BEDTIME active Not Available Not Available No t Available albuterol sulfate 2.5 mg/3 mL (0.083 %) solution for nebulization INHALE 1 AMPULE USING A NEBULIZER FOUR TIMES DAILY NEEDED FOR WHEEZING OR SHORTNESS OF BREATH active Not Available Not Available No t Available sucralfate 100 mg/mL oral suspension TAKE 10 ML BY MOUTH TWICE A DAY active Not Available Not Available Not Available famotidine 40 mg tablet TAKE 1 TABLET BY MOUTH AT BEDTIME active Not Available Not Available No t Available penicillin V potassium 500 mg tablet TAKE 1 TABLET BY MOUTH THREE TIMES DAILY UNTIL GONE WITH FOOD / yogurt / probiotics active Not Available Not Available N ot Available amitriptylin e 50 mg tablet TAKE 1 TABLET BY MOUTH AT BEDTIME active Not Available Not Available No t Available butalbital-a cetaminophen -caffeine 50 mg-325 mg-40 mg tablet TAKE 1 TABLET BY MOUTH EVERY DAY NEEDED (SEVERE HEADACHE) active Not Available Not Available No t Available ondansetron 8 mg disintegrati ng tablet DISSOLVE 1 TABLET ON TONGUE EVERY 8 HOURS NEEDED FOR NAUSEA AND VOMITING active Not Available Not Available No t Available Lidoderm 5 % topical patch APPLY 2 PATCHES TOPICALLY EVERY DAY NEEDED FOR PAIN. LEAVE ON FOR UP TO 12 HOURS THEN REMOVE FOR 12 HOURS active Not Available Not Available No t Available hyoscyamine 0.125 mg disintegrati ng tablet DISSOLVE 1 TABLET ON TONGUE 2-4 TIMES PER DAY NEEDED FOR HEARTBURN OR INDIGESTION active Not Available Not Available Not Available buspirone 10 mg tablet TAKE 1 TABLET BY MOUTH TWICE DAILY active Not Available Not Available No t Available lansoprazole 30 mg capsule,irma yed release TAKE 1 CAPSULE BY MOUTH EVERY DAY active Not Available Not Available No t Available montelukast 10 mg tablet TAKE 1 TABLET BY MOUTH AT BEDTIME active Not Available Not Available No t Available cyanocobalam in (vit B-12) 1,000 mcg sublingual tablet DISSOLVE 1 TABLET UNDER THE TONGUE EVERY DAY active Not Available Not Available No t Available fluticasone propionate 50 mcg/actuatio n nasal spray,suspen pauline USE 2 SPRAYS IN EACH NOSTRIL EVERY DAY active Not Available Not Available No t Available amoxicillin 875 mg-potassium clavulanate 125 mg tablet TAKE 1 TABLET BY MOUTH TWICE A DAY FOR 10 DAYS active Not Available Not Available No t Available Ventolin HFA 90 mcg/actuatio n aerosol inhaler INHALE 2 PUFFS BY MOUTH EVERY 6 HOURS NEEDED FOR WHEEZING active Not Available Not Available No t Available buspirone 15 mg tablet TAKE 1 TABLET BY MOUTH TWICE DAILY active Not Available Not Available No t Available One Daily Multivitamin tablet TAKE 1 TABLET BY MOUTH EVERY DAY active Not Available Not Available No t Available enoxaparin 60 mg/0.6 mL subcutaneous syringe INJECT 60 MG (0.6 ML) SUBCUTANEOU SLY EVERY TWELVE HOURS active Not Available Not Available No t Available cyclobenzapr ine 5 mg tablet TAKE 1 TABLET BY MOUTH EVERY DAY NEEDED FOR MUSCLE SPASMS active Not Available Not Available No t Available Ciprodex 0.3 %-0.1 % ear drops,suspen pauline PLACE 4 DROPS INTO THE AFFECTED EAR(S) TWICE DAILY FOR 7 DAYS active Not Available Not Available N ot Available Symbicort 160 mcg-4.5 mcg/actuatio n HFA aerosol inhaler INHALE 2 PUFFS BY MOUTH EVERY TWELVE HOURS. RINSE MOUTH AFTER USING. active Not Available Not Available No t Available cetirizine 1 mg/mL oral solution TAKE 5 ML BY MOUTH EVERY DAY active Not Available Not Available No t Available Vitamin D3 50 mcg (2,000 unit) capsule TAKE 1 CAPSULE BY MOUTH EVERY MORNING active Not Available Not Available No t Available Eliquis 5 mg tablet TAKE 1 TABLET (5MG) BY MOUTH TWICE A DAY active Not Available Not Available No t Available Spiriva Respimat 2.5 mcg/actuatio n solution for inhalation INHALE 2 PUFFS BY MOUTH ONCE DAILY active Not Available Not Available No t Available Vitals None Recorded Social History None recorded. Functional Status None recorded. Mental Status None recorded. Family History Nothing Reported. Medical History No medical history recorded. Gynecological HistoryNo gynecological history recorded. Obstetrics History GPAL:G 0 P 0 0 0 0 Past Encounters Encounter ID Performer Location Encounter Start Date Encounter Closed Date Diagnosis/Indication Diagnosis SNOMED-CT Code Diagnosis ICD10 Code Diagnosis Note [id number] [address] [address] 09/22/2015 09:29:34 09/22/2015 10:49:26 [id number] [facility] [id number] [address] 03/14/2022 17:29:41 03/14/2022 19:06:51 History and physical examination, pre-employment 802797382 Z02.1 Health Concerns Section Related Observation LastModified by Organization Detai ls LastModified Time None Recorded Concern Status LastModified by Organization Details LastModified Time None Recorded Advance Directives Directive None Recorded Payers Encounter Date Sequence Insurance Name Policy Number Policy Schmidt Covered Member ID Schmidt Member ID Guarantor Name 03/14/2022 DO NOT USE Shawna Veilleux PAY AT TIME OF SERVICE Shawna Veilleux OBGyn Episode No OBEpisode recorded.
== END 2024-03-10 08:27 | disposition home or self-care (01) ==
LOC: HO.SH 08:26
PROVIDERS: Visit Provider Nurse Practitioner Family
DX: Z01.118 Encounter for examination of ears and hearing with other abnormal findings (principal); H90.3 Sensorineural hearing loss, bilateral
CPT/HCPCS: 92552; 92556

== ENCOUNTER 2024-05-03 15:01 | Outpatient (REF) | payer OTHER, SELFPAY ==
--- NOTE | ~2024-05-03 | XR_ITS ---
EXAMINATION: XR FOOT 3 OR MORE VIEWS RIGHT HISTORY: S90.31XA - Contusion of right foot, initial encounter COMPARISON: Comparison is made with the prior examination dated 02/11/2021. FINDINGS: Three views of the right foot are submitted. Osseous mineralization is normal. There is no fracture or dislocation. Again seen is mild narrowing of the 1st MTP joint. There is a small plantar calcaneal spur. The soft tissues are unremarkable. XR/XR foot RT min 3V IMPRESSION: No evidence of fracture of the right foot. Electronically signed by: Tyler Mcdowell MD 05/04/2024 03:32 PM EDT
== END 2024-05-03 15:02 | disposition home or self-care (01) ==
LOC: HO.HMGCX 15:01
PROVIDERS: PCP Nurse Practitioner Family; Visit Provider Physician Assistant
DX: S90.31XA Contusion of right foot, initial encounter (principal)
CPT/HCPCS: 73630

== ENCOUNTER → 2024-05-03 15:01 | Outpatient (AMB) | payer OTHER, SELFPAY ==
[2024-05-03 15:38] VITALS: BP 120/80; PULSE 83; TEMP 36.6; O2SAT 97
--- NOTE | 2024-05-03 15:38 | MHC.OFFWIV ---
Intake Vital Signs 05/03/24 15:38 Height 5 ft 5 in BP 120/80 Blood Pressure Location Lt brachial Position Sitting Pulse 83 Pulse Source Pulse Oximeter Temp 97.8 F Temp Source Oral Pulse Oximetry (%) 97 Oxygen Delivery Method Room Air Intake Visit Reasons: EP injury on RT foot by big toe Patient Tobacco Use Status: Former Tobacco user Accompanied by: Self / Same As Patient Allergies Sulfa (Sulfonamide Antibiotics) Allergy (Severe, Verified 05/03/24 15:39) ANAPHYLAXIS, angioedema cefuroxime [From CEFTIN] Allergy (Intermediate, Verified 05/03/24 15:39) RASH metronidazole [From FLAGYL] Allergy (Intermediate, Verified 05/03/24 15:39) itch cefotetan Allergy (Unknown, Verified 05/03/24 15:39) rash sulfacetamide Allergy (Unknown, Verified 05/03/24 15:39) oral swelling, rash oxycodone [From OxyContin] Allergy (Verified 05/03/24 15:39) Itching shrimp Allergy (Verified 05/03/24 15:39) Itching nitrofurantoin [From MACROBID] Adverse Reaction (Mild, Verified 05/03/24 15:39) n/v Do you need a note to return to daycare/school/sports/work: Yes HPI HPI Comments History of Present Illness Details This is a 54-year-old female with a past medical history of lupus, bowel resection complicated by thrombosis currently maintained on Eliquis, presenting for evaluation of a work-related injury that occurred at 12:30 p.m. today. 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 Patient has been able to ambulate following the incident however does have pain on the dorsal surface of her right foot. Patient has not taken any medication for treatment of her discomfort. Patient does report having previous stress fractures in her right foot in a proximally 2021. [facility] Medical History (Updated 05/03/24 @ 16:55 by No Gay PA-C) Shrimp allergy Small bowel ischemia COVID-19 Paralytic ileus H/O abnormal cervical Papanicolaou smear [place]-menopausal control counseling Migraine with aura Portal vein thrombosis Lupus Right shoulder pain Immunizations incomplete Encounter for screening for COVID-19 Carpal tunnel syndrome Right hand pain Right wrist pain Surgical History Hx of carpal tunnel repair Hx of colonoscopy H/O resection of small bowel History of esophagogastroduodenoscopy (EGD) History of shoulder surgery H/O left knee surgery Hx of cholecystectomy Family History Mother Multiple myeloma Mental health disorder Father Bladder cancer Maternal Grandmother Lymphoma Maternal Grandfather Bone cancer Social History Household Members: Significant Other Housing: Apartment Are you a primary career transition specialist to a significant other at home: No Do you presently have visiting nurse or other home services: No Alcohol intake: never Patient Tobacco Use Status: Former Tobacco user Tobacco use type: Cigarette Cigarette Packs Per Day: 1 e-Cigarette/Vaping Use: Never Used Second Hand Smoke Exposure: Yes Advance Directives Date on File: 05/02/21 service: No 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al status: employed 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/ [employer] 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) Sexual orientation: Straight/Heterosexual Gender identity: Female Cognitive needs: No Hearing needs: No Vision needs: No Review of Systems Const All systems reviewed & are unremarkable except as noted in HPI and below Eyes Reports no additional complaints ENT Reports no additional complaints Card Reports no additional complaints Resp Reports no additional complaints GI Reports no additional complaints Reports no additional complaints Musc Details: dorsal right foot pain Skin/Breast Reports system reviewed and no additional complaints, except as documented Neuro Reports no additional complaints Psych Reports no additional complaints Endo Reports no additional complaints Peña/Lymph Reports no additional complaints Aller/Immun Reports no additional complaints Physical Exam Vital Signs: Last Vital Signs Temp 97.8 F 05/03/24 15:38 Pulse 83 05/03/24 15:38 BP 120/80 05/03/24 15:38 Pulse Ox 97 05/03/24 15:38 Oxygen Delivery Method Room Air 05/03/24 15:38 Const General: cooperative, healthy appearing, comfortable, no acute distress, well developed, alert, awake and Physically active Nutritional Appearance: well nourished Orientation/consciousness: patient oriented x3 Limitations: no limitations Skin Other: mild erythema overlying right 1st MTP, no lacerations, abrasions or ecchymosis noted Neuro General: patient oriented x3 Extrem Right lower extremity: foot (pain to palpation of 1st digit, 1st MTP & distal 1st, 2nd, 3rd metatarsals) Details: normal capillary refill, tenderness, toes with normal ROM, no edema, vascular exam Details: dorsalis pedis pulse present and motor-sensory exam Details: light-touch normal; no unusual warmth Psych Appearance: grossly normal Mental Status: mental status grossly normal Insight: Good insight present (Psych) Judgement: Good judgement present (Psych) Results Reviewed Results Reviewed: Imaging right foot reviewed; no acute fracture noted. Assessment & Plan Assessment & Plan (1) Contusion of foot, right: Comment: There is no acute fracture noted on imaging. Final radiology reading is pending. Code(s): S90.31XA - Contusion of right foot, initial encounter Qualifiers: Encounter type: initial encounter Qualified Code(s): S90.31XA - Contusion of right foot, initial encounter Plan: Tylenol or ibuprofen as needed for discomfort, ice at 20 minute intervals tonight and tomorrow morning. Work note is provided. Orders: Orders XR foot RT min 3V Today S90.31XA - Contusion of right foot, initial encounter Coding Level of Care Code Est Pt Level 3 (41515) Diagnoses Contusion of right foot, initial encounter S90.31XA Encounter type: initial encounter Time Spent (min) 25
== END ==
PROVIDERS: PCP Nurse Practitioner Family; Visit Provider Physician Assistant
DX: S90.31XA Contusion of right foot, initial encounter (principal)

== ENCOUNTER → 2024-05-03 16:44 | Outpatient (BNV) | payer OTHER, SELFPAY | PROVIDERS: PCP Nurse Practitioner Family; Visit Provider Radiology Diagnostic Radiology | DX: S90.31XA Contusion of right foot, initial encounter (principal) | CPT/HCPCS: 73630 ==

== ENCOUNTER 2024-05-09 02:13 | Emergency (ER) | payer OTHER, SELFPAY ==
--- NOTE | ~2024-05-09 | XR_ITS ---
CLINICAL HISTORY: cough 2 view chest x-ray. Comparison: CT/SR - CT CHEST WO IV CON - 01/25/23 01:57 EST Findings: The lungs appear clear. There is no consolidation, effusion, or nodule identified. Cardiomediastinal silhouette is within normal limits. IMPRESSION: No acute cardiopulmonary abnormality. This document has been electronically signed by: Paulo Morelos MD on 05/09/2024 03:34:37
[2024-05-09 02:21] VITALS: BP 126/66; BP 142/85; PULSE 102; PULSE 117; RESP 20; TEMP 38.3; O2SAT 95; O2SAT 96; BMI 33.1
[2024-05-09 02:51] LABS: IDNOW Serial# 58CA691E; Strep A Nucleic Acid Negative (Negative)
[2024-05-09 03:20] LABS: Influenza A PCR POSITIVE (Negative); Influenza B PCR NEGATIVE (Negative); Resp Syncy Virus RNA Qual PCR NEGATIVE (Negative); SARS COV2 PCR INHOUSE NEGATIVE (Negative)
--- NOTE | 2024-05-09 03:27 | ED.URI ---
HPI - URI/Sore Throat General Chief Complaint: Upper Respiratory Symptoms Stated Complaint: FLU LIKE SYMTOMS Time Seen by Provider: 05/09/24 03:04 Source: patient Mode of arrival: EMS Limitations: no limitations History of Present Illness ED Provider: Dr. Nicko Mosqueda HPI Narrative: 54-year-old female with a history of ischemic gastroenteritis, mesenteric ischemia, GERD, asthma, depression, lupus who presents emergency department for evaluation of fever, chills, sore throat, nonproductive cough, shortness of breath, dyspnea on exertion fatigue, myalgias, arthralgias and loss of appetite. Patient states she has been sick for proximally 2 days. She states that he was symptoms started with a nonproductive cough in her cough is gotten worse. She has been using her nebulizer with no relief of her cough or her shortness of breath. She has been able to drink fluid but he was had no appetite. Patient states her symptoms got worse today so she came to the emergency department for evaluation. Related Data Home Medications ?Medication ?Instructions ?Recorded ?Confirmed epinephrine 0.3 mg/0.3 mL 0.3 mg IM DIRECTED allergies 05/28/22 03/14/24 injection, auto-injector vitamin B complex 1 tab PO DAILY 10/30/22 03/14/24 buspirone 10 mg tablet 20 mg PO BEDTIME 06/03/23 03/14/24 escitalopram oxalate 5 mg tablet 5 mg PO DAILY 06/03/23 03/14/24 hydroxyzine HCl 10 mg tablet 10 mg PO BEDTIME 06/03/23 03/14/24 cetirizine 10 mg capsule (All Day 20 mg PO BID 08/27/23 03/14/24 Allergy (cetirizine)) Previous Rx's ?Medication ?Instructions ?Recorded yhbpebffbs-tqkvdzjaskhwj-vchcksky 1 cap PO DAILY PRN severe headache 12/08/21 50 mg-300 mg-40 mg capsule 5 days #5 caps (Fioricet) Bifidobacterium infantis 4 mg 4 mg PO BEDTIME 90 days #90 caps 01/27/22 capsule (Align (B.infantis)) albuterol sulfate 2.5 mg/3 mL 2.5 mg (3 mL) inhalation QID PRN 09/29/22 (0.083 %) solution for nebulization shortness of breath or wheezing #90 mL nebulizer tubing and supplies #12 ea 10/22/22 nebulizers (Compact Compressor #1 ea 10/22/22 Nebulizer) inhalational spacing device #1 ea 11/04/22 (Flexichamber spacer) sodium,potassium,mag sulfates 17.5 See Rx Instructions PO .COMPLEX 11/14/22 gram-3.13 gram-1.6 gram oral soln #354 mL (Suprep Bowel Prep Kit) fluticasone propionate 50 2 spray intranasal DAILY #48 mL 11/25/22 mcg/actuation nasal spray,suspension magnesium oxide 400 mg PO BEDTIME 30 days #30 tabs 12/30/22 buspirone 15 mg tablet 15 mg PO BID 90 days #180 tabs 01/04/23 lorazepam 1 mg tablet 1 mg PO .COMPLEX PRN anxiety 1 day 01/22/23 #2 tabs acetaminophen 500 mg capsule 1,000 mg (2 x 500 mg) PO Q6H PRN 03/12/23 elbow pain #30 caps lidocaine 5 % topical patch 1 patch topical DAILY PRN Elbow 03/12/23 (Lidoderm) pain #30 ea albuterol sulfate 90 mcg/actuation 2 puff inhalation Q6H PRN 04/27/23 aerosol inhaler (Ventolin HFA) shortness of breath or wheezing #8.5 grams nystatin 100,000 unit/mL oral 4 ml PO TID 7 days #84 mL 08/04/23 suspension ofloxacin 0.3 % eye drops See Rx Instructions ophthalmic 01/13/24 (eye) .COMPLEX #10 mL apixaban 5 mg tablet (Eliquis) 5 mg PO Q12H #180 tabs 03/14/24 amitriptyline 50 mg tablet 50 mg PO BEDTIME 90 days #90 tabs 03/21/24 atorvastatin 20 mg tablet 20 mg PO BEDTIME #90 tabs 03/21/24 budesonide-formoterol HFA 160 2 puff inhalation BID #30.6 grams 03/21/24 mcg-4.5 mcg/actuation aerosol inhaler (Symbicort) cholecalciferol (vitamin D3) 50 50 mcg PO DAILY 90 days #90 caps 03/21/24 mcg (2,000 unit) capsule cyanocobalamin (vitamin B-12) 1,000 mcg PO DAILY #90 tabs 03/21/24 1,000 mcg tablet (Vitamin B-12) famotidine 40 mg tablet 40 mg PO BEDTIME #90 tabs 03/21/24 hyoscyamine sulfate 0.125 mg 0.125 mg PO BID-QID #360 tabs 03/21/24 disintegrating tablet lansoprazole 30 mg capsule,delayed 30 mg PO DAILY #90 caps 03/21/24 release montelukast 10 mg tablet 10 mg PO BEDTIME #90 tabs 03/21/24 ondansetron 8 mg disintegrating 8 mg PO Q8H PRN for 03/21/24 tablet nausea/vomiting #30 tabs polyethylene glycol 3350 17 17 g PO BID #510 caps 03/21/24 gram/dose oral powder tiotropium bromide 2.5 2 puff PO DAILY #12 grams 03/21/24 mcg/actuation mist for inhalation (Spiriva Respimat) multivitamin with folic acid 400 1 tab PO DAILY #90 tabs 04/05/24 mcg tablet (Daily-Garrett (with folic acid)) meloxicam 15 mg tablet 15 mg PO DAILY PRN knee pain 10 05/07/24 days #10 tabs oseltamivir 75 mg capsule (Tamiflu) 75 mg PO Q12H 5 days #10 caps 05/09/24 Allergies Allergy/AdvReac Type Severity Reaction Status Date / Time Sulfa (Sulfonamide Allergy Severe ANAPHYLAXIS, Verified 05/09/24 02:32 Antibiotics) angioedema cefuroxime [From CEFTIN] Allergy Intermediate RASH Verified 05/09/24 02:32 metronidazole [From FLAGYL] Allergy Intermediate itch Verified 05/09/24 02:32 cefotetan Allergy Unknown rash Verified 05/09/24 02:32 sulfacetamide Allergy Unknown oral Verified 05/09/24 02:32 swelling, rash oxycodone [From OxyContin] Allergy Itching Verified 05/09/24 02:32 shrimp Allergy Itching Verified 05/09/24 02:32 nitrofurantoin AdvReac Mild n/v Verified 05/09/24 02:32 [From MACROBID] Review of Systems Review of Systems: Yes all other systems are reviewed and are negative PMFSH Past Medical History Medical History (Updated 05/09/24 @ 04:11 by Nicko Mosqueda MD) Shrimp allergy Small bowel ischemia COVID-19 Paralytic ileus H/O abnormal cervical Papanicolaou smear [place]-menopausal control counseling Migraine with aura Portal vein thrombosis Lupus Right shoulder pain Immunizations incomplete Encounter for screening for COVID-19 Carpal tunnel syndrome Right hand pain Right wrist pain Surgical History Hx of carpal tunnel repair Hx of colonoscopy H/O resection of small bowel History of esophagogastroduodenoscopy (EGD) History of shoulder surgery H/O left knee surgery Hx of cholecystectomy Family History Family History Mother Multiple myeloma Mental health disorder Father Bladder cancer Maternal Grandmother Lymphoma Maternal Grandfather Bone cancer Social History Social History Household Members: Significant Other Housing: Apartment Are you a primary customer care associate to a significant other at home: No Do you presently have visiting nurse or other home services: No Alcohol intake: never Patient Tobacco Use Status: Former Tobacco user Tobacco use type: Cigarette Cigarette Packs Per Day: 1 e-Cigarette/Vaping Use: Never Used Second Hand Smoke Exposure: Yes Advance Directives: Yes Advance Directives on File: Yes Advance Directives Date on File: 05/02/21 Do you have a plan to hurt others: No Plan service: No 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al status: employed 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/ [employer] 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) Sexual orientation: Straight/Heterosexual Gender identity: Female Cognitive needs: No Hearing needs: No Vision needs: No Physical Exam Vital Signs: Vital Signs: Last Vital Signs Temp 101.0 F H 05/09/24 02:21 Pulse 117 H 05/09/24 02:21 Resp 20 05/09/24 02:21 BP 126/66 05/09/24 02:21 Pulse Ox 96 05/09/24 02:21 O2 Del Method Room Air 05/09/24 02:21 BMI result Body Mass Index 33.1 Vital signs revealed an elevated temperature of a 101.0 degrees F, elevated heart rate of 117 Exam: General: Awake, alert in no distress Head: Normocephalic, atraumatic EENT: PERRL, Lids normal, sclera normal, conjunctiva normal, nose normal , ears normal, throat without erythema or exudates Neck: Supple, no adenopathy Lung: breath sounds symmetric, no wheezing, rales or rhonchi Chest: symmetric movement, nontender Heart: regular rate and rhythm, normal S1, S2 no murmurs or rubs Abdomen: soft, non-tender, nondistended, normal bowel sounds Back: no vertebral tenderness, no CVAT Extremities: no deformities, moves all extremities symmetrically Neuro: Awake, alert, oriented, normal speech, cranial nerves intact, moves all extremities symmetrically Psych: Pleasant, cooperative Medical Decision Making Medical Decision Making [facility] Narrative: 54-year-old female with a history of ischemic gastroenteritis, mesenteric ischemia, GERD, asthma, depression, lupus who presents emergency department for evaluation of fever, chills, sore throat, nonproductive cough, shortness of breath, dyspnea on exertion fatigue, myalgias, arthralgias and loss of appetite x2 days. Vital signs revealed an elevated heart rate and a fever. Exam was otherwise unremarkable. Differential diagnosis: ?Includes but is not limited to viral syndrome, COVID-19, influenza, RSV, bronchitis, pneumonia Course: 04:05 My interpretation patient's laboratory evaluation as follows: RSV and COVID-19 were negative. Influenza test was positive for influenza A. Chest x-ray revealed no acute infiltrates. Patient was presentation is consistent with acute influenza. The patient was treated with Zofran 8 mg sublingual, Tylenol 975 mg orally and Tamiflu 75 mg orally. She was given printed and verbal instructions and discharged home. Admission/Observation Consideration of admission/observation: Escalation of care including admission/observation considered (No) Lab Data [facility] Lab Attestation statement: I reviewed the patient's lab results. Labs: Lab Results 05/09/24 05/09/24 Range/Units 02:35 02:38 Influenza Type A (PCR) POSITIVE A (Negative) Influenza Type B (PCR) NEGATIVE (Negative) RSV RNA Qual (PCR) NEGATIVE (Negative) SARS-CoV-2 RNA (RT-PCR) NEGATIVE (Negative) S. pyogenes GrpA NEREIDA Negative (Negative) Independent Interpretation I performed an independent interpretation of an: Plain X-Ray Interpretation: My interpretation of the patient's chest x-ray is as follows: No acute disease Radiology Impression Discussion of test interpretation with radiology: I have reviewed the radiologist's reading. Radiologist Impression: 2 view chest x-ray. Comparison: CT/SR - CT CHEST WO IV CON - 01/25/23 01:57 EST Findings: The lungs appear clear. There is no consolidation, effusion, or nodule identified. Cardiomediastinal silhouette is within normal limits. IMPRESSION: No acute cardiopulmonary abnormality. This document has been electronically signed by: Paulo Morelos MD on 05/09/2024 03:34:37 Prescription Management I considered prescription management with: Antiviral (Tamiflu) Chronic Conditions Patient?s care impacted by: Other (Lupus) Discharge Plan Discharge Clinical Impression: Influenza A Patient Disposition: Home, Self-Care Instructions: Influenza (ED) Additional Instructions: Your COVID 19 and RSV tests were negative Your influenza test was positive for influenza a and this explains your symptoms. Your chest x-ray revealed no evidence of pneumonia. Take Tylenol 500 mg pills, 2 pills every 6 hours as needed for pain or fever. Take Tamiflu 75 mg pills, 1 pill every 12 hours for 5 days. This will hopefully reduce the number of days that your sick with the flu. Continue taking your other medications as prescribed by your providers. For the next 24 hours, stay on a DEMETRIUS diet (bananas, rice, applesauce, tea and toast). Follow-up with your doctor in 2 days. Please return to the emergency department if your symptoms get worse or if you develop any symptoms that are concerning to you. Prescriptions: New oseltamivir [Tamiflu] 75 mg capsule 75 mg PO Q12H 5 Days Qty: 10 0RF No Action liqizecjkb-nifxcylqfyezf-rkzq [Fioricet] 50-300-40 mg capsule 1 cap PO DAILY PRN (Reason: severe headache) 5 Days Qty: 5 0RF Align (B.infantis) 4 mg capsule 4 mg PO BEDTIME 90 Days Qty: 90 0RF albuterol sulfate 2.5 mg /3 mL (0.083 %) solution for nebulization 2.5 mg inhalation QID PRN (Reason: shortness of breath or wheezing) Qty: 90 0RF (DME) nebulizers [Compact Compressor Nebulizer] Misc See Rx Instructions .Route Qty: 1 0RF Rx Instructions: As directed (DME) nebulizer tubing and supplies See Rx Instructions .Route .MEDSUPPLY Qty: 12 0RF Rx Instructions: As directed (DME) Flexichamber Spacer See Rx Instructions .Route Qty: 1 0RF Rx Instructions: As directed with inhaler fluticasone propionate 50 mcg/actuation spray,suspension 2 spray intranasal DAILY Qty: 48 1RF magnesium oxide 400 mg magnesium tablet 400 mg PO BEDTIME 30 Days Qty: 30 2RF buspirone 15 mg tablet 15 mg PO BID 90 Days Qty: 180 1RF lorazepam 1 mg tablet 1 mg PO .COMPLEX PRN (Reason: anxiety) 1 Days Qty: 2 0RF Rx Instructions: 1 mg orally take one tab 45 minutes before the procedure, may repeat if one tab does not work. albuterol sulfate [Ventolin HFA] 90 mcg/actuation HFA aerosol inhaler 2 puff inhalation Q6H PRN (Reason: shortness of breath or wheezing) Qty: 8.5 2RF nystatin 100,000 unit/mL suspension 4 ml PO TID 7 Days Qty: 84 0RF Rx Instructions: swish and swallow ofloxacin 0.3 % drops See Rx Instructions ophthalmic (eye) .COMPLEX Qty: 10 0RF Rx Instructions: put 1-2 drps into affected eye(s) every 2-4 h x 2 days, then 1-2 drps 4 times/day days 3-7 ophthalmic (eye) lansoprazole 30 mg capsule,delayed release(DR/EC) 30 mg PO DAILY Qty: 90 2RF famotidine 40 mg tablet 40 mg PO BEDTIME Qty: 90 1RF hyoscyamine sulfate 0.125 mg tablet,disintegrating 0.125 mg PO BID-QID Qty: 360 0RF ondansetron 8 mg tablet,disintegrating 8 mg PO Q8H PRN (Reason: for nausea/vomiting) Qty: 30 3RF polyethylene glycol 3350 17 gram/dose powder 17 g PO BID Qty: 510 2RF amitriptyline 50 mg tablet 50 mg PO BEDTIME 90 Days Qty: 90 1RF atorvastatin 20 mg tablet 20 mg PO BEDTIME Qty: 90 1RF cholecalciferol (vitamin D3) 50 mcg (2,000 unit) capsule 50 mcg PO DAILY 90 Days Qty: 90 1RF cyanocobalamin (vitamin B-12) [Vitamin B-12] 1,000 mcg tablet 1,000 mcg PO DAILY Qty: 90 1RF montelukast 10 mg tablet 10 mg PO BEDTIME Qty: 90 1RF Spiriva Respimat 2.5 mcg/actuation mist 2 puff PO DAILY Qty: 12 1RF budesonide-formoterol [Symbicort] 160-4.5 mcg/actuation HFA aerosol inhaler 2 puff inhalation BID Qty: 30.6 1RF multivitamin with folic acid [Daily-Garrett (with folic acid)] 400 mcg tablet 1 tab PO DAILY Qty: 90 1RF meloxicam 15 mg tablet 15 mg PO DAILY PRN (Reason: knee pain) 10 Days Qty: 10 0RF Rx Instructions: be careful because you are on eliquis, increased bleeding risk Eliquis 5 mg Tablet 5 mg PO Q12H Qty: 180 2RF epinephrine 0.3 mg/0.3 mL auto-injector 0.3 mg IM DIRECTED All Day Allergy (cetirizine) 10 mg capsule 20 mg PO BID buspirone 10 mg tablet 20 mg PO BEDTIME hydroxyzine HCl 10 mg tablet 10 mg PO BEDTIME escitalopram oxalate 5 mg tablet 5 mg PO DAILY acetaminophen 500 mg capsule 1,000 mg PO Q6H PRN (Reason: elbow pain) Qty: 30 0RF lidocaine [Lidoderm] 5 % adhesive patch,medicated 1 patch topical DAILY PRN (Reason: Elbow pain) Qty: 30 0RF Rx Instructions: leave on most painful area for up to 12 hrs sodium,potassium,mag sulfates [Suprep Bowel Prep Kit] 17.5-3.13-1.6 gram recon soln See Rx Instructions PO .COMPLEX Qty: 354 0RF Rx Instructions: DILUTE; drink 1/2 at 6-8 pm and half at 11 PM- 1AM vitamin B complex Tablet 1 tab PO DAILY Print Language: Micronesian
[2024-05-09] MEDS: Acetaminophen 325 MG TABLET 975 MG PO (04:20)
[2024-05-09] MEDS: Oseltamivir Phosphate 75 MG CAPSULE PO (04:20)
[2024-05-09] MEDS: Ondansetron ODT 8 MG TAB.RAPDIS TRANSLINGU (04:20)
[2024-05-09 04:27] VITALS: BP 152/77; PULSE 100; RESP 14; TEMP 37.7; O2SAT 98
== END 2024-05-09 04:28 | disposition home or self-care (01) ==
PROVIDERS: Emergency Provider Emergency Medicine Emergency Medical Services; PCP Nurse Practitioner Family
DX: J10.1 Influenza due to other identified influenza virus with other respiratory manifestations (principal); R05.9 Cough, unspecified; Z03.818 Encounter for observation for suspected exposure to other biological agents ruled out
CPT/HCPCS: 0241U; 71046; 87651; 99283; 99284

== ENCOUNTER → 2024-05-09 02:48 | Outpatient (BNV) | payer OTHER, SELFPAY | PROVIDERS: Emergency Provider Emergency Medicine Emergency Medical Services; PCP Nurse Practitioner Family; Visit Provider Radiology Diagnostic Radiology | DX: R05.9 Cough, unspecified (principal) | CPT/HCPCS: 71046 ==

== ENCOUNTER 2024-06-02 06:49 | Outpatient (REF) | payer OTHER, SELFPAY ==
--- OUTSIDE RECORDS SUMMARY | 2024-06-02 06:51 | XMS_ITS | Patient Health Record ---
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 Name Role Phone Jamaal Early Primary Care Provider Unav ailable Nurys Miller Unavailable [phone] Allergies Allergen (clinical drug ingredient) Drug/Non Drug [...] a day for 30 day(s) Active Tiotropium [place] Monohydrate 1.25 MCG/ACT 2 puffs Inhalation Once [...] a day for 30 day(s) Active Ipratropium [place] Active Immunizations Vaccine Route Administration Date Status [...] W/U Status Risk Notes Problem Plantar wart (70663534) Plantar wart (B07.0) Active confirmed Plan Of Treatment Pending Test Test Name Order Date [id number] NAIL, 6 OR MORE 12/25/2015 [id number] NAIL, 6 OR MORE 01/16/2016 [id number] NAIL, 6 OR MORE 09/19/2016 [id number] Destruction, 1-14 11/20/2020 [id number], [id number]/[id number], JOINT/BURSA 0 08/26/2016 Insurance Providers Payer Name Payer Address Payer Phone Subscriber Number Group Number Insured Name Patient Relationship to Insured Coverage Start Date Coverage End Date [facility] [address] [place] [address] [id number] Shawna Hayes Self - patient is the [...]
--- OUTSIDE RECORDS SUMMARY | 2024-06-02 06:51 | XMS_ITS | Data Portability ---
Author Organization [facility] [id number] Address [address] [place] [address] Assessment No assessment recorded. Plan of Treatment [...] Time OC- Physical completed J CARLOS [facility] 03/14/2022 18:51:15 Imaging Results None recorded. [...] SNOMED-CT Code Diagnosis ICD10 Code Diagnosis Note [id number] [address] [address] 09/22/2015 09:29:34 09/22/2015 10:49:26 [id number] [facility] [address] [address] 03/14/2022 17:29:41 03/14/2022 19:06:51 History and physical examination, pre-employment [id number] Z02.1 Health Concerns Section Related Observation LastModified by Organization Detai ls LastModified Time None Recorded Concern Status LastModified by Organization Details LastModified Time None Recorded Advance Directives Directive None Recorded Payers Encounter Date Sequence Insurance Name Policy Number Policy Schmidt Covered Member ID Schmidt Member ID Guarantor Name 03/14/2022 DO NOT USE Shawna Veilleux PAY AT TIME OF SERVICE PAY AT TIME OF SERVICE Shawna Veilleux OBGyn Episode No OBEpisode recorded.
[2024-06-03 08:44] LABS: Carbohydrate Antigen 19-9 15 U/mL (<34)
[2024-06-07 06:48] LABS: Mitochondrial Antibodies NEGATIVE (NEGATIVE)
== END 2024-06-02 06:50 | disposition home or self-care (01) ==
LOC: HO.HMGCLDS 06:49
PROVIDERS: PCP Nurse Practitioner Family; Visit Provider Nurse Practitioner Family
DX: Z80.0 Family history of malignant neoplasm of digestive organs (principal)
CPT/HCPCS: 36415; 82378; 86301; 86381

== ENCOUNTER 2024-06-29 08:07 | Outpatient (REF) | payer OTHER, SELFPAY ==
--- OUTSIDE RECORDS SUMMARY | 2024-06-29 09:54 | XMS_ITS | Data Portability ---
Author Organization [facility] - [facility], [address] Address [address] [place] [address] Assessment No assessment recorded. Plan of Treatment [...] Time OC- Physical completed J CARLOS [facility] 03/14/2022 18:51:15 Imaging Results None recorded. [...] SNOMED-CT Code Diagnosis ICD10 Code Diagnosis Note [id number] [facility] [address] [address] 09/22/2015 09:29:34 09/22/2015 10:49:26 [id number] [facility] [address] [facility] [address] [place] [phone] 03/14/2022 17:29:41 03/14/2022 19:06:51 History and physical examination, pre-employment [id number] Z02.1 Health Concerns Section Related Observation LastModified by Organization Detai ls LastModified Time None Recorded Concern Status LastModified by Organization Details LastModified Time None Recorded Advance Directives Directive None Recorded Payers Insurance Date Sequence Insurance Name Policy Number Policy Schmidt Covered Member ID Schmidt Member ID Guarantor Name 03/14/2022 PROMPT PAY Gi sin Veilleux 03/14/2022 PAY AT TOS Shawna Veilleux PAY AT TIME OF SERVICE PAY AT TIME OF SERVICE Shawna Veilleux 03/14/2022 DO NOT USE Shawna Veilleux PAY AT TIME OF SERVICE PAY AT TIME OF SERVICE Shawna Veilleux 03/14/2022 1 [facility] OPEN ACCESS PLUS [id number] Shawna Hayes [id number] Shawna Hayes OBGyn Episode No OBEpisode recorded.
[2024-06-29 10:08] LABS: Appearance Urine Clear; Color Urine Yellow; Glucose Urine UA Negative (Negative); Leukocyte Esterase Urine Negative (Negative); Nitrite Urine Negative (Negative); Specific Gravity - Urine <= 1.005 (1.005-1.025); Urine Blood Negative (Negative); Urine Ketones Negative (Negative); Urine Protein Negative (Neg-Trace)
[2024-06-29 10:10] LABS: MANUAL DIFF FLAG NO
[2024-06-29 10:13] LABS: Basophils Absolute Auto 0.1 X10*3/uL (0.0-0.2); Basophils Percent Auto 0.8 % (0-2); Eosinophils Absolute Auto 0.3 X10*3/uL (0.0-0.4); Eosinophils Percent Auto 3.6 % (0-4); Hematocrit 37.2 % (37.0-47.0); Hemoglobin 12.4 g/dl (12.0-16.0); Imm Gran Abs Auto 0.02 X10*3/uL (0.00-0.03); Imm Gran Pct Auto 0.2 % (0.0-0.4); Lymphocytes Absolute Auto 2.7 X10*3/uL (1.2-4.9); Lymphocytes Percent Auto 32.6 % (20-40); Mean Corpuscular HGB Conc 33.3 g/dl (31.0-35.0); Mean Corpuscular Hemoglobin 31.1 pg (27.0-33.0); Mean Corpuscular Volume 93.2 fL (80.0-98.0); Monocytes Absolute Auto 0.8 X10*3/uL (0.1-1.2); Neutrophils Absolute Auto 4.4 x10*3/uL (2.0-8.3); Neutrophils Percent Auto 52.8 % (45-73); Platelet Count 214 X10*3/uL (160-400); Red Blood Count 3.99 X10*6/uL (4.20-5.50); Red Cell Distribution Width 14.5 % (11.0-16.0); White Blood Count 8.4 X10*3/uL (4.8-10.8)
[2024-06-29 11:37] LABS: Alanine Aminotransferase 17 U/L (0-31); Albumin Level 4.2 g/dL (3.5-5.0); Alkaline Phosphatase 83 U/L (39-117); Anion Gap 11 (12-20); Aspartate Amino Transferase 25 U/L (5-31); Bilirubin Total 0.3 mg/dL (0.0-1.0); Blood Urea Nitrogen 15 mg/dL (9-16); Calcium 8.9 mg/dL (8.4-10.2); Carbon Dioxide 24 mmol/L (22-29); Chloride 109 mmol/L (96-108); Cholesterol 122 mg/dL (<200); Estimated Glomerular Filt Rate > 60; Glucose Fasting 114 mg/dL (60-99); HDL Cholesterol 47 mg/dL (>40); LDL Cholesterol Calculated 60 mg/dL (<100); Potassium 4.6 mmol/L (3.3-5.1); Sodium 139 mmol/L (135-145); Total Protein 7.3 g/dL (6.5-8.0); Triglycerides 77 mg/dL (<150)
[2024-06-29 12:01] LABS: Folate 13.3 ng/mL (> or = 4.0); Vitamin B12 646 pg/mL (200-900)
[2024-06-29 12:09] LABS: TSH reflex Free T4 1.29 uIU/mL (0.32-4.0); Vitamin D 25-OH Total 45.8 ng/mL (>30)
== END 2024-06-29 08:08 | disposition home or self-care (01) ==
LOC: HO.HMGCLDS 08:07
PROVIDERS: PCP Nurse Practitioner Family; Visit Provider Nurse Practitioner Family
DX: Z00.00 Encounter for general adult medical examination without abnormal findings (principal); E53.8 Deficiency of other specified B group vitamins; E55.9 Vitamin D deficiency, unspecified; Z13.6 Encounter for screening for cardiovascular disorders
CPT/HCPCS: 36415; 80053; 80061; 81003; 82306; 82607; 82746; 84443; 85025; 96127

== ENCOUNTER 2024-06-29 08:07 | Outpatient (AMB) | payer OTHER, SELFPAY ==
[2024-06-29 08:09] VITALS: BP 122/76; PULSE 89; O2SAT 97; BMI 32.4
--- NOTE | 2024-06-29 08:09 | A.OFFPC_ITS ---
Vital Signs 06/29/24 08:09 Height 5 ft 2 in Weight 177 lb BMI 32.4 BP 122/76 Blood Pressure Location Lt brachial Position Sitting Pulse 89 Pulse Source Pulse Oximeter Pulse Oximetry (%) 97 Oxygen Delivery Method Room Air Intake Visit Reasons: PE Gun Tester Required: No Accompanied by: Self / Same As Patient Allergies Sulfa (Sulfonamide Antibiotics) Allergy (Severe, Verified 06/29/24 08:38) ANAPHYLAXIS, angioedema cefuroxime [From CEFTIN] Allergy (Intermediate, Verified 06/29/24 08:38) RASH metronidazole [From FLAGYL] Allergy (Intermediate, Verified 06/29/24 08:38) itch cefotetan Allergy (Unknown, Verified 06/29/24 08:38) rash sulfacetamide Allergy (Unknown, Verified 06/29/24 08:38) oral swelling, rash oxycodone [From OxyContin] Allergy (Verified 06/29/24 08:38) Itching shrimp Allergy (Verified 06/29/24 08:38) Itching nitrofurantoin [From MACROBID] Adverse Reaction (Mild, Verified 06/29/24 08:38) n/v Medication List - Last Reconciled 06/29/24 by Jamaal López, SWITCH COUPLER- acetaminophen 1,000 mg (2 x 500 mg) PO Q6H PRN albuterol sulfate 90 mcg/actuation (Ventolin HFA) 2 puffs inhalation Q6H PRN albuterol sulfate 2.5 mg (3 mL) inhalation QID PRN amitriptyline 50 mg PO BEDTIME 90 days apixaban (Eliquis) 5 mg PO Q12H atorvastatin 20 mg PO BEDTIME Bifidobacterium infantis (Align (B.infantis)) 4 mg PO BEDTIME 90 days budesonide-formoterol 160-4.5 mcg/actuation (Symbicort) 2 puffs inhalation BID buspirone 15 mg PO BID 90 days buspirone 20 mg PO BEDTIME bptwxcigdv-fzpvxgzpmruid-iauh 50-300-40 mg (Fioricet) 1 cap PO DAILY PRN 5 days cetirizine (All Day Allergy (cetirizine)) 20 mg PO BID cholecalciferol (vitamin D3) 50 mcg PO DAILY 90 days cyanocobalamin (vitamin B-12) (Vitamin B-12) 1,000 mcg PO DAILY epinephrine 0.3 mg IM DIRECTED escitalopram oxalate 5 mg PO DAILY famotidine 40 mg PO BEDTIME fluticasone propionate 50 mcg/actuation 2 sprays intranasal DAILY hydroxyzine HCl 10 mg PO BEDTIME hyoscyamine sulfate 0.125 mg PO BID-QID inhalational spacing device (Flexichamber spacer) As directed with inhaler lansoprazole 30 mg PO DAILY lidocaine 5% (Lidoderm) 1 patch topical DAILY PRN lorazepam 1 mg orally take one tab 45 minutes before the procedure, may repeat if one tab does not work. 1 day magnesium oxide 400 mg PO BEDTIME 30 days meloxicam 15 mg PO DAILY PRN 10 days montelukast 10 mg PO BEDTIME multivitamin with folic acid 400 mcg (Daily-Garrett (with folic acid)) 1 tab PO DAILY [nebulizer tubing and supplies As directed] nebulizers (Compact Compressor Nebulizer) As directed nystatin 4 mL PO TID 7 days ondansetron 8 mg PO Q8H PRN oseltamivir (Tamiflu) 75 mg PO Q12H 5 days polyethylene glycol 3350 17 grams PO BID scopolamine base 1 patch transdermal Q3D PRN tiotropium bromide 2.5 mcg/actuation (Spiriva Respimat) 2 puffs PO DAILY vitamin B complex 1 tab PO DAILY Tobacco use date assessed: 06/29/24 Dental Screening Dental Screen Date: 06/29/24 Did you have a dental visit in the last 12 months?: Yes Did you have a dental problem in the last 6 months where you did not have access to dental care?: No Was dental information given to patient?: Patient has dentist HPI PE HPI Details History of Present Illness The patient is a 54-year-old female presenting for a routine physical examination. She has a controlled history of asthma and reports no symptoms such as chest pain, abdominal tenderness, or dyspnea since her last visit. There have been no issues with bowel movements, including bowel blood, constipation, or diarrhea. She denies any current suicidal or homicidal ideation. The patient regularly consults with specialists: employment security officer, oncologist, gastroent erologist, psychiatrist, psychologist, and an OBGYN. Her mammogram is current. Health Maintenance - Routine gynecological exams, including Pap smears with an OBGYN - Regular mammogram screening (up-to-josh e) - Follow-ups with employment security officer, oncologi st, category planner, psychiatrist, and psychologist - Management of asthma Social History Review of Systems - Respiratory: Denies dyspnea - Cardiovascular: Denies chest pain - Gastrointestinal: Denies abdominal ten derness, blood in stool, constipation, diarrhea - Psychiatric: Denies suicidal ideation, homicidal ideation denies any fevers, chills Physical Exam General: Cooperative, healthy appearing, comfortable, no acute distress and well developed Orientation: Patient oriented x3 Limitations: No limitations Head: Normal to inspection Ears: Hearing grossly normal bilaterally Nose: Normal external nose present Face and sinus: Normal facial exam Eyes: Appearance normal, both eyes and all related structures Neck: Normal visual inspection and Yes full ROM Respiratory: Normal respiratory effort and able to speak in complete sentences. Clear to auscultation bilaterally Cardiovascular: Regular rate and rhythm. Normal S1 and S2 GI: Normal to inspection. Soft to palpation and nontender Skin: No rashes or lesions noted Neuro: Patient oriented x3 Extremities: Normal to inspection Results Plan The patient's asthma management remains unchanged as it is currently controlled. She is encouraged to follow her prescribed inhaler routine. Continued regular follow-ups with her specialists are important for her overall health main tenance. Routine health screenings, including mammograms and Pap smears, should continue to be kept current. A re-evaluation is recommended at the next wellness visit unless new symptoms arise. Discussion Notes During the visit, we discussed the patient's current health status, emphasizing the importance of regular follow-up with her specialists to maintain control over her chronic conditions, especially asthma. We reviewed her current regimen and the effectiveness of her treatments. The importance of keeping up with routine screenings, such as mammograms and Pap smears, was highlighted to ensure early detection and prevention of potential health concerns. The patient was advised that no additional tests or changes in her treatment plan were necessary at this time. Return precautions and follow-up recommendations were provided, emphasizing routine wellness visits and specialist consultations. Patient Instructions - Continue regular asthma medication as prescribed - Keep appointments with specialists - Stay up-to-date with mammogram and Pap smear screenings - Schedule a wellness visit in the [facility] e - Seek care if there are any changes in symptoms or new concerns arise [facility] Medical History Shrimp allergy Small bowel ischemia COVID-19 Paralytic ileus H/O abnormal cervical Papanicolaou smear [place]-menopausal control counseling Migraine with aura Portal vein thrombosis Lupus Right shoulder pain Immunizations incomplete Encounter for screening for COVID-19 Carpal tunnel syndrome Right hand pain Right wrist pain Surgical History Hx of carpal tunnel repair Hx of colonoscopy H/O resection of small bowel History of esophagogastroduodenoscopy (EGD) History of shoulder surgery H/O left knee surgery Hx of cholecystectomy Family History Mother Multiple myeloma Mental health disorder Father Bladder cancer Maternal Grandmother Lymphoma Maternal Grandfather Bone cancer Social History Household Members: Significant Other Housing: Apartment Are you a primary assisted living care manager to a significant other at home: No Do you presently have visiting nurse or other home services: No Alcohol intake: never Patient Tobacco Use Status: Former Tobacco user Tobacco use type: Cigarette Cigarette Packs Per Day: 1 e-Cigarette/Vaping Use: Never Used Second Hand Smoke Exposure: Yes Advance Directives Date on File: 05/02/21 service: No 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al status: employed 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 1. Little interest or pleasure in doing things: several days 2. Feeling down, depressed, or hopeless: several days 3. Trouble falling or staying asleep, or sleeping too much: several days 4. Feeling tired or having little energy: more than half the days 5. Poor appetite or overeating: several days 6. Feeling bad about yourself - or that you are a failure or have let yourself or your family down: not at all 7. Trouble concentrating on things, such as reading the newspaper or watching television: not at all 8. Moving or speaking so slowly that other people could have noticed. Or the opposite - being so fidgety or restless that you have been moving around a lot more than usual: not at all 9. Thoughts that you would be better off or of hurting yourself in some way: not at all Total score: 6 Depression Screening Interpretation: Negative Depression Screening Done: Yes 42153 - PHQ-9 Billing: Yes Source: Developed by Drs. Tyler Jordan, Ying Juárez, Marito Gutierrez and colleagues, with an educational angela from [employer]. Thrive Questionnaire Date Thrive assessed: 06/29/24 I am a: Patient What is your living situation today?: I have a steady place to live Within the past 12 months, did the food you bought not last and you didn't have the money to get more?: Never true Within the past 12 months, did you worry whether your food would run out before you got money to buy more?: Never true Do you have trouble paying for medicines?: No Do you have trouble getting transportation to medical appointments?: No Do you have trouble paying your heating and electricity bill?: No Do you have trouble taking care of your child, family member or friend?: No Do you have trouble with day-to-day activities such as bathing, preparing meals, shopping, managing finances, etc.?: No Are you currently unemployed and looking for a job?: No Are you interested in more education?: No Please select the resources that you would like help with: None Currently or been in a relationship where the following occur: No concerns reported THRIVE Score: 0 AUDIT C Alcohol Use Questionnaire (AUDIT-C) 1. How often do you have a drink containing alcohol?: Monthly or less 2. How many drinks containing alcohol do you have on a typical day when you are drinking?: 1 or 2 3. How often do you have six or more drinks on one occasion?: Never Total Score: 1 Score Reviewed/Action Taken: Yes TOM-7 AMB Questionnaire TOM-7 Date TOM - 7 assessed: 06/29/24 Feeling nervous, anxious, or on edge: 2 = More than half the days Not being able to stop or control worryin = Several days Worrying too much about different things: 1 = Several days Trouble relaxin = Nearly every day Being so restless that it is hard to sit still: 3 = Nearly every day Becoming easily annoyed or irritable: 3 = Nearly every day Feeling afraid as if something awful might happen: 0 = Not at all Total TOM-7 score (0-4 normal; 5-9 mild; 10-14 moderate; 15-21 severe): 13 Source: Developed by Drs. Tyler Jordan, Ying Juárez, Marito Gutierrez and colleagues, with an educational angela from [employer]. TOM-7 Assessment Billing TOM-7 Assessment Tool: TOM-7 Assessment 66830 Physical exam (Primary Care) Vital Signs: Last Vital Signs Pulse 89 06/29/24 08:09 BP 122/76 06/29/24 08:09 Pulse Ox 97 06/29/24 08:09 Oxygen Delivery Method Room Air 06/29/24 08:09 BMI result Body Mass Index 32.4 Tobacco/Smoking Status: Tobacco use Status Tobacco use date assessed 06/29/24 06/29/24 08:10 Patient Tobacco Use Status Former Tobacco user 06/29/24 08:10 Tobacco use type Cigarette 06/29/24 08:10 e-Cigarette/Vaping Use Never Used 06/29/24 08:10 PHQ-9: PHQ-9 Score PHQ-9: Total score 6 06/29/24 08:10 Depression Screening Interpretation: Negative Thrive Assessment: Date of Thrive Assessment Date Thrive assessed 06/29/24 06/29/24 08:10 Currently or been in a relationship where the following occur: No concerns reported Coding Level of Care Code Est Pt Prev Care 40-64y(33459) Diagnoses Physical exam Z00.00 B12 deficiency E53.8 Additional Codes TOM-7 Assessment Billing - TOM-7 Assessment Tool: TOM-7 Assessment 32128 ([id number]) PHQ-9 - 59085 - PHQ-9 Billing: Yes ([id number]) Assessment & Plan Assessment & Plan (1) Physical exam: Code(s): Z00.00 - Encounter for general adult medical examination without abnormal findings Category: Medical (2) B12 deficiency: Code(s): E53.8 - Deficiency of other specified B group vitamins Category: Medical Plan . Orders: Orders Comprehensive [place]. Panel Fast Today Z00.00 - Encounter for general adult medical examination without abnormal findings TSH reflex Free T4 Today Z00.00 - Encounter for general adult medical examination without abnormal findings Lipid Panel Today Z00.00 - Encounter for general adult medical examination without abnormal findings Vitamin D 25-OH Total Today E55.9 - Vitamin D deficiency, unspecified Complete Blood Count Auto Diff Today Z00.00 - Encounter for general adult medical examination without abnormal findings UA CC w/rflx Micro + Cult Today Z00.00 - Encounter for general adult medical examination without abnormal findings Vitamin B12 and Folate Today E53.8 - Deficiency of other specified B group vitamins
== END 2024-06-29 08:36 | disposition home or self-care (01) ==
LOC: HO.HMCC 08:08
PROVIDERS: PCP Nurse Practitioner Family; Visit Provider Nurse Practitioner Family
DX: Z00.00 Encounter for general adult medical examination without abnormal findings (principal); E53.8 Deficiency of other specified B group vitamins

== ENCOUNTER 2024-08-08 10:36 | Outpatient (AMB) | payer OTHER, SELFPAY ==
--- NOTE | 2024-08-08 10:39 | MHC.OFFVIS ---
Vital Signs 08/08/24 10:41 Height 5 ft 2 in Weight 171 lb 15.369 oz BMI 31.4 BP 123/72 Blood Pressure Location Lt brachial Position Sitting Pulse 87 Intake Visit Reasons: Follow up Ischemic gastroenteritis Intake Note: Shawna presents in the office as a follow up for ichemic gastroenteritis. CC: She states that her father had bile duct cancer and he just passed. 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 Allergies Sulfa (Sulfonamide Antibiotics) Allergy (Severe, Verified 08/08/24 10:41) ANAPHYLAXIS, angioedema cefuroxime (From CEFTIN) Allergy (Intermediate, Verified 08/08/24 10:41) RASH metronidazole (From FLAGYL) Allergy (Intermediate, Verified 08/08/24 10:41) itch cefotetan Allergy (Unknown, Verified 08/08/24 10:41) rash sulfacetamide Allergy (Unknown, Verified 08/08/24 10:41) oral swelling, rash oxycodone (From OxyContin) Allergy (Verified 08/08/24 10:41) Itching shrimp Allergy (Verified 08/08/24 10:41) Itching nitrofurantoin (From MACROBID) Adverse Reaction (Mild, Verified 08/08/24 10:41) n/v HPI HPI Follow up Ischemic gastroenteritis: Details: 54 y/o f w hx of asthma, partial bowel resection due to ischemic bowel from lupus anticoagulant, cholecystectomy dec 2017, and depression/anxiety being seen for f/u RECAP from index visit: 05/2018 1 yr ago had nausea and vomiting, weight loss of 20# then had trial of PPI by Dr Barron at [facility] she had endoscopes top and bottom and all normal PPi was not helping, changed to nexium due to ongoing sx she had repeat EGD 04/2018 which apparently revealed gastritis path 04/2018- EGD w barretts and gastritis, per report there was erosions in the stomach. same month had the bowel resection of mid to distal small bowel, renal infarct also noted on imaging when she had Gb taken out she felt well for short while She was c/o rectal bleeding and diarrhea and had EGD/colonoscopy 05/2018 erosive gastritis, duodenitis, hemorrhoids w some bleeding noted path with active esophagitis and reactive gastritis carafate added, PPI started she was given prevacid and zofran when seen 07/2018 she was doing well however she had an attack of abdo pain, nausea and diarrhea 08/2018 went to ED< given GI cocktail and went away, lasted for few days short lived attack on RAST: pos for egg white, advised to avoid doing well when seen 12/2018, nausea was markedly improved however at visit 05/2019- she had recurrence of nausea for 3 weeks, with upper abdo pain PCP gave her promethazine, using zofran prn she went to ED and was given bentyl she is using levsin scheduled she feels lansoprazole might not be working as well she took pepcid and felt it helped more she feels sx are resolving and improving 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 she was recommended to try open capsule PPI, levsin at f/u 07/25/2019-- she was doing well with treatments and no further n/v, with good appetite at visit 10/10/2019 : had nausea for several days with poor appetite she had slow recovery, with an episode of esophageal spasm, and abdominal pain she went to the ER at [facility] her wcc was elevated at 18, hgb nml, BMP, LFT were nml UA was normal A CT was normal I arranged capsule endoscopy --severe gastritis and duodentiis rept EGD: 10/2019--possible ischemic gastropathy with multiple areas pf apllor and redness she was sent to ED to r/o infarction or clot, had neg CTA (CT angio--personally reviewed, no embolism, fecal loading, prominent cbd, contracted stomach with thickened lining) was rx with carafate dr Flor increased lovenox to BID dose was then again increased recently due to low anti Xa and some resumption of her sx She had rept EGD/colo 01/2023 no polyps, granular mucosa of colon, ischemic changes in stomach PATH: TI- nml colon-random- bx with non specifc repair of prior mucosal injury esophagus-focal IM compatible with Barretts stomach: mild chronic inflamamtion INTERIM: busy with work no abdominal pains appetite is good no issues with bowel habits on eliquis daily dad had GB cancer --was 90 EXAM: GENERAL: The patient is well developed and nontoxic. VITAL SIGNS:see workflow HEENT: Nonicteric sclerae, PERRLA, EOMI. Oropharynx clear. Moist mucous membranes. Conjunctivae appear well perfused. No thyroid mass. CHEST: Chest wall is nontender. HEART: Regular rate and rhythm without murmurs. LUNGS: Clear to auscultation bilaterally. ABDOMEN: Soft, positive bowel sounds, nontender, no organomegaly.no flank tenderness SKIN: No rash, no excessive bruising, petechiae, or purpura. NEUROLOGIC: Cranial nerves II-XII intact without motor/sensory deficit. Psych: normal affect Assessment & Plan 1/ ischemic gastropathy and IBS--in future she should get lovenox bridging for any procedures --stable 2/ constipation, resolved 3/ barretts PLAN: 1/ cont with current treatment regimens, scopolamine works well, insurance would not cover zofran 2/ cont with miralax as needed 3/ rept EGD in 2-3 yrs PFSH Medical History Shrimp allergy Small bowel ischemia COVID-19 Paralytic ileus H/O abnormal cervical Papanicolaou smear [place]-menopausal control counseling Migraine with aura Portal vein thrombosis Lupus Right shoulder pain Immunizations incomplete Encounter for screening for COVID-19 Carpal tunnel syndrome Right hand pain Right wrist pain Surgical History Hx of carpal tunnel repair Hx of colonoscopy H/O resection of small bowel History of esophagogastroduodenoscopy (EGD) History of shoulder surgery H/O left knee surgery Hx of cholecystectomy Family History (Updated 08/08/24 @ 10:42 by STEWART Courtney) Mother Multiple myeloma Mental health disorder Father Bladder cancer Liver tumor Bile duct cancer Maternal Grandmother Lymphoma Maternal Grandfather Bone cancer Social History Household Members: Significant Other Housing: Apartment Are you a primary health care recruiter to a significant other at home: No Do you presently have visiting nurse or other home services: No Alcohol intake: never Patient Tobacco Use Status: Former Tobacco user Tobacco use type: Cigarette Cigarette Packs Per Day: 1 e-Cigarette/Vaping Use: Never Used Second Hand Smoke Exposure: Yes Advance Directives Date on File: 05/02/21 service: No 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al status: employed 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) Sexual orientation: Straight/Heterosexual Gender identity: Female Cognitive needs: No Hearing needs: No Vision needs: No Physical Exam Vital Signs: BMI result Body Mass Index 31.4 Assessment & Plan Assessment & Plan (1) Ischemic gastroenteritis: Code(s): K52.89 - Other specified noninfective gastroenteritis and colitis Category: Medical Plan: controlled Medications: Discontinued oseltamivir (Tamiflu) Discontinued Reason: Patient no longer taking 75 mg PO Q12H 5 days 10 caps 0RF Coding Level of Care Code Est Pt Level 3 (07186) Diagnoses Ischemic gastroenteritis K52.89
[2024-08-08 10:41] VITALS: BP 123/72; PULSE 87; BMI 31.4
--- OUTSIDE RECORDS SUMMARY | 2024-08-08 11:21 | XMS_ITS | Data Portability ---
Author Organization [facility] - [facility], [address] Address [address] [place] [address] Assessment No assessment recorded. Plan of Treatment [...] Time OC- Physical completed J CARLOS [facility] 03/14/2022 18:51:15 Imaging Results None recorded. [...] SNOMED-CT Code Diagnosis ICD10 Code Diagnosis Note [id number] [facility] [address] [address] 09/22/2015 09:29:34 09/22/2015 10:49:26 [id number] [facility] [address] [address] 03/14/2022 17:29:41 03/14/2022 19:06:51 History and physical examination, pre-employment [id number] Z02.1 Health Concerns Section Related Observation LastModified [...] TIME OF SERVICE Shawna Veilleux 03/14/2022 1 [facility] - OPEN ACCESS PLUS [id number] Shawna Hayes [id number] Shawna Hayes OBGyn Episode No OBEpisode recorded.
== END 2024-08-08 11:05 | disposition home or self-care (01) ==
LOC: HO.HGI 10:37
PROVIDERS: PCP Nurse Practitioner Family; Visit Provider Internal Medicine Gastroenterology
DX: K52.89 Other specified noninfective gastroenteritis and colitis (principal)
CPT/HCPCS: 99213

== ENCOUNTER 2024-08-16 19:30 | Emergency (ER) | payer OTHER, SELFPAY ==
[2024-08-16 19:34] VITALS: BP 139/64; PULSE 90; RESP 18; TEMP 36.7; O2SAT 99; BMI 28.8
--- NOTE | 2024-08-16 19:37 | ED.GENADULT ---
HPI - General Adult General Chief complaint: Ear Problems Stated complaint: piece of hearing aide in rt ear/can't get it out Time Seen by Provider: 08/17/24 00:11 Source: patient Mode of arrival: ambulatory Limitations: no limitations History of Present Illness ED Provider: HPI narrative: Patient's got her hearing aid stuck in her right ear was prior to arrival no significant pain Related Data Home Medications ?Medication ?Instructions ?Recorded ?Confirmed epinephrine 0.3 mg/0.3 mL 0.3 mg IM DIRECTED allergies 05/28/22 06/29/24 injection, auto-injector vitamin B complex 1 tab PO DAILY 10/30/22 06/29/24 buspirone 10 mg tablet 20 mg PO BEDTIME 06/03/23 06/29/24 escitalopram oxalate 5 mg tablet 5 mg PO DAILY 06/03/23 06/29/24 cetirizine 10 mg capsule (All Day 20 mg PO BID 08/27/23 06/29/24 Allergy (cetirizine)) buspirone 5 mg tablet 5 mg PO BEDTIME 08/08/24 hydroxyzine HCl 10 mg tablet 10 mg PO BEDTIME PRN 08/08/24 hydroxyzine HCl 50 mg tablet 50 mg PO BEDTIME 08/08/24 Previous Rx's ?Medication ?Instructions ?Recorded ueqkpwwbgr-yeiafpmhplwae-xcefqqem 1 cap PO DAILY PRN severe headache 12/08/21 50 mg-300 mg-40 mg capsule 5 days #5 caps (Fioricet) Bifidobacterium infantis 4 mg 4 mg PO BEDTIME 90 days #90 caps 01/27/22 capsule (Align (B.infantis)) nebulizers (Compact Compressor #1 ea 10/22/22 Nebulizer) inhalational spacing device #1 ea 11/04/22 (Flexichamber spacer) fluticasone propionate 50 2 spray intranasal DAILY #48 mL 11/25/22 mcg/actuation nasal spray,suspension magnesium oxide 400 mg PO BEDTIME 30 days #30 tabs 12/30/22 buspirone 15 mg tablet 15 mg PO BID 90 days #180 tabs 01/04/23 acetaminophen 500 mg capsule 1,000 mg (2 x 500 mg) PO Q6H PRN 03/12/23 elbow pain #30 caps lidocaine 5 % topical patch 1 patch topical DAILY PRN Elbow 03/12/23 (Lidoderm) pain #30 ea apixaban 5 mg tablet (Eliquis) 5 mg PO Q12H #180 tabs 03/14/24 amitriptyline 50 mg tablet 50 mg PO BEDTIME 90 days #90 tabs 03/21/24 budesonide-formoterol HFA 160 2 puff inhalation BID #30.6 grams 03/21/24 mcg-4.5 mcg/actuation aerosol inhaler (Symbicort) lansoprazole 30 mg capsule,delayed 30 mg PO DAILY #90 caps 03/21/24 release polyethylene glycol 3350 17 17 g PO BID #510 caps 03/21/24 gram/dose oral powder multivitamin with folic acid 400 1 tab PO DAILY #90 tabs 04/05/24 mcg tablet (Daily-Garrett (with folic acid)) meloxicam 15 mg tablet 15 mg PO DAILY PRN knee pain 10 05/07/24 days #10 tabs scopolamine base 1 mg over 3 days 1 patch transdermal Q3D PRN nausea 06/10/24 transdermal patch and vomiting #4 ea albuterol sulfate 90 mcg/actuation 2 puff inhalation Q6H PRN 06/20/24 aerosol inhaler (Ventolin HFA) shortness of breath or wheezing #8.5 grams atorvastatin 20 mg tablet 20 mg PO BEDTIME #90 tabs 08/03/24 tiotropium bromide 2.5 2 puff PO DAILY #12 grams 08/03/24 mcg/actuation mist for inhalation (Spiriva Respimat) hyoscyamine sulfate 0.125 mg 0.125 mg PO BID-QID #360 tabs 08/04/24 disintegrating tablet albuterol sulfate 2.5 mg/3 mL 2.5 mg (3 mL) inhalation QID PRN 08/10/24 (0.083 %) solution for nebulization shortness of breath or wheezing #90 mL cholecalciferol (vitamin D3) 50 50 mcg PO DAILY 90 days #90 caps 08/13/24 mcg (2,000 unit) capsule cyanocobalamin (vitamin B-12) 1,000 mcg PO DAILY #90 tabs 08/13/24 1,000 mcg tablet montelukast 10 mg tablet 10 mg PO BEDTIME #90 tabs 08/13/24 famotidine 40 mg tablet 40 mg PO BEDTIME #90 tabs 08/15/24 nebulizer tubing and supplies #1 ea 08/16/24 Allergies Allergy/AdvReac Type Severity Reaction Status Date / Time Sulfa (Sulfonamide Allergy Severe ANAPHYLAXIS, Verified 08/16/24 19:36 Antibiotics) angioedema cefuroxime (From CEFTIN) Allergy Intermediate RASH Verified 08/16/24 19:36 metronidazole (From FLAGYL) Allergy Intermediate itch Verified 08/16/24 19:36 cefotetan Allergy Unknown rash Verified 08/16/24 19:36 sulfacetamide Allergy Unknown oral Verified 08/16/24 19:36 swelling, rash oxycodone (From OxyContin) Allergy Itching Verified 08/16/24 19:36 shrimp Allergy Itching Verified 08/16/24 19:36 nitrofurantoin (From AdvReac Mild n/v Verified 08/16/24 19:36 MACROBID) Review of Systems Review of Systems: Yes all other systems are reviewed and are negative PMFSH Past Medical History Medical History Shrimp allergy Small bowel ischemia COVID-19 Paralytic ileus H/O abnormal cervical Papanicolaou smear [place]-menopausal control counseling Migraine with aura Portal vein thrombosis Lupus Right shoulder pain Immunizations incomplete Encounter for screening for COVID-19 Carpal tunnel syndrome Right hand pain Right wrist pain Surgical History Hx of carpal tunnel repair Hx of colonoscopy H/O resection of small bowel History of esophagogastroduodenoscopy (EGD) History of shoulder surgery H/O left knee surgery Hx of cholecystectomy Family History Family History Mother Multiple myeloma Mental health disorder Father Bladder cancer Liver tumor Bile duct cancer Maternal Grandmother Lymphoma Maternal Grandfather Bone cancer Social History Social History Household Members: Significant Other Housing: Apartment Are you a primary tree care foreman to a significant other at home: No Do you presently have visiting nurse or other home services: No Alcohol intake: never Patient Tobacco Use Status: Former Tobacco user Tobacco use type: Cigarette Cigarette Packs Per Day: 1 e-Cigarette/Vaping Use: Never Used Second Hand Smoke Exposure: Yes Advance Directives Date on File: 05/02/21 service: No 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al status: employed 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) Sexual orientation: Straight/Heterosexual Gender identity: Female Cognitive needs: No Hearing needs: No Vision needs: No Physical Exam ED Vital Signs: Vital Signs - 24 hr 08/16/24 19:34 Temperature 98.1 F Pulse Rate 90 Respiratory Rate 18 Blood Pressure 139/64 Pulse Oximetry 99 Oxygen Delivery Method Room Air BMI result Body Mass Index 28.8 HENMT Ears: external ears normal, TM's normal bilaterally and Abnormal EAC present (Hearing aid visible in R EAC) Course Course Course Narrative: RME: 53-year-old female presents to ED for a piece of hearing aid the dome stuck inside her right ear this occurred 20 minutes ago. On exam positive for for objects deep near the tympanic membrane. Patient will be have to be placed in the bed for proper removal with alligator forceps. Procedures FB Removal Ear Location: ear canal (R) Foreign Body Suspected: other (Hearing aid) TM intact pre-procedure: yes Foreign Body Removed: yes Foreign Body Removal Technique: forceps Tympanic Membrane Intact Post Procedure: Yes Patient Tolerated Procedure: well Complications: none Discharge Plan Discharge Clinical Impression: Foreign body of ear, right Patient Disposition: Home, Self-Care Instructions: Ear Foreign Body (ED) Additional Instructions: Care and cautions as advised Your hearing device was removed completely and inside of your ear iss normal Prescriptions: No Action olrqoepvop-xmraulhvawgqj-xhpv [Fioricet] 50-300-40 mg capsule 1 cap PO DAILY PRN (Reason: severe headache) 5 Days Qty: 5 0RF Align (B.infantis) 4 mg capsule 4 mg PO BEDTIME 90 Days Qty: 90 0RF (DME) nebulizers [Compact Compressor Nebulizer] Misc See Rx Instructions .Route Qty: 1 0RF Rx Instructions: As directed (DME) Flexichamber Spacer See Rx Instructions .Route Qty: 1 0RF Rx Instructions: As directed with inhaler fluticasone propionate 50 mcg/actuation spray,suspension 2 spray intranasal DAILY Qty: 48 1RF magnesium oxide 400 mg magnesium tablet 400 mg PO BEDTIME 30 Days Qty: 30 2RF buspirone 15 mg tablet 15 mg PO BID 90 Days Qty: 180 1RF lansoprazole 30 mg capsule,delayed release(DR/EC) 30 mg PO DAILY Qty: 90 2RF polyethylene glycol 3350 17 gram/dose powder 17 g PO BID Qty: 510 2RF amitriptyline 50 mg tablet 50 mg PO BEDTIME 90 Days Qty: 90 1RF budesonide-formoterol [Symbicort] 160-4.5 mcg/actuation HFA aerosol inhaler 2 puff inhalation BID Qty: 30.6 1RF multivitamin with folic acid [Daily-Garrett (with folic acid)] 400 mcg tablet 1 tab PO DAILY Qty: 90 1RF meloxicam 15 mg tablet 15 mg PO DAILY PRN (Reason: knee pain) 10 Days Qty: 10 0RF Rx Instructions: be careful because you are on eliquis, increased bleeding risk scopolamine base 1 mg over 3 days patch 3 day 1 patch transdermal Q3D PRN (Reason: nausea and vomiting) Qty: 4 0RF albuterol sulfate [Ventolin HFA] 90 mcg/actuation HFA aerosol inhaler 2 puff inhalation Q6H PRN (Reason: shortness of breath or wheezing) Qty: 8.5 2RF Spiriva Respimat 2.5 mcg/actuation mist 2 puff PO DAILY Qty: 12 1RF atorvastatin 20 mg tablet 20 mg PO BEDTIME Qty: 90 1RF hyoscyamine sulfate 0.125 mg tablet,disintegrating 0.125 mg PO BID-QID Qty: 360 3RF albuterol sulfate 2.5 mg /3 mL (0.083 %) solution for nebulization 2.5 mg inhalation QID PRN (Reason: shortness of breath or wheezing) Qty: 90 0RF cyanocobalamin (vitamin B-12) 1,000 mcg tablet 1,000 mcg PO DAILY Qty: 90 1RF cholecalciferol (vitamin D3) 50 mcg (2,000 unit) capsule 50 mcg PO DAILY 90 Days Qty: 90 1RF montelukast 10 mg tablet 10 mg PO BEDTIME Qty: 90 1RF famotidine 40 mg tablet 40 mg PO BEDTIME Qty: 90 3RF (DME) nebulizer tubing and supplies See Rx Instructions .Route .MEDSUPPLY Qty: 1 11RF Rx Instructions: As directed Eliquis 5 mg Tablet 5 mg PO Q12H Qty: 180 2RF epinephrine 0.3 mg/0.3 mL auto-injector 0.3 mg IM DIRECTED All Day Allergy (cetirizine) 10 mg capsule 20 mg PO BID buspirone 10 mg tablet 20 mg PO BEDTIME escitalopram oxalate 5 mg tablet 5 mg PO DAILY hydroxyzine HCl 10 mg tablet 10 mg PO BEDTIME PRN acetaminophen 500 mg capsule 1,000 mg PO Q6H PRN (Reason: elbow pain) Qty: 30 0RF lidocaine [Lidoderm] 5 % adhesive patch,medicated 1 patch topical DAILY PRN (Reason: Elbow pain) Qty: 30 0RF Rx Instructions: leave on most painful area for up to 12 hrs buspirone 5 mg tablet 5 mg PO BEDTIME hydroxyzine HCl 50 mg tablet 50 mg PO BEDTIME vitamin B complex Tablet 1 tab PO DAILY Interventions: ED Discharge Assessment Last Done: 08/17/24 00:41 Discharge Date/Time: 08/17/24 00:41 Print Language: Citizen Of [place]
[2024-08-17 00:32] VITALS: BP 114/70; PULSE 81; RESP 18; TEMP 36.5; O2SAT 96
[2024-08-17 00:41] VITALS: BP 114/70; PULSE 81; RESP 18; TEMP 36.5; O2SAT 96
== END 2024-08-17 00:41 | disposition home or self-care (01) ==
PROVIDERS: Emergency Provider Internal Medicine; PCP Nurse Practitioner Family
DX: T16.1XXA Foreign body in right ear, initial encounter (principal); W44.G1XA Audio device entering into or through a natural orifice, initial encounter; Y93.9 Activity, unspecified; Y92.039 Unspecified place in apartment as the place of occurrence of the external cause; Y99.9 Unspecified external cause status
CPT/HCPCS: 69200; 99282; 99284

== ENCOUNTER 2024-08-23 15:51 | Outpatient (REF) | payer SELFPAY ==
--- OUTSIDE RECORDS SUMMARY | 2024-08-23 16:39 | XMS_ITS | Data Portability ---
Author Organization [facility], [id number] Address [address] [place] [address] Assessment No assessment recorded. Plan of Treatment [...] Recorded Time OC- Physical completed J CARLOS [facility] [employer] [facility] 03/14/2022 18:51:15 Imaging Results None recorded. [...] SNOMED-CT Code Diagnosis ICD10 Code Diagnosis Note [id number] [address] [address] [address] 09/22/2015 09:29:34 09/22/2015 10:49:26 [id number] [facility] [address] [address] 03/14/2022 17:29:41 03/14/2022 19:06:51 History and physical examination, pre-employment [id number] Z02.1 Health Concerns Section Related Observation LastModified [...] TIME OF SERVICE Shawna Veilleux 03/14/2022 1 [facility] [id number] Shawna Hayes [id number] Shawna Hayes OBGyn Episode No OBEpisode recorded.
--- OUTSIDE RECORDS SUMMARY | 2024-08-23 16:39 | XMS_ITS | Patient Health Record ---
[facility] Address [address] [place] [address] Care Team Providers Care Fingerprint Classifier Name Role Phone Jamaal Early Primary Care Provider Unav ailable Nurys Miller Unavailable [phone] Allergies Allergen (clinical drug ingredient) Drug/Non Drug [...] MCG 1 tablet Orally Onc e a day; Duration: 30 day(s) Active Tiotropium [place] Monohydrate 1.25 MCG/ACT 2 puffs Inhalation Once a day Active School Note . . . Patient to wear cast boot to right foot until healed 02/19/2021 Not-Taking Shoes . . . Medically necessary to wear special shoe at work/school until foot is 100% healed 03/12/2021 Active Ondansetron 4 MG 1 tablet on the tong ue and allow to dissolve Orally Once a day; Duration: 30 day(s) Active Cholecalciferol Acti ve Amitriptyline HCl 50 MG as directed Orally Active Omeprazole Not-Takin g Bifidobacterium Longum - as directed Orally Active traMADol HCl Not-Julian ing Amitriptyline HCl 75 MG 1 tablet at bedt dennis Orally Once a day; Duration: 30 day(s) Not-Taking Albuterol Sulfate HFA 108 [...] 1 TABLET BY MOUTH EVERY 12 HOURS Oral; Duration: 10 Not-Taking Famotidine 40 MG 1 tablet at bedtime Orally Once a day; Duration: 30 day(s) Active Enoxaparin Sodium 60 MG/0.6ML as directed Subcutaneous Active oxyCODONE HCl 5 MG 1 tablet as needed Orally every 4 hrs as needed Not-Taking LORazepam Not-Taking Symbicort Not-Taking Montelukast Sodium 10 MG 1 tablet Orally Once a day; Duration: 30 day(s) Active Melatonin 5 MG 1 capsule at bedtime as needed Orally Once a day; Duration: 30 day(s) Active Hyoscyamine Sulfate 0.125 MG/5ML 5 ml as needed Orally every 4 hrs Active Fluticasone Propionate Active Lansoprazole 30 MG 1 capsule before a meal Orally Once a day; Duration: 30 day(s) Active Ipratropium [place] Active Immunizations Vaccine Route Administration Date Status [...] W/U Status Risk Notes Problem Plantar wart (22498475) Plantar wart (B07.0) Active confirmed Plan Of Treatment Pending Test Test Name Order Date [id number] NAIL, 6 OR MORE 12/25/2015 [id number] NAIL, 6 OR MORE 01/16/2016 [id number] NAIL, 6 OR MORE 09/19/2016 [id number] Destruction, 1-14 11/20/2020 78229, [id number]/INJECT, JOINT/BURSA 0 08/26/2016 Insurance Providers Payer Name Payer Address Payer Phone Subscriber Number Group Number Insured Name Patient Relationship to Insured Coverage Start Date Coverage End Date [facility] [address] [place] [address] [id number] Shawna Hayes Self - patient is the [...]
== END 2024-08-23 15:52 | disposition home or self-care (01) ==
LOC: HO.HAP 15:51
PROVIDERS: Visit Provider Nurse Practitioner Family
DX: Z13.89 Encounter for screening for other disorder (principal)

== ENCOUNTER 2024-08-24 15:43 | Outpatient (REF) | payer SELFPAY ==
--- OUTSIDE RECORDS SUMMARY | 2024-08-24 15:46 | XMS_ITS | Patient Health Record ---
Author Organization [facility] Address [address] [place] [address] Care Team Providers Care Process Control Board Operator Name Role Phone Jamaal Early Primary Care Provider Unav ailable Nurys Miller Unavailable [phone] Allergies Allergen (clinical drug ingredient) Drug/Non Drug [...] a day; Duration: 30 day(s) Active Tiotropium [place] Monohydrate 1.25 MCG/ACT 2 puffs Inhalation Once [...] a day; Duration: 30 day(s) Active Ipratropium [place] Active Immunizations Vaccine Route Administration Date Status [...] W/U Status Risk Notes Problem Plantar wart (72647782) Plantar wart (B07.0) Active confirmed Plan Of Treatment Pending Test Test Name Order Date [id number] NAIL, 6 OR MORE 12/25/2015 [id number] NAIL, 6 OR MORE 01/16/2016 [id number] NAIL, 6 OR MORE 09/19/2016 [id number] Destruction, 1-14 11/20/2020 58999, [id number]/INJECT, JOINT/BURSA 0 08/26/2016 Insurance Providers Payer Name Payer Address Payer Phone Subscriber Number Group Number Insured Name Patient Relationship to Insured Coverage Start Date Coverage End Date [facility] [address] [place] [address] [id number] Shawna Hayes Self - patient is the [...]
== END 2024-08-24 15:44 | disposition home or self-care (01) ==
LOC: HO.SH 15:43
PROVIDERS: Visit Provider Nurse Practitioner Family
DX: Z01.118 Encounter for examination of ears and hearing with other abnormal findings (principal)
CPT/HCPCS: V5299

== ENCOUNTER 2024-09-12 08:51 | Outpatient (REF) | payer OTHER, SELFPAY ==
--- NOTE | ~2024-09-12 | XR_ITS ---
EXAMINATION: XR CHEST 2 VIEWS HISTORY: worsening cough x 2 weeks, asthma COMPARISON: Comparison is made with the prior examination dated 05/09/2024. FINDINGS: PA and lateral views of the chest are submitted. The lungs are expanded and clear. There is no pleural effusion, pneumothorax, or pulmonary vascular congestion. The heart is normal in size. The bones are intact. XR/XR chest 2V IMPRESSION: No acute cardiopulmonary abnormality. Electronically signed by: Tyler Mcdowell MD 09/12/2024 09:25 AM EDT
--- OUTSIDE RECORDS SUMMARY | 2024-09-12 09:11 | XMS_ITS | Patient Health Record ---
Author Organization [facility] Address [address] [place] [address] Care Team Providers Care Tallow Pumper Name Role Phone Jamaal Early Primary Care Provider Unav ailable Nurys Miller Unavailable [phone] Allergies Allergen (clinical drug ingredient) Drug/Non Drug [...] a day; Duration: 30 day(s) Active Tiotropium [place] Monohydrate 1.25 MCG/ACT 2 puffs Inhalation Once [...] a day; Duration: 30 day(s) Active Ipratropium [place] Active Immunizations Vaccine Route Administration Date Status [...] W/U Status Risk Notes Problem Plantar wart ([id number]) Plantar wart (B07.0) Active confirmed Plan Of Treatment Pending Test Test Name Order Date [id number] NAIL, 6 OR MORE 12/25/2015 [id number] NAIL, 6 OR MORE 01/16/2016 [id number] NAIL, 6 OR MORE 09/19/2016 [id number] Destruction, 1-14 11/20/2020 [id number], [id number]/INJECT, JOINT/BURSA 0 08/26/2016 Insurance Providers Payer Name Payer Address Payer Phone Subscriber Number Group Number Insured Name Patient Relationship to Insured Coverage Start Date Coverage End Date [facility] [address] [place] [address] [id number] Shawna Hayes Self - patient is the [...]
--- OUTSIDE RECORDS SUMMARY | 2024-09-12 09:11 | XMS_ITS | Encounter Summary ---
Author Organization [facility] Address [address] [address] Phone Care Team Providers Care Can Conveyor Feeder Name Role Phone Edwin Segal MD Unavailable Allen Melendrez MD Unavailable Srini Maxwell DO Unavailable [phone] Wiliam Griffin MD Unavailable [phone] Fouzia Gil MD Primary Care Provider [phone] Alejandrina Newell TEACHER EDUCATION DIRECTOR Primary Care Provider Jamaal López TEACHER EDUCATION DIRECTOR Primary Care Provider + Encounter Details Date Type Department Care Team (Late st Contact Info) Description 06/15/2017 Ancillary Orders [facility],Outside Imaging [address] [place] [address] System, Provider Not In, PhD [address] [address] Social History Tobacco Use Types Packs/Day Years Used Date Smoking Tobacco: Former Smokeless Tobacco: Never Alcohol Use Standard Drinks/Week Comments No 0 (1 standard drink = 0.6 oz pur e alcohol) Comments No Sex and Gender Information Value Date Recorded Sex Assigned at Female 12/27/2020 6:56 AM EST Legal Sex Female 9:33 PM EDT Gender Identity Not on file Sexual Orientation Not on file documented as of this encounter Plan of Treatment Upcoming Encounters Date Type Department Care Team (Late st Contact Info) Description 02/26/2024 Procedure Pass [address] [place] [address] 03/03/2025 9:15 AM EST Appointment [address] [place] [address] Jamaal López, FAVIO [address] [place] [address] [email or web address] documented as of this encounter Results * Mammogram Outside (No [...] AM EDT documented as of this encounter Care Teams Can Conveyor Feeder Relationship Specialty Start Date End Date Fouzia Gil MD [facility] [place] [address] PCP - General Internal Medicine 04/17/17 03/14/18 Alejandrina Newell NP [address] [place] [address] [place] [address] [email or web address] PCP - General Family Medicine 03/15/18 11/03/19 Jamaal López, FAVIO [address] [place] [address] [email or web address] PCP - General Family Medicine 11/04/19 Edwin Segal MD [address] [place] [address], [address] [address] Historical LMR Provider 11/27/16 02/16/21 Allen Melendrez MD [address] [place] [address] Historical LMR Provider 11/27/16 Srini Maxwell DO [address] [place] [address] Historical LMR Provider 11/27/16 Wiliam Griffin MD [address] [place] [address], [address] [address] [email or web address] Historical LMR Provider 11/27/16 documented as of this encounter Additional Source Comments The information contained in this document represents components of the legal health record. It is not the complete legal health record.[facility]
== END 2024-09-12 08:52 | disposition home or self-care (01) ==
LOC: HO.XRAY 08:51
PROVIDERS: PCP Nurse Practitioner Family; Visit Provider Nurse Practitioner Family
DX: R05.9 Cough, unspecified (principal); J45.909 Unspecified asthma, uncomplicated
CPT/HCPCS: 71046

== ENCOUNTER → 2024-09-12 08:56 | Outpatient (BNV) | payer OTHER, SELFPAY | PROVIDERS: PCP Nurse Practitioner Family; Visit Provider Radiology Diagnostic Radiology | DX: R05.9 Cough, unspecified (principal) | CPT/HCPCS: 71046 ==

== ENCOUNTER 2024-10-06 15:44 | Outpatient (REF) | payer SELFPAY ==
--- OUTSIDE RECORDS SUMMARY | 2011-05-22 | XMS_ITS | Encounter Summary ---
Author Organization [facility] Address 399 [facility] [address] [place] [address] Phone Care Team Providers Care Thoracic Medicine Physician Name Role Phone Unavailable Primary Care Provider Unavailabl e Encounter Details Date Type Department Care Team (Late Contact Info) Description 05/22/2011 Hospital Encounter [facility],Outside Imaging 30 [place] [address] System, Provider Not In, [facility] [address] [address] Social History Tobacco Use Types Packs/Day Years [...] (Late Contact Info) Description 02/26/2024 Procedure Pass [address] [place] [address] 03/03/2025 9:15 AM EST Appointment [address] [place] [address] Jamaal López, FAVIO [address] [place] [address] [place] [address] documented as of this encounter Procedures Procedure [...]
--- OUTSIDE RECORDS SUMMARY | 2011-05-27 | XMS_ITS | Encounter Summary ---
Author Organization [facility] Address [address] [facility] [address] [place] [address] Phone Care Team Providers Care Convict Guard Name Role Phone Unavailable Primary Care Provider Unavailabl e Encounter Details Date Type Department Care Team (Late Contact Info) Description 05/27/2011 Hospital Encounter [facility],Outside Imaging 30 [place] [address] System, Provider Not In, PhD Partners [address] [address] Social History Tobacco Use Types Packs/Day Years [...] (Late Contact Info) Description 02/26/2024 Procedure Pass [address] [place] [address] 03/03/2025 9:15 AM EST Appointment [address] [place] [address] Jamaal López, FAVIO [address] [place] [address] [place] [address] documented as of this encounter Procedures Procedure [...] It is not the complete legal health record.[facility]
--- OUTSIDE RECORDS SUMMARY | 2011-05-27 00:15 | XMS_ITS | Encounter Summary ---
Author Organization [facility] Address [address] [facility] [address] [place] [address] Phone Care Team Providers Care Thread Twister Name Role Phone Unavailable Primary Care Provider Unavailabl e Encounter Details Date Type Department Care Team (Late Contact Info) Description 05/27/2011 12:15 AM EDT Hospital Encounter [facility],Outside Imaging 30 [place] [address] System, Provider Not In, PhD Partners [address] [address] Social History Tobacco Use Types Packs/Day Years [...] Encounters Date Type Department Care Team (Late st Contact Info) Description 02/26/2024 Procedure Pass [address] [place] [address] 03/03/2025 9:15 AM EST Appointment [address] [place] [address] Jamaal López, FAVIO [address] [place] [address] [place] [address] documented as of this encounter Procedures Procedure [...] It is not the complete legal health record.[facility]
--- OUTSIDE RECORDS SUMMARY | 2012-09-08 | XMS_ITS | Encounter Summary ---
Author Organization [facility] Address [address] [facility] [address] [place] [address] Phone Care Team Providers Care Production Tech Name Role Phone Unavailable Primary Care Provider Unavailabl e Encounter Details Date Type Department Care Team (Late Contact Info) Description 09/08/2012 Hospital Encounter [facility],Outside Imaging 30 [place] [address] System, Provider Not In, PhD Partners [address] [address] Social History Tobacco Use Types Packs/Day Years [...] (Late Contact Info) Description 02/26/2024 Procedure Pass [address] [place] [address] 03/03/2025 9:15 AM EST Appointment [address] [place] [address] Jamaal López, FAVIO [address] [place] [address] [place] [address] documented as of this encounter Procedures Procedure [...]
--- OUTSIDE RECORDS SUMMARY | 2012-09-14 | XMS_ITS | Encounter Summary ---
Author Organization [facility] Address [address] [facility] [address] [place] [address] Phone Care Team Providers Care Dean Of Graduate Studies Name Role Phone Unavailable Primary Care Provider Unavailabl e Encounter Details Date Type Department Care Team (Late Contact Info) Description 09/14/2012 Hospital Encounter [facility],Outside Imaging 30 [place] [address] System, Provider Not In, [facility] [address] [address] Social History Tobacco Use Types Packs/Day Years [...] (Late Contact Info) Description 02/26/2024 Procedure Pass [address] [place] [address] 03/03/2025 9:15 AM EST Appointment [address] [place] [address] Jamaal López, FAVIO [address] [place] [address] [place] [address] documented as of this encounter Procedures Procedure [...] It is not the complete legal health record.[facility]
--- OUTSIDE RECORDS SUMMARY | 2014-02-23 01:00 | XMS_ITS | Encounter Summary ---
Author Organization [facility] Address [address] [facility] [address] [place] [address] Phone Care Team Providers Care Assembler Lay Ups Name Role Phone Unavailable Primary Care Provider Unavailabl e Encounter Details Date Type Department Care Team (Late Contact Info) Description 02/23/2014 Hospital Encounter [facility],Outside Imaging 30 [place] [address] System, Provider Not In, [facility] [address] [address] Social History Tobacco Use Types Packs/Day Years [...] (Late Contact Info) Description 02/26/2024 Procedure Pass [address] [place] [address] 03/03/2025 9:15 AM EST Appointment [address] [place] [address] Jamaal López, FAVIO [address] [place] [address] [place] [address] documented as of this encounter Procedures Procedure [...] is not the complete legal health record.[facility]
--- OUTSIDE RECORDS SUMMARY | 2016-06-04 | XMS_ITS | Encounter Summary ---
Author Organization [facility] Address [address] [facility] [address] [place] [address] Phone Care Team Providers Care Drum Stenciler Name Role Phone Unavailable Primary Care Provider Unavailabl e Encounter Details Date Type Department Care Team (Late Contact Info) Description 06/04/2016 Hospital Encounter [facility],Outside Imaging 30 [place] [address] System, Provider Not In, [facility] [address] [address] Social History Tobacco Use Types Packs/Day Years [...] (Late Contact Info) Description 02/26/2024 Procedure Pass [address] [place] [address] 03/03/2025 9:15 AM EST Appointment [address] [place] [address] Jamaal López, FAVIO [address] [place] [address] [place] [address] documented as of this encounter Procedures Procedure [...] It is not the complete legal health record.[facility]
--- OUTSIDE RECORDS SUMMARY | 2024-10-06 16:06 | XMS_ITS | Encounter Summary ---
Author Organization [facility] Address [address] [address] Phone Care Team Providers Care Wagon Driver Salesperson Name Role Phone Edwin Segal MD Unavailable Allen Melendrez MD Unavailable [phone] Srini Maxwell DO Unavailable [phone] Wiliam Griffin MD Unavailable Alejandrina Newell BRIM STITCHER Primary Care Provider Jamaal López BRIM STITCHER Primary Care Provider + Encounter Details Date Type Department Care Team (Late st Contact Info) Description 05/13/2018 Ancillary Orders [facility] [address] [place] [address] Wiliam Griffin MD [address] [facility], [address] [place] [address] Breast screening Social History Tobacco Use Types Packs/Day Years Used Date Smoking Tobacco: Former Cigarettes Q uit: 2010 Smokeless Tobacco: Never Alcohol Use Standard Drinks/Week [...] st Contact Info) Description 02/26/2024 Procedure Pass [address] [place] [address] 03/03/2025 9:15 AM EST Appointment [address] [place] [address] Jamaal López, FAVIO [address] [place] [address] [place] [address] documented as of this encounter Results * BI MAMMOGRAM SCREENING WITH TOMOSYNTHESIS WITH CAD (BILATERAL) (07/26/2018 7:52 AM EDT) Anatomical Region Laterality Modality Breast Left, Breast Right, Breast Bilateral Bila teral Mammography 07/26/2018 2:59 PM EDT Impressions 07/26/2018 3:02 PM EDT BILATERAL BREASTS: Negative, no evidence of malignancy. Normal interval follow- up is recommended in 12 months. Bi-RADS: BI-RADS CATEGORY: 1 - Negative. DENSITY: There are scattered fibroglandular densities. POS - [id number] Narrative 07/26/2018 3:02 PM EDT STUDY: Bilateral screening mammography with tomosynthesis and CAD TECHNIQUE: Bilateral full-field digital screening mammography is obtained and read in conjunction with computer-aided detection. Tomosynthesis as well as 2-D C view imaging were obtained. COMPARISON: Comparison made to multiple prior, most recent July 23, 2017, and most remote May 22, 2011. BREAST COMPOSITION: There are scattered areas of fibroglandular density BILATERAL BREASTS: No significant masses, calcifications or other abnormalities are seen. Procedure Note Kristy Candelaria MD - 07/26/2018 STUDY: Bilateral screening mammography with tomosynthesis and CAD TECHNIQUE: Bilateral full-field digital screening mammography is obtainedand read in conjunction with computer-aided detection. Tomosynthesis aswell as 2-D C view imaging were obtained. COMPARISON: Comparison made to multiple prior, most recent July 23, 2017,and most remote May 22, 2011. BREAST COMPOSITION: There are scattered areas of fibroglandulardensity BILATERAL BREASTS: No significant masses, calcifications or otherabnormalities are seen. IMPRESSION: BILATERAL BREASTS: Negative, no evidence of malignancy. Normal intervalfollow-up is recommended in 12 months. Bi-RADS: BI-RADS CATEGORY: 1 - Negative. DENSITY: There are scattered fibroglandular densities. POS - CDHMAM2 Wiliam Griffin MD IMG MG EXAMS Final Result documented in this encounter Visit Diagnoses Diagnosis Breast screening Breast screening, unspecified Breast screening Breast screening, unspecified documented in this encounter Additional Health Concerns Infection Onset Date Last Indicated Resolved Time CoV-Risk 11/07/2021 11/07/2021 11/18/2021 1:22 AM EDT documented as of this encounter Care Teams Wagon Driver Salesperson Relationship Specialty Start Date End Date Alejandrina Newell NP [address] [place] [address] [place] [address] [email or web address] PCP - General Family Medicine 03/15/18 11/03/19 Jamaal López NP [address] [place] [address] PCP - General Family Medicine 11/04/19 Edwin Segal MD [address] [place] [address], [address] [place] [address] Historical LMR Provider 11/27/16 02/16/21 Allen Melendrez MD [address] [place] [address] Historical LMR Provider 11/27/16 Srini Maxwell DO [address] [place] [address] Historical LMR Provider 11/27/16 Wiliam Griffin MD [address] [place] [address], [facility] [address] [place] [address] Historical LMR Provider 11/27/16 documented as of this encounter Additional Source Comments The information contained in this document represents components of the legal health record. It is not the complete legal health record.[facility]
--- OUTSIDE RECORDS SUMMARY | 2024-10-06 16:06 | XMS_ITS | Encounter Summary ---
Author Organization [facility] Address [address] [place] [address] Phone Care Team Providers Care Auto Clocks Repairer Name Role Phone Edwin Segal MD Unavailable Allen Melendrez MD Unavailable Srini Maxwell DO Unavailable [phone] Wiliam Griffin MD Unavailable [phone] Fouzia Gil MD Primary Care Provider [phone] Alejandrina Newell EQUIPMENT OR MACHINERY CLEANER Primary Care Provider Jamaal López EQUIPMENT OR MACHINERY CLEANER Primary Care Provider + Encounter Details Date Type Department Care Team (Late st Contact Info) Description 06/15/2017 Ancillary Orders [facility],Outside Imaging 30 [place] [address] System, Provider Not In, PhD [address] [address] Social History Tobacco Use Types Packs/Day Years [...] st Contact Info) Description 02/26/2024 Procedure Pass [address] [place] [address] 03/03/2025 9:15 AM EST Appointment [address] [place] [address] Jamaal López NP [address] [facility] [place] [address] documented as of this encounter Results * [...] documented as of this encounter Care Teams Auto Clocks Repairer Relationship Specialty Start Date End Date Fouzia Gil MD [address] [place] [address] [place] [address] PCP - General Internal Medicine 04/17/17 03/14/18 Alejandrina Newell NP [address] [place] [address] [place] [address] [email or web address] PCP - General Family Medicine 03/15/18 11/03/19 Jamaal López, FAVIO [address] [place] [address] [place] [address] PCP - General Family Medicine 11/04/19 Edwin Segal MD 22 [facility], [address] [address] Historical LMR Provider 11/27/16 02/16/21 Allen Melendrez MD [address] [place] [address] Historical LMR Provider 11/27/16 Srini Maxwell DO [address] [place] [address] Historical LMR Provider 11/27/16 Wiliam Griffin MD [address] [place] [address], [address] [address] [email or web address] Historical LMR Provider 11/27/16 documented as of this encounter Additional Source Comments The information contained in this document represents components of the legal health record. It is not the complete legal health record.[facility]
--- OUTSIDE RECORDS SUMMARY | 2024-10-06 16:06 | XMS_ITS | Encounter Summary ---
Author Organization [facility] Address [address] [place] [address] Phone Care Team Providers Care Timber Inspector Name Role Phone Edwin Segal MD Unavailable Allen Melendrez MD Unavailable Srini Maxwell DO Unavailable [phone] iWliam Griffin MD Unavailable [phone] Fouzia Gil MD Primary Care Provider [phone] Alejandrina Newell CARD SERVICES SPECIALIST Primary Care Provider Jamaal López CARD SERVICES SPECIALIST Primary Care Provider + Encounter Details Date Type Department Care Team (Late st Contact Info) Description 06/15/2017 Ancillary Orders [facility],Outside Imaging 30 [place] [address] System, Provider Not In, PhD [address] [address] Social History Tobacco Use Types Packs/Day Years [...] st Contact Info) Description 02/26/2024 Procedure Pass [address] [place] [address] 03/03/2025 9:15 AM EST Appointment [address] [place] [address] Jamaal López NP [address] [place] [address] [place] [address] documented as of this encounter Results * [...] documented as of this encounter Care Teams Timber Inspector Relationship Specialty Start Date End Date Fouzia Gil MD [address] [place] [address] [place] [address] PCP - General Internal Medicine 04/17/17 03/14/18 Alejandrina Newell NP [address] [place] [address] [place] [address] [email or web address] PCP - General Family Medicine 03/15/18 11/03/19 Jamaal López, FAVIO [address] [place] [address] [place] [address] PCP - General Family Medicine 11/04/19 Edwin Segal MD 22 [facility], [address] [address] [email or web address] Historical LMR Provider 11/27/16 02/16/21 Allen Melendrez MD [address] [place] [address] Historical LMR Provider 11/27/16 Srini Maxwell DO [address] [place] [address] Historical LMR Provider 11/27/16 Wiliam Griffin MD 22 [facility], [address] [address] [email or web address] Historical LMR Provider 11/27/16 documented as of this encounter Additional Source Comments The information contained in this document represents components of the legal health record. It is not the complete legal health record.[facility]
--- OUTSIDE RECORDS SUMMARY | 2024-10-06 16:06 | XMS_ITS | Encounter Summary ---
Author Organization [facility] Address [address] [place] [address] Phone Care Team Providers Care Scientist Engineer Name Role Phone Edwin Segal MD Unavailable Allen Melendrez MD Unavailable Srini Maxwell DO Unavailable [phone] Wiliam Griffin MD Unavailable [phone] Fouzia Gil MD Primary Care Provider [phone] Alejandrina Newell PRINTED CIRCUIT DESIGNER Primary Care Provider Jamaal López PRINTED CIRCUIT DESIGNER Primary Care Provider + Encounter Details Date Type Department Care Team (Late st Contact Info) Description 06/15/2017 Ancillary Orders [facility],Outside Imaging 30 [place] [address] System, Provider Not In, PhD [address] [address] Social History Tobacco Use Types Packs/Day Years [...] st Contact Info) Description 02/26/2024 Procedure Pass [address] [place] [address] 03/03/2025 9:15 AM EST Appointment [address] [place] [address] Jamaal López NP [address] [place] [address] [place] [address] documented as of this encounter Results * [...] documented as of this encounter Care Teams Scientist Engineer Relationship Specialty Start Date End Date Fouzia Gil MD [address] [place] [address] [place] [address] PCP - General Internal Medicine 04/17/17 03/14/18 Alejandrina Newell NP [address] [place] [address] [place] [address] [email or web address] PCP - General Family Medicine 03/15/18 11/03/19 Jamaal López, FAVIO [address] [place] [address] [place] [address] PCP - General Family Medicine 11/04/19 Edwin Segal MD 22 [facility], [address] [address] [email or web address] Historical LMR Provider 11/27/16 02/16/21 Allen Melendrez MD [address] [place] [address] Historical LMR Provider 11/27/16 Srini Maxwell DO [address] [place] [address] Historical LMR Provider 11/27/16 Wiliam Griffin MD 22 [facility], [address] [address] [email or web address] Historical LMR Provider 11/27/16 documented as of this encounter Additional Source Comments The information contained in this document represents components of the legal health record. It is not the complete legal health record.[facility]
--- OUTSIDE RECORDS SUMMARY | 2024-10-06 16:06 | XMS_ITS | Encounter Summary ---
Author Organization [facility] Address [address] [address] Phone Care Team Providers Care Hardware Engineer Name Role Phone Edwin Segal MD Unavailable Allen Melendrez MD Unavailable [phone] Srini Maxwell DO Unavailable [phone] Wiliam Griffin MD Unavailable [phone] Alejandrina Newell SALES UTILITY REPRESENTATIVE Primary Care Provider Jamaal López SALES UTILITY REPRESENTATIVE Primary Care Provider + Encounter Details Date Type Department Care Team (Late st Contact Info) Description 09/01/2019 Ancillary Orders Virtual Department 30 [place] [address] Jamaal López NP [facility] [place] [address] Breast screening Social History Tobacco Use Types Packs/Day Years Used Date Smoking Tobacco: Former Cigarettes Q uit: 2006 Smokeless Tobacco: Never Alcohol Use Standard Drinks/Week [...] st Contact Info) Description 02/26/2024 Procedure Pass [address] [place] [address] 03/03/2025 9:15 AM EST Appointment [address] [place] [address] Jamaal López, FAVIO [address] [place] [address] [place] [address] documented as of this encounter Results * BI MAMMOGRAM SCREENING WITH TOMOSYNTHESIS WITH CAD (BILATERAL) (11/04/2019 7:36 AM EDT) Anatomical Region Laterality Modality Breast Left, Breast Right, Breast Bilateral Bila teral Mammography 11/04/2019 8:27 AM EDT Impressions 11/04/2019 8:29 AM EDT No mammographic evidence of malignancy. BI-RADS CATEGORY: 1 - Negative. DENSITY: There are scattered fibroglandular densities. Narrative 11/04/2019 8:29 AM EDT Standard digital full-field 2-D C view and two-plane tomographic imaging was performed and compared with multiple prior studies, most recently 07/26/2018, with utilization of computer-aided detection. The breasts are composed of scattered fibroglandular densities. The stromal markings are essentially unchanged in overall appearance and distribution. No dominant spiculated mass, suspicious clustered microcalcifications, or focal zone of pathologic skin thickening or retraction are noted to have arisen in the interim. Procedure Note Mahsa Aburto MD - 11/04/2019 Standard digital full-field 2-D C view and two-plane tomographic imagingwas performed and compared with multiple prior studies, most oseudjgv90/17/2019, with utilization of computer-aided detection. The breasts are composed of scattered fibroglandular densities. Thestromal markings are essentially unchanged in overall appearance anddistribution. No dominant spiculated mass, suspicious clusteredmicrocalcifications, or focal zone of pathologic skin thickening orretraction are noted to have arisen in the interim. IMPRESSION: No mammographic evidence of malignancy. BI-RADS CATEGORY: 1 - Negative. DENSITY: There are scattered fibroglandular densities. us Jamaal López SALES UTILITY REPRESENTATIVE IMG MG EXAMS Final Re sult documented in this encounter Visit Diagnoses Diagnosis Breast screening Breast screening, unspecified Breast screening Breast screening, unspecified documented in this encounter Additional Health Concerns Infection Onset Date Last Indicated Resolved Time CoV-Risk 11/07/2021 11/07/2021 11/18/2021 1:22 AM EDT documented as of this encounter Care Teams Hardware Engineer Relationship Specialty Start Date End Date Alejandrina Newell NP [address] [place] [address] [place] [address] [place] [address] [email or web address] PCP - General Family Medicine 03/15/18 11/03/19 Jamaal López NP [address] [place] [address] [place] [address] PCP - General Family Medicine 11/04/19 Edwin Segal MD [address] [place] [address] [email or web address] Historical LMR Provider 11/27/16 02/16/21 Allen Melendrez MD [address] [place] [address] Historical LMR Provider 11/27/16 Srini Maxwell DO 5 [place] [address] Historical LMR Provider 11/27/16 Wiliam Griffin MD [address] [place] [address] [email or web address] Historical LMR Provider 11/27/16 documented as of this encounter Additional Source Comments The information contained in this document represents components of the legal health record. It is not the complete legal health record.[facility]
--- OUTSIDE RECORDS SUMMARY | 2024-10-06 16:06 | XMS_ITS | Encounter Summary ---
Author Organization [facility] Address [address] [address] Phone Care Team Providers Care Automotive Lube Technician Name Role Phone Edwin Segal MD Unavailable Allen Melendrez MD Unavailable [phone] Srini Maxwell DO Unavailable [phone] Wiliam Griffin MD Unavailable Fouzia Gil MD Primary Care Provider [phone] Alejandrina Newell MINE MANAGER Primary Care Provider Jamaal López MINE MANAGER Primary Care Provider + Reason for Referral * Consultation (Within 1 month) - Closed Specialty Diagnoses / Procedures Referred By Jackson cates Referred To Contact Gastroenterology Diagnoses Gastroesophageal reflux disease with esophagitis Yusef Barron MD Phone: tel: fax: mailto:[email or web address] Reynolds MD Phone: tel: fax: mailto:[email or web address] Referral ID Status Reason Start Date Expiration Date Visits Re quested Visits Authorized [id number] Closed 02/16/2018 02/16/2019 1 1 Encounter Details Date Type Department Care Team (Latest Contact Info) Description 02/16/2018 Transcribe Orders [facility] [address] [facility], [address]th [place] [address] Fouzia Gil MD [address] [facility] [place] [address] Gastroesophageal reflux disease with esophagitis (Primary Dx) Social History Tobacco Use Types Packs/Day Years Used Date Smoking Tobacco: Former Cigarettes Q uit: 2009 Smokeless Tobacco: Never Alcohol Use Standard Drinks/Week [...] st Contact Info) Description 02/26/2024 Procedure Pass [address] [place] [address] 03/03/2025 9:15 AM EST Appointment [address] [place] [address] Jamaal López NP [address] [facility] [place] [address] Scheduled Referrals Name Type Priority Associated Diagnoses Order Schedule Ambulatory referral to [facility] (Consult Requests Only) Outpatient Referral Routine Gastroesophageal reflux disease with esophagitis Ordered: 02/16/2018 documented as of this encounter Visit Diagnoses Diagnosis Gastroesophageal reflux disease with esophagitis- Primary documented in this encounter Additional Health Concerns Infection Onset Date Last Indicated Resolved Time CoV-Risk 11/07/2021 11/07/2021 11/18/2021 1:22 AM EDT documented as of this encounter Care Teams Automotive Lube Technician Relationship Specialty Start Date End Date Fouzia Gil MD [address] [facility] [place] [address] PCP - General Internal Medicine 04/17/17 03/14/18 Alejandrina Newell, FAVIO [address] [place] [address] [place] [address] [email or web address] PCP - General Family Medicine 03/15/18 11/03/19 Jamaal López, FAVIO [address] [place] [address] [place] [address] PCP - General Family Medicine 11/04/19 Edwin Segal MD [address] [place] [address] Historical LMR Provider 11/27/16 02/16/21 Allen Melendrez MD [address] [place] [address] Historical LMR Provider 11/27/16 Srini Maxwell DO [address] [place] [address] Historical LMR Provider 11/27/16 Wiliam Griffin MD [address] [place] [address] Historical LMR Provider 11/27/16 documented as of this encounter Additional Source Comments The information contained in this document represents components of the legal health record. It is not the complete legal health record.[facility]
--- OUTSIDE RECORDS SUMMARY | 2024-10-06 16:07 | XMS_ITS | Encounter Summary ---
Author Organization [facility] Address [address] [place] [address] Phone Care Team Providers Care Lye Bath Operator Name Role Phone Edwin Segal MD Unavailable Allen Melendrez MD Unavailable [phone] Srini Maxwell DO Unavailable [phone] Wiliam Griffin MD Unavailable [phone] Fouzia Gil MD Primary Care Provider [phone] Alejandrina Newell SETTLEMENT WORKER Primary Care Provider Jamaal López SETTLEMENT WORKER Primary Care Provider + Encounter Details Date Type Department Care Team (Late st Contact Info) Description 06/15/2017 Ancillary Orders [facility],Outside Imaging [address] [place] [address] System, Provider Not In, PhD [address] [address] Social History Tobacco Use Types Packs/Day Years [...] st Contact Info) Description 02/26/2024 Procedure Pass [address] [place] [address] 03/03/2025 9:15 AM EST Appointment [address] [place] [address] Jamaal López NP [address] [place] [address] [place] [address] documented as of this encounter Results * [...] documented as of this encounter Care Teams Lye Bath Operator Relationship Specialty Start Date End Date Fouzia Gil MD [address] [place] [address] [place] [address] PCP - General Internal Medicine 04/17/17 03/14/18 Alejandrina Newell NP [address] [place] [address] [place] [address] [email or web address] PCP - General Family Medicine 03/15/18 11/03/19 Jamaal López, FAVIO [address] [place] [address] [place] [address] PCP - General Family Medicine 11/04/19 Edwin Segal MD 22 [facility], [address] [address] [email or web address] Historical LMR Provider 11/27/16 02/16/21 Allen Melendrez MD [address] [place] [address] Historical LMR Provider 11/27/16 Srini Maxwell DO [address] [place] [address] Historical LMR Provider 11/27/16 Wiliam Griffin MD 22 [facility], [address] [address] [email or web address] Historical LMR Provider 11/27/16 documented as of this encounter Additional Source Comments The information contained in this document represents components of the legal health record. It is not the complete legal health record.[facility]
--- OUTSIDE RECORDS SUMMARY | 2024-10-06 16:07 | XMS_ITS | Encounter Summary ---
Author Organization [facility] Address [address] [address] Phone Care Team Providers Care Shank Inspector Name Role Phone Edwin Segal MD Unavailable Allen Melendrez MD Unavailable [phone] Srini Maxwell DO Unavailable [phone] Wiliam Griffin MD Unavailable Jamaal López NP Primary Care Provider + Encounter Details Date Type Department Care Team (Late st Contact Info) Description 10/04/2020 Ancillary Orders Virtual Department [address] [place] [address] Jamaal López NP [facility]2 [facility] [place] [address] Breast screening Social History Tobacco Use Types [...] st Contact Info) Description 02/26/2024 Procedure Pass [address] Neil [place] [address] 03/03/2025 9:15 AM EST Appointment [address] Neil [place] [address] Jamaal López, FAVIO 2 [facility] [address] [place] [address] documented as of this encounter Results * BI MAMMOGRAM SCREENING WITH TOMOSYNTHESIS WITH CAD (BILATERAL) (12/27/2020 7:42 AM EST) Anatomical Region Laterality Modality Breast Left, Breast Right, Breast Bilateral Bila teral Mammography 12/27/2020 8:06 AM EST Impressions 12/27/2020 8:07 AM EST No mammographic change indicative of malignancy. Annual screening is recommended. BI-RADS CATEGORY: 1 - Negative. DENSITY: There are scattered fibroglandular densities. Narrative 12/27/2020 8:07 AM EST Bilateral full-field digital screening mammography is obtained and read in conjunction with computer-aided detection. Tomosynthesis as well as 2-D C view imaging of both breasts in two planes also obtained. Comparison made to multiple prior, most recent November 04, 2019, and most remote February 23, 2014. No dominant mass, architectural distortion, worrisome asymmetry, or suspicious calcification is identified. No skin or nipple finding of concern is appreciated. Procedure Note Jaya Burgos MD - 12/27/2020 Bilateral full-field digital screening mammography is obtained and read inconjunction with computer-aided detection. Tomosynthesis as well as 2-D Cview imaging of both breasts in two planes also obtained. Comparison madeto multiple prior, most recent November 04, 2019, and most remote 2014. No dominant mass, architectural distortion, worrisome asymmetry, orsuspicious calcification is identified. No skin or nipple finding ofconcern is appreciated. IMPRESSION: No mammographic change indicative of malignancy. Annual screening isrecommended. BI-RADS CATEGORY: 1 - Negative. DENSITY: There are scattered fibroglandular densities. Jamaal López ENVIRONMENTAL EDUCATOR IMG MG EXAMS Final Re sult documented in this encounter Visit Diagnoses Diagnosis Breast screening Breast screening, unspecified Breast screening Breast screening, unspecified documented in this encounter Additional Health Concerns Infection Onset Date Last Indicated Resolved Time CoV-Risk 11/07/2021 11/07/2021 11/18/2021 1:22 AM EDT documented as of this encounter Care Teams Shank Inspector Relationship Specialty Start Date End Date Jamaal López NP [facility] [place] [address] PCP - General Family Medicine 11/04/19 Edwin Segal MD [address] [address] Historical LMR Provider 11/27/16 02/16/21 Allen Melendrez MD [address] [place] [address] Historical LMR Provider 11/27/16 Srini Maxwell DO [address] [place] [address] Historical LMR Provider 11/27/16 Wiliam Griffin MD [address] [address] Historical LMR Provider 11/27/16 documented as of this encounter Additional Source Comments The information contained in this document represents components of the legal health record. It is not the complete legal health record.[facility]
--- OUTSIDE RECORDS SUMMARY | 2024-10-06 16:07 | XMS_ITS | Encounter Summary ---
Author Organization [facility] Address [address] [address] Phone Care Team Providers Care Foundation Relations Director Name Role Phone Edwin Segal MD Unavailable Allen Melendrez MD Unavailable [phone] Srini Maxwell DO Unavailable [phone] Wiliam Griffin MD Unavailable [phone] Fouzia Gil MD Primary Care Provider [phone] Alejandrina Newell COOKIE MIXER HELPER Primary Care Provider Jamaal López COOKIE MIXER HELPER Primary Care Provider + Reason for Referral * Outpatient Procedure - Closed Specialty Diagnoses / Procedures Referred By Jackson cates Referred To Contact Radiology Diagnoses Pyrosis Weight loss Nausea Procedures NM Gastric Emptying Yusef Barron MD Phone: tel: fax: mailto:[email or web address] Referral ID Status Reason Start Date Expiration Date Visits Re quested Visits Authorized [id number] Closed 04/28/2017 04/28/2018 1 1 Encounter Details Date Type Department Care Team (Late st Contact Info) Description 04/28/2017 Ancillary Orders Virtual Department 30 [place] [address] Yusef Barron MD [address] [address] [email or web address] Pyrosis; Weight loss; Nausea Social History Tobacco Use Types Packs/Day Years [...] st Contact Info) Description 02/26/2024 Procedure Pass [address] [place] [address] 03/03/2025 9:15 AM EST Appointment [address] [place] [address] Jamaal López NP [address] [place] [address] [place] [address] documented as of this encounter Results * NM GASTRIC EMPTYING SOLID PHASE (05/14/2017 12:18 PM EDT) Anatomical Region Laterality Modality Abdomen, Pelvis Nuclear Medicine 05/14/2017 12:2 6 PM EDT Impressions 05/14/2017 12:28 PM EDT No evidence of delayed gastric emptying/gastroparesis. POS - [id number] Narrative 05/14/2017 12:28 PM EDT COMPARISON: None. DOSE: 1 mCi Tc-99m sulfur colloid NUCLEAR MEDICINE GASTRIC EMPTYING FINDINGS: The patient is given an oral meal of 1 mCi of Tc99m labeled sulfur colloid with egg whites, toast, jam and water. Evaluation of gastric emptying over four hours is obtained. At one hour there is 70% residual activity in the stomach which is within the normal range. At two hours there is 47% residual activity in the stomach which is within the normal range. At four hours there is 8% residual activity in the stomach which is within the normal range. No obvious gastroesophageal reflux is seen. NORMAL RANGE One hour 37-90% Two hours 30-60% Four hours 0-10% Procedure Note Juan Antonio Nails MD - 05/14/2017 COMPARISON: None. DOSE: 1 mCi Tc-99m sulfur colloid NUCLEAR MEDICINE GASTRIC EMPTYING FINDINGS: The patient is given an oral meal of 1 mCi of Tc99m labeled sulfur colloidwith egg whites, toast, jam and water. Evaluation of gastric emptyingover four hours is obtained. At one hour there is 70% residual activity in the stomach which is withinthe normal range. At two hours there is 47% residual activity in the stomach which is withinthe normal range. At four hours there is 8% residual activity in the stomach which is withinthe normal range. No obvious gastroesophageal reflux is seen. NORMAL RANGE One hour 37-90% Two hours 30-60% Four hours 0-10% IMPRESSION: No evidence of delayed gastric emptying/gastroparesis. POS - [id number] Yusef Barron MD IMG NM ABDOMEN Final Resu lt documented in this encounter Visit Diagnoses Diagnosis Pyrosis Heartburn Weight loss Loss of weight Nausea Nausea alone Pyrosis Heartburn Weight loss Loss of weight Nausea Nausea alone documented in this encounter Additional Health Concerns Infection Onset Date Last Indicated Resolved Time CoV-Risk 11/07/2021 11/07/2021 11/18/2021 1:22 AM EDT documented as of this encounter Care Teams Foundation Relations Director Relationship Specialty Start Date End Date Fouzia Gil MD [address] [facility] [place] [address] PCP - General Internal Medicine 04/17/17 03/14/18 Alejandrina Newell NP [address] [place] [address] [place] [address] [email or web address] PCP - General Family Medicine 03/15/18 11/03/19 Jamaal López NP [facility] [place] [address] PCP - General Family Medicine 11/04/19 Edwin Segal MD [address] [address] Historical LMR Provider 11/27/16 02/16/21 Allen Melendrez MD [address] [place] [address] Historical LMR Provider 11/27/16 Srini Maxwell DO [address] [place] [address] Historical LMR Provider 11/27/16 Wiliam Griffin MD [address] [place] [address] Historical LMR Provider 11/27/16 documented as of this encounter Additional Source Comments The information contained in this document represents components of the legal health record. It is not the complete legal health record.[facility]
--- OUTSIDE RECORDS SUMMARY | 2024-10-06 16:07 | XMS_ITS | Encounter Summary ---
Author Organization [facility] Address [address] [place] [address] Phone Care Team Providers Care Special Programs Director Name Role Phone Edwin Segal MD Unavailable Allen Melendrez MD Unavailable Srini Maxwell DO Unavailable [phone] Wiliam Griffin MD Unavailable [phone] Fouzia Gil MD Primary Care Provider [phone] Alejandrina Newell INSPECTOR HAIRSPRING TRUING Primary Care Provider Jamaal López INSPECTOR HAIRSPRING TRUING Primary Care Provider + Encounter Details Date Type Department Care Team (Late st Contact Info) Description 06/15/2017 Ancillary Orders [facility],Outside Imaging [address] [place] [address] System, Provider Not In, PhD [address] [address] Social History Tobacco Use Types Packs/Day Years [...] st Contact Info) Description 02/26/2024 Procedure Pass [address] [place] [address] 03/03/2025 9:15 AM EST Appointment [address] [place] [address] Jamaal López NP [address] [place] [address] [place] [address] documented as of this encounter Results * [...] documented as of this encounter Care Teams Special Programs Director Relationship Specialty Start Date End Date Fouzia Gil MD [address] [place] [address] [place] [address] PCP - General Internal Medicine 04/17/17 03/14/18 Alejandrina Newell NP [address] [place] [address] [place] [address] [email or web address] PCP - General Family Medicine 03/15/18 11/03/19 Jamaal López, FAVIO [address] [place] [address] [place] [address] PCP - General Family Medicine 11/04/19 Edwin Segal MD 22 [facility], [address] [address] [email or web address] Historical LMR Provider 11/27/16 02/16/21 Allen Melendrez MD [address] [place] [address] Historical LMR Provider 11/27/16 Srini Maxwell DO [address] [place] [address] Historical LMR Provider 11/27/16 Wiliam Griffin MD 22 [facility], [address] [address] [email or web address] Historical LMR Provider 11/27/16 documented as of this encounter Additional Source Comments The information contained in this document represents components of the legal health record. It is not the complete legal health record.[facility]
--- OUTSIDE RECORDS SUMMARY | 2024-10-06 16:07 | XMS_ITS | Encounter Summary ---
Author Organization [facility] Address [address] [place] [address] Phone Care Team Providers Care Coal Cutting Machine Operator Name Role Phone Edwin Segal MD Unavailable Allen Melendrez MD Unavailable Srini Maxwell DO Unavailable [phone] Wiliam Griffin MD Unavailable [phone] Fouzia Gil MD Primary Care Provider [phone] Alejnadrina Newell QA SOFTWARE TESTER Primary Care Provider Jamaal López QA SOFTWARE TESTER Primary Care Provider + Encounter Details Date Type Department Care Team (Late st Contact Info) Description 06/15/2017 Ancillary Orders [facility],Outside Imaging [address] [place] [address] System, Provider Not In, PhD [address] [address] Social History Tobacco Use Types Packs/Day Years [...] st Contact Info) Description 02/26/2024 Procedure Pass [address] [place] [address] 03/03/2025 9:15 AM EST Appointment [address] [place] [address] Jamaal López NP [address] [place] [address] [place] [address] documented as of this encounter Results * US Breast Outside [...] documented as of this encounter Care Teams Coal Cutting Machine Operator Relationship Specialty Start Date End Date Fouzia Gil MD [address] [place] [address] [place] [address] PCP - General Internal Medicine 04/17/17 03/14/18 Alejandrina Newell NP [address] [place] [address] [place] [address] [email or web address] PCP - General Family Medicine 03/15/18 11/03/19 Jamaal López, FAVIO [address] [place] [address] [place] [address] PCP - General Family Medicine 11/04/19 Edwin Segal MD 22 [facility], [address] [address] Historical LMR Provider 11/27/16 02/16/21 Allen Melendrez MD [address] [place] [address] Historical LMR Provider 11/27/16 Srini Maxwell DO [address] [place] [address] Historical LMR Provider 11/27/16 Wiliam Griffin MD 22 [facility], [address] [address] Historical LMR Provider 11/27/16 documented as of this encounter Additional Source Comments The information contained in this document represents components of the legal health record. It is not the complete legal health record.[facility]
--- OUTSIDE RECORDS SUMMARY | 2024-10-06 16:07 | XMS_ITS | Encounter Summary ---
Author Organization [facility] Address [address] [address] Phone Care Team Providers Care Security Agent Name Role Phone Wiliam Griffin MD Unavailable [phone] Jamaal López NP Primary Care Provider + Encounter Details Date Type Department Care Team (Late st Contact Info) Description 12/27/2021 Procedure Pass [address] [place] [address] Social History Tobacco Use Types Packs/Day Years Used Date Smoking Tobacco: Former Cigarettes Q uit: 11/18/2006 Smokeless Tobacco: Never Alcohol Use Standard Drinks/Week Comments Yes 0 (1 standard drink = 0.6 oz pur e alcohol) rare Comments No Sex and Gender Information Value Date Recorded Sex Assigned at Female 12/27/2020 6:56 AM EST Legal Sex Female 9:33 PM EDT Gender Identity Not on file Sexual Orientation Not on file documented as of this encounter Plan of Treatment Upcoming Encounters Date Type Department Care Team (Late st Contact Info) Description 02/26/2024 Procedure Pass [address] [place] [address] 03/03/2025 9:15 AM EST Appointment [address] [place] [address] Jamaal López NP [address] [place] [address] Dr [place] [address] documented as of this encounter Visit Diagnoses Not on filedocumented in this encounter Care Teams Security Agent Relationship Specialty Start Date End Date Jamaal López NP [address] [facility] [address] [place] [address] PCP - General Family Medicine 11/04/19 Wiliam Griffin MD [address] [place] [address], [address] [place] [address] [email or web address] Historical LMR Provider 11/27/16 documented as of this encounter Additional Source Comments The information contained in this document represents components of the legal health record. It is not the complete legal health record.[facility]
--- OUTSIDE RECORDS SUMMARY | 2024-10-06 16:07 | XMS_ITS | Encounter Summary ---
Author Organization [facility] Address [address] [address] Phone Care Team Providers Care Medical Reviewer Name Role Phone Edwin Segal MD Unavailable Allen Melendrez MD Unavailable Srini Maxwell DO Unavailable [phone] Wiliam Griffin MD Unavailable [phone] Fouzia Gil MD Primary Care Provider [phone] Alejandrina Newell HUMAN RESOURCES MANAGER Primary Care Provider Jamaal López HUMAN RESOURCES MANAGER Primary Care Provider + Encounter Details Date Type Department Care Team (Late st Contact Info) Description 05/14/2017 Procedure Pass [facility],Outside Imaging [address] [place] [address] Social History Tobacco Use Types Packs/Day Years [...] st Contact Info) Description 02/26/2024 Procedure Pass [address] [place] [address] 03/03/2025 9:15 AM EST Appointment [address] [place] [address] Jamaal López, FAVIO [address] [place] [address] [place] [address] documented as of this encounter Visit Diagnoses Not on filedocumented in this encounter Additional Health Concerns Infection Onset Date Last Indicated Resolved Time CoV-Risk 11/07/2021 11/07/2021 11/18/2021 1:22 AM EDT documented as of this encounter Care Teams Medical Reviewer Relationship Specialty Start Date End Date Fouzia Gil MD [address] [place] [address] [place] [address] PCP - General Internal Medicine 04/17/17 03/14/18 Alejandrina Newell NP [address] [place] [address] [place] [address] [email or web address] PCP - General Family Medicine 03/15/18 11/03/19 Jamaal López, FAVIO [address] [place] [address] [place] [address] PCP - General Family Medicine 11/04/19 Edwin Segal MD [address] [place] [address], [facility] [address] [place] [address] [email or web address] Historical LMR Provider 11/27/16 02/16/21 Allen Melendrez MD [address] [place] [address] Historical LMR Provider 11/27/16 Srini Maxwell DO [address] [place] [address] Historical LMR Provider 11/27/16 Wiliam Griffin MD [address] [place] [address] [address] [place] [address] [email or web address] Historical LMR Provider 11/27/16 documented as of this encounter Additional Source Comments The information contained in this document represents components of the legal health record. It is not the complete legal health record.[facility]
--- OUTSIDE RECORDS SUMMARY | 2024-10-06 16:07 | XMS_ITS | Clinical Summary ---
Author Organization [facility] Address [address] [address] Phone Care Team Providers Care Cork Sorter Name Role Phone Wiliam Griffin MD Unavailable [phone] Jamaal López NP Primary Care Provider + Allergies Active Allergy Reactions Criticality Noted Date Comments Cefuroxime Axetil 12/27/2020 Egg 12/02/2019 Metronidazole Itching 05/19/2018 Ibuprofen GI Upset 07/10/2021 Nitrofurantoin Monohyd/M-Cryst Nausea and/or Vomiting 07/27/2017 Oxycodone 11/26/2017 Sulfa (Sulfonamide Antibiotics) 04/21/2017 Medications ipratropium (ATROVENT HFA) 17 mcg/actuation inhaler Inhale 2 puffs into the lungs as needed. Active albuterol 90 mcg/actuation inhaler every 4 (four) hours as needed. Active budesonide-formote rol (SYMBICORT) 160-4.5 mcg/actuation inhaler Inhale 2 puffs into the lungs 2 (two) times a day. Active ondansetron (ZOFRAN-ODT) 8 MG disintegrating tablet Take 8 mg by mouth every 6 (six) hours as needed for nausea. Active tiotropium bromide (SPIRIVA RESPIMAT) 2.5 mcg/actuation mist for inhalation Inhale 2 puffs into the lungs daily. Active montelukast (SINGULAIR) 10 mg tablet Take 10 mg by mouth nightly. Active cholecalciferol (VITAMIN D3) 2,000 unit tablet Take 2,000 Units by mouth daily. Active hyoscyamine (ANASPAZ,LEVSIN) 0.125 mg tablet Take 0.125 mg by mouth every 4 (four) hours as needed for cramping (specific location in comments). Active Bifidobacterium infantis 4 mg Cap Take by mouth daily. Align 4mg Active famotidine (PEPCID) 40 MG tablet Take 40 mg by mouth daily. Active fluticasone propionate (FLONASE) 50 mcg/actuation nasal spray 1 spray by Nasal route daily. Active atorvastatin (LIPITOR) 20 MG tablet Take 20 mg by mouth daily. Active lansoprazole (PREVACID) 30 MG capsule Take 30 mg by mouth daily. Active busPIRone (BUSPAR) 10 MG tablet Take by mouth 2 (two) times a day. 15mg AM, 20mg PM daily 01/21/20 21 Active albuterol 2.5 mg /3 mL (0.083 %) nebulizer solution Take by nebulization as needed. 03/11/19 22 Active cyanocobalamin, vitamin B-12, 1,000 mcg Subl sublingual tablet Place 1,000 mcg under the tongue daily. 01/22/20 21 Active amitriptyline (ELAVIL) 50 MG tablet Take 50 mg by mouth nightly at bedtime. 03/12/19 22 Active cyclobenzaprine (FLEXERIL) 5 MG tablet TAKE 1 TABLET BY MOUTH EVERY DAY NEEDED FOR MUSCLE SPASMS 10/10/19 22 Active MULTIVITAMIN tablet Take 1 tablet by mouth daily. 10/10/19 22 Active LIDOCAINE 5 % APPLY 2 PATCHES TOPICALLY EVERY DAY NEEDED FOR PAIN. LEAVE ON FOR UP TO 12 HOURS THEN REMOVE FOR 12 HOURS 10/10/19 22 Active apixaban (ELIQUIS) 5 mg tablet Take 5 mg by mouth 2 (two) times a day. Active ipratropium-albute roL (DUONEB) 0.5-3 mg (2.5 mg base)/3 mL nebulizer solution 4 (four) times a day. Active Hospital, Clinic, or Other Facility Administered Medication Ordered Dose Route Frequency Start Date End Date Status levonorgestrel (MIRENA) 20 mcg/24 hours (5 yrs) 52 mg intrauterine device 1 eachIndications:Encounter for contraceptive management, unspecified type 1 each Utrn Every 5 years 08/05/2018 Active Active Problems Problem Noted Date Diagnosed Date ASCUS of cervix with negative high risk HPV 11/10 Immunizations Immunization Administration Dates Next Due INFLUENZA, SPLIT VIRUS, TRIV ALENT W/ PRESERVATIVE IM 10/05/2015 Influenza Quadrivalent Preservative Free IM 10/10,10/04/2019 Influenza Quadrivalent w/ Preservative IM 2018,10/30/2017,10/17/2016 MMR 08/09/2020,05/28/2020,04/13/2020 Td (adult) 5 Lf Tetanus Toxo id, PF, Adsorbed 09/14/2011 Tdap 08/08/2015 Family History Medical History Relation Comments Bladder Cancer Father Heart disease Father Diabetes Mother Multiple myeloma Mother Relation Status Comments Brother Alive Father Alive Mother Social History Tobacco Use Types Packs/Day Years [...] on file Sexual Orientation Not on file Last Filed Vital Signs Vital Sign Reading Time Taken Comments Blood Pressure 110/70 10/28/2023 4:27 PM EDT Pulse 92 11/07/2021 4:44 PM EDT Temperature 36.8 C (98.2 F) 11/07/2021 4:44 PM EDT Respiratory Rate 20 11/07/2021 4:44 PM EDT Oxygen Saturation 100% 11/07/2021 4:44 PM EDT Inhaled Oxygen Concentration - - Weight 78.2 kg (172 lb 6.4 oz) 10/28/2023 4:27 P M EDT Height 157.5 cm (5' 2 ) 10/28/2023 4:27 PM EDT Body Mass Index 31.53 10/28/2023 4:27 PM EDT Plan of Treatment Upcoming Encounters Date Type Department Care Team (Late st Contact Info) Description 02/26/2024 Procedure Pass [address] [place] [address] 03/03/2025 9:15 AM EST Appointment [address] [place] [address] Jamaal López NP [address] [place] [address] [place] [address] Health Maintenance Due Date Last Done Comments CREATININE LEVEL 1971 LIPID PANEL 1971 DEPRESSION SCREENING 1983 HEPATITIS C SCREENING 1989 HIV ONE-TIME SCREENING (18-65 YEARS) 1989 SCREENING FOR DIABETES 2006 COLOGUARD 2016 COLONOSCOPY 2016 COLORECTAL CANCER SCREENING 2016 FIT TEST 2016 FOBT 2016 SIGMOIDOSCOPY 2016 VIRTUAL COLONOSCOPY 2016 PNEUMOCOCCAL VACCINES (50+ years) (2 of 2 - PCV) 03/11/2022 03/11/2021 PAP SMEAR 03/04/2023 03/04/2022, 12/10, 11/04/2019, Additional history exists COVID-19 VACCINE ( season) 2023 04/15/2023, 12/05/2021, 08/08/2021, Additional history exists SMOKING Hx and SMOKELESS TOBACCO SCREENING 10/27/2024 10/28/2023 Adult Td,Tdap Booster 08/07/2025 08/08/2015, 012 MAMMOGRAM 02/25/2026 02/26/2024, 12/0 10/2021, 12/27/2020, Additional history exists ZOSTER VACCINES Completed 10/25/2021, 07/11/2021 HEPATITIS A VACCINES Aged Out No long er eligible based on patient's age to complete this topic HIB VACCINES Aged Out No longer eligi ble based on patient's age to complete this topic MENINGOCOCCAL VACCINES (ACWY) Aged Out No longer eligible based on patient's age to complete this topic MENINGOCOCCAL VACCINES (B) Aged Out N o longer eligible based on patient's age to complete this topic Medical Devices Not on file Procedures Procedure Name Priority Date/Time Associated Diagnosis Comments BI MAMMOGRAM SCREENING WITH TOMOSYNTHESIS WITH CAD (BILATERAL) Routine 02/26/2024 7:39 AM EST Breast screening PAP TEST Routine 03/04/2022 12:00 AM EST from Last 3 Months or Most Recently Relevant to Health Maintenance Results * BI MAMMOGRAM SCREENING WITH TOMOSYNTHESIS WITH CAD (BILATERAL) (02/26/2024 7:39 AM EST) Anatomical Region Laterality Modality Breast Left, Breast Right, Breast Bilateral Bila teral Mammography 02/26/2024 11:5 6 AM EST Impressions 02/26/2024 11:57 AM EST No mammographic evidence of malignancy in either breast. Annual screening mammography is recommended. BI-RADS 1 NEGATIVE The patient will be notified of the results and recommendations. Narrative 02/26/2024 11:57 AM EST BI MAMMOGRAM SCREENING WITH TOMOSYNTHESIS WITH CAD (BILATERAL) Additional patient information: Screening. COMPARISON: Comparison is made with relevant prior imaging. Breast composition: The breast tissue is almost entirely fatty. FINDINGS: No abnormal masses, suspicious calcifications, or other significant findings are identified mammographically in either breast. Procedure Note Maria G Couch MD - 02/26/2024 BI MAMMOGRAM SCREENING WITH TOMOSYNTHESIS WITH CAD (BILATERAL) Additional patient information: Screening. COMPARISON: Comparison is made with relevant prior imaging. Breast composition: The breast tissue is almost entirely fatty. FINDINGS: No abnormal masses, suspicious calcifications, or other significantfindings are identified mammographically in either breast. IMPRESSION: No mammographic evidence of malignancy in either breast. Annual screening mammography is recommended. BI-RADS 1 NEGATIVE The patient will be notified of the results and recommendations. Jamaal López NP IMG MG EXAMS Final Re sult * Pap Test (03/04/2022 12:00 AM EST) 03/04/2022 03/05/2022 10: 16 AM EST Narrative SEE NARRATIVE - 03/12/2022 4:21 PM EST [address] [address] Security Escort: Ronit Espinoza MD AUDIO/VISUAL OPERATOR Cytology Report FINAL DIAGNOSIS A. PAP SMEAR (SUREPATH) CE: SPECIMEN ADEQUACY: Satisfactory for evaluation; transformation zone present. INTERPRETATION: NEGATIVE FOR INTRAEPITHELIAL LESION OR MALIGNANCY. Reactive changes. Electronically Signed Out By: MD Leisa Sagastume CT(ASCP) LENI Smith(ASCP) By his/her signature above, the pathologist listed as making the Final Diagnosis certifies that he/she has personally reviewed this case and confirmed or corrected the diagnosis. The Pap test is a screening test primarily for squamous cancers and precursors and has associated false-negative and false-positive results. New technologies such as liquid-based preparations may decrease but will not eliminate all false-negative results. Regular sampling and follow-up of unexplained clinical signs and symptoms are recommended to minimize false negative results. PROCEDURES/ADDENDA HPV Testing (Requested) Ordered Date: 03/05/2022 A. PAP SMEAR (SUREPATH) CE: Human Papilloma Virus Test NEGATIVE for high-risk Human Papilloma Virus types 16, 18, 45 and the Other high risk probe set (Includes 31, 33, 35, 39, 51, 52, 56, 58, 59, 66, 68) Note: Testing performed by [facility] HR-HPV analysis. Clinical correlation is advised. This HPV test was performed at [facility], [address] [place] [address]. This test has been FDA approved for [facility] cervical cytology specimens. The accuracy and precision of this test for all other specimen sources has been verified in the Cytopathology Laboratory of the [facility] and has not been cleared or approved by the U.S. Food and Drug Administration. Clinical correlation is advised. CLINICAL HISTORY Date of Last Menstrual Period: Not Provided Menstrual History: Amenorrhea: DUE TO IUD Contraceptive History: Mirena Other Clinical Conditions: Screening Pap Abnormal PAP: ASCUS, 2020 SPECIMEN SOURCE A: PAP SMEAR (SUREPATH) CE Patient Name: SANYA GONZALEZ : 1970 (Age: 51) Sex: F Institution: [facility] Location: [facility] Date of Collection: 03/04/2022 Date of Reported: 03/12/2022 16:21 Results to: Wiliam Griffin MD, BS Wiliam Griffin MD CYTOLOGY ORDERABLES Final Res ult SEE NARRATIVE from Last 3 Months or Most Recently Relevant to Health Maintenance [facility] [place] [address] Care Teams Cork Sorter Relationship Specialty Start Date End Date Jamaal López NP [address] [place] [place] [address] PCP - General Family Medicine 11/04/19 Wiliam Griffin MD [address] [facility] [place], [place] [address] [email or web address] Historical LMR Provider 11/27/16 Additional Source Comments The information contained in this document represents components of the legal health record. It is not the complete legal health record.[facility]
--- OUTSIDE RECORDS SUMMARY | 2024-10-06 16:07 | XMS_ITS | Encounter Summary ---
Author Organization [facility] Address [address] [address] Phone Care Team Providers Care Cage Supervisor Name Role Phone Edwin Segal MD Unavailable Allen Melendrez MD Unavailable Srini Maxwell DO Unavailable [phone] Wiliam Griffin MD Unavailable [phone] Fouzia Gil MD Primary Care Provider [phone] Alejandrina Newell RELIGION TEACHER Primary Care Provider Jamaal López RELIGION TEACHER Primary Care Provider + Encounter Details Date Type Department Care Team (Late st Contact Info) Description 06/11/2017 Ancillary Orders Virtual Department [address] [place] [address] Fouzia Gil MD [facility] [address] Breast screening Social History Tobacco Use Types [...] st Contact Info) Description 02/26/2024 Procedure Pass [address] [place] [address] 03/03/2025 9:15 AM EST Appointment [address] [place] [address] Jamaal López, FAVIO [address] [place] [address] [place] [address] documented as of this encounter Results * BI MAMMOGRAM SCREENING WITH TOMOSYNTHESIS WITH CAD (BILATERAL) (07/23/2017 7:59 AM EDT) Anatomical Region Laterality Modality Breast Left, Breast Right, Breast Bilateral Bila teral Mammography 07/23/2017 9:04 AM EDT Impressions 07/23/2017 9:06 AM EDT No mammographic change indicative of malignancy. Annual screening is recommended. BI-RADS CATEGORY: 1 - Negative. DENSITY: There are scattered fibroglandular densities. POS -CDHMAM2 Narrative 07/23/2017 9:06 AM EDT Bilateral full-field digital screening mammography is obtained and read in conjunction with computer-aided detection. Tomosynthesis as well as 2-D C view imaging of both breasts in two planes also obtained. Comparison made to multiple prior, most recent 06/04/2016, and most remote 05/22/2011. No dominant mass, architectural distortion, worrisome asymmetry, or suspicious calcification is identified. No skin or nipple finding of concern is appreciated. Procedure Note Chaparro Rivera MD - 07/23/2017 Bilateral full-field digital screening mammography is obtained and read inconjunction with computer-aided detection. Tomosynthesis as well as 2-D Cview imaging of both breasts in two planes also obtained. Comparison madeto multiple prior, most recent 06/04/2016, and most remote 05/22/2011. No dominant mass, architectural distortion, worrisome asymmetry, orsuspicious calcification is identified. No skin or nipple finding ofconcern is appreciated. IMPRESSION: No mammographic change indicative of malignancy. Annual screening isrecommended. BI-RADS CATEGORY: 1 - Negative. DENSITY: There are scattered fibroglandular densities. POS -CDHMAM2 Fouzia Gil MD IMG MG EXAMS Final Result documented in this encounter Visit Diagnoses Diagnosis Breast screening Breast screening, unspecified Breast screening Breast screening, unspecified documented in this encounter Additional Health Concerns Infection Onset Date Last Indicated Resolved Time CoV-Risk 11/07/2021 11/07/2021 11/18/2021 1:22 AM EDT documented as of this encounter Care Teams Cage Supervisor Relationship Specialty Start Date End Date Fouzia Gil MD [facility] [place] [address] PCP - General Internal Medicine 04/17/17 03/14/18 Alejandrina Newell NP [address] [place] [address] [place] [address] [email or web address] PCP - General Family Medicine 03/15/18 11/03/19 Jamaal López, FAVIO [address] [place] [address] [place] [address] PCP - General Family Medicine 11/04/19 Edwin Segal MD [address] [place] [address], [address] [place] [address] [email or web address] Historical LMR Provider 11/27/16 02/16/21 Allen Melendrez MD [address] [place] [address] Historical LMR Provider 11/27/16 Srini Maxwell DO [address] [place] [address] Historical LMR Provider 11/27/16 Wiliam Griffin MD [address] [facility], [facility] [address] [place] [address] [email or web address] Historical LMR Provider 11/27/16 documented as of this encounter Additional Source Comments The information contained in this document represents components of the legal health record. It is not the complete legal health record.[facility]
--- OUTSIDE RECORDS SUMMARY | 2024-10-06 16:07 | XMS_ITS | Encounter Summary ---
Author Organization [facility] Address [address] [address] Phone Care Team Providers Care Director Of Surgery Name Role Phone Edwin Segal MD Unavailable Allen Melendrez MD Unavailable Srini Maxwell DO Unavailable [phone] Wiliam Griffin MD Unavailable [phone] Fouzia Gil MD Primary Care Provider [phone] Alejandrina Newell HOPPER FEEDER Primary Care Provider Jamaal López HOPPER FEEDER Primary Care Provider + Encounter Details Date Type Department Care Team (Late st Contact Info) Description 04/21/2017 Procedure Pass [facility] Endoscopy Admitting Dept Virtual Department [address] [place] [address] Social History Tobacco Use Types Packs/Day Years [...] (Late Contact Info) Description 02/26/2024 Procedure Pass [address] [place] [address] 03/03/2025 9:15 AM EST Appointment [address] [place] [address] Jamaal López, FAVIO [address] [place] [address] [place] [address] documented as of this encounter Visit Diagnoses Not on filedocumented in this encounter Additional Health Concerns Infection Onset Date Last Indicated Resolved Time CoV-Risk 11/07/2021 11/07/2021 11/18/2021 1:22 AM EDT documented as of this encounter Care Teams Director Of Surgery Relationship Specialty Start Date End Date Fouzia Gil MD [address] [place] [address] [place] [address] PCP - General Internal Medicine 04/17/17 03/14/18 Alejandrina Newell NP [address] [place] [address] [place] [address] [email or web address] PCP - General Family Medicine 03/15/18 11/03/19 Jamaal López, FAVIO [address] [place] [address] [place] [address] PCP - General Family Medicine 11/04/19 Edwin Segal MD [address] [place] [address], [facility] [address] [place] [address] [email or web address] Historical LMR Provider 11/27/16 02/16/21 Allen Melendrez MD [address] [place] [address] Historical LMR Provider 11/27/16 Srini Maxwell DO [address] [place] [address] Historical LMR Provider 11/27/16 Wiliam Griffin MD [address] [place] [address], [facility] [address] [place] [address] [email or web address] Historical LMR Provider 11/27/16 documented as of this encounter Additional Source Comments The information contained in this document represents components of the legal health record. It is not the complete legal health record.[facility]
--- OUTSIDE RECORDS SUMMARY | 2024-10-06 16:07 | XMS_ITS | Encounter Summary ---
Author Organization [facility] Address [address] [address] Phone Care Team Providers Care Drawing Frame Tender Name Role Phone Edwin Segal MD Unavailable Allen Melendrez MD Unavailable Srini Maxwell DO Unavailable [phone] Wiliam Griffin MD Unavailable [phone] Alejandrina Newell FINGERPRINT EXPERT Primary Care Provider Jamaal López FINGERPRINT EXPERT Primary Care Provider + Encounter Details Date Type Department Care Team (Late st Contact Info) Description 10/11/2019 Procedure Pass [address] [address] Social History Tobacco Use Types Packs/Day Years Used Date Smoking Tobacco: Former Cigarettes Q uit: 2007 Smokeless Tobacco: Never Alcohol Use Standard Drinks/Week [...] st Contact Info) Description 02/26/2024 Procedure Pass [address] [place] [address] 03/03/2025 9:15 AM EST Appointment [address] [place] [address] Jamaal López NP [address] [facility] [address] [place] [address] documented as of this encounter Visit Diagnoses Not on filedocumented in this encounter Additional Health Concerns Infection Onset Date Last Indicated Resolved Time CoV-Risk 11/07/2021 11/07/2021 11/18/2021 1:22 AM EDT documented as of this encounter Care Teams Drawing Frame Tender Relationship Specialty Start Date End Date Alejandrina Newell NP [address] [place] [address] [place] [address] [email or web address] PCP - General Family Medicine 03/15/18 11/03/19 Jamaal López, FAVIO [address] [place] [address] Dr [place] [address] PCP - General Family Medicine 11/04/19 Edwni Segal MD [address] [place] [address] [email or web address] Historical LMR Provider 11/27/16 02/16/21 Allen Melendrez MD [address] [place] [address] Historical LMR Provider 11/27/16 Srini Maxwell DO [address] [place] [address] Historical LMR Provider 11/27/16 Wiliam Griffin MD [address] [place] [address] [email or web address] Historical LMR Provider 11/27/16 documented as of this encounter Additional Source Comments The information contained in this document represents components of the legal health record. It is not the complete legal health record.[facility]
--- OUTSIDE RECORDS SUMMARY | 2024-10-06 16:07 | XMS_ITS | Encounter Summary ---
Author Organization [facility] Address [address] [facility] [address] [place] [address] Phone Care Team Providers Care Logging Engineer Name Role Phone Wiliam Griffin MD Unavailable Jamaal López NP Primary Care Provider + Encounter Details Date Type Department Care Team (Late st Contact Info) Description 10/13/2023 Procedure Pass [facility], [facility] [address] [place] [address] Social History Tobacco Use Types Packs/Day Years [...] st Contact Info) Description 02/26/2024 Procedure Pass [address] [place] [address] 03/03/2025 9:15 AM EST Appointment [address] [place] [address] Jamaal López NP [address] [place] [address] [place] [address] documented as of this encounter Visit Diagnoses Not on filedocumented in this encounter Care Teams Logging Engineer Relationship Specialty Start Date End Date Jamaal López NP [address] [place] [address] [place] [address] PCP - General Family Medicine 11/04/19 Wiliam Griffin MD [address] [place] [address], [facility] [address] [place] [address] [email or web address] Historical LMR Provider 11/27/16 documented as of this encounter Additional Source Comments The information contained in this document represents components of the legal health record. It is not the complete legal health record.[facility]
--- OUTSIDE RECORDS SUMMARY | 2024-10-06 16:07 | XMS_ITS | Patient Health Record ---
Author Organization [facility] Address [address] [place] [address] Care Team Providers Care Coal Washer Tender Name Role Phone Jamaal Early Primary Care Provider Unav ailable Nurys Miller Unavailable [phone] Allergies Allergen (clinical drug ingredient) Drug/Non Drug [...] a day; Duration: 30 day(s) Active Tiotropium [place] Monohydrate 1.25 MCG/ACT 2 puffs Inhalation Once [...] a day; Duration: 30 day(s) Active Ipratropium [place] Active Immunizations Vaccine Route Administration Date Status [...] W/U Status Risk Notes Problem Plantar wart (B07.0) Active confirmed Plan Of Treatment Pending Test Test Name Order Date [id number] NAIL, 6 OR MORE 12/25/2015 [id number] NAIL, 6 OR MORE 01/16/2016 [id number] NAIL, 6 OR MORE 09/19/2016 [id number] Destruction, 1-14 11/20/2020 32035, [id number]/INJECT, JOINT/BURSA 0 08/26/2016 Insurance Providers Payer Name Payer Address Payer Phone Subscriber Number Group Number Insured Name Patient Relationship to Insured Coverage Start Date Coverage End Date [facility] [address] [place] [address] [id number] Shawna Hayes Self - patient is the [...]
--- OUTSIDE RECORDS SUMMARY | 2024-10-06 16:07 | XMS_ITS | Encounter Summary ---
Author Organization [facility] Address [address] [place] [address] Phone Care Team Providers Care Hydraulic Rubbish Compactor Mechanic Name Role Phone Edwin Segal MD Unavailable Allen Melendrez MD Unavailable [phone] Srini Maxwell DO Unavailable [phone] Wiliam Griffin MD Unavailable [phone] Fouzia Gil MD Primary Care Provider [phone] Alejandrina Newell SOCIAL MEDIA PROJECT MANAGER Primary Care Provider Jamaal López SOCIAL MEDIA PROJECT MANAGER Primary Care Provider + Encounter Details Date Type Department Care Team (Late st Contact Info) Description 06/15/2017 Ancillary Orders [facility],Outside Imaging [address] [place] [address] System, Provider Not In, PhD [address] [address] Social History Tobacco Use Types Packs/Day Years [...] st Contact Info) Description 02/26/2024 Procedure Pass [address] [place] [address] 03/03/2025 9:15 AM EST Appointment [address] [place] [address] Jamaal López NP [address] [place] [address] [place] [address] documented as of this encounter Results * [...] documented as of this encounter Care Teams Hydraulic Rubbish Compactor Mechanic Relationship Specialty Start Date End Date Fouzia Gil MD [address] [place] [address] [place] [address] PCP - General Internal Medicine 04/17/17 03/14/18 Alejandrina Newell NP [address] [place] [address] [place] [address] [email or web address] PCP - General Family Medicine 03/15/18 11/03/19 Jamaal López, FAVIO [address] [place] [address] [place] [address] PCP - General Family Medicine 11/04/19 Edwin Segal MD 22 [facility], [address] [address] [email or web address] Historical LMR Provider 11/27/16 02/16/21 Allen Melendrez MD [address] [place] [address] Historical LMR Provider 11/27/16 Srini Maxwell DO [address] [place] [address] Historical LMR Provider 11/27/16 Wiliam Griffin MD 22 [facility], [address] [address] [email or web address] Historical LMR Provider 11/27/16 documented as of this encounter Additional Source Comments The information contained in this document represents components of the legal health record. It is not the complete legal health record.[facility]
--- OUTSIDE RECORDS SUMMARY | 2024-10-06 16:07 | XMS_ITS | Encounter Summary ---
Author Organization [facility] Address [address] [facility] [address] [place] [address] Phone Care Team Providers Care Periodontal Assistant Name Role Phone Edwin Segal MD Unavailable Allen Melendrez MD Unavailable [phone] Srini Maxwell DO Unavailable [phone] Wiliam Griffin MD Unavailable [phone] Fouzia Gil MD Primary Care Provider [phone] Alejandrina Newell CADD MANAGER Primary Care Provider Jamaal López CADD MANAGER Primary Care Provider + Reason for Referral * MRI/CAT Scan - Closed Specialty Diagnoses / Procedures Referred By Contac t Referred To Contact Procedures CT Abdomen/Pelvis Outside (No Interpretation) System, Provider Not In, PhD [facility] [email or web address] [address] [place] [address] Referral ID Status Reason Start Date Expiration Date Visits Re quested Visits Authorized [id number] Closed 05/14/2017 05/14/2018 1 1 Encounter Details Date Type Department Care Team (Late st Contact Info) Description 05/14/2017 Ancillary Orders [facility],Outside Imaging [address] [place] [address] System, Provider [place] In, [place] [address] Social History Tobacco Use Types Packs/Day Years [...] Contact Info) Description 02/26/2024 Procedure Pass [address] [place] [address] 03/03/2025 9:15 AM EST Appointment [address] [place] [address] Jamaal López NP [address] [facility] [place] [address] documented as of this encounter Results * CT Abdomen/Pelvis Outside (No Interpretation) (05/03/2017 12:00 AM EDT) Narrative SYSTEMGENERATED, DOCUMENTATION - 05/14/2017 8:29 AM EDT This study is for PACS storage only and not for interpretation. us Provider Not In System PhD IMG OUTSIDE IMAGING W /OUT INTERPRETATION Final Result documented in this encounter Visit Diagnoses Not on filedocumented in this encounter Additional Health Concerns Infection Onset Date Last Indicated Resolved Time CoV-Risk 11/07/2021 11/07/2021 11/18/2021 1:22 AM EDT documented as of this encounter Care Teams Periodontal Assistant Relationship Specialty Start Date End Date Fouzia Gil MD [address] [place] [address] PCP - General Internal Medicine 04/17/17 03/14/18 Alejandrina Newell NP [address] [place] [address] [place] [address] [email or web address] PCP - General Family Medicine 03/15/18 11/03/19 Jamaal López NP [address] [place] [address] [place] [address] PCP - General Family Medicine 11/04/19 Edwin Segal MD [address] [address] Historical LMR Provider 11/27/16 02/16/21 Allen Melendrez MD [address] [place] [address] Historical LMR Provider 11/27/16 Srini Maxwell DO [address] [place] [address] Historical LMR Provider 11/27/16 Wiliam Griffin MD [address] [place] [address] Historical LMR Provider 11/27/16 documented as of this encounter Additional Source Comments The information contained in this document represents components of the legal health record. It is not the complete legal health record.[facility]
--- OUTSIDE RECORDS SUMMARY | 2024-10-06 16:07 | XMS_ITS | Encounter Summary ---
Author Organization [facility] Address [address] [facility] [address] [place] [address] Phone Care Team Providers Care Typewriters Functional Tester Name Role Phone Edwin Segal MD Unavailable Allen Melendrez MD Unavailable Srini Maxwell DO Unavailable [phone] Wiliam Griffin MD Unavailable [phone] Jamaal López NP Primary Care Provider + Encounter Details Date Type Department Care Team (Late st Contact Info) Description 10/04/2020 Procedure Pass [address] [place] [address] Social History Tobacco Use Types Packs/Day Years [...] st Contact Info) Description 02/26/2024 Procedure Pass [address] [place] [address] 03/03/2025 9:15 AM EST Appointment [address] [place] [address] Jamaal López NP [address] [facility] [place] [address] documented as of this encounter Visit Diagnoses Not on filedocumented in this encounter Additional Health Concerns Infection Onset Date Last Indicated Resolved Time CoV-Risk 11/07/2021 11/07/2021 11/18/2021 1:22 AM EDT documented as of this encounter Care Teams Typewriters Functional Tester Relationship Specialty Start Date End Date Jamaal López NP [address] [facility] [place] [address] PCP - General Family Medicine 11/04/19 Edwin Segal MD [address] [address] Historical LMR Provider 11/27/16 02/16/21 Allen Melendrez MD [address] [place] [address] Historical LMR Provider 11/27/16 Srini Maxwell DO [address] [place] [address] Historical LMR Provider 11/27/16 Wiliam Griffin MD [address] [address] Historical LMR Provider 11/27/16 documented as of this encounter Additional Source Comments The information contained in this document represents components of the legal health record. It is not the complete legal health record.[facility]
== END 2024-10-06 15:45 | disposition home or self-care (01) ==
LOC: HO.HAP 15:44
PROVIDERS: Visit Provider Nurse Practitioner Family
DX: Z13.89 Encounter for screening for other disorder (principal)
CPT/HCPCS: V5267

== ENCOUNTER 2024-10-06 16:10 | Outpatient (REF) | payer SELFPAY | END 2024-10-06 16:11 | disposition home or self-care (01) | LOC: HO.HAP 16:10 | PROVIDERS: Visit Provider Nurse Practitioner Family | DX: Z46.1 Encounter for fitting and adjustment of hearing aid (principal); H90.3 Sensorineural hearing loss, bilateral | CPT/HCPCS: V5267 ==

== ENCOUNTER 2024-10-31 15:35 | Outpatient (AMB) | payer OTHER, SELFPAY ==
--- OUTSIDE RECORDS SUMMARY | 2014-02-23 01:00 | XMS_ITS | Encounter Summary ---
Author Organization [facility] Address [address] [place] [address] Phone Care Team Providers Care Senior Mortgage Loan Processor Name Role Phone Unavailable Primary Care Provider Unavailabl e Encounter Details
[2024-10-31 15:37] VITALS: BP 132/80; PULSE 80; O2SAT 98; BMI 29.8
--- NOTE | 2024-10-31 15:37 | MHC.OFFWIV ---
Intake Vital Signs 10/31/24 15:37 Height 5 ft 5 in Weight 179 lb BMI 29.8 BP 132/80 Blood Pressure Location Lt brachial Position Sitting Pulse 80 Pulse Source Pulse Oximeter Pulse Oximetry (%) 98 Oxygen Delivery Method Room Air Intake Visit Reasons: EP right foot toe pain/ stubbed toes Intake Note: pt is here for stubbed toe, on Patient Tobacco Use Status: Former Tobacco user Allergies Sulfa (Sulfonamide Antibiotics) Allergy (Severe, Verified 10/31/24 15:44) ANAPHYLAXIS, angioedema cefuroxime (From CEFTIN) Allergy (Intermediate, Verified 10/31/24 15:44) RASH metronidazole (From FLAGYL) Allergy (Intermediate, Verified 10/31/24 15:44) itch cefotetan Allergy (Unknown, Verified 10/31/24 15:44) rash sulfacetamide Allergy (Unknown, Verified 10/31/24 15:44) oral swelling, rash oxycodone (From OxyContin) Allergy (Verified 10/31/24 15:44) Itching shrimp Allergy (Verified 10/31/24 15:44) Itching nitrofurantoin (From MACROBID) Adverse Reaction (Mild, Verified 10/31/24 15:44) n/v Do you need a note to return to daycare/school/sports/work: No HPI HPI Comments History of Present Illness Details History of Present Illness - The patient is a 54-year-old female presenting with a toe injury. - The injury occurred on when the patient stubbed her toe against a coffee table while carrying a box. - The patient reports bruising and significant sensitivity in the affected area, with pain persisting for five days. - The patient has been managing the pain with Tylenol and Meloxicam, and has been icing the area. - The patient attempted mariana taping the toe, which provided some relief, although throbbing persisted. - The patient has a prescription for Meloxicam 15 mg, taken once daily as needed and needs a refill. - She denies numbness, tingling, ankle pain, or calf pain, Physical Exam General: Cooperative, healthy appearing, comfortable, no acute distress and well developed Orientation: Patient oriented x3 Respiratory: Normal respiratory effort and able to speak in complete sentences. Clear to auscultation bilaterally Cardiovascular: Regular rate and rhythm. Normal S1 and S2 Skin: No rashes or lesions noted. Mild erythema noted on the 4th and 5th digits on the left foot. Neuro: Sensation intact. Extremities: Swelling noted in the fourth, and fifth toes of the left foot. Bruising present. Tenderness upon palpation. Ambulates with steady gait. Patient was informed and verbally consented to the use of an ambient scribe for clinic note documentation during this visit. [facility] Medical History Shrimp allergy Small bowel ischemia COVID-19 Paralytic ileus H/O abnormal cervical Papanicolaou smear [place]-menopausal control counseling Migraine with aura Portal vein thrombosis Lupus Right shoulder pain Immunizations incomplete Encounter for screening for COVID-19 Carpal tunnel syndrome Right hand pain Right wrist pain Surgical History Hx of carpal tunnel repair Hx of colonoscopy H/O resection of small bowel History of esophagogastroduodenoscopy (EGD) History of shoulder surgery H/O left knee surgery Hx of cholecystectomy Family History Mother Multiple myeloma Mental health disorder Father Bladder cancer Liver tumor Bile duct cancer Maternal Grandmother Lymphoma Maternal Grandfather Bone cancer Social History Household Members: Significant Other Housing: Apartment Are you a primary home care coordinator to a significant other at home: No Do you presently have visiting nurse or other home services: No Alcohol intake: never Patient Tobacco Use Status: Former Tobacco user Tobacco use type: Cigarette Cigarette Packs Per Day: 1 e-Cigarette/Vaping Use: Never Used Second Hand Smoke Exposure: Yes Advance Directives Date on File: 05/02/21 service: No 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al status: employed 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) Sexual orientation: Straight/Heterosexual Gender identity: Female Cognitive needs: No Hearing needs: No Vision needs: No Review of Systems Const All systems reviewed & are unremarkable except as noted in HPI and below Physical Exam Vital Signs: Last Vital Signs Pulse 80 10/31/24 15:37 BP 132/80 10/31/24 15:37 Pulse Ox 98 10/31/24 15:37 Oxygen Delivery Method Room Air 10/31/24 15:37 BMI result Body Mass Index 29.8 Results Reviewed Results Reviewed: reviewed the x-ray in the office Assessment & Plan Assessment & Plan (1) Foot contusion: Code(s): S90.30XA - Contusion of unspecified foot, initial encounter Qualifiers: Encounter type: initial encounter Laterality: left Qualified Code(s): S90.32XA - Contusion of left foot, initial encounter Plan Most likely Contusion Of The Toe vs possible fracture plan - Continue with pain management using Tylenol and Meloxicam as needed. - Advise icing the affected area to reduce swelling. - Recommend mariana taping for support and to minimize movement. - Order an X-ray to confirm or rule out a fracture. - Provide a supportive shoe to protect the toe and aid in mobility. - follow up with PCP Orders: Orders XR foot LT min 3V Today M79.675 - Pain in left toe(s) Medications: New meloxicam 15 mg PO DAILY 15 tabs 0RF Coding Level of Care Code Est Pt Level 4 (41568) Diagnoses Contusion of left foot, initial encounter S90.32XA Encounter type: initial encounter Laterality: left
--- OUTSIDE RECORDS SUMMARY | 2024-10-31 17:54 | XMS_ITS | Encounter Summary ---
Author Organization [facility] Address [address] [place] [address]
--- OUTSIDE RECORDS SUMMARY | 2024-10-31 17:54 | XMS_ITS | Encounter Summary ---
Author Organization [facility] Address [address] [place] [address] Phone Care Team Providers Care Bulb Packer Name Role Phone Edwin Segal MD Unavailable
== END 2024-10-31 16:45 | disposition home or self-care (01) ==
PROVIDERS: PCP Nurse Practitioner Family; Visit Provider Physician Assistant Medical
DX: S90.32XA Contusion of left foot, initial encounter (principal)

== ENCOUNTER 2024-10-31 15:35 | Outpatient (REF) | payer OTHER, SELFPAY | END 2024-10-31 15:36 | disposition home or self-care (01) | LOC: HO.HMGCX 15:35 | PROVIDERS: PCP Nurse Practitioner Family; Visit Provider Physician Assistant Medical | DX: S90.32XA Contusion of left foot, initial encounter (principal); W22.8XXA Striking against or struck by other objects, initial encounter | CPT/HCPCS: 73630 ==

== ENCOUNTER → 2024-10-31 16:03 | Outpatient (BNV) | payer OTHER, SELFPAY | PROVIDERS: PCP Nurse Practitioner Family; Visit Provider Radiology Diagnostic Radiology | DX: M79.675 Pain in left toe(s) (principal) | CPT/HCPCS: 73630 ==

== ENCOUNTER 2024-11-29 15:41 | Outpatient (AMB) | payer OTHER, SELFPAY ==
--- OUTSIDE RECORDS SUMMARY | 2011-05-22 | XMS_ITS | Encounter Summary ---
Author Organization [facility] Address [address] [facility] [address] [place] [address] Phone Care Team Providers Care Watershed Program Manager Name Role Phone Unavailable Primary Care Provider Unavailabl e Encounter Details Date Type Department Care Team (Late Contact Info) Description 05/22/2011 Hospital Encounter [facility],Outside Imaging 30 [place] [address] System, Provider Not In, [facility] [address] [address] Social History Tobacco Use Types Packs/Day Years [...] (Late Contact Info) Description 02/26/2024 Procedure Pass [address] [place] [address] 03/03/2025 9:15 AM EST Appointment [address] [place] [address] Jamaal López, FAVIO [address] [place] [address] [place] [address] documented as of this encounter Procedures Procedure [...] It is not the complete legal health record.[facility]
--- OUTSIDE RECORDS SUMMARY | 2011-05-27 | XMS_ITS | Encounter Summary ---
Author Organization [facility] Address 399 [facility] [address] [place] [address] Phone Care Team Providers Care Coreroom Foundry Laborer Name Role Phone Unavailable Primary Care Provider Unavailabl e Encounter Details Date Type Department Care Team (Late Contact Info) Description 05/27/2011 Hospital Encounter [facility],Outside Imaging 30 [place] [address] System, Provider Not In, PhD Partners [address] [address] Social History Tobacco Use Types Packs/Day Years [...] (Late Contact Info) Description 02/26/2024 Procedure Pass [address] [place] [address] 03/03/2025 9:15 AM EST Appointment [address] [place] [address] Jmaaal López, FAVIO [address] [place] [address] [place] [address] documented as of this encounter Procedures Procedure [...] It is not the complete legal health record.[facility]
--- OUTSIDE RECORDS SUMMARY | 2011-05-27 00:15 | XMS_ITS | Encounter Summary ---
Author Organization [facility] Address [address] [facility] [address] [place] [address] Phone Care Team Providers Care Wood Engraver Name Role Phone Unavailable Primary Care Provider Unavailabl e Encounter Details Date Type Department Care Team (Late Contact Info) Description 05/27/2011 12:15 AM EDT Hospital Encounter [facility],Outside Imaging 30 [place] [address] System, Provider Not In, PhD Partners [address] [address] Social History Tobacco Use Types Packs/Day Years [...] (Late Contact Info) Description 02/26/2024 Procedure Pass [address] [place] [address] 03/03/2025 9:15 AM EST Appointment [address] [place] [address] Jamaal López, FAVIO [address] [place] [address] [place] [address] documented as of this encounter Procedures Procedure [...] It is not the complete legal health record.[facility]
--- OUTSIDE RECORDS SUMMARY | 2012-09-08 | XMS_ITS | Encounter Summary ---
Author Organization [facility] Address [address] [facility] [address] [place] [address] Phone Care Team Providers Care Community Artist Name Role Phone Unavailable Primary Care Provider Unavailabl e Encounter Details Date Type Department Care Team (Late Contact Info) Description 09/08/2012 Hospital Encounter [facility],Outside Imaging 30 [place] [address] System, Provider Not In, PhD Partners [address] [address] Social History Tobacco Use Types Packs/Day Years [...] (Late Contact Info) Description 02/26/2024 Procedure Pass [address] [place] [address] 03/03/2025 9:15 AM EST Appointment [address] [place] [address] Jamaal López, FAVIO [address] [place] [address] [place] [address] documented as of this encounter Procedures Procedure [...] It is not the complete legal health record.[facility]
--- OUTSIDE RECORDS SUMMARY | 2012-09-14 | XMS_ITS | Encounter Summary ---
Author Organization [facility] Address [address] [facility] [address] [place] [address] Phone Care Team Providers Care Metallurgical Lab Technician Name Role Phone Unavailable Primary Care Provider Unavailabl e Encounter Details Date Type Department Care Team (Late Contact Info) Description 09/14/2012 Hospital Encounter [facility],Outside Imaging 30 [place] [address] System, Provider Not In, [facility] [address] [address] Social History Tobacco Use Types Packs/Day Years [...] (Late Contact Info) Description 02/26/2024 Procedure Pass [address] [place] [address] 03/03/2025 9:15 AM EST Appointment [address] [place] [address] Jamaal López, FAVIO [address] [place] [address] [place] [address] documented as of this encounter Procedures Procedure [...] It is not the complete legal health record.[facility]
--- OUTSIDE RECORDS SUMMARY | 2014-02-23 01:00 | XMS_ITS | Encounter Summary ---
Author Organization [facility] Address [address] [facility] [address] [place] [address] Phone Care Team Providers Care Public Health Teacher Name Role Phone Unavailable Primary Care Provider Unavailabl e Encounter Details Date Type Department Care Team (Late Contact Info) Description 02/23/2014 Hospital Encounter [facility],Outside Imaging 30 [place] [address] System, Provider Not In, [facility] [address] [address] Social History Tobacco Use Types Packs/Day Years [...] (Late Contact Info) Description 02/26/2024 Procedure Pass [address] [place] [address] 03/03/2025 9:15 AM EST Appointment [address] [place] [address] Jamaal López, FAVIO [address] [place] [address] [place] [address] documented as of this encounter Procedures Procedure [...] It is not the complete legal health record.[facility]
--- OUTSIDE RECORDS SUMMARY | 2016-06-04 | XMS_ITS | Encounter Summary ---
Author Organization [facility] Address [address] [facility] [address] [place] [address] Phone Care Team Providers Care Retail Coverage Merchandiser Lead Name Role Phone Unavailable Primary Care Provider Unavailabl e Encounter Details Date Type Department Care Team (Late Contact Info) Description 06/04/2016 Hospital Encounter [facility],Outside Imaging 30 [place] [address] System, Provider Not In, [facility] [address] [address] Social History Tobacco Use Types Packs/Day Years [...] (Late Contact Info) Description 02/26/2024 Procedure Pass [address] [place] [address] 03/03/2025 9:15 AM EST Appointment [address] [place] [address] Jamaal López, FAVIO [address] [place] [address] [place] [address] documented as of this encounter Procedures Procedure [...] It is not the complete legal health record.[facility]
[2024-11-29 15:46] VITALS: BP 130/80; PULSE 93; TEMP 37.1; O2SAT 96; BMI 30.1
--- NOTE | 2024-11-29 15:46 | AM.OFFWIN_ITS ---
Intake Vital Signs 11/29/24 15:46 Height 5 ft 5 in Weight 181 lb 1 oz BMI 30.1 BP 130/80 Blood Pressure Location Lt brachial Position Sitting Pulse 93 Pulse Source Pulse Oximeter Temp 98.8 F Temp Source Oral Pulse Oximetry (%) 96 Oxygen Delivery Method Room Air Intake Visit Reasons: EP Right arm elbow pain/swelling Intake Note: EP feels right elbow pain and swelling since the past Thursday. Patient Tobacco Use Status: Former Tobacco user Allergies Sulfa (Sulfonamide Antibiotics) Allergy (Severe, Verified 11/29/24 16:01) ANAPHYLAXIS, angioedema cefuroxime (From CEFTIN) Allergy (Intermediate, Verified 11/29/24 16:01) RASH metronidazole (From FLAGYL) Allergy (Intermediate, Verified 11/29/24 16:01) itch cefotetan Allergy (Unknown, Verified 11/29/24 16:01) rash sulfacetamide Allergy (Unknown, Verified 11/29/24 16:01) oral swelling, rash oxycodone (From OxyContin) Allergy (Verified 11/29/24 16:01) Itching shrimp Allergy (Verified 11/29/24 16:01) Itching nitrofurantoin (From MACROBID) Adverse Reaction (Mild, Verified 11/29/24 16:01) n/v Do you need a note to return to daycare/school/sports/work: Yes HPI HPI Comments History of Present Illness Details Patient was informed and verbally consented to the use of an ambient scribe for clinic note documentation during the visit. The patient is a 54-year-old female presenting with right elbow pain. Elbow pain: - Onset of elbow pain was recent with a significant exacerbation beginning on Thursday. - Reports a history of tennis elbow. Pr evious episodes have been treated conservatively with NSAIDs, ice, and brace. - Pain localized around the lateral elbo w bone with minimal radiation to the forearm but no finger involvement. 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 - Reports applying ice and using the bra ce yesterday without improvement in pain. - Has been taking meloxicam intermittent ly and tylenol with only minimal relief. - She reports bruising along the elbow f rom pushing on the area repeatedly - No movement restriction noted. - Reports pain is intermittent and certa in movements cause sharp pain. Review of systems All systems reviewed and are unremarkable except as noted in HPI Physical exam General Appearance: Normal appearance, well developed. No acute distress. Head: Normocephalic, atraumatic Pulmonary: No respiratory distress. Speaking in full sentences Musculoskeletal: Mild ecchymosis noted directly superior to the right olecranon. No erythema, swelling, or warmth to touch. Normal range of motion of the right elbow. Tenderness overlying the medial and lateral epicondyle. Handgrip strength 5/5 bilaterally. Mental Status: Alert and Oriented x 3 Psychiatric: Normal mood. Normal affect. [facility] Medical History Shrimp allergy Small bowel ischemia COVID-19 Paralytic ileus H/O abnormal cervical Papanicolaou smear [place]-menopausal control counseling Migraine with aura Portal vein thrombosis Lupus Right shoulder pain Immunizations incomplete Encounter for screening for COVID-19 Carpal tunnel syndrome Right hand pain Right wrist pain Surgical History Hx of carpal tunnel repair Hx of colonoscopy H/O resection of small bowel History of esophagogastroduodenoscopy (EGD) History of shoulder surgery H/O left knee surgery Hx of cholecystectomy Family History Mother Multiple myeloma Mental health disorder Father Bladder cancer Liver tumor Bile duct cancer Maternal Grandmother Lymphoma Maternal Grandfather Bone cancer Social History Household Members: Significant Other Housing: Apartment Are you a primary respiratory care practitioner to a significant other at home: No Do you presently have visiting nurse or other home services: No Alcohol intake: never Patient Tobacco Use Status: Former Tobacco user Tobacco use type: Cigarette Cigarette Packs Per Day: 1 e-Cigarette/Vaping Use: Never Used Second Hand Smoke Exposure: Yes Advance Directives Date on File: 05/02/21 service: No 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al status: employed 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 Patient noted to have tenderness to palpation overlying the medial and lateral epicondyle. No swelling, erythema, or warmth. Symptoms may be secondary to exacerbation of lateral epicondylitis, however due to presentation and distribution of pain, differentials also include medial epicondylitis, arthritis, overuse injury. No radiation of pain to the fingers to suggest cubital tunnel syndrome. Advised to avoid repetitive strain and over stressing the affected elbow. Recommended using elbow brace regularly along with ice. Tylenol as needed for pain relief. Advised to limit NSAIDs due to increased risk of bleeding with Eliquis. Coding Level of Care Code Est Pt Level 3 (06436) Diagnoses Right elbow pain M25.521
--- OUTSIDE RECORDS SUMMARY | 2024-11-29 20:41 | XMS_ITS | Encounter Summary ---
Author Organization [facility] Address [address] [place] [address] Phone Care Team Providers Care Bods Developer Name Role Phone Edwin Segal MD Unavailable Allen Melendrez MD Unavailable [phone] Srini Maxwell DO Unavailable [phone] Wiliam Griffin MD Unavailable [phone] Fouzia Gil MD Primary Care Provider [phone] Alejandrina Newell BOAT CAMP OPERATOR Primary Care Provider Jamaal López BOAT CAMP OPERATOR Primary Care Provider + Encounter Details Date Type Department Care Team (Late st Contact Info) Description 06/15/2017 Ancillary Orders [facility],Outside Imaging [address] [place] [address] System, Provider Not In, PhD [address] [address] Social History Tobacco Use Types Packs/Day Years [...] st Contact Info) Description 02/26/2024 Procedure Pass [address] [place] [address] 03/03/2025 9:15 AM EST Appointment [address] [place] [address] Jamaal López NP [address] [place] [address] [place] [address] documented as of this encounter Results * [...] documented as of this encounter Care Teams Bods Developer Relationship Specialty Start Date End Date Fouzia Gil MD [address] [place] [address] [place] [address] PCP - General Internal Medicine 04/17/17 03/14/18 Alejandrina Newell NP [address] [place] [address] [place] [address] [email or web address] PCP - General Family Medicine 03/15/18 11/03/19 Jamaal López, FAVIO [address] [place] [address] [place] [address] PCP - General Family Medicine 11/04/19 Edwin Segal MD 22 [facility], [address] [address] [email or web address] Historical LMR Provider 11/27/16 02/16/21 Allen Melendrez MD [address] [place] [address] Historical LMR Provider 11/27/16 Srini Maxwell DO [address] [place] [address] Historical LMR Provider 11/27/16 Wiliam Griffin MD 22 [facility], [address] [address] [email or web address] Historical LMR Provider 11/27/16 documented as of this encounter Additional Source Comments The information contained in this document represents components of the legal health record. It is not the complete legal health record.[facility]
--- OUTSIDE RECORDS SUMMARY | 2024-11-29 20:41 | XMS_ITS | Encounter Summary ---
Author Organization [facility] Address [address] [facility] [address] [place] [address] Phone Care Team Providers Care Tank Washer Name Role Phone Edwin Segal MD Unavailable Allen Melendrez MD Unavailable [phone] Srini Maxwell DO Unavailable [phone] Wiliam Griffin MD Unavailable [phone] Jamaal López NP Primary Care Provider + Encounter Details Date Type Department Care Team (Late st Contact Info) Description 10/04/2020 Procedure Pass [address] [place] [address] Social History Tobacco Use Types Packs/Day Years [...] st Contact Info) Description 02/26/2024 Procedure Pass [address] [place] [address] 03/03/2025 9:15 AM EST Appointment [address] [place] [address] Jamaal López NP [address] [place] [address] documented as of this encounter Visit Diagnoses Not on filedocumented in this encounter Additional Health Concerns Infection Onset Date Last Indicated Resolved Time CoV-Risk 11/07/2021 11/07/2021 11/18/2021 1:22 AM EDT documented as of this encounter Care Teams Tank Washer Relationship Specialty Start Date End Date Jamaal López NP [address] [place] [address] PCP - General Family Medicine 11/04/19 Edwin Segal MD [address] [address] Historical LMR Provider 11/27/16 02/16/21 Allen Melendrez MD [address] [place] [address] Historical LMR Provider 11/27/16 Srini Maxwell DO [address] [place] [address] Historical LMR Provider 11/27/16 Wiliam Griffin MD [address] [address] Historical LMR Provider 11/27/16 documented as of this encounter Additional Source Comments The information contained in this document represents components of the legal health record. It is not the complete legal health record.[facility]
--- OUTSIDE RECORDS SUMMARY | 2024-11-29 20:41 | XMS_ITS | Encounter Summary ---
Author Organization [facility] Address [address] [address] Phone Care Team Providers Care Correctional Case Records Supervisor Name Role Phone Edwin Segal MD Unavailable Allen Melendrez MD Unavailable Srini Maxwell DO Unavailable [phone] Wiliam Griffin MD Unavailable [phone] Jamaal López NP Primary Care Provider + Encounter Details Date Type Department Care Team (Late st Contact Info) Description 10/04/2020 Ancillary Orders Virtual Department [address] [place] [address] Jamaal López NP [facility] [place] [address] Breast screening Social History Tobacco Use Types [...] st Contact Info) Description 02/26/2024 Procedure Pass [address] Neil [place] [address] 03/03/2025 9:15 AM EST Appointment [address] Neil [place] [address] Jamaal López, FAVIO 2 [facility] [address] [place] [address] documented as of this encounter Results * [...] There are scattered fibroglandular densities. Jamaal López RELIEF MAP MODELER IMG MG EXAMS Final Re sult documented in this encounter Visit Diagnoses Diagnosis Breast screening Breast screening, unspecified Breast screening Breast screening, unspecified documented in this encounter Additional Health Concerns Infection Onset Date Last Indicated Resolved Time CoV-Risk 11/07/2021 11/07/2021 11/18/2021 1:22 AM EDT documented as of this encounter Care Teams Correctional Case Records Supervisor Relationship Specialty Start Date End Date Jamaal López NP [facility] [place] [address] PCP - General Family Medicine 11/04/19 Edwin Segal MD [address] [address] Historical LMR Provider 11/27/16 02/16/21 Allen Melendrez MD [address] [place] [address] Historical LMR Provider 11/27/16 Srini Maxwell DO [address] [place] [address] Historical LMR Provider 11/27/16 Wiliam Griffin MD [address] [address] Historical LMR Provider 11/27/16 documented as of this encounter Additional Source Comments The information contained in this document represents components of the legal health record. It is not the complete legal health record.[facility]
--- OUTSIDE RECORDS SUMMARY | 2024-11-29 20:41 | XMS_ITS | Encounter Summary ---
Author Organization [facility] Address [address] [place] [address] Phone Care Team Providers Care Director Banking Name Role Phone Edwin Segal MD Unavailable Allen Melendrez MD Unavailable Srini Maxwell DO Unavailable [phone] Wiliam Griffin MD Unavailable [phone] Fouzia Gil MD Primary Care Provider [phone] Alejandrina Newell METAL TRIM ERECTOR Primary Care Provider Jamaal López METAL TRIM ERECTOR Primary Care Provider + Encounter Details Date Type Department Care Team (Late st Contact Info) Description 06/15/2017 Ancillary Orders [facility],Outside Imaging [address] [place] [address] System, Provider Not In, PhD [address] [address] Social History Tobacco Use Types Packs/Day Years [...] st Contact Info) Description 02/26/2024 Procedure Pass [address] [place] [address] 03/03/2025 9:15 AM EST Appointment [address] [place] [address] Jamaal López NP [address] [place] [address] [place] [address] documented as of this encounter Results * [...] as of this encounter Care Teams Director Banking Relationship Specialty Start Date End Date Fouzia Gil MD [address] [place] [address] [place] [address] PCP - General Internal Medicine 04/17/17 03/14/18 Alejandrina Newell NP [address] [place] [address] [place] [address] [email or web address] PCP - General Family Medicine 03/15/18 11/03/19 Jamaal López, FAVIO [address] [place] [address] [place] [address] PCP - General Family Medicine 11/04/19 Edwin Segal MD 22 [facility], [address] [address] [email or web address] Historical LMR Provider 11/27/16 02/16/21 Allen Melendrez MD 115 [place] [address] Historical LMR Provider 11/27/16 Srini Maxwell DO [address] [place] [address] Historical LMR Provider 11/27/16 Wiliam Griffin MD 22 [facility], [address] [address] [email or web address] Historical LMR Provider 11/27/16 documented as of this encounter Additional Source Comments The information contained in this document represents components of the legal health record. It is not the complete legal health record.[facility]
--- OUTSIDE RECORDS SUMMARY | 2024-11-29 20:41 | XMS_ITS | Encounter Summary ---
Author Organization [facility] Address [address] [address] Phone Care Team Providers Care Infant Caregiver Name Role Phone Edwin Segal MD Unavailable Allen Melendrez MD Unavailable [phone] Srini Maxwell DO Unavailable [phone] Wiliam Griffin MD Unavailable [phone] Alejandrina Newell ROLLING MACHINE OPERATOR AUTOMATIC Primary Care Provider Jamaal López ROLLING MACHINE OPERATOR AUTOMATIC Primary Care Provider + Encounter Details Date Type Department Care Team (Late st Contact Info) Description 10/11/2019 Procedure Pass [address] [address] Social History Tobacco Use Types Packs/Day Years [...] st Contact Info) Description 02/26/2024 Procedure Pass [address] [place] [address] 03/03/2025 9:15 AM EST Appointment [address] [place] [address] Jamaal López NP [address] [facility] [address] [place] [address] documented as of this encounter Visit Diagnoses Not on filedocumented in this encounter Additional Health Concerns Infection Onset Date Last Indicated Resolved Time CoV-Risk 11/07/2021 11/07/2021 11/18/2021 1:22 AM EDT documented as of this encounter Care Teams Infant Caregiver Relationship Specialty Start Date End Date Alejandrina Newell NP [address] [place] [address] [place] [address] [email or web address] PCP - General Family Medicine 03/15/18 11/03/19 Jamaal López, FAVIO [address] [place] [address] Dr [place] [address] PCP - General Family Medicine 11/04/19 Edwin Segal MD [address] [place] [address] [email or web address] Historical LMR Provider 11/27/16 02/16/21 Allen Melendrez MD 115 [place] [address] Historical LMR Provider 11/27/16 Srini Maxwell DO [address] [place] [address] Historical LMR Provider 11/27/16 Wiliam Griffin MD [address] [place] [address] [email or web address] Historical LMR Provider 11/27/16 documented as of this encounter Additional Source Comments The information contained in this document represents components of the legal health record. It is not the complete legal health record.[facility]
--- OUTSIDE RECORDS SUMMARY | 2024-11-29 20:41 | XMS_ITS | Encounter Summary ---
Author Organization [facility] Address [address] [address] Phone Care Team Providers Care Sleep Manager Name Role Phone Edwin Segal MD Unavailable Allen Melendrez MD Unavailable Srini Maxwell DO Unavailable [phone] Wiliam Griffin MD Unavailable [phone] Fouzia Gil MD Primary Care Provider [phone] Alejandrina Newell BOARDING SPECIALIST Primary Care Provider Jamaal López BOARDING SPECIALIST Primary Care Provider + Reason for Referral * Consultation (Within 1 month) - Closed Specialty Diagnoses / Procedures Referred By Jackson cates Referred To Contact Gastroenterology Diagnoses Gastroesophageal reflux disease with esophagitis Yusef Barron MD Phone: tel: fax: mailto:[email or web address] Reynolds MD Phone: tel: fax: mailto:[email or web address] Referral ID Status Reason Start Date Expiration Date Visits Re quested Visits Authorized [id number] Closed 02/16/2018 02/16/2019 1 1 Encounter Details Date Type Department Care Team (Latest Contact Info) Description 02/16/2018 Transcribe Orders [facility] [address] [facility], 5th [place] [address] Fouzia Gil MD 1961 [facility] [place] [address] Gastroesophageal reflux disease with esophagitis (Primary Dx) [...] st Contact Info) Description 02/26/2024 Procedure Pass [address] [place] [address] 03/03/2025 9:15 AM EST Appointment [address] [place] [address] Jamaal López NP 1961 [facility] [place] [address] Scheduled Referrals Name Type Priority Associated Diagnoses Order Schedule Ambulatory referral to [facility] Gastroenterology (Consult Requests Only) Outpatient Referral Routine Gastroesophageal reflux disease with esophagitis Ordered: 02/16/2018 documented as of this encounter Visit Diagnoses Diagnosis Gastroesophageal reflux disease with esophagitis- Primary documented in this encounter Additional Health Concerns Infection Onset Date Last Indicated Resolved Time CoV-Risk 11/07/2021 11/07/2021 11/18/2021 1:22 AM EDT documented as of this encounter Care Teams Sleep Manager Relationship Specialty Start Date End Date Fouzia Gil MD 1961 [facility] [place] [address] PCP - General Internal Medicine 04/17/17 03/14/18 Alejandrina Newell, FAVIO [address] [place] [address] [place] [address] [email or web address] PCP - General Family Medicine 03/15/18 11/03/19 Jamaal López, FAVIO [address] [place] [address] [place] [address] PCP - General Family Medicine 11/04/19 Edwin Segal MD [address] [place] [address] Historical LMR Provider 11/27/16 02/16/21 Allen Melendrez MD 115 [place] [address] Historical LMR Provider 11/27/16 Srini Maxwell DO [address] [place] [address] Historical LMR Provider 11/27/16 Wiliam Griffin MD [address] [place] [address] Historical LMR Provider 11/27/16 documented as of this encounter Additional Source Comments The information contained in this document represents components of the legal health record. It is not the complete legal health record.[facility]
--- OUTSIDE RECORDS SUMMARY | 2024-11-29 20:41 | XMS_ITS | Data Portability ---
Author Organization [facility], [address] Address [address] [place] [address] Assessment No assessment recorded. Plan of Treatment [...] Time OC- Physical completed J CARLOS Sierra [facility] 03/14/2022 18:51:15 Imaging Results None recorded. [...] Diagnosis SNOMED-CT Code Diagnosis ICD10 Code Diagnosis IMO Codes Diagnosis Note [id number] 20995_[facility] [address] 20995_[facility] [address] [place] [address] 09/22/2015 09:29:34 09/22/2015 10:49:26 [id number] [facility] HUTCHINSON 20995_[facility] [address] [place] [address] 03/14/2022 17:29:41 03/14/2022 19:06:51 History and physical examination, pre-employment [id number] Z02.1 Health Concerns Section Related Observation LastModified [...] TIME OF SERVICE Shawna Veilleux 03/14/2022 1 [facility] ACCESS PLUS [id number] Shawna Hayes [id number] Shawna Hayes OBGyn Episode No OBEpisode recorded.
--- OUTSIDE RECORDS SUMMARY | 2024-11-29 20:41 | XMS_ITS | Encounter Summary ---
Author Organization [facility] Address [address] [address] Phone Care Team Providers Care Superintendent Overhead Distribution Name Role Phone Edwin Segal MD Unavailable Allen Melendrez MD Unavailable [phone] Srini Maxwell DO Unavailable [phone] Wiliam Griffin MD Unavailable [phone] Fouzia Gil MD Primary Care Provider [phone] Alejandrina Newell MEAT HANGER Primary Care Provider Jamaal López MEAT HANGER Primary Care Provider + Encounter Details Date Type Department Care Team (Late st Contact Info) Description 04/21/2017 Procedure Pass [facility] Admitting Dept Virtual Department [address] [place] [address] Social History Tobacco Use Types Packs/Day Years [...] (Late Contact Info) Description 02/26/2024 Procedure Pass [address] [place] [address] 03/03/2025 9:15 AM EST Appointment [address] [place] [address] Jamaal López, FAVIO [address] [place] [address] [place] [address] documented as of this encounter Visit Diagnoses Not on filedocumented in this encounter Additional Health Concerns Infection Onset Date Last Indicated Resolved Time CoV-Risk 11/07/2021 11/07/2021 11/18/2021 1:22 AM EDT documented as of this encounter Care Teams Superintendent Overhead Distribution Relationship Specialty Start Date End Date Fouzia Gil MD [address] [place] [address] [place] [address] PCP - General Internal Medicine 04/17/17 03/14/18 Alejandrina Newell NP [address] [place] [address] [place] [address] [email or web address] PCP - General Family Medicine 03/15/18 11/03/19 Jamaal López, FAVIO [address] [place] [address] [place] [address] PCP - General Family Medicine 11/04/19 Edwin Segal MD [address] [place] [address], [facility] [address] [place] [address] [email or web address] Historical LMR Provider 11/27/16 02/16/21 Allen Melendrez MD [address] [place] [address] Historical LMR Provider 11/27/16 Srini Maxwell DO [address] [place] [address] Historical LMR Provider 11/27/16 Wiliam Griffin MD [address] [place] [address], [facility] [address] [place] [address] [email or web address] Historical LMR Provider 11/27/16 documented as of this encounter Additional Source Comments The information contained in this document represents components of the legal health record. It is not the complete legal health record.[facility]
--- OUTSIDE RECORDS SUMMARY | 2024-11-29 20:41 | XMS_ITS | Encounter Summary ---
Author Organization [facility] Address [address] [address] Phone Care Team Providers Care Hematologist Oncologist Name Role Phone Edwin Segal MD Unavailable Allen Melendrez MD Unavailable [phone] Srini Maxwell DO Unavailable [phone] Wiliam Griffin MD Unavailable [phone] Fouzia Gil MD Primary Care Provider [phone] Alejandrina Newell CASE MONITOR Primary Care Provider Jamaal López CASE MONITOR Primary Care Provider + Reason for Referral * Outpatient Procedure - Closed Specialty Diagnoses / Procedures Referred By Jackson cates Referred To Contact Radiology Diagnoses Pyrosis Weight loss Nausea Procedures NM Gastric Emptying Yusef Barron MD Phone: tel: fax: mailto:[email or web address] Referral ID Status Reason Start Date Expiration Date Visits Re quested Visits Authorized [id number] Closed 04/28/2017 04/28/2018 1 1 Encounter Details Date Type Department Care Team (Late st Contact Info) Description 04/28/2017 Ancillary Orders Virtual Department 30 [place] [address] Yusef Barron MD [address] [address] [email or web address] Pyrosis; Weight loss; Nausea Social History Tobacco [...] Contact Info) Description 02/26/2024 Procedure Pass [address] [place] [address] 03/03/2025 9:15 AM EST Appointment [address] [place] [address] Jamaal López NP [address] [place] [address] [place] [address] documented as of this encounter Results * [...] documented as of this encounter Care Teams Hematologist Oncologist Relationship Specialty Start Date End Date Fouzia Gil MD [address] [place] [address] PCP - General Internal Medicine 04/17/17 03/14/18 Alejandrina Newell NP [address] [place] [address] [place] [address] [email or web address] PCP - General Family Medicine 03/15/18 11/03/19 Jamaal López NP [facility] [place] [address] PCP - General Family Medicine 11/04/19 Edwin Segal MD [address] [address] Historical LMR Provider 11/27/16 02/16/21 Allen Melendrez MD 115 [place] [address] Historical LMR Provider 11/27/16 Srini Maxwell DO [address] [place] [address] Historical LMR Provider 11/27/16 Wiliam Griffin MD [address] [place] [address] Historical LMR Provider 11/27/16 documented as of this encounter Additional Source Comments The information contained in this document represents components of the legal health record. It is not the complete legal health record.[facility]
--- OUTSIDE RECORDS SUMMARY | 2024-11-29 20:41 | XMS_ITS | Encounter Summary ---
Author Organization [facility] Address [address] [address] Phone Care Team Providers Care Ships Or Barges Loader Name Role Phone Edwin Segal MD Unavailable Allen Melendrez MD Unavailable Srini Maxwell DO Unavailable [phone] Wiliam Griffin MD Unavailable [phone] Fouzia Gil MD Primary Care Provider Alejandrina Newell CERTIFIED OPHTHALMIC TECHNOLOGIST Primary Care Provider Jamaal López CERTIFIED OPHTHALMIC TECHNOLOGIST Primary Care Provider + Encounter Details Date Type Department Care Team (Late st Contact Info) Description 05/14/2017 Procedure Pass [facility],Outside Imaging [address] [place] [address] Social History Tobacco Use Types Packs/Day Years [...] st Contact Info) Description 02/26/2024 Procedure Pass [address] [place] [address] 03/03/2025 9:15 AM EST Appointment [address] [place] [address] Jamaal López, FAVIO [address] [place] [address] [place] [address] documented as of this encounter Visit Diagnoses Not on filedocumented in this encounter Additional Health Concerns Infection Onset Date Last Indicated Resolved Time CoV-Risk 11/07/2021 11/07/2021 11/18/2021 1:22 AM EDT documented as of this encounter Care Teams Ships Or Barges Loader Relationship Specialty Start Date End Date Fouzia Gil MD [address] [place] [address] [place] [address] PCP - General Internal Medicine 04/17/17 03/14/18 Alejandrina Newell NP [address] [place] [address] [place] [address] [email or web address] PCP - General Family Medicine 03/15/18 11/03/19 Jamaal López, FAVIO [address] [place] [address] [place] [address] PCP - General Family Medicine 11/04/19 Edwin Segal MD [address] [place] [address], [facility] [address] [place] [address] [email or web address] Historical LMR Provider 11/27/16 02/16/21 Allen Melendrez MD [address] [place] [address] Historical LMR Provider 11/27/16 Srini Maxwell DO [address] [place] [address] Historical LMR Provider 11/27/16 Wiliam Griffin MD [address] [place] [address] [address] [place] [address] [email or web address] Historical LMR Provider 11/27/16 documented as of this encounter Additional Source Comments The information contained in this document represents components of the legal health record. It is not the complete legal health record.[facility]
--- OUTSIDE RECORDS SUMMARY | 2024-11-29 20:41 | XMS_ITS | Encounter Summary ---
Author Organization [facility] Address [address] [place] [address] Phone Care Team Providers Care Solar Pool Heating Installer Name Role Phone Edwin Segal MD Unavailable Allen Melendrez MD Unavailable Srini Maxwell DO Unavailable [phone] Wiliam Griffin MD Unavailable [phone] Fouzia Gil MD Primary Care Provider [phone] Alejandrina Newell FAC ENGINEER Primary Care Provider Jamaal López FAC ENGINEER Primary Care Provider + Encounter Details Date Type Department Care Team (Late st Contact Info) Description 06/15/2017 Ancillary Orders [facility],Outside Imaging [address] [place] [address] System, Provider Not In, PhD [address] [address] Social History Tobacco Use Types Packs/Day Years [...] st Contact Info) Description 02/26/2024 Procedure Pass [address] [place] [address] 03/03/2025 9:15 AM EST Appointment [address] [place] [address] Jamaal López NP [address] [place] [address] documented as of this encounter Results * [...] documented as of this encounter Care Teams Solar Pool Heating Installer Relationship Specialty Start Date End Date Fouzia Gil MD [address] [place] [address] [place] [address] PCP - General Internal Medicine 04/17/17 03/14/18 Alejandrina Newell NP [address] [place] [address] [place] [id number] [email or web address] PCP - General Family Medicine 03/15/18 11/03/19 Jamaal López, FAVIO [address] [place] [address] [place] [address] PCP - General Family Medicine 11/04/19 Edwin Segal MD 22 [facility], [address] [address] Historical LMR Provider 11/27/16 02/16/21 Allen Melendrez MD [address] [place] [address] Historical LMR Provider 11/27/16 Srini Maxwell DO [address] [place] [address] Historical LMR Provider 11/27/16 Wiliam Griffin MD [address] [place] [address], [address] [address] [email or web address] Historical LMR Provider 11/27/16 documented as of this encounter Additional Source Comments The information contained in this document represents components of the legal health record. It is not the complete legal health record.[facility]
--- OUTSIDE RECORDS SUMMARY | 2024-11-29 20:41 | XMS_ITS | Encounter Summary ---
Author Organization [facility] Address [address] [address] Phone Care Team Providers Care X Ray Tech Name Role Phone Edwin Segal MD Unavailable Allen Melendrez MD Unavailable Srini Maxwell DO Unavailable [phone] Wiliam Griffin MD Unavailable Alejandrina Newell GUIDE DOG INSTRUCTOR Primary Care Provider Jamaal López GUIDE DOG INSTRUCTOR Primary Care Provider + Encounter Details Date Type Department Care Team (Late st Contact Info) Description 09/01/2019 Ancillary Orders Virtual Department 30 [place] [address] Jamaal López NP [facility] [place] [address] Breast screening Social History Tobacco Use Types [...] st Contact Info) Description 02/26/2024 Procedure Pass [address] [place] [address] 03/03/2025 9:15 AM EST Appointment [address] [place] [address] Jamaal López, FAVIO [address] [place] [address] [place] [address] documented as of this encounter Results * [...] and compared with multiple prior studies, most ewdqkulp30/17/2019, with utilization of computer-aided detection. The breasts [...] are scattered fibroglandular densities. us Jamaal López GUIDE DOG INSTRUCTOR IMG MG EXAMS Final Re sult documented in this encounter Visit Diagnoses Diagnosis Breast screening Breast screening, unspecified Breast screening Breast screening, unspecified documented in this encounter Additional Health Concerns Infection Onset Date Last Indicated Resolved Time CoV-Risk 11/07/2021 11/07/2021 11/18/2021 1:22 AM EDT documented as of this encounter Care Teams X Ray Tech Relationship Specialty Start Date End Date Alejandrina Newell NP [address] [place] [address] [place] [address] [place] [address] [email or web address] PCP - General Family Medicine 03/15/18 11/03/19 Jamaal López NP [address] [place] [address] [place] [address] PCP - General Family Medicine 11/04/19 Edwin Segal MD [address] [place] [address] [email or web address] Historical LMR Provider 11/27/16 02/16/21 Allen Melendrez MD [address] [place] [address] Historical LMR Provider 11/27/16 Srini Maxwell DO 5 [place] [address] Historical LMR Provider 11/27/16 Wiliam Griffin MD [address] [place] [address] [email or web address] Historical LMR Provider 11/27/16 documented as of this encounter Additional Source Comments The information contained in this document represents components of the legal health record. It is not the complete legal health record.[facility]
--- OUTSIDE RECORDS SUMMARY | 2024-11-29 20:41 | XMS_ITS | Encounter Summary ---
Author Organization [facility] Address [address] [address] Phone Care Team Providers Care Development Technical Lead Name Role Phone Edwin Segal MD Unavailable Allen Melendrez MD Unavailable Srini Maxwell DO Unavailable [phone] Wiliam Griffin MD Unavailable Alejandrina Newell PRESIDENT CEO & FOUNDER Primary Care Provider Jamaal López PRESIDENT CEO & FOUNDER Primary Care Provider + Encounter Details Date Type Department Care Team (Late st Contact Info) Description 05/13/2018 Ancillary Orders [facility] [address] [place] [address] Wiliam Griffin MD [address] [facility], [address] [place] [address] Breast screening Social History Tobacco Use Types [...] Contact Info) Description 02/26/2024 Procedure Pass [address] [place] [address] 03/03/2025 9:15 AM EST Appointment [address] [place] [address] Jamaal López, FAVIO [address] [place] [address] [place] [address] documented as of this encounter Results * [...] documented as of this encounter Care Teams Development Technical Lead Relationship Specialty Start Date End Date Alejandrina Newell NP [address] [place] [address] [place] [address] [email or web address] PCP - General Family Medicine 03/15/18 11/03/19 Jamaal López NP [address] [facility] [place] [address] PCP - General Family Medicine 11/04/19 Edwin Segal MD [address] [place] [address], [address] [place] [address] [email or web address] Historical LMR Provider 11/27/16 02/16/21 Allen Melendrez MD [address] [place] [address] Historical LMR Provider 11/27/16 Srini Maxwell DO 5 [place] [address] Historical LMR Provider 11/27/16 Wiliam Griffin MD [address] [place] [address], [facility] 102 [place] [address] [email or web address] Historical LMR Provider 11/27/16 documented as of this encounter Additional Source Comments The information contained in this document represents components of the legal health record. It is not the complete legal health record.[facility]
--- OUTSIDE RECORDS SUMMARY | 2024-11-29 20:42 | XMS_ITS | Encounter Summary ---
Author Organization [facility] Address [address] [facility] [address] [place] [address] Phone Care Team Providers Care Improvement Advisor Name Role Phone Edwin Segal MD Unavailable Allen Melendrez MD Unavailable Srini Maxwell DO Unavailable [phone] Wiliam Griffin MD Unavailable [phone] Fouzia Gil MD Primary Care Provider [phone] Alejandrina Newell KINDERGARTNERS HELPER Primary Care Provider Jamaal López KINDERGARTNERS HELPER Primary Care Provider + Reason for Referral * MRI/CAT Scan - Closed Specialty Diagnoses / Procedures Referred By Contac t Referred To Contact Procedures CT Abdomen/Pelvis Outside (No Interpretation) System, Provider Not In, PhD [employer] [address] [place] [address] Referral ID Status Reason Start Date Expiration Date Visits Re quested Visits Authorized [id number] Closed 05/14/2017 05/14/2018 1 1 Encounter Details Date Type Department Care Team (Late st Contact Info) Description 05/14/2017 Ancillary Orders [facility],Outside Imaging 30 [place] [address] System, Provider [place] In, [place] [address] Social History Tobacco Use Types Packs/Day Years [...] st Contact Info) Description 02/26/2024 Procedure Pass [address] [place] [address] 03/03/2025 9:15 AM EST Appointment [address] [place] [address] Jamaal López NP [address] [facility] [place] [address] documented as of this encounter Results * [...] documented as of this encounter Care Teams Improvement Advisor Relationship Specialty Start Date End Date Fouzia Gil MD [address] [facility] [place] [address] PCP - General Internal Medicine 04/17/17 03/14/18 Alejandrina Newell NP [address] [place] [address] [place] [address] [email or web address] PCP - General Family Medicine 03/15/18 11/03/19 Jamaal López NP [address] [place] [address] [place] [address] PCP - General Family Medicine 11/04/19 Edwin Segal MD [address] [address] Historical LMR Provider 11/27/16 02/16/21 Allen Melendrez MD 115 [place] [address] Historical LMR Provider 11/27/16 Srini Maxwell DO [address] [place] [address] Historical LMR Provider 11/27/16 Wiliam Griffin MD [address] [place] [address] Historical LMR Provider 11/27/16 documented as of this encounter Additional Source Comments The information contained in this document represents components of the legal health record. It is not the complete legal health record.[facility]
--- OUTSIDE RECORDS SUMMARY | 2024-11-29 20:42 | XMS_ITS | Patient Health Record ---
Author Organization [facility] Address [address] [place] [address] Care Team Providers Care Lead Teacher Name Role Phone Jamaal Early Primary Care Provider Unav ailable Nurys Miller Unavailable [phone] Allergies Allergen (clinical drug ingredient) Drug/Non Drug [...] a day; Duration: 30 day(s) Active Tiotropium Moose Pass Monohydrate 1.25 MCG/ACT 2 puffs Inhalation Once [...] a day; Duration: 30 day(s) Active Ipratropium Moose Pass Active Immunizations Vaccine Route Administration Date Status [...] W/U Status Risk Notes Problem Plantar wart (53839516) Plantar wart (B07.0) Active confirmed Plan Of Treatment Pending Test Test Name Order Date [id number] NAIL, 6 OR MORE 12/25/2015 [id number] NAIL, 6 OR MORE 01/16/2016 [id number] NAIL, 6 OR MORE 09/19/2016 [id number] Destruction, 1-14 11/20/2020 23266, [id number]/INJECT, JOINT/BURSA 0 08/26/2016 Insurance Providers Payer Name Payer Address Payer Phone Subscriber Number Group Number Insured Name Patient Relationship to Insured Coverage Start Date Coverage End Date [facility] [address] [place] [address] [id number] Shawna Hayes Self - patient is the [...]
--- OUTSIDE RECORDS SUMMARY | 2024-11-29 20:42 | XMS_ITS | Clinical Summary ---
Author Organization [facility] Address [address] [address] Phone Care Team Providers Care Railroad Signal And Switch Operator Name Role Phone Wiliam Griffin MD Unavailable [phone] Jamaal López NP Primary Care Provider [...] st Contact Info) Description 02/26/2024 Procedure Pass [address] [place] [address] 03/03/2025 9:15 AM EST Appointment [address] [place] [address] Jamaal López NP [address] [place] [address] [place] [address] Health Maintenance Due Date Last Done Comments CREATININE LEVEL 1971 LIPID PANEL 1971 DEPRESSION SCREENING 1983 SMOKING Hx and SMOKELESS TOBACCO SCREENING 1984 HEPATITIS C SCREENING 1989 HIV ONE-TIME SCREENING (18-65 YEARS) 1989 SCREENING FOR DIABETES 2006 COLOGUARD 2016 COLONOSCOPY 2016 COLORECTAL CANCER SCREENING 2016 FIT TEST 2016 FOBT 2016 SIGMOIDOSCOPY 2016 VIRTUAL COLONOSCOPY 2016 PNEUMOCOCCAL VACCINES (50+ years) (2 of 2 - PCV) 03/11/2022 03/11/2021 PAP SMEAR 03/04/2023 03/04/2022, 12/10, 11/04/2019, Additional history exists INFLUENZA VACCINE (#1) 2024 , 10/10/2022, 10/25/2021, Additional history exists COVID-19 VACCINE (2024- season) 2024 04/15/2023, 12/05/2021, 08/08/2021, Additional history exists Adult Td,Tdap Booster 08/07/2025 08/08/2015, 012 MAMMOGRAM 02/25/2026 02/26/2024, 12/0 10/2021, 12/27/2020, Additional history exists RSV VACCINE (1 - 1-dose 75+ series) 2046 ZOSTER VACCINES Completed 10/25/2021, 07/11/2021 HEPATITIS A [...] of the results and recommendations. Jamaal López CHIEF DEPUTY CLERK/BAILIFF IMG MG EXAMS Final Re sult * Pap Test (03/04/2022 12:00 AM EST) 03/04/2022 03/05/2022 10: 16 AM EST Narrative SEE NARRATIVE - 03/12/2022 4:21 [place] [address] Bookseamer Blindstitch: Ronit Espinoza MD ENVIRONMENTAL REMEDIATION CONSULTANT Cytology Report FINAL DIAGNOSIS A. PAP SMEAR [...] 59, 66, 68) Note: Testing performed by [facility] HR-HPV analysis. Clinical correlation is advised. This HPV test was performed at [facility], [address] [place] [address]. This test has been FDA approved for [facility] cervical cytology specimens. The accuracy and precision of this test for all other specimen sources has been verified in the Cytopathology Laboratory of the [facility] and has not been cleared or approved [...] (Age: 51) Sex: F Institution: [facility] Date of Collection: 03/04/2022 Date of Reported: 03/12/2022 16:21 Results to: Wiliam Griffin MD, BS Wiliam Griffin MD CYTOLOGY ORDERABLES Final Res ult SEE NARRATIVE from Last 3 Months or Most Recently Relevant to Health Maintenance Insurance [facility] HMO [facility] HMO [facility] HMO [facility] Care Teams Railroad Signal And Switch Operator Relationship Specialty Start Date End Date Jamaal López NP [address] [facility] [place] [address] PCP - General Family Medicine 11/04/19 Wiliam Griffin MD [address] [place] [address], [facility] [address] [place] [address] [email or web address] Historical LMR Provider 11/27/16 Additional Source Comments The information contained in this document represents components of the legal health record. It is not the complete legal health record.[facility]
--- OUTSIDE RECORDS SUMMARY | 2024-11-29 20:42 | XMS_ITS | Encounter Summary ---
Author Organization [facility] Address [address] [place] [address] Phone Care Team Providers Care Light Industrial Supervisor Name Role Phone Edwin Segal MD Unavailable Allen Melendrez MD Unavailable Srini Maxwell DO Unavailable [phone] Wiliam Griffin MD Unavailable [phone] Fouzia Gil MD Primary Care Provider [phone] Alejandrina Newell HVAC SPECIALIST Primary Care Provider Jamaal López HVAC SPECIALIST Primary Care Provider + Encounter Details Date Type Department Care Team (Late st Contact Info) Description 06/15/2017 Ancillary Orders [facility],Outside Imaging [address] [place] [address] System, Provider Not In, PhD [address] [address] Social History Tobacco Use Types Packs/Day Years [...] st Contact Info) Description 02/26/2024 Procedure Pass [address] [place] [address] 03/03/2025 9:15 AM EST Appointment [address] [place] [address] Jamaal López NP [address] [place] [address] [place] [address] documented as of this encounter Results * [...] documented as of this encounter Care Teams Light Industrial Supervisor Relationship Specialty Start Date End Date Fouzia Gil MD [address] [place] [address] [place] [address] PCP - General Internal Medicine 04/17/17 03/14/18 Alejandrina Newell NP [address] [place] [address] [place] [address] [email or web address] PCP - General Family Medicine 03/15/18 11/03/19 Jamaal López, FAVIO [address] [place] [address] [place] [address] PCP - General Family Medicine 11/04/19 Edwin Segal MD 22 [facility], [address] [address] [email or web address] Historical LMR Provider 11/27/16 02/16/21 Allen Melendrez MD [address] [place] [address] Historical LMR Provider 11/27/16 Srini Maxwell DO [address] [place] [address] Historical LMR Provider 11/27/16 Wiliam Griffin MD 22 [facility], [address] [address] [email or web address] Historical LMR Provider 11/27/16 documented as of this encounter Additional Source Comments The information contained in this document represents components of the legal health record. It is not the complete legal health record.[facility]
--- OUTSIDE RECORDS SUMMARY | 2024-11-29 20:42 | XMS_ITS | Encounter Summary ---
Author Organization [facility] Address [address] [address] Phone Care Team Providers Care Glue Mill Operator Name Role Phone Edwin Segal MD Unavailable Allen Melendrez MD Unavailable [phone] Srini Maxwell DO Unavailable [phone] Wiliam Griffin MD Unavailable [phone] Fouzia Gil MD Primary Care Provider [phone] Alejandrina Newell PHOTOGRAPHER APPRENTICE Primary Care Provider Jamaal López PHOTOGRAPHER APPRENTICE Primary Care Provider + Encounter Details Date Type Department Care Team (Late st Contact Info) Description 06/11/2017 Ancillary Orders Virtual Department 30 [place] [address] Fouzia Gil MD [facility] [place] [address] Breast screening Social History Tobacco Use Types [...] st Contact Info) Description 02/26/2024 Procedure Pass [address] [place] [address] 03/03/2025 9:15 AM EST Appointment [address] [place] [address] Jamaal López, FAVIO [address] [place] [address] [place] [address] documented as of this encounter Results * [...] documented as of this encounter Care Teams Glue Mill Operator Relationship Specialty Start Date End Date Fouzia Gil MD [facility] [place] [address] PCP - General Internal Medicine 04/17/17 03/14/18 Alejandrina Newell NP [address] [place] [address] [place] [address] [email or web address] PCP - General Family Medicine 03/15/18 11/03/19 Jamaal López, FAVIO [address] [place] [address] [place] [address] PCP - General Family Medicine 11/04/19 Edwin Segal MD [address] [place] [address], [address] [place] [address] [email or web address] Historical LMR Provider 11/27/16 02/16/21 Allen Melendrez MD [address] [place] [address] Historical LMR Provider 11/27/16 Srini Maxwell DO [address] [place] [address] Historical LMR Provider 11/27/16 Wiliam Griffin MD 22 [facility], [facility] [address] [place] [address] [email or web address] Historical LMR Provider 11/27/16 documented as of this encounter Additional Source Comments The information contained in this document represents components of the legal health record. It is not the complete legal health record.[facility]
--- OUTSIDE RECORDS SUMMARY | 2024-11-29 20:42 | XMS_ITS | Encounter Summary ---
Author Organization [facility] Address [address] [place] [address] Phone Care Team Providers Care Brand Ambassador Name Role Phone Edwin Segal MD Unavailable Allen Melendrez MD Unavailable Srini Maxwell DO Unavailable [phone] Wiliam Griffin MD Unavailable [phone] Fouzia Gil MD Primary Care Provider [phone] Alejandrina Newell CAMERA MECHANIC Primary Care Provider Jamaal López CAMERA MECHANIC Primary Care Provider + Encounter Details Date Type Department Care Team (Late st Contact Info) Description 06/15/2017 Ancillary Orders [facility],Outside Imaging 30 [place] [address] System, Provider Not In, PhD [address] [address] Social History Tobacco Use Types Packs/Day Years [...] Contact Info) Description 02/26/2024 Procedure Pass [address] [place] [address] 03/03/2025 9:15 AM EST Appointment [address] [place] [address] Jamaal López NP [address] [place] [address] [place] [address] documented as of this encounter Results * [...] documented as of this encounter Care Teams Brand Ambassador Relationship Specialty Start Date End Date Fouzia Gil MD [address] [place] [address] [place] [address] PCP - General Internal Medicine 04/17/17 03/14/18 Alejandrina Newell NP [address] [place] [address] [place] [address] [email or web address] PCP - General Family Medicine 03/15/18 11/03/19 Jamaal López, FAVIO [address] [place] [address] [place] [address] PCP - General Family Medicine 11/04/19 Edwin Segal MD 22 [facility], [address] [address] [email or web address] Historical LMR Provider 11/27/16 02/16/21 Allen Melendrez MD [address] [place] [address] Historical LMR Provider 11/27/16 Srini Maxwell DO [address] [place] [address] Historical LMR Provider 11/27/16 Wiliam Griffin MD 22 [facility], [address] [address] [email or web address] Historical LMR Provider 11/27/16 documented as of this encounter Additional Source Comments The information contained in this document represents components of the legal health record. It is not the complete legal health record.[facility]
--- OUTSIDE RECORDS SUMMARY | 2024-11-29 20:42 | XMS_ITS | Encounter Summary ---
Author Organization [facility] Address [address] [place] [address] Phone Care Team Providers Care Proposal Editor Name Role Phone Edwin Segal MD Unavailable Allen Melendrez MD Unavailable [phone] Srini Maxwell DO Unavailable [phone] Wiliam Griffin MD Unavailable [phone] Fouzia Gil MD Primary Care Provider [phone] Alejandrina Newell MUSIC SOUND LIGHT TECHNICIAN Primary Care Provider Jamaal López MUSIC SOUND LIGHT TECHNICIAN Primary Care Provider + Encounter Details Date Type Department Care Team (Late st Contact Info) Description 06/15/2017 Ancillary Orders [facility],Outside Imaging 30 [place] [address] System, Provider Not In, PhD [address] [address] Social History Tobacco Use Types Packs/Day Years [...] st Contact Info) Description 02/26/2024 Procedure Pass [address] [place] [address] 03/03/2025 9:15 AM EST Appointment [address] [place] [address] Jamaal López NP [address] [place] [address] [place] [address] documented as of this encounter Results * [...] documented as of this encounter Care Teams Proposal Editor Relationship Specialty Start Date End Date Fouzia Gil MD [address] [place] [address] [place] [address] PCP - General Internal Medicine 04/17/17 03/14/18 Alejandrina Newell NP [address] [place] [address] [place] [address] [email or web address] PCP - General Family Medicine 03/15/18 11/03/19 Jamaal López, FAVIO [address] [place] [address] [place] [address] PCP - General Family Medicine 11/04/19 Edwin Segal MD 22 [facility], [address] [address] [email or web address] Historical LMR Provider 11/27/16 02/16/21 Allen Melendrez MD [address] [place] [address] Historical LMR Provider 11/27/16 Srini Maxwell DO [address] [place] [address] Historical LMR Provider 11/27/16 Wiliam Griffin MD 22 [facility], [address] [address] [email or web address] Historical LMR Provider 11/27/16 documented as of this encounter Additional Source Comments The information contained in this document represents components of the legal health record. It is not the complete legal health record.[facility]
--- OUTSIDE RECORDS SUMMARY | 2024-11-29 20:42 | XMS_ITS | Encounter Summary ---
Author Organization [facility] Address [address] [place] [address] Phone Care Team Providers Care Deck Scaler Name Role Phone Edwin Segal MD Unavailable Allen Melendrez MD Unavailable [phone] Srini Maxwell DO Unavailable [phone] Wiliam Griffin MD Unavailable [phone] Fouzia Gil MD Primary Care Provider [phone] Alejandrina Newell DRY CELL BATTERY ASSEMBLER Primary Care Provider Jamaal López DRY CELL BATTERY ASSEMBLER Primary Care Provider + Encounter Details Date Type Department Care Team (Late st Contact Info) Description 06/15/2017 Ancillary Orders [facility],Outside Imaging [address] [place] [address] System, Provider Not In, PhD [address] [address] Social History Tobacco Use Types Packs/Day Years [...] Contact Info) Description 02/26/2024 Procedure Pass [address] [place] [address] 03/03/2025 9:15 AM EST Appointment [address] [place] [address] Jamaal López NP [address] [place] [address] [place] [address] documented as of this encounter Results * [...] documented as of this encounter Care Teams Deck Scaler Relationship Specialty Start Date End Date Fouzia Gil MD [address] [place] [address] [place] [address] PCP - General Internal Medicine 04/17/17 03/14/18 Alejandrina Newell NP [address] [place] [address] [place] [email or web address] PCP - General Family Medicine 03/15/18 11/03/19 Jamaal López, FAVIO [address] [place] [address] [place] [address] PCP - General Family Medicine 11/04/19 Edwin Segal MD [facility], [address] [address] [email or web address] Historical LMR Provider 11/27/16 02/16/21 Allen Melendrez MD [address] [place] [address] Historical LMR Provider 11/27/16 Srini Maxwell DO [address] [place] [address] Historical LMR Provider 11/27/16 Wiliam Griffin MD [facility], [address] [address] [email or web address] Historical LMR Provider 11/27/16 documented as of this encounter Additional Source Comments The information contained in this document represents components of the legal health record. It is not the complete legal health record.[facility]
--- OUTSIDE RECORDS SUMMARY | 2024-11-29 20:42 | XMS_ITS | Encounter Summary ---
Author Organization [facility] Address [address] [facility] [address] [place] [address] Phone Care Team Providers Care Objective C Developer Name Role Phone Wiliam Griffin MD Unavailable [phone] Jamaal López NP Primary Care Provider + Encounter Details Date Type Department Care Team (Late st Contact Info) Description 10/13/2023 Procedure Pass [facility], [facility] [address] [place] [address] Social History Tobacco Use Types Packs/Day Years [...] st Contact Info) Description 02/26/2024 Procedure Pass [address] [place] [address] 03/03/2025 9:15 AM EST Appointment [address] [place] [address] Jamaal López NP [address] [place] [address] [place] [address] documented as of this encounter Visit Diagnoses Not on filedocumented in this encounter Care Teams Objective C Developer Relationship Specialty Start Date End Date Jamaal López NP [address] [place] [address] [place] [address] PCP - General Family Medicine 11/04/19 Wiliam Griffin MD [address] [place] [address], [facility] [address] [place] [address] [email or web address] Historical LMR Provider 11/27/16 documented as of this encounter Additional Source Comments The information contained in this document represents components of the legal health record. It is not the complete legal health record.[facility]
--- OUTSIDE RECORDS SUMMARY | 2024-11-29 20:42 | XMS_ITS | Encounter Summary ---
Author Organization [facility] Address [address] [address] Phone Care Team Providers Care Artificial Plastic Eye Maker Name Role Phone Wiliam Griffin MD Unavailable [phone] Jamaal López NP Primary Care Provider + Encounter Details Date Type Department Care Team (Late st Contact Info) Description 12/27/2021 Procedure Pass [address] [place] [address] Social History Tobacco Use Types Packs/Day Years [...] Contact Info) Description 02/26/2024 Procedure Pass [address] [place] [address] 03/03/2025 9:15 AM EST Appointment [address] [place] [address] Jamaal López NP [address] [place] [address] Dr Starkey [place]SE JUAN [address] documented as of this encounter Visit Diagnoses Not on filedocumented in this encounter Care Teams Artificial Plastic Eye Maker Relationship Specialty Start Date End Date Jamaal López NP [address] [facility] Dr Starkey [place]SE JUAN [address] PCP - General Family Medicine 11/04/19 Wiliam Griffin MD [address] [place] [address], [address] [place] [address] [email or web address] Historical LMR Provider 11/27/16 documented as of this encounter Additional Source Comments The information contained in this document represents components of the legal health record. It is not the complete legal health record.[facility]
== END 2024-11-29 16:28 | disposition home or self-care (01) ==
PROVIDERS: PCP Nurse Practitioner Family; Visit Provider Family Medicine
DX: M25.521 Pain in right elbow (principal)

== ENCOUNTER 2024-12-29 14:44 | Outpatient (REF) | payer OTHER, SELFPAY ==
--- OUTSIDE RECORDS SUMMARY | 2011-05-21 23:00 | XMS_ITS | Encounter Summary ---
Author Organization [facility] Address 399 [facility] [address] [place] [address] Phone Care Team Providers Care Pastry Artist Name Role Phone Unavailable Primary Care Provider Unavailabl e Encounter Details Date Type Department Care Team (Late Contact Info) Description 05/22/2011 Hospital Encounter [facility],Outside Imaging 30 [place] [address] System, Provider Not In, [facility] [address] [address] Social History Tobacco Use Types Packs/Day Years [...] (Late Contact Info) Description 02/26/2024 Procedure Pass [address] [place] [address] 03/03/2025 9:15 AM EST Appointment [address] [place] [address] Jamaal López, FAVIO [address] [place] [address] [place] [address] documented as of this encounter Procedures Procedure [...] It is not the complete legal health record.[facility]
--- OUTSIDE RECORDS SUMMARY | 2011-05-26 23:00 | XMS_ITS | Encounter Summary ---
Author Organization [facility] Address [address] [facility] [address] [place] [address] Phone Care Team Providers Care Bag Bundler Name Role Phone Unavailable Primary Care Provider Unavailabl e Encounter Details Date Type Department Care Team (Late Contact Info) Description 05/27/2011 Hospital Encounter [facility],Outside Imaging 30 [place] [address] System, Provider Not In, [facility] [address] [address] Social History Tobacco Use Types Packs/Day Years [...] (Late Contact Info) Description 02/26/2024 Procedure Pass [address] [place] [address] 03/03/2025 9:15 AM EST Appointment [address] [place] [address] Jamaal López, FAVIO [address] [place] [address] [place] [address] documented as of this encounter Procedures Procedure [...] It is not the complete legal health record.[facility]
--- OUTSIDE RECORDS SUMMARY | 2011-05-26 23:15 | XMS_ITS | Encounter Summary ---
Author Organization [facility] Address [address] [facility] [address] [place] [address] Phone Care Team Providers Care Central Office Repairer Supervisor Name Role Phone Unavailable Primary Care Provider Unavailabl e Encounter Details Date Type Department Care Team (Late Contact Info) Description 05/27/2011 12:15 AM EDT Hospital Encounter [facility],Outside Imaging 30 [place] [address] System, Provider Not In, PhD [facility] [address] [address] Social History Tobacco Use Types Packs/Day Years [...] (Late Contact Info) Description 02/26/2024 Procedure Pass [address] [place] [address] 03/03/2025 9:15 AM EST Appointment [address] [place] [address] Jamaal López, FAVIO [address] [place] [address] [place] [address] documented as of this encounter Procedures Procedure [...] It is not the complete legal health record.[facility]
--- OUTSIDE RECORDS SUMMARY | 2012-09-07 23:00 | XMS_ITS | Encounter Summary ---
Author Organization [facility] Address [address] [facility] [address] [place] [address] Phone Care Team Providers Care Physician Assistant Name Role Phone Unavailable Primary Care Provider Unavailabl e Encounter Details Date Type Department Care Team (Late Contact Info) Description 09/08/2012 Hospital Encounter [facility],Outside Imaging 30 [place] [address] System, Provider Not In, PhD Partners [address] [address] Social History Tobacco Use Types Packs/Day Years [...] (Late Contact Info) Description 02/26/2024 Procedure Pass [address] [place] [address] 03/03/2025 9:15 AM EST Appointment [address] [place] [address] Jamaal López, FAVIO [address] [place] [address] [place] [address] documented as of this encounter Procedures Procedure [...] It is not the complete legal health record.[facility]
--- OUTSIDE RECORDS SUMMARY | 2012-09-13 23:00 | XMS_ITS | Encounter Summary ---
Author Organization [facility] Address [address] [facility] [address] [place] [address] Phone Care Team Providers Care Char Filter Operator Name Role Phone Unavailable Primary Care Provider Unavailabl e Encounter Details Date Type Department Care Team (Late Contact Info) Description 09/14/2012 Hospital Encounter [facility],Outside Imaging 30 [place] [address] System, Provider Not In, PhD Partners [address] [address] Social History Tobacco Use Types Packs/Day Years Used Date Smoking Tobacco: Former Cigarettes Q uit: 11/18/2006 Smokeless Tobacco: Never Alcohol Use Standard Drinks/Week Comments Yes 0 (1 standard drink = 0.6 oz pur e alcohol) rare Education Answer Date Recorded Are you interested in more education? Not on kaite e 06/06/2022 Are you concerned about learning? [...] (Late Contact Info) Description 02/26/2024 Procedure Pass [address] [place] [address] 03/03/2025 9:15 AM EST Appointment [address] [place] [address] Jamaal López, FAVIO [address] [place] [address] [place] [address] documented as of this encounter Procedures Procedure Name Priority Date/Time Associated Diagnosis Comments BI MAMMOGRAM OUTSIDE (NO INTERPRETATION) Routine 09/14/2012 12:00 AM EDT documented in this encounter Results * Mammogram Outside (No Interpretation) (09/14/2012 12:00 AM EDT) Narrative SYSTEMGENERATED, DOCUMENTATION - 06/15/2017 11:43 AM EDT This study is for PACS [...] It is not the complete legal health record.[facility]
--- OUTSIDE RECORDS SUMMARY | 2014-02-23 | XMS_ITS | Encounter Summary ---
Author Organization [facility] Address [address] [facility] [address] [place] [address] Phone Care Team Providers Care Account Services Specialist Name Role Phone Unavailable Primary Care Provider Unavailabl e Encounter Details Date Type Department Care Team (Late Contact Info) Description 02/23/2014 Hospital Encounter [facility],Outside Imaging 30 [place] [address] System, Provider Not In, [facility] [address] [address] Social History Tobacco Use Types Packs/Day Years [...] (Late Contact Info) Description 02/26/2024 Procedure Pass [address] [place] [address] 03/03/2025 9:15 AM EST Appointment [address] [place] [address] Jamaal López, FAVIO [address] [place] [address] [place] [address] documented as of this encounter Procedures Procedure [...]
--- OUTSIDE RECORDS SUMMARY | 2016-06-03 23:00 | XMS_ITS | Encounter Summary ---
Author Organization [facility] Address [address] [facility] [address] [place] [address] Phone Care Team Providers Care Cleaner Name Role Phone Unavailable Primary Care Provider Unavailabl e Encounter Details Date Type Department Care Team (Late Contact Info) Description 06/04/2016 Hospital Encounter [facility],Outside Imaging 30 [place] [address] System, Provider Not In, [facility] [address] [address] Social History Tobacco Use Types Packs/Day Years [...] (Late Contact Info) Description 02/26/2024 Procedure Pass [address] [place] [address] 03/03/2025 9:15 AM EST Appointment [address] [place] [address] Jamaal López, FAVIO [address] [place] [address] [place] [address] documented as of this encounter Procedures Procedure [...] It is not the complete legal health record.[facility]
--- OUTSIDE RECORDS SUMMARY | 2024-12-29 20:07 | XMS_ITS | Encounter Summary ---
Author Organization [facility] Address [address] [place] [address] Phone Care Team Providers Care Briquette Machine Operator Helper Name Role Phone Edwin Segal MD Unavailable Allen Melendrez MD Unavailable Srini Maxwell DO Unavailable [phone] Wiliam Griffin MD Unavailable [phone] Fouzia Gil MD Primary Care Provider Alejandrina Newell CARAMEL CANDY MAKER HELPER Primary Care Provider Jamaal López CARAMEL CANDY MAKER HELPER Primary Care Provider + Encounter Details Date Type Department Care Team (Late st Contact Info) Description 06/15/2017 Ancillary Orders [facility],Outside Imaging 30 [place] [address] System, Provider Not In, PhD [address] [address] Social History Tobacco Use Types Packs/Day Years [...] st Contact Info) Description 02/26/2024 Procedure Pass [address] [place] [address] 03/03/2025 9:15 AM EST Appointment [address] [place] [address] aJmaal López NP [address] [place] [address] Dr Swanson [place]SE JUAN [address] documented as of this encounter Results * [...] documented as of this encounter Care Teams Briquette Machine Operator Helper Relationship Specialty Start Date End Date Fouzia Gil MD [address] [place] [address] Jocelyn JOSE JUAN SWANSON [address] PCP - General Internal Medicine 04/17/17 03/14/18 Alejandrina Newell NP [address] [place] [address] [place] [email or web address] PCP - General Family Medicine 03/15/18 11/03/19 Jamaal López, FAVIO [address] [place] [address] Dr Swanson JOSE JUAN [address] PCP - General Family Medicine 11/04/19 Edwin Segal MD 22 [facility], [address] [address] [email or web address] Historical LMR Provider 11/27/16 02/16/21 Allen Melendrez MD [address] [place] [address] Historical LMR Provider 11/27/16 Srini Maxwell DO [address] [place] [address] Historical LMR Provider 11/27/16 Wiliam Griffin MD 22 [facility], [address] [address] [email or web address] Historical LMR Provider 11/27/16 documented as of this encounter Additional Source Comments The information contained in this document represents components of the legal health record. It is not the complete legal health record.[facility]
--- OUTSIDE RECORDS SUMMARY | 2024-12-29 20:08 | XMS_ITS | Encounter Summary ---
Author Organization [facility] Address [address] [address] Phone Care Team Providers Care Energy Consultant Name Role Phone Edwin Segal MD Unavailable Allen Melendrez MD Unavailable Srini Maxwell DO Unavailable [phone] Wiliam Griffin MD Unavailable [phone] Fouzia Gil MD Primary Care Provider [phone] Alejandrina Newell SENIOR LIVING ADVISOR Primary Care Provider Jamaal López SENIOR LIVING ADVISOR Primary Care Provider + Encounter Details Date Type Department Care Team (Late st Contact Info) Description 04/21/2017 Procedure Pass [facility] Admitting Dept Virtual Department [address] [place] [address] Social History Tobacco Use Types Packs/Day Years [...] (Late Contact Info) Description 02/26/2024 Procedure Pass [address] [place] [address] 03/03/2025 9:15 AM EST Appointment [address] [place] [address] Jamaal López, FAVIO [address] [place] [address] [place] [address] documented as of this encounter Visit Diagnoses Not on filedocumented in this encounter Additional Health Concerns Infection Onset Date Last Indicated Resolved Time CoV-Risk 11/07/2021 11/07/2021 11/18/2021 1:22 AM EDT documented as of this encounter Care Teams Energy Consultant Relationship Specialty Start Date End Date Fouzia Gil MD [address] [place] [address] [facility] [place] PCP - General Internal Medicine 04/17/17 03/14/18 Alejandrina Newell NP [address] [place] [address] [place] [address] [email or web address] PCP - General Family Medicine 03/15/18 11/03/19 Jamaal López, FAVIO [address] [place] [address] [place] [address] PCP - General Family Medicine 11/04/19 Edwin Segal MD [address] [place] [address], [facility] [address] [place] [address] [email or web address] Historical LMR Provider 11/27/16 02/16/21 Allen Melendrez MD [address] [place] [address] Historical LMR Provider 11/27/16 Srini Maxwell DO 5 [place] [address] Historical LMR Provider 11/27/16 Wiliam Griffin MD [address] [place] [address], [facility] [address] [place] [address] [email or web address] Historical LMR Provider 11/27/16 documented as of this encounter Additional Source Comments The information contained in this document represents components of the legal health record. It is not the complete legal health record.[facility]
--- OUTSIDE RECORDS SUMMARY | 2024-12-29 20:08 | XMS_ITS | Encounter Summary ---
Author Organization [facility] Address [address] [place] [address] Phone Care Team Providers Care Stuntman Name Role Phone Edwin Segal MD Unavailable Allen Melendrez MD Unavailable [phone] Srini Maxwell DO Unavailable [phone] Wiliam Griffin MD Unavailable [phone] Fouzia Gil MD Primary Care Provider [phone] Alejandrina Newell COAL WASHER TENDER Primary Care Provider Jamaal López COAL WASHER TENDER Primary Care Provider + Encounter Details Date Type Department Care Team (Late st Contact Info) Description 06/15/2017 Ancillary Orders [facility],Outside Imaging 30 [place] [address] System, Provider Not In, PhD [address] [address] Social History Tobacco Use Types Packs/Day Years [...] st Contact Info) Description 02/26/2024 Procedure Pass [address] [place] [address] 03/03/2025 9:15 AM EST Appointment [address] [place] [address] Jamaal López NP [address] [place] [address] Dr Swanson JO[place] JUAN [address] documented as of this encounter Results * [...] documented as of this encounter Care Teams Stuntman Relationship Specialty Start Date End Date Fouzia Gil MD [address] [place] [address] Jocelyn JOSE JUAN SWANSON [address] PCP - General Internal Medicine 04/17/17 03/14/18 Alejandrina Newell NP [address] [place] [address] [place] [address] [email or web address] PCP - General Family Medicine 03/15/18 11/03/19 Jamaal López, FAVIO [address] [place] [address] Dr Swanson JOSE JUAN [address] PCP - General Family Medicine 11/04/19 Edwin Segal MD 22 [facility], [address] [address] Historical LMR Provider 11/27/16 02/16/21 Allen Melendrez MD [address] [place] [address] Historical LMR Provider 11/27/16 Srini Maxwell DO [address] [place] [address] Historical LMR Provider 11/27/16 Wiliam Griffin MD [address] [place] [address], [address] [address] [email or web address] Historical LMR Provider 11/27/16 documented as of this encounter Additional Source Comments The information contained in this document represents components of the legal health record. It is not the complete legal health record.[facility]
--- OUTSIDE RECORDS SUMMARY | 2024-12-29 20:08 | XMS_ITS | Data Portability ---
Author Organization [facility], [address] Address [address] [place] [address] Assessment No assessment recorded. Plan of Treatment [...] Time OC- Physical completed J CARLOS [facility] 03/14/2022 18:51:15 Imaging Results None recorded. [...] ICD10 Code Diagnosis IMO Codes Diagnosis Note [id number] 20[facility] [address] 20[facility] [address] [place] [address] 09/22/2015 09:29:34 09/22/2015 10:49:26 [id number] [facility] HUTCHINSON [facility] [address] [place] [address] 03/14/2022 17:29:41 03/14/2022 19:06:51 History and physical examination, pre-employment [id number] Z02.1 Health Concerns Section Related Observation LastModified [...] TIME OF SERVICE Shawna Veilleux 03/14/2022 1 [facility] [id number] Shawna Hayes [id number] Shawna Hayes OBGyn Episode No OBEpisode recorded.
--- OUTSIDE RECORDS SUMMARY | 2024-12-29 20:08 | XMS_ITS | Encounter Summary ---
Author Organization [facility] Address [address] [address] Phone Care Team Providers Care Firearms Assembly Supervisor Name Role Phone Edwin Segal MD Unavailable Allen Melendrez MD Unavailable Srini Maxwell DO Unavailable [phone] Wiliam Griffin MD Unavailable [phone] Alejandrina Newell AIR SURVEILLANCE OPERATOR Primary Care Provider Jamaal López AIR SURVEILLANCE OPERATOR Primary Care Provider + Encounter Details Date Type Department Care Team (Late st Contact Info) Description 10/11/2019 Procedure Pass [address] [address] Social History Tobacco Use Types Packs/Day Years [...] st Contact Info) Description 02/26/2024 Procedure Pass [address] [place] [address] 03/03/2025 9:15 AM EST Appointment [address] [place] [address] Jamaal López NP [address] [facility] Dr Starkey JOSE JUAN [address] documented as of this encounter Visit Diagnoses Not on filedocumented in this encounter Additional Health Concerns Infection Onset Date Last Indicated Resolved Time CoV-Risk 11/07/2021 11/07/2021 11/18/2021 1:22 AM EDT documented as of this encounter Care Teams Firearms Assembly Supervisor Relationship Specialty Start Date End Date Alejandrina Newell NP [address] [place] [address] [place] [address] [email or web address] PCP - General Family Medicine 03/15/18 11/03/19 Jamaal López, FAVIO [address] [place] [address] Dr Starkey JOSE JUAN [address] PCP - General Family Medicine 11/04/19 Edwin Segal MD [address] [place] [address] [email or web address] Historical LMR Provider 11/27/16 02/16/21 Allen Melendrez MD [address] [place] [address] Historical LMR Provider 11/27/16 Srini Maxwell DO [address] [place] [address] Historical LMR Provider 11/27/16 Wiliam Griffin MD [address] [place] [address] [email or web address] Historical LMR Provider 11/27/16 documented as of this encounter Additional Source Comments The information contained in this document represents components of the legal health record. It is not the complete legal health record.[facility]
--- OUTSIDE RECORDS SUMMARY | 2024-12-29 20:08 | XMS_ITS | Encounter Summary ---
Author Organization [facility] Address [address] [place] [address] Phone Care Team Providers Care Piping Manager Name Role Phone Edwin Segal MD Unavailable Allen Melendrez MD Unavailable Srini Maxwell DO Unavailable [phone] Wiliam Griffin MD Unavailable [phone] Fouzia Gil MD Primary Care Provider [phone] Alejandrina Newell AVIONICS TECHNICIAN Primary Care Provider Jamaal López AVIONICS TECHNICIAN Primary Care Provider + Encounter Details Date Type Department Care Team (Late st Contact Info) Description 06/15/2017 Ancillary Orders [facility],Outside Imaging 30 [place] [address] System, Provider Not In, PhD [address] [address] Social History Tobacco Use Types Packs/Day Years [...] st Contact Info) Description 02/26/2024 Procedure Pass [address] [place] [address] 03/03/2025 9:15 AM EST Appointment [address] [place] [address] Jamaal López NP [address] [place] [address] Dr Swanson JOSE JUAN [address] documented as of this encounter Results * [...] documented as of this encounter Care Teams Piping Manager Relationship Specialty Start Date End Date Fouzia Gil MD [address] [place] [address] Jocelyn JOSE JUAN SWANSON [address] PCP - General Internal Medicine 04/17/17 03/14/18 Alejandrina Newell NP [address] [place] [address] [place] [address] [email or web address] PCP - General Family Medicine 03/15/18 11/03/19 Jamaal López, FAVIO [address] [place] [address] Dr Swanson JOSE JUAN [address] PCP - General Family Medicine 11/04/19 Edwin Segal MD [facility], [address] [address] [email or web address] Historical LMR Provider 11/27/16 02/16/21 Allen Melendrez MD [address] [place] [address] Historical LMR Provider 11/27/16 Srini Maxwell DO [address] [place] [address] Historical LMR Provider 11/27/16 Wiliam Griffin MD 22 [facility], [address] [address] [email or web address] Historical LMR Provider 11/27/16 documented as of this encounter Additional Source Comments The information contained in this document represents components of the legal health record. It is not the complete legal health record.[facility]
--- OUTSIDE RECORDS SUMMARY | 2024-12-29 20:08 | XMS_ITS | Encounter Summary ---
Author Organization [facility] Address [address] [address] Phone Care Team Providers Care Ironer Hand Name Role Phone Edwin Segal MD Unavailable Allen Melendrez MD Unavailable [phone] Srini Maxwell DO Unavailable [phone] Wiliam Griffin MD Unavailable [phone] Fouzia Gil MD Primary Care Provider [phone] Alejandrina Newell WAREHOUSE LOGISTICS COORDINATOR Primary Care Provider Jamaal López WAREHOUSE LOGISTICS COORDINATOR Primary Care Provider + Reason for Referral * Outpatient Procedure - Closed Specialty Diagnoses / Procedures Referred By Jackson cates Referred To Contact Radiology Diagnoses Pyrosis Weight loss Nausea Procedures NM Gastric Emptying Yusef Barron MD Phone: tel: fax: mailto:[email or web address] Referral ID Status Reason Start Date Expiration Date Visits Re quested Visits Authorized [id number] Closed 04/28/2017 04/28/2018 1 1 Encounter Details Date Type Department Care Team (Late st Contact Info) Description 04/28/2017 Ancillary Orders Virtual Department 30 [place] [address] Yusef Barron MD [address] [address] [email or web address] Pyrosis; Weight loss; Nausea Social History Tobacco [...] st Contact Info) Description 02/26/2024 Procedure Pass [address] [place] [address] 03/03/2025 9:15 AM EST Appointment [address] [place] [address] Jamaal López NP [address] [place] [address] [place] [address] documented as of this encounter Results * [...] documented as of this encounter Care Teams Ironer Hand Relationship Specialty Start Date End Date Fouzia Gil MD [address] [place] [address] PCP - General Internal Medicine 04/17/17 03/14/18 Alejandrina Newell NP [address] [place] [address] [place] [address] [email or web address] PCP - General Family Medicine 03/15/18 11/03/19 Jamaal López NP [facility] [place] [address] PCP - General Family Medicine 11/04/19 Edwin Segal MD [address] [address] Historical LMR Provider 11/27/16 02/16/21 Allen Melendrez MD [address] [place] [address] Historical LMR Provider 11/27/16 Srini Maxwell DO [address] [place] [address] Historical LMR Provider 11/27/16 Wiliam Griffin MD [address] [place] [address] Historical LMR Provider 11/27/16 documented as of this encounter Additional Source Comments The information contained in this document represents components of the legal health record. It is not the complete legal health record.[facility]
--- OUTSIDE RECORDS SUMMARY | 2024-12-29 20:08 | XMS_ITS | Encounter Summary ---
Author Organization [facility] Address 399 [facility] [address] [place] [address] Phone Care Team Providers Care Personal Care Aid Name Role Phone Wiliam Griffin MD Unavailable [phone] Jamaal López NP Primary Care Provider + Encounter Details Date Type Department Care Team (Late st Contact Info) Description 10/13/2023 Procedure Pass [facility] [employer] [facility] 30 [place] [address] Social History Tobacco Use Types Packs/Day Years [...] st Contact Info) Description 02/26/2024 Procedure Pass [address] [place] [address] 03/03/2025 9:15 AM EST Appointment [address] [place] [address] Jamaal López NP [address] [place] [address] [place] [address] documented as of this encounter Visit Diagnoses Not on filedocumented in this encounter Care Teams Personal Care Aid Relationship Specialty Start Date End Date Jamaal López NP [address] [place] [address] [place] [address] PCP - General Family Medicine 11/04/19 Wiliam Griffin MD [address] [place] [address], [facility] [address] [place] [address] [email or web address] Historical LMR Provider 11/27/16 documented as of this encounter Additional Source Comments The information contained in this document represents components of the legal health record. It is not the complete legal health record.[facility]
--- OUTSIDE RECORDS SUMMARY | 2024-12-29 20:08 | XMS_ITS | Encounter Summary ---
Author Organization [facility] Address [address] [address] Phone Care Team Providers Care Field Research Associate Name Role Phone Edwin Segal MD Unavailable Allen Melendrez MD Unavailable Srini Maxwell DO Unavailable [phone] Wiliam Griffin MD Unavailable Fouzia Gil MD Primary Care Provider [phone] Alejandrina Newell FURNITURE RENTAL CONSULTANT Primary Care Provider Jamaal López FURNITURE RENTAL CONSULTANT Primary Care Provider + Reason for Referral * Consultation (Within 1 month) - Closed Specialty Diagnoses / Procedures Referred By Jackson cates Referred To Contact Gastroenterology Diagnoses Gastroesophageal reflux disease with esophagitis Yusef Barron MD Phone: tel: fax: mailto:[email or web address] Reynolds MD Phone: tel: fax: mailto:[email or web address] Referral ID Status Reason Start Date Expiration Date Visits Re quested Visits Authorized [id number] Closed 02/16/2018 02/16/2019 1 1 Encounter Details Date Type Department Care Team (Latest Contact Info) Description 02/16/2018 Transcribe Orders [facility] [address] [facility], 5th [place] [address] Fouzia Gil MD [address] [place] [address] Gastroesophageal reflux disease with esophagitis (Primary Dx) [...] st Contact Info) Description 02/26/2024 Procedure [address] [place] [address] 03/03/2025 9:15 AM EST Appointment [address] [place] [address] Jamaal Lóepz, FAVIO [address] [place] [address] [place] [address] Scheduled Referrals Name Type Priority Associated Diagnoses Order Schedule Ambulatory referral to [facility] (Consult Requests Only) Outpatient Referral Routine Gastroesophageal reflux disease with esophagitis Ordered: 02/16/2018 documented as of this encounter Visit Diagnoses Diagnosis Gastroesophageal reflux disease with esophagitis- Primary documented in this encounter Additional Health Concerns Infection Onset Date Last Indicated Resolved Time CoV-Risk 11/07/2021 11/07/2021 11/18/2021 1:22 AM EDT documented as of this encounter Care Teams Field Research Associate Relationship Specialty Start Date End Date Fouzia Gil MD [address] [place] [address] [place] [address] PCP - General Internal Medicine 04/17/17 03/14/18 Alejandrina Newell, FAVIO [address] [place] [address] [place] [address] [email or web address] PCP - General Family Medicine 03/15/18 11/03/19 Jamaal López, FAVIO [address] [place] [address] [place] [address] PCP - General Family Medicine 11/04/19 Edwin Segal MD [address] [place] [address] Historical LMR Provider 11/27/16 02/16/21 Allen Melendrez MD [address] [place] [address] Historical LMR Provider 11/27/16 Srini Maxwell DO [address] [place] [address] Historical LMR Provider 11/27/16 Wiliam Griffin MD [address] [place] [address] Historical LMR Provider 11/27/16 documented as of this encounter Additional Source Comments The information contained in this document represents components of the legal health record. It is not the complete legal health record.[facility]
--- OUTSIDE RECORDS SUMMARY | 2024-12-29 20:08 | XMS_ITS | Encounter Summary ---
Author Organization [facility] Address [address] [address] Phone Care Team Providers Care Ammonium Sulfate Operator Name Role Phone Edwin Segal MD Unavailable Allen Melendrez MD Unavailable [phone] Srini Maxwell DO Unavailable [phone] Wiliam Griffin MD Unavailable [phone] Alejandrina Newell ENTRY LEVEL PARALEGAL Primary Care Provider Jamaal López ENTRY LEVEL PARALEGAL Primary Care Provider + Encounter Details Date Type Department Care Team (Late st Contact Info) Description 05/13/2018 Ancillary Orders [facility] [address] [place] [address] Wiliam Griffin MD [address] [facility], [address] [place] [address] Breast screening Social History Tobacco Use Types [...] st Contact Info) Description 02/26/2024 Procedure Pass [address] [place] [address] 03/03/2025 9:15 AM EST Appointment [address] [place] [address] Jamaal López, AFVIO [address] [place] [address] [place] [address] documented as of this encounter Results * [...] documented as of this encounter Care Teams Ammonium Sulfate Operator Relationship Specialty Start Date End Date Alejandrina Newell NP [address] [place] [address] [place] [address] [email or web address] PCP - General Family Medicine 03/15/18 11/03/19 Jamaal López NP [address] [facility] [place] [address] PCP - General Family Medicine 11/04/19 Edwin Segal MD [address] [place] [address], [address] [place] [address] [email or web address] Historical LMR Provider 11/27/16 02/16/21 Allen Melendrez MD [address] [place] [address] Historical LMR Provider 11/27/16 Srini Maxwell DO 5 [place] [address] Historical LMR Provider 11/27/16 Wiliam Griffin MD [address] [place] [address], [facility] 102 [place] [address] [email or web address] Historical LMR Provider 11/27/16 documented as of this encounter Additional Source Comments The information contained in this document represents components of the legal health record. It is not the complete legal health record.[facility]
--- OUTSIDE RECORDS SUMMARY | 2024-12-29 20:08 | XMS_ITS | Encounter Summary ---
Author Organization [facility] Address [address] [address] Phone Care Team Providers Care Retoucher Name Role Phone Edwin Segal MD Unavailable Allen Melendrez MD Unavailable Srini Maxwell DO Unavailable [phone] Wiliam Griffin MD Unavailable Jamaal López NP Primary Care Provider + Encounter Details Date Type Department Care Team (Late st Contact Info) Description 10/04/2020 Ancillary Orders Virtual Department [address] [place] [address] Jamaal López NP [facility] [place] [address] Breast screening Social History Tobacco Use Types [...] Contact Info) Description 02/26/2024 Procedure Pass [address] [place] [address] 03/03/2025 9:15 AM EST Appointment [address] [place] [address] Jamaal López, FAVIO [address] [facility] [address] [place] [address] documented as of this encounter Results * [...] There are scattered fibroglandular densities. Jamaal López TRUCK DESPATCHER IMG MG EXAMS Final Re sult documented in this encounter Visit Diagnoses Diagnosis Breast screening Breast screening, unspecified Breast screening Breast screening, unspecified documented in this encounter Additional Health Concerns Infection Onset Date Last Indicated Resolved Time CoV-Risk 11/07/2021 11/07/2021 11/18/2021 1:22 AM EDT documented as of this encounter Care Teams Retoucher Relationship Specialty Start Date End Date Jamaal López NP [facility] [place] [address] PCP - General Family Medicine 11/04/19 Edwin Segal MD [address] [address] Historical LMR Provider 11/27/16 02/16/21 Allen Melendrez MD 115 [place] [address] Historical LMR Provider 11/27/16 Srini Maxwell DO [address] [place] [address] Historical LMR Provider 11/27/16 Wiliam Griffin MD [address] [address] Historical LMR Provider 11/27/16 documented as of this encounter Additional Source Comments The information contained in this document represents components of the legal health record. It is not the complete legal health record.[facility]
--- OUTSIDE RECORDS SUMMARY | 2024-12-29 20:08 | XMS_ITS | Patient Health Record ---
[facility] Address [address] [place] [address] Care Team Providers Care Mineral Wool Insulation Supervisor Name Role Phone Jamaal Early Primary Care Provider Unav ailable Nurys Miller Unavailable [phone] Allergies Allergen (clinical drug ingredient) Drug/Non Drug [...] a day; Duration: 30 day(s) Active Tiotropium Romulus Monohydrate 1.25 MCG/ACT 2 puffs Inhalation Once [...] a day; Duration: 30 day(s) Active Ipratropium Romulus Active Immunizations Vaccine Route Administration Date Status [...] W/U Status Risk Notes Problem Plantar wart (49400826) Plantar wart (B07.0) Active confirmed Plan Of Treatment Pending Test Test Name Order Date [id number] NAIL, 6 OR MORE 12/25/2015 [id number] NAIL, 6 OR MORE 01/16/2016 [id number] NAIL, 6 OR MORE 09/19/2016 09000-Mnsy Destruction, 1-14 11/20/2020 54925, W1397-GERTD/INJECT, JOINT/BURSA 0 08/26/2016 Insurance Providers Payer Name Payer Address Payer Phone Subscriber Number Group Number Insured Name Patient Relationship to Insured Coverage Start Date Coverage End Date [facility] [address] [place] [address] [id number] Shawna Hayes Self - patient is the [...]
--- OUTSIDE RECORDS SUMMARY | 2024-12-29 20:08 | XMS_ITS | Encounter Summary ---
Author Organization [facility] Address [address] [address] Phone Care Team Providers Care Desk Clerks Supervisor Name Role Phone Edwin Segal MD Unavailable Allen Melendrez MD Unavailable Srini Maxwell DO Unavailable [phone] Wiliam Griffin MD Unavailable [phone] Alejandrina Newell MATERIAL STRESS TESTER Primary Care Provider Jamaal López MATERIAL STRESS TESTER Primary Care Provider + Encounter Details Date Type Department Care Team (Late st Contact Info) Description 09/01/2019 Ancillary Orders Virtual Department 30 [place] [address] Jamaal López NP [facility] [place] [address] Breast screening Social History Tobacco Use Types [...] st Contact Info) Description 02/26/2024 Procedure Pass [address] [place] [address] 03/03/2025 9:15 AM EST Appointment [address] [place] [address] Jamaal López, FAVIO [address] [place] [address] [place] [address] documented as of this encounter Results * [...] and compared with multiple prior studies, most nziiipwt00/17/2019, with utilization of computer-aided detection. The breasts [...] are scattered fibroglandular densities. us Jamaal López MATERIAL STRESS TESTER IMG MG EXAMS Final Re sult documented in this encounter Visit Diagnoses Diagnosis Breast screening Breast screening, unspecified Breast screening Breast screening, unspecified documented in this encounter Additional Health Concerns Infection Onset Date Last Indicated Resolved Time CoV-Risk 11/07/2021 11/07/2021 11/18/2021 1:22 AM EDT documented as of this encounter Care Teams Desk Clerks Supervisor Relationship Specialty Start Date End Date Alejandrina Newell NP [address] [place] [address] [place] [address] [place] [address] [email or web address] PCP - General Family Medicine 03/15/18 11/03/19 Jamaal López NP [address] [place] [address] [place] [address] PCP - General Family Medicine 11/04/19 Edwin Segal MD [address] [place] [address] [email or web address] Historical LMR Provider 11/27/16 02/16/21 Allen Melendrez MD 115 [place] [address] Historical LMR Provider 11/27/16 Srini Maxwell DO 5 [place] [address] Historical LMR Provider 11/27/16 Wiliam Griffin MD [address] [place] [address] [email or web address] Historical LMR Provider 11/27/16 documented as of this encounter Additional Source Comments The information contained in this document represents components of the legal health record. It is not the complete legal health record.[facility]
--- OUTSIDE RECORDS SUMMARY | 2024-12-29 20:08 | XMS_ITS | Encounter Summary ---
Author Organization [facility] Address [address] [address] Phone Care Team Providers Care Impregnator And Drier Helper Name Role Phone Edwin Segal MD Unavailable Allen Melendrez MD Unavailable Srini Maxwell DO Unavailable [phone] Wiliam Griffin MD Unavailable [phone] Fouzia Gil MD Primary Care Provider [phone] Alejandrina Newell DAIRY INSPECTOR Primary Care Provider Jamaal López DAIRY INSPECTOR Primary Care Provider + Encounter Details Date Type Department Care Team (Late st Contact Info) Description 05/14/2017 Procedure Pass [facility],Outside Imaging [address] [place] [address] Social History Tobacco Use Types Packs/Day Years [...] Contact Info) Description 02/26/2024 Procedure Pass [address] Neil [place] [address] 03/03/2025 9:15 AM EST Appointment [address] [place] [address] Jamaal López, FAVIO [address] [place] [address] [place] [address] documented as of this encounter Visit Diagnoses Not on filedocumented in this encounter Additional Health Concerns Infection Onset Date Last Indicated Resolved Time CoV-Risk 11/07/2021 11/07/2021 11/18/2021 1:22 AM EDT documented as of this encounter Care Teams Impregnator And Drier Helper Relationship Specialty Start Date End Date Fouzia Gil MD [address] [place], [place] [address] PCP - General Internal Medicine 04/17/17 03/14/18 Alejandrina Newell NP [address] [place] [address] [place] [address] [email or web address] PCP - General Family Medicine 03/15/18 11/03/19 Jamaal López, FAVIO [address] [place] [address] [place] [address] PCP - General Family Medicine 11/04/19 Edwin Segal MD [address] [place] [address], [facility] [address] [place] [address] [email or web address] Historical LMR Provider 11/27/16 02/16/21 Allen Melendrez MD [address] [place] [address] Historical LMR Provider 11/27/16 Srini Maxwell DO [address] [place] [address] Historical LMR Provider 11/27/16 Wiliam Griffin MD [address] [place] [address] [address] [place] [address] [email or web address] Historical LMR Provider 11/27/16 documented as of this encounter Additional Source Comments The information contained in this document represents components of the legal health record. It is not the complete legal health record.[facility]
--- OUTSIDE RECORDS SUMMARY | 2024-12-29 20:08 | XMS_ITS | Encounter Summary ---
Author Organization [facility] Address [address] [facility] [address] [place] [address] Phone Care Team Providers Care Strategic Partnership Representative Name Role Phone Edwin Segal MD Unavailable Allen Melendrez MD Unavailable [phone] Srini Maxwell DO Unavailable [phone] Wiliam Griffin MD Unavailable [phone] Jamaal López NP Primary Care Provider + Encounter Details Date Type Department Care Team (Late st Contact Info) Description 10/04/2020 Procedure Pass [address] [place] [address] Social History Tobacco Use Types Packs/Day Years [...] Contact Info) Description 02/26/2024 Procedure Pass [address] [place] [address] 03/03/2025 9:15 AM EST Appointment [address] [place] [address] Jamaal López NP [address] [facility] [place] [address] documented as of this encounter Visit Diagnoses Not on filedocumented in this encounter Additional Health Concerns Infection Onset Date Last Indicated Resolved Time CoV-Risk 11/07/2021 11/07/2021 11/18/2021 1:22 AM EDT documented as of this encounter Care Teams Strategic Partnership Representative Relationship Specialty Start Date End Date Jamaal López NP [address] [facility] [place] [address] PCP - General Family Medicine 11/04/19 Edwin Segal MD [address] [address] Historical LMR Provider 11/27/16 02/16/21 Allen Melendrez MD 115 [place] [address] Historical LMR Provider 11/27/16 Srini Maxwell DO [address] [place] [address] Historical LMR Provider 11/27/16 Wiliam Griffin MD [address] [address] Historical LMR Provider 11/27/16 documented as of this encounter Additional Source Comments The information contained in this document represents components of the legal health record. It is not the complete legal health record.[facility]
--- OUTSIDE RECORDS SUMMARY | 2024-12-29 20:08 | XMS_ITS | Encounter Summary ---
Author Organization [facility] Address [address] [address] Phone Care Team Providers Care Catcher Plug Name Role Phone Wiliam Griffin MD Unavailable [phone] Jamaal López NP Primary Care Provider + Encounter Details Date Type Department Care Team (Late st Contact Info) Description 12/27/2021 Procedure Pass [address] [place] [address] Social History Tobacco Use Types Packs/Day Years [...] st Contact Info) Description 02/26/2024 Procedure Pass [address] [place] [address] 03/03/2025 9:15 AM EST Appointment [address] [place] [address] Jamaal López NP [address] [place] [address] Dr [place] [address] documented as of this encounter Visit Diagnoses Not on filedocumented in this encounter Care Teams Catcher Plug Relationship Specialty Start Date End Date Jamaal López NP [address] [facility] [address] [place] [address] PCP - General Family Medicine 11/04/19 Wiliam Griffin MD [address] [place] [address], [address] [place] [address] [email or web address] Historical LMR Provider 11/27/16 documented as of this encounter Additional Source Comments The information contained in this document represents components of the legal health record. It is not the complete legal health record.[facility]
--- OUTSIDE RECORDS SUMMARY | 2024-12-29 20:08 | XMS_ITS | Clinical Summary ---
Author Organization [facility] Address [address] [address] Phone Care Team Providers Care Rn Anesthetist Name Role Phone Wiliam Griffin MD Unavailable [phone] Jamaal López NP Primary Care Provider [...] st Contact Info) Description 02/26/2024 Procedure Pass [address] [place] [address] 03/03/2025 9:15 AM EST Appointment [address] [place] [address] Jamaal López NP [address] [place] [address] [place] [address] Health Maintenance Due Date Last Done Comments CREATININE LEVEL 1971 LIPID PANEL 1971 DEPRESSION SCREENING 1983 SMOKING Hx and SMOKELESS TOBACCO SCREENING 1984 HEPATITIS C SCREENING 1989 HIV ONE-TIME SCREENING (18-65 YEARS) 1989 SCREENING FOR DIABETES 2006 COLOGUARD 2016 FIT TEST 2016 FOBT 2016 SIGMOIDOSCOPY [...] 02/26/2024, 12/0 10/2021, 12/27/2020, Additional history exists COLONOSCOPY 09/15/2027 04/01/2018 COLORECTAL CANCER SCREENING 09/15/2027 RSV VACCINE (1 - 1-dose 75+ series) [...] PAP TEST Routine 03/04/2022 12:00 AM EST HM COLONOSCOPY FOR RESULT ENTRY ONLY Routine 04/01/2018 from Last 3 Months or Most Recently [...] be notified of the results and recommendations. us Jamaal López FISCAL ANALYST IMG MG EXAMS Final Re sult * Pap Test (03/04/2022 12:00 AM EST) 03/04/2022 03/05/2022 10: 16 AM EST Narrative SEE NARRATIVE - 03/12/2022 4:21 [place] [address] Attacher: Ronit Espinoza MD FAILURE ANALYSIS ENGINEER Cytology Report FINAL DIAGNOSIS A. PAP SMEAR [...] 59, 66, 68) Note: Testing performed by [employer] On[employer] HR-HPV analysis. Clinical correlation is advised. This HPV test was performed at [facility], [address] [place] [address]. This test has been FDA approved for [facility] cervical cytology specimens. The accuracy and precision of this test for all other specimen sources has been verified in the Cytopathology Laboratory of the [facility] and has not been cleared or approved by the U.S. Food and Drug Administration. Clinical correlation is advised. CLINICAL HISTORY Date of Last Menstrual Period: Not Provided Menstrual History: Amenorrhea: DUE TO IUD Contraceptive History: Mirena Other Clinical Conditions: Screening Pap Abnormal PAP: ASCUS, 2020 SPECIMEN SOURCE A: PAP SMEAR (SUREPATH) CE Patient Name: SANYA GONZALEZ : 1970 (Age: 51) Sex: F Institution: [facility] Location: [facility] Date of Collection: 03/04/2022 Date of Reported: 03/12/2022 16:21 Results to: Wiliam Griffin MD, BS Wiliam Griffin MD CYTOLOGY ORDERABLES Final Res ult SEE NARRATIVE * COLONOSCOPY FOR RESULT ENTRY ONLY (04/01/2018) Colonoscopy External Historical Provider HEALTH MAINTENANCE Final Result from Last 3 Months or Most Recently Relevant to Health Maintenance Insurance [facility] Care Teams Rn Anesthetist Relationship Specialty Start Date End Date Jamaal López NP [facility] [place] [address] PCP - General Family Medicine 11/04/19 Wiliam Griffin MD [address] [place] [address], [address] [place] [address] [email or web address] Historical LMR Provider 11/27/16 Additional Source Comments The information contained in this document represents components of the legal health record. It is not the complete legal health record.[facility]
--- OUTSIDE RECORDS SUMMARY | 2024-12-29 20:09 | XMS_ITS | Encounter Summary ---
Author Organization [facility] Address 399 [facility] [address] [place] [address] Phone Care Team Providers Care Broommaking Supervisor Name Role Phone Edwin Segal MD Unavailable Allen Melendrez MD Unavailable Srini Maxwell DO Unavailable [phone] Wiliam Griffin MD Unavailable [phone] Fouzia Gil MD Primary Care Provider [phone] Alejandrina Newell PRINCIPAL LIBRARIAN Primary Care Provider Jamaal López PRINCIPAL LIBRARIAN Primary Care Provider + Reason for Referral * MRI/CAT Scan - Closed Specialty Diagnoses / Procedures Referred By Contac t Referred To Contact Procedures CT Abdomen/Pelvis Outside (No Interpretation) System, Provider Not In, [facility] [address] [place] [address] Referral ID Status Reason Start Date Expiration Date Visits Re quested Visits Authorized [id number] Closed 05/14/2017 05/14/2018 1 1 Encounter Details Date Type Department Care Team (Late st Contact Info) Description 05/14/2017 Ancillary Orders [facility],Outside Imaging [address] [place] [address] System, Provider [place] In, [place] [address] Social History Tobacco Use Types Packs/Day Years [...] st Contact Info) Description 02/26/2024 Procedure Pass [address] [place] [address] 03/03/2025 9:15 AM EST Appointment [address] [place] [address] Jamaal López NP [address] [facility] [place] [address] documented as of this encounter Results * [...] documented as of this encounter Care Teams Broommaking Supervisor Relationship Specialty Start Date End Date Fouzia Gil MD 1961 [facility] [place] [address] PCP - General Internal Medicine 04/17/17 03/14/18 Alejandrina Newell NP [address] [place] [address] [place] [address] [email or web address] PCP - General Family Medicine 03/15/18 11/03/19 Jamaal López NP [address] [place] [address] [place] [address] PCP - General Family Medicine 11/04/19 Edwin Segal MD [address] [address] Historical LMR Provider 11/27/16 02/16/21 Allen Melendrez MD [address] [place] [address] Historical LMR Provider 11/27/16 Srini Maxwell DO [address] [place] [address] Historical LMR Provider 11/27/16 Wiliam Griffin MD [address] [place] [address] Historical LMR Provider 11/27/16 documented as of this encounter Additional Source Comments The information contained in this document represents components of the legal health record. It is not the complete legal health record.[facility]
--- OUTSIDE RECORDS SUMMARY | 2024-12-29 20:09 | XMS_ITS | Encounter Summary ---
Author Organization [facility] Address [address] [place] [address] Phone Care Team Providers Care Credit Front Office Developer Name Role Phone Edwin Segal MD Unavailable Allen Melendrez MD Unavailable [phone] Srini Maxwell DO Unavailable [phone] Wiliam Griffin MD Unavailable [phone] Fouzia Gil MD Primary Care Provider [phone] Alejandrina Newell CATEGORY PLANNER Primary Care Provider Jamaal López CATEGORY PLANNER Primary Care Provider + Encounter Details Date Type Department Care Team (Late st Contact Info) Description 06/15/2017 Ancillary Orders [facility],Outside Imaging 30 [place] [address] System, Provider Not In, PhD [address] [address] Social History Tobacco Use Types Packs/Day Years [...] st Contact Info) Description 02/26/2024 Procedure Pass [address] [place] [address] 03/03/2025 9:15 AM EST Appointment [address] [place] [address] Jamaal López NP [address] [place] [address] Dr Swanson JOSE JUAN [address] documented as of this encounter Results * [...] documented as of this encounter Care Teams Credit Front Office Developer Relationship Specialty Start Date End Date Fouzia Gil MD [address] [place] [address] Jocelyn JOSE JUAN SWANSON [address] PCP - General Internal Medicine 04/17/17 03/14/18 Alejandrina Newell NP [address] [place] [address] [place] [address] [email or web address] PCP - General Family Medicine 03/15/18 11/03/19 Jamaal López, FAVIO [address] [place] [address] Dr Swanson JOSE UJAN [address] PCP - General Family Medicine 11/04/19 Edwin Segal MD 22 [facility], [address] [address] [email or web address] Historical LMR Provider 11/27/16 02/16/21 Allen Melendrez MD [address] [place] [address] Historical LMR Provider 11/27/16 Srini Maxwell DO [address] [place] [address] Historical LMR Provider 11/27/16 Wiliam Griffin MD 22 [facility], [address] [address] [email or web address] Historical LMR Provider 11/27/16 documented as of this encounter Additional Source Comments The information contained in this document represents components of the legal health record. It is not the complete legal health record.[facility]
--- OUTSIDE RECORDS SUMMARY | 2024-12-29 20:09 | XMS_ITS | Encounter Summary ---
Author Organization [facility] Address [address] [place] [address] Phone Care Team Providers Care Book Shelver Name Role Phone Edwin Segal MD Unavailable Allen Melendrez MD Unavailable Srini Maxwell DO Unavailable [phone] Wiliam Griffin MD Unavailable [phone] Fouzia Gil MD Primary Care Provider [phone] Alejandrina Newell VALUE ENGINEER Primary Care Provider Jamaal López VALUE ENGINEER Primary Care Provider + Encounter Details Date Type Department Care Team (Late st Contact Info) Description 06/15/2017 Ancillary Orders [facility],Outside Imaging 30 [place] [address] System, Provider Not In, PhD [address] [address] Social History Tobacco Use Types Packs/Day Years [...] Contact Info) Description 02/26/2024 Procedure Pass [address] [place] [address] 03/03/2025 9:15 AM EST Appointment [address] [place] [address] Jamaal López NP [address] [place] [address] Dr Swanson JOSE JUAN [address] documented as of this encounter Results * [...] documented as of this encounter Care Teams Book Shelver Relationship Specialty Start Date End Date Fouzia Gil MD [address] [place] [address] Jocelyn JOSE JUAN SWANSON [address] PCP - General Internal Medicine 04/17/17 03/14/18 Alejandrina Newell NP [address] [place] [address] [place] [address] [email or web address] PCP - General Family Medicine 03/15/18 11/03/19 Jamaal López, FAVIO [address] [place] [address] Dr wSanson JOSE JUAN [address] PCP - General Family Medicine 11/04/19 Edwin Segal MD 22 [facility], [address] [address] [email or web address] Historical LMR Provider 11/27/16 02/16/21 Allen Melendrez MD 115 [place] [address] Historical LMR Provider 11/27/16 Srini Maxwell DO [address] [place] [address] Historical LMR Provider 11/27/16 Wiliam Griffin MD 22 [facility], [address] [address] [email or web address] Historical LMR Provider 11/27/16 documented as of this encounter Additional Source Comments The information contained in this document represents components of the legal health record. It is not the complete legal health record.[facility]
--- OUTSIDE RECORDS SUMMARY | 2024-12-29 20:09 | XMS_ITS | Encounter Summary ---
Author Organization [facility] Address [address] [place] [address] Phone Care Team Providers Care Duplex Trimmer Name Role Phone Edwin Segal MD Unavailable Allen Melendrez MD Unavailable [phone] Srini Maxwell DO Unavailable [phone] Wilaim Griffin MD Unavailable [phone] Fouzia Gil MD Primary Care Provider [phone] Alejandrina Newell WINDOWS ADMINISTRATOR Primary Care Provider Jamaal López WINDOWS ADMINISTRATOR Primary Care Provider + Encounter Details Date Type Department Care Team (Late st Contact Info) Description 06/15/2017 Ancillary Orders [facility],Outside Imaging 30 [place] [address] System, Provider Not In, PhD [address] [address] Social History Tobacco Use Types Packs/Day Years [...] Contact Info) Description 02/26/2024 Procedure Pass [address] [place] [address] 03/03/2025 9:15 AM EST Appointment [address] [place] [address] Jamaal López NP [address] [place] [address] Dr Swanson JOSE JUAN [address] documented as of this encounter Results * [...] documented as of this encounter Care Teams Duplex Trimmer Relationship Specialty Start Date End Date Fouzia Gil MD [address] [place] [address] Jocelyn JOSE JUAN SWANSON [address] PCP - General Internal Medicine 04/17/17 03/14/18 Alejandrina Newell NP [address] [place] [address] [place] [address] [email or web address] PCP - General Family Medicine 03/15/18 11/03/19 Jamaal López, FAVIO [address] [place] [address] Dr Swnason JOSE JUAN [address] PCP - General Family Medicine 11/04/19 Edwin Segal MD 22 [facility], [address] [address] [email or web address] Historical LMR Provider 11/27/16 02/16/21 Allen Melendrez MD 115 [place] [address] Historical LMR Provider 11/27/16 Srini Maxwell DO [address] [place] [address] Historical LMR Provider 11/27/16 Wiliam Griffin MD 22 [facility], [address] [address] [email or web address] Historical LMR Provider 11/27/16 documented as of this encounter Additional Source Comments The information contained in this document represents components of the legal health record. It is not the complete legal health record.[facility]
--- OUTSIDE RECORDS SUMMARY | 2024-12-29 20:09 | XMS_ITS | Encounter Summary ---
Author Organization [facility] Address [address] [facility] [address] [place] [address] Phone Care Team Providers Care Certified Pharmacy Technician Name Role Phone Edwin Segal MD Unavailable Allen Melendrez MD Unavailable Srini Maxwell DO Unavailable [phone] Wiliam Girffin MD Unavailable Fouzia Gil MD Primary Care Provider Alejandrina Newell FWS FACULTY ASSISTANT Primary Care Provider Jamaal López FWS FACULTY ASSISTANT Primary Care Provider + Encounter Details Date Type Department Care Team (Late st Contact Info) Description 06/11/2017 Ancillary Orders Virtual Department 30 [place] [address] Fouzia Gil MD [facility] [place] [address] Breast screening Social History Tobacco Use Types [...] st Contact Info) Description 02/26/2024 Procedure Pass [address] [place] [address] 03/03/2025 9:15 AM EST Appointment [address] [place] [address] Jamaal López, FAVIO [address] [place] [address] [place] [address] documented as of this encounter Results * [...] documented as of this encounter Care Teams Certified Pharmacy Technician Relationship Specialty Start Date End Date Fouzia Gil MD [address] [place] [address] PCP - General Internal Medicine 04/17/17 03/14/18 Alejandrina Newell NP [address] [place] [address] [place] [address] [email or web address] PCP - General Family Medicine 03/15/18 11/03/19 Jamaal López NP [address] [place] [address] [place] [address] PCP - General Family Medicine 11/04/19 Edwin Segal MD [address] [place] [address], [address] [place] [address] [email or web address] Historical LMR Provider 11/27/16 02/16/21 Allen Melendrez MD [address] [place] [address] Historical LMR Provider 11/27/16 Srini Maxwell DO 575 [place] [address] Historical LMR Provider 11/27/16 Wiliam Griffin MD 22 [facility], [facility] [address] [place] [address] [email or web address] Historical LMR Provider 11/27/16 documented as of this encounter Additional Source Comments The information contained in this document represents components of the legal health record. It is not the complete legal health record.[facility]
--- OUTSIDE RECORDS SUMMARY | 2024-12-29 20:09 | XMS_ITS | Encounter Summary ---
Author Organization [facility] Address [address] [place] [address] Phone Care Team Providers Care Dag Coater Name Role Phone Edwin Segal MD Unavailable Allen Melendrez MD Unavailable [phone] Srini Maxwell DO Unavailable [phone] Wiliam Griffin MD Unavailable [phone] Fouzia Gil MD Primary Care Provider [phone] Alejandrina Newell AUDIO VISUAL ENGINEER Primary Care Provider Jamaal López AUDIO VISUAL ENGINEER Primary Care Provider + Encounter Details Date Type Department Care Team (Late st Contact Info) Description 06/15/2017 Ancillary Orders [facility],Outside Imaging 30 [place] [address] System, Provider Not In, PhD [address] [address] Social History Tobacco Use Types Packs/Day Years [...] Contact Info) Description 02/26/2024 Procedure Pass [address] [place] [address] 03/03/2025 9:15 AM EST Appointment [address] [place] [address] Jamaal López NP [address] [place] [address] Dr Swanson JOSE JUAN [address] documented as of this encounter Results * [...] documented as of this encounter Care Teams Dag Coater Relationship Specialty Start Date End Date Fouzia Gil MD [address] [place] [address] Jocelyn JOSE JUAN SWANSON [address] PCP - General Internal Medicine 04/17/17 03/14/18 Alejandrina Newell NP [address] [place] [address] [place] [address] [email or web address] PCP - General Family Medicine 03/15/18 11/03/19 Jamaal López, FAVIO [address] [place] [address] Dr Swanson JOSE JUAN [address] PCP - General Family Medicine 11/04/19 Edwin Segal MD 22 [facility], [address] [address] [email or web address] Historical LMR Provider 11/27/16 02/16/21 Allen Melendrez MD 115 [place] [address] Historical LMR Provider 11/27/16 Srini Maxwell DO [address] [place] [address] Historical LMR Provider 11/27/16 Wiliam Griffin MD 22 [facility], [address] [address] [email or web address] Historical LMR Provider 11/27/16 documented as of this encounter Additional Source Comments The information contained in this document represents components of the legal health record. It is not the complete legal health record.[facility]
== END 2024-12-29 14:45 | disposition home or self-care (01) ==
LOC: HO.SH 14:44
PROVIDERS: Visit Provider Nurse Practitioner Family
DX: H90.3 Sensorineural hearing loss, bilateral (principal)
CPT/HCPCS: 92552; 92556

== ENCOUNTER 2025-01-09 06:15 | Outpatient (REF) | payer OTHER, SELFPAY ==
--- OUTSIDE RECORDS SUMMARY | 2011-05-21 23:00 | XMS_ITS | Encounter Summary ---
Author Organization [facility] Address [address] [facility] [address] [place] [address] Phone Care Team Providers Care Carpet Journeyman Name Role Phone Unavailable Primary Care Provider Unavailabl e Encounter Details Date Type Department Care Team (Late Contact Info) Description 05/22/2011 Hospital Encounter [facility],Outside Imaging 30 [place] [address] System, Provider Not In, [facility] [address] [address] Social History Tobacco Use Types Packs/Day Years Used Date Smoking Tobacco: Former Cigarettes Q uit: 11/18/2006 Smokeless Tobacco: Never Alcohol Use Standard Drinks/Week Comments Yes 0 (1 standard drink = 0.6 oz pur e alcohol) rare Education Answer Date Recorded Are you interested in more education? Not on katie e 06/06/2022 Are you concerned about learning? Not on file 06/06/2022 No 06/06/2022 No 06/06/2022 Digital Access Answer Date Recorded No 07/05/2022 No 07/05/2022 Reliable internet access at home? Not on file 07/05/2022 Device with a working camera? Not on file Comments No Sex and Gender Information Value Date Recorded Sex Assigned at Female 12/27/2020 6:56 AM EST Legal Sex Female 9:33 PM EDT Gender Identity Not on file Sexual Orientation Not on file documented as of this encounter Plan of Treatment Upcoming Encounters Date Type Department Care Team (Late Contact Info) Description 02/26/2024 Procedure Pass [address] [place] [address] 03/03/2025 9:15 AM EST Appointment [address] [place] [address] Jamaal López, FAVIO [address] [place] [address] [place] [address] documented as of this encounter Procedures Procedure Name Priority Date/Time Associated Diagnosis Comments BI MAMMOGRAM OUTSIDE (NO INTERPRETATION) Routine 05/22/2011 12:00 AM EDT documented in this encounter Results * Mammogram Outside (No Interpretation) (05/22/2011 12:00 AM EDT) Narrative SYSTEMGENERATED, DOCUMENTATION - 06/15/2017 12:24 PM EDT This study is for PACS storage only and not for interpretation. us Provider Not In System PhD IMG OUTSIDE IMAGING W /OUT INTERPRETATION Final Result documented in this encounter Visit Diagnoses Not on filedocumented in this encounter Additional Health Concerns Infection Onset Date Last Indicated Resolved Time CoV-Risk 11/07/2021 11/07/2021 11/18/2021 1:22 AM EDT documented as of this encounter Additional Source Comments The information contained in this document represents components of the legal health record. It is not the complete legal health record.[facility]
--- OUTSIDE RECORDS SUMMARY | 2011-05-26 23:00 | XMS_ITS | Encounter Summary ---
Author Organization [facility] Address [address] [facility] [address] [place] [address] Phone Care Team Providers Care Worsted Winder Name Role Phone Unavailable Primary Care Provider Unavailabl e Encounter Details Date Type Department Care Team (Late Contact Info) Description 05/27/2011 Hospital Encounter [facility],Outside Imaging 30 [place] [address] System, Provider Not In, PhD [facility] [address] [address] Social History Tobacco Use Types Packs/Day Years [...] Contact Info) Description 02/26/2024 Procedure Pass [address] [place] [address] 03/03/2025 9:15 AM EST Appointment [address] [place] [address] Jamaal López, FAVIO [address] [place] [address] [place] [address] documented as of this encounter Procedures Procedure Name Priority Date/Time Associated Diagnosis Comments BI US BREAST OUTSIDE (NO INTERPRETATION) Routine 05/27/2011 12:00 AM EDT documented in this encounter Results * US Breast Outside (No Interpretation) (05/27/2011 12:00 AM EDT) Narrative SYSTEMGENERATED, DOCUMENTATION - 06/15/2017 11:46 AM EDT This study is for PACS storage [...] It is not the complete legal health record.[facility]
--- OUTSIDE RECORDS SUMMARY | 2011-05-26 23:15 | XMS_ITS | Encounter Summary ---
Author Organization [facility] Address 399 [facility] [address] [place] [address] Phone Care Team Providers Care Last Cleaner Name Role Phone Unavailable Primary Care Provider Unavailabl e Encounter Details Date Type Department Care Team (Late Contact Info) Description 05/27/2011 12:15 AM EDT Hospital Encounter [facility],Outside Imaging 30 [place] [address] System, Provider Not In, [facility] [address] [address] Social History Tobacco Use Types Packs/Day Years [...] Contact Info) Description 02/26/2024 Procedure Pass [address] [place] [address] 03/03/2025 9:15 AM EST Appointment [address] [place] [address] Jamaal Lpóez, FAVIO [address] [place] [address] [place] [address] documented as of this encounter Procedures Procedure Name Priority Date/Time Associated Diagnosis Comments BI MAMMOGRAM OUTSIDE (NO INTERPRETATION) Routine 05/27/2011 12:15 AM EDT documented in this encounter Results * Mammogram Outside (No Interpretation) (05/27/2011 12:15 AM EDT) Narrative SYSTEMGENERATED, DOCUMENTATION - 06/15/2017 11:51 AM EDT This study is for PACS [...] It is not the complete legal health record.[facility]
--- OUTSIDE RECORDS SUMMARY | 2012-09-07 23:00 | XMS_ITS | Encounter Summary ---
Author Organization [facility] Address [address] [facility] [address] [place] [address] Phone Care Team Providers Care Shipwright Supervisor Name Role Phone Unavailable Primary Care Provider Unavailabl e Encounter Details Date Type Department Care Team (Late Contact Info) Description 09/08/2012 Hospital Encounter [facility],Outside Imaging 30 [place] [address] System, Provider Not In, PhD Partners [address] [address] Social History Tobacco Use Types Packs/Day Years [...] (Late Contact Info) Description 02/26/2024 Procedure Pass [address] [place] [address] 03/03/2025 9:15 AM EST Appointment [address] [place] [address] Jamaal López, FAVIO [address] [place] [address] [place] [address] documented as of this encounter Procedures Procedure [...] It is not the complete legal health record.[facility]
--- OUTSIDE RECORDS SUMMARY | 2012-09-13 23:00 | XMS_ITS | Encounter Summary ---
Author Organization [facility] Address [address] [facility] [address] [place] [address] Phone Care Team Providers Care Ground Intelligence Officer Name Role Phone Unavailable Primary Care Provider Unavailabl e Encounter Details Date Type Department Care Team (Late Contact Info) Description 09/14/2012 Hospital Encounter [facility],Outside Imaging 30 [place] [address] System, Provider Not In, [facility] [address] [address] Social History Tobacco Use Types Packs/Day Years [...] (Late Contact Info) Description 02/26/2024 Procedure Pass [address] [place] [address] 03/03/2025 9:15 AM EST Appointment [address] [place] [address] Jamaal López, FAVIO [address] [place] [address] [place] [address] documented as of this encounter Procedures Procedure [...]
--- OUTSIDE RECORDS SUMMARY | 2014-02-23 | XMS_ITS | Encounter Summary ---
Author Organization [facility] Address [address] [facility] [address] [place] [address] Phone Care Team Providers Care Web Feeder Name Role Phone Unavailable Primary Care Provider Unavailabl e Encounter Details Date Type Department Care Team (Late Contact Info) Description 02/23/2014 Hospital Encounter [facility],Outside Imaging 30 [place] [address] System, Provider Not In, [facility] [address] [address] Social History Tobacco Use Types Packs/Day Years [...] (Late Contact Info) Description 02/26/2024 Procedure Pass [address] [place] [address] 03/03/2025 9:15 AM EST Appointment [address] [place] [address] Jamaal López, FAVIO [address] [place] [address] [place] [address] documented as of this encounter Procedures Procedure [...] It is not the complete legal health record.[facility]
--- OUTSIDE RECORDS SUMMARY | 2016-06-03 23:00 | XMS_ITS | Encounter Summary ---
Author Organization [facility] Address [address] [facility] [address] [place] [address] Phone Care Team Providers Care Senior Clerk Name Role Phone Unavailable Primary Care Provider Unavailabl e Encounter Details Date Type Department Care Team (Late Contact Info) Description 06/04/2016 Hospital Encounter [facility],Outside Imaging 30 [place] [address] System, Provider Not In, [facility] [address] [address] Social History Tobacco Use Types Packs/Day Years [...] (Late Contact Info) Description 02/26/2024 Procedure Pass [address] [place] [address] 03/03/2025 9:15 AM EST Appointment [address] [place] [address] Jamaal López, FAVIO [address] [place] [address] [place] [address] documented as of this encounter Procedures Procedure [...]
--- OUTSIDE RECORDS SUMMARY | 2025-01-09 06:19 | XMS_ITS | Encounter Summary ---
Author Organization [facility] Address [address] [place] [address] Phone Care Team Providers Care Home Decorator Name Role Phone Edwin Segal MD Unavailable Allen Melendrez MD Unavailable Srini Maxwell DO Unavailable [phone] Wiliam Griffin MD Unavailable [phone] Fouzia Gil MD Primary Care Provider [phone] Alejandrina Newell ENGINE TESTING SUPERVISOR Primary Care Provider Jamaal López ENGINE TESTING SUPERVISOR Primary Care Provider + Encounter Details Date Type Department Care Team (Late st Contact Info) Description 06/15/2017 Ancillary Orders [facility],Outside Imaging 30 [place] [address] System, Provider Not In, PhD [address] [address] Social History Tobacco Use Types Packs/Day Years [...] Contact Info) Description 02/26/2024 Procedure Pass [address] [place] [address] 03/03/2025 9:15 AM EST Appointment [address] [place] [address] Jamaal López NP [address] [place] [address] Dr Swanson JOSE JUAN [address] documented as of this encounter Results * [...] documented as of this encounter Care Teams Home Decorator Relationship Specialty Start Date End Date Fouzia Gil MD [address] [place] [address] Jocelyn JOSE JUAN SWANSON [address] PCP - General Internal Medicine 04/17/17 03/14/18 Alejandrina Newell NP [address] [place] [address] [place] [address] [email or web address] PCP - General Family Medicine 03/15/18 11/03/19 Jamaal López, FAVIO [address] [place] [address] Dr Swanson JOSE JUAN [address] PCP - General Family Medicine 11/04/19 Edwin Segal MD 22 [facility], [address] [address] [email or web address] Historical LMR Provider 11/27/16 02/16/21 Allen Melendrez MD [address] [place] [address] Historical LMR Provider 11/27/16 Srini Maxwell DO [address] [place] [address] Historical LMR Provider 11/27/16 Wiliam Griffin MD 22 [facility], [address] [address] [email or web address] Historical LMR Provider 11/27/16 documented as of this encounter Additional Source Comments The information contained in this document represents components of the legal health record. It is not the complete legal health record.[facility]
--- OUTSIDE RECORDS SUMMARY | 2025-01-09 06:19 | XMS_ITS | Encounter Summary ---
Author Organization [facility] Address [address] [place] [address] Phone Care Team Providers Care Doll Maker Name Role Phone Edwin Segal MD Unavailable Allen Melendrez MD Unavailable [phone] Srini Maxwell DO Unavailable [phone] Wiliam Griffin MD Unavailable [phone] Fouzia Gil MD Primary Care Provider [phone] Alejandrina Newell FAMILY LITERACY COORDINATOR Primary Care Provider Jamaal López FAMILY LITERACY COORDINATOR Primary Care Provider + Encounter Details Date Type Department Care Team (Late st Contact Info) Description 06/15/2017 Ancillary Orders [facility],Outside Imaging 30 [place] [address] System, Provider Not In, PhD [address] [address] Social History Tobacco Use Types Packs/Day Years [...] st Contact Info) Description 02/26/2024 Procedure Pass [address] [place] [address] 03/03/2025 9:15 AM EST Appointment [address] [place] [address] Jamaal López NP [address] [place] [address] Dr Swanson JOSE JUAN [address] documented as of this encounter Results * [...] documented as of this encounter Care Teams Doll Maker Relationship Specialty Start Date End Date Fouzia Gil MD [address] [place] [address] Jocelyn JOSE JUAN SWANSON [address] PCP - General Internal Medicine 04/17/17 03/14/18 Alejandrina Newell NP [address] [place] [address] [place] [address] [email or web address] PCP - General Family Medicine 03/15/18 11/03/19 Jamaal López, FAVIO [address] [place] [address] Dr Swanson JOSE JUAN [address] PCP - General Family Medicine 11/04/19 Edwin Segal MD 22 [facility], [address] [address] Historical LMR Provider 11/27/16 02/16/21 Allen Melendrez MD 115 [place] [address] Historical LMR Provider 11/27/16 Srini Maxwell DO [address] [place] [address] Historical LMR Provider 11/27/16 Wiliam Griffin MD [address] [place] [address], [address] [address] [email or web address] Historical LMR Provider 11/27/16 documented as of this encounter Additional Source Comments The information contained in this document represents components of the legal health record. It is not the complete legal health record.[facility]
--- OUTSIDE RECORDS SUMMARY | 2025-01-09 06:19 | XMS_ITS | Encounter Summary ---
Author Organization [facility] Address [address] [address] Phone Care Team Providers Care Vineyard Tender Name Role Phone Edwin Segal MD Unavailable Allen Melendrez MD Unavailable Srini Maxwell DO Unavailable [phone] Wiliam Griffin MD Unavailable [phone] Alejandrina Newell REEL WORKER Primary Care Provider Jamaal López REEL WORKER Primary Care Provider + Encounter Details Date Type Department Care Team (Late st Contact Info) Description 05/13/2018 Ancillary Orders [facility] 30 [place] [address] Wiliam Griffin MD 22 [facility], [address] [place] [address] Breast screening Social History Tobacco Use Types [...] Contact Info) Description 02/26/2024 Procedure Pass [address] [place] [address] 03/03/2025 9:15 AM EST Appointment [address] [place] [address] Jamaal López, FAVIO [address] [place] [address] [place] [address] documented as of this encounter Results * [...] documented as of this encounter Care Teams Vineyard Tender Relationship Specialty Start Date End Date Alejandrina Newell NP [address] [place] [address] [place] [address] [email or web address] PCP - General Family Medicine 03/15/18 11/03/19 Jamaal López NP [address] [facility] [place] [address] PCP - General Family Medicine 11/04/19 Edwin Segal MD [address] [place] [address], [address] [place] [address] [email or web address] Historical LMR Provider 11/27/16 02/16/21 Allen Melendrez MD [address] [place] [address] Historical LMR Provider 11/27/16 Srini Maxwell DO 5 [place] [address] Historical LMR Provider 11/27/16 Wiliam Griffin MD [address] [place] [address], [facility] 102 [place] [address] [email or web address] Historical LMR Provider 11/27/16 documented as of this encounter Additional Source Comments The information contained in this document represents components of the legal health record. It is not the complete legal health record.[facility]
--- OUTSIDE RECORDS SUMMARY | 2025-01-09 06:19 | XMS_ITS | Encounter Summary ---
Author Organization [facility] Address [address] [place] [address] Phone Care Team Providers Care Rainbow Trout Farm Manager Name Role Phone Edwin Segal MD Unavailable Allen Melendrez MD Unavailable Srini Maxwell DO Unavailable [phone] Wiliam Griffin MD Unavailable [phone] Fouzia Gil MD Primary Care Provider [phone] Alejandrina Newell SENIOR SALES ASSISTANT Primary Care Provider Jamaal López SENIOR SALES ASSISTANT Primary Care Provider + Encounter Details Date Type Department Care Team (Late st Contact Info) Description 06/15/2017 Ancillary Orders [facility],Outside Imaging 30 [place] [address] System, Provider Not In, PhD [address] [address] Social History Tobacco Use Types Packs/Day Years [...] Contact Info) Description 02/26/2024 Procedure Pass [address] [place] [address] 03/03/2025 9:15 AM EST Appointment [address] [place] [address] Jamaal López NP [address] [place] [address] Dr Swanson JOSE JUAN [address] documented as of this encounter Results * [...] documented as of this encounter Care Teams Rainbow Trout Farm Manager Relationship Specialty Start Date End Date Fouzia Gil MD [address] [place] [address] Jocelyn JOSE JUAN SWANSON [address] PCP - General Internal Medicine 04/17/17 03/14/18 Alejandrina Newell NP [address] [place] [address] [place] [address] [email or web address] PCP - General Family Medicine 03/15/18 11/03/19 Jamaal López, FAVIO [address] [place] [address] Dr Swanson JOSE JUAN [address] PCP - General Family Medicine 11/04/19 Edwin Segal MD 22 [facility], [address] [address] [email or web address] Historical LMR Provider 11/27/16 02/16/21 Allen Melendrez MD 115 [place] [address] Historical LMR Provider 11/27/16 Sriin Maxwell DO [address] [place] [address] Historical LMR Provider 11/27/16 Wiliam Griffin MD 22 [facility], [address] [address] [email or web address] Historical LMR Provider 11/27/16 documented as of this encounter Additional Source Comments The information contained in this document represents components of the legal health record. It is not the complete legal health record.[facility]
--- OUTSIDE RECORDS SUMMARY | 2025-01-09 06:20 | XMS_ITS | Clinical Summary ---
Author Organization [facility] Address [address] [address] Phone Care Team Providers Care Compliance Advisor Name Role Phone Wiliam Griffin MD Unavailable [phone] Jamaal López NP Primary Care Provider [...] Contact Info) Description 02/26/2024 Procedure Pass [address] [place] [address] 03/03/2025 9:15 AM EST Appointment [address] [place] [address] Jamaal López NP [address] [place] [address] [place] [address] Health Maintenance Due Date Last Done Comments [...] the results and recommendations. us Jamaal López COPRA PROCESSOR IMG MG EXAMS Final Re sult * Pap Test (03/04/2022 12:00 AM EST) 03/04/2022 03/05/2022 10: 16 AM EST Narrative SEE NARRATIVE - 03/12/2022 4:21 [place] [address] Centrifugal Casting Machine Operator: Ronit Espinoza MD INFORMATION TECHNOLOGY SPECIALIST Cytology Report FINAL DIAGNOSIS A. PAP SMEAR [...] 59, 66, 68) Note: Testing performed by [employer] Onclarity HR-HPV analysis. Clinical correlation is advised. This HPV test was performed at [facility], [address] [place] [address]. This test has been FDA approved for [employer] cervical cytology specimens. The accuracy and precision of this test for all other specimen sources has been verified in the Cytopathology Laboratory of the [facility] and has not been cleared or [...] : 1970 (Age: 51) Sex: F Institution: [facility] Location: [facility] Date of Collection: 03/04/2022 Date of Reported: 03/12/2022 16:21 Results to: Wiliam Griffin MD, BS Wiliam Griffin MD CYTOLOGY ORDERABLES Final Res ult SEE NARRATIVE * COLONOSCOPY FOR RESULT ENTRY ONLY (04/01/2018) Colonoscopy External Historical Provider HEALTH MAINTENANCE Final Result from Last 3 Months or Most Recently Relevant to Health Maintenance Insurance [facility] HMO [facility] HMO [facility] Care Teams Compliance Advisor Relationship Specialty Start Date End Date Jamaal López NP [facility] [place] [address] PCP - General Family Medicine 11/04/19 Wiliam Griffin MD [address] [place] [address], [address] [place] [address] [email or web address] Historical LMR Provider 11/27/16 Additional Source Comments The information contained in this document represents components of the legal health record. It is not the complete legal health record.[facility]
--- OUTSIDE RECORDS SUMMARY | 2025-01-09 06:20 | XMS_ITS | Encounter Summary ---
Author Organization [facility] Address [address] [place] [address] Phone Care Team Providers Care Breaker Machine Tender Name Role Phone Edwin Segal MD Unavailable Allen Melendrez MD Unavailable Srini Maxwell DO Unavailable [phone] Wiliam Griffin MD Unavailable [phone] Fouzia Gil MD Primary Care Provider [phone] Alejandrina Newell BOAT BUILDER AND REPAIRER Primary Care Provider Jamaal López BOAT BUILDER AND REPAIRER Primary Care Provider + Encounter Details Date Type Department Care Team (Late st Contact Info) Description 06/15/2017 Ancillary Orders [facility],Outside Imaging [address] [place] [address] System, Provider Not In, PhD [address] [address] Social History Tobacco Use Types Packs/Day Years [...] Contact Info) Description 02/26/2024 Procedure Pass [address] [place] [address] 03/03/2025 9:15 AM EST Appointment [address] [place] [address] Jamaal López NP [address] [place] [address] Dr Swanson [place] JUAN [address] documented as of this encounter Results * [...] documented as of this encounter Care Teams Breaker Machine Tender Relationship Specialty Start Date End Date Fouzia Gil MD [address] [place] [address] Jocelyn JOSE JUAN SWANSON [address] PCP - General Internal Medicine 04/17/17 03/14/18 Alejandrina Newell NP [address] [place] [address] [place] [address] [email or web address] PCP - General Family Medicine 03/15/18 11/03/19 Jamaal López, FAVIO [address] [place] [address] Dr Swanson JOSE JUAN [address] PCP - General Family Medicine 11/04/19 Edwin Segal MD 22 [facility], [address] [address] [email or web address] Historical LMR Provider 11/27/16 02/16/21 Allen Melendrez MD [address] [place] [address] Historical LMR Provider 11/27/16 Srini Maxwell DO [address] [place] [address] Historical LMR Provider 11/27/16 Wiliam Griffin MD 22 [facility], [address] [address] [email or web address] Historical LMR Provider 11/27/16 documented as of this encounter Additional Source Comments The information contained in this document represents components of the legal health record. It is not the complete legal health record.[facility]
--- OUTSIDE RECORDS SUMMARY | 2025-01-09 06:20 | XMS_ITS | Encounter Summary ---
Author Organization [facility] Address [address] [facility] [address] [place] [address] Phone Care Team Providers Care Forklift Supervisor Name Role Phone Edwin Segal MD Unavailable Allen Melendrez MD Unavailable [phone] Srini Maxwell DO Unavailable [phone] Wiliam Griffin MD Unavailable [phone] Jamaal López NP Primary Care Provider + Encounter Details Date Type Department Care Team (Late st Contact Info) Description 10/04/2020 Procedure Pass [address] [place] [address] Social History Tobacco Use Types Packs/Day Years [...] Contact Info) Description 02/26/2024 Procedure Pass [address] [place] [address] 03/03/2025 9:15 AM EST Appointment [address] [place] [address] Jamaal López NP [address] [facility] [place] [address] documented as of this encounter Visit Diagnoses Not on filedocumented in this encounter Additional Health Concerns Infection Onset Date Last Indicated Resolved Time CoV-Risk 11/07/2021 11/07/2021 11/18/2021 1:22 AM EDT documented as of this encounter Care Teams Forklift Supervisor Relationship Specialty Start Date End Date Jamaal López NP [address] [facility] [place] [address] PCP - General Family Medicine 11/04/19 Edwin Segal MD [address] [address] Historical LMR Provider 11/27/16 02/16/21 Allen Melendrez MD 115 [place] [address] Historical LMR Provider 11/27/16 Srini Maxwell DO [address] [place] [address] Historical LMR Provider 11/27/16 Wiliam Griffin MD [address] [address] Historical LMR Provider 11/27/16 documented as of this encounter Additional Source Comments The information contained in this document represents components of the legal health record. It is not the complete legal health record.[facility]
--- OUTSIDE RECORDS SUMMARY | 2025-01-09 06:20 | XMS_ITS | Encounter Summary ---
Author Organization [facility] Address [address] [address] Phone Care Team Providers Care Bonderizer Name Role Phone Edwin Segal MD Unavailable Allen Melendrez MD Unavailable [phone] Srini Maxwell DO Unavailable [phone] Wiliam Griffin MD Unavailable [phone] Fouzia Gil MD Primary Care Provider [phone] Alejandrina Newell ESTHETIC DERMATOLOGIST Primary Care Provider Jamaal López ESTHETIC DERMATOLOGIST Primary Care Provider + Encounter Details Date Type Department Care Team (Late st Contact Info) Description 05/14/2017 Procedure Pass [facility],Outside Imaging 30 [place] [address] Social History Tobacco Use Types Packs/Day Years [...] Contact Info) Description 02/26/2024 Procedure Pass [address] Neil [place]SE JUAN [address] 03/03/2025 9:15 AM EST Appointment [address] [place] [address] Jamaal López, FAVIO [address] [place] [address] [place] [address] documented as of this encounter Visit Diagnoses Not on filedocumented in this encounter Additional Health Concerns Infection Onset Date Last Indicated Resolved Time CoV-Risk 11/07/2021 11/07/2021 11/18/2021 1:22 AM EDT documented as of this encounter Care Teams Bonderizer Relationship Specialty Start Date End Date Fouzia Gil MD [address] [place], [place] [address] PCP - General Internal Medicine 04/17/17 03/14/18 Alejandrina Newell NP [address] [place] [address] [place] [address] [email or web address] PCP - General Family Medicine 03/15/18 11/03/19 Jamaal López, FAVIO [address] [place] [address] [place] [address] PCP - General Family Medicine 11/04/19 Edwin Segal MD [address] [place] [address], [facility] [address] [place] [address] [email or web address] Historical LMR Provider 11/27/16 02/16/21 Allen Melendrez MD [address] [place] [address] Historical LMR Provider 11/27/16 Srini Maxwell DO [address] [place] [address] Historical LMR Provider 11/27/16 Wiliam Griffin MD [address] [place] [address] 102 [place] [address] [email or web address] Historical LMR Provider 11/27/16 documented as of this encounter Additional Source Comments The information contained in this document represents components of the legal health record. It is not the complete legal health record.[facility]
--- OUTSIDE RECORDS SUMMARY | 2025-01-09 06:20 | XMS_ITS | Encounter Summary ---
Author Organization [facility] Address [address] [facility] [address] [place] [address] Phone Care Team Providers Care Customer Counter Representative Name Role Phone Edwin Segal MD Unavailable Allen Melendrez MD Unavailable Srini Maxwell DO Unavailable [phone] Wliiam Griffin MD Unavailable Fouzia Gil MD Primary Care Provider Alejandrina Newell BEHAVIOR INTERVENTIONIST Primary Care Provider Jamaal López BEHAVIOR INTERVENTIONIST Primary Care Provider + Encounter Details Date Type Department Care Team (Late st Contact Info) Description 06/11/2017 Ancillary Orders Virtual Department 30 [place] [address] Fouzia Gil MD [facility]2 [place] [address] Breast screening Social History Tobacco Use Types [...] Contact Info) Description 02/26/2024 Procedure Pass [address] [place] [address] 03/03/2025 9:15 AM EST Appointment [address] [place] [address] Jamaal López, FAVIO [address] [place] [address] [place] [address] documented as of this encounter Results * [...] documented as of this encounter Care Teams Customer Counter Representative Relationship Specialty Start Date End Date Fouzia Gil MD [address] [place] [address] PCP - General Internal Medicine 04/17/17 03/14/18 Alejandrina Newell NP [address] [place] [address] [place] [address] [email or web address] PCP - General Family Medicine 03/15/18 11/03/19 Jamaal López NP [address] [place] [address] Dr [place]key [place] PCP - General Family Medicine 11/04/19 Edwin Segal MD [address] [place] [address], [address] [place] [address] [email or web address] Historical LMR Provider 11/27/16 02/16/21 Allen Melendrez MD [address] [place] [address] Historical LMR Provider 11/27/16 Srini Maxwell DO [address] [place] [address] Historical LMR Provider 11/27/16 Wiliam Griffin MD 22 [facility], [facility] 102 [place] [address] [email or web address] Historical LMR Provider 11/27/16 documented as of this encounter Additional Source Comments The information contained in this document represents components of the legal health record. It is not the complete legal health record.[facility]
--- OUTSIDE RECORDS SUMMARY | 2025-01-09 06:20 | XMS_ITS | Encounter Summary ---
Author Organization [facility] Address [address] [address] Phone Care Team Providers Care Test Man Name Role Phone Edwin Segal MD Unavailable Allen Melendrez MD Unavailable Srini Maxwell DO Unavailable [phone] Wiliam Griffin MD Unavailable [phone] Fouzia Gil MD Primary Care Provider [phone] Alejandrina Newell FIREARMS INSTRUCTOR Primary Care Provider Jamaal López FIREARMS INSTRUCTOR Primary Care Provider + Reason for Referral * Outpatient Procedure - Closed Specialty Diagnoses / Procedures Referred By Jackson cates Referred To Contact Radiology Diagnoses Pyrosis Weight loss Nausea Procedures NM Gastric Emptying Yusef Barron MD Phone: tel: fax: [email or web address] Referral ID Status Reason Start Date Expiration Date Visits Re quested Visits Authorized [id number] Closed 04/28/2017 04/28/2018 1 1 Encounter Details Date Type Department Care Team (Late st Contact Info) Description 04/28/2017 Ancillary Orders Virtual Department 30 [place] [address] Yusef Barron MD [address] [address] [email or web address] Pyrosis; Weight loss; Nausea Social History Tobacco [...] Contact Info) Description 02/26/2024 Procedure Pass [address] [place] [address] 03/03/2025 9:15 AM EST Appointment [address] [place] [address] Jamaal López NP [address] [place] [address] [place] [address] documented as of this encounter Results * [...] documented as of this encounter Care Teams Test Man Relationship Specialty Start Date End Date Fouzia Gil MD [address] [place] [address] PCP - General Internal Medicine 04/17/17 03/14/18 Alejandrina Newell NP [address] [place] [address] [place] [address] [email or web address] PCP - General Family Medicine 03/15/18 11/03/19 Jamaal López NP [facility] [place] [address] PCP - General Family Medicine 11/04/19 Edwin Segal MD [address] [address] Historical LMR Provider 11/27/16 02/16/21 Allen Melendrez MD 115 [place] [address] Historical LMR Provider 11/27/16 Srini Maxwell DO [address] [place] [address] Historical LMR Provider 11/27/16 Wiliam Griffin MD [address] [place] [address] Historical LMR Provider 11/27/16 documented as of this encounter Additional Source Comments The information contained in this document represents components of the legal health record. It is not the complete legal health record.[facility]
--- OUTSIDE RECORDS SUMMARY | 2025-01-09 06:20 | XMS_ITS | Encounter Summary ---
Author Organization [facility] Address [address] [address] Phone Care Team Providers Care Rope Cutter Name Role Phone Edwin Segal MD Unavailable Allen Melendrez MD Unavailable [phone] Srini Maxwell DO Unavailable [phone] Wiliam Griffin MD Unavailable [phone] Fouzia Gil MD Primary Care Provider [phone] Alejandrina Newell NUTRITION SERVICES WORKER Primary Care Provider Jamaal López NUTRITION SERVICES WORKER Primary Care Provider + Encounter Details Date Type Department Care Team (Late st Contact Info) Description 04/21/2017 Procedure Pass [facility] Admitting Dept Virtual Department [address] [place] [address] Social History Tobacco Use Types Packs/Day Years [...] (Late Contact Info) Description 02/26/2024 Procedure Pass [address] [place] [address] 03/03/2025 9:15 AM EST Appointment [address] [place] [address] Jamaal López, FAVIO [address] [place] [address] [place] [address] documented as of this encounter Visit Diagnoses Not on filedocumented in this encounter Additional Health Concerns Infection Onset Date Last Indicated Resolved Time CoV-Risk 11/07/2021 11/07/2021 11/18/2021 1:22 AM EDT documented as of this encounter Care Teams Rope Cutter Relationship Specialty Start Date End Date Fouzia Gil MD [address] [place] [address] [facility] [place] PCP - General Internal Medicine 04/17/17 03/14/18 Alejandrina Newell NP [address] [place] [address] [place] [address] [email or web address] PCP - General Family Medicine 03/15/18 11/03/19 Jamaal López, FAVIO [address] [place] [address] [place] [address] PCP - General Family Medicine 11/04/19 Edwin Segal MD [address] [place] [address], [facility] 102 [place] [address] [email or web address] Historical LMR Provider 11/27/16 02/16/21 Allen Melendrez MD [address] [place] [address] Historical LMR Provider 11/27/16 Srini Maxwell DO 5 [place] [address] Historical LMR Provider 11/27/16 Wiliam Griffin MD [address] [place] [address], [facility] [address] [place] [address] [email or web address] Historical LMR Provider 11/27/16 documented as of this encounter Additional Source Comments The information contained in this document represents components of the legal health record. It is not the complete legal health record.[facility]
--- OUTSIDE RECORDS SUMMARY | 2025-01-09 06:20 | XMS_ITS | Encounter Summary ---
Author Organization [facility] Address [address] [address] Phone Care Team Providers Care Assembling Machine Operator Name Role Phone Edwin Segal MD Unavailable Allen Melendrez MD Unavailable Srini Maxwell DO Unavailable [phone] Wiliam Griffin MD Unavailable [phone] Alejandrina Newell ATHLETIC COACH Primary Care Provider Jamaal López ATHLETIC COACH Primary Care Provider + Encounter Details Date Type Department Care Team (Late st Contact Info) Description 09/01/2019 Ancillary Orders Virtual Department 30 [place] [address] Jamaal López NP [facility] [place] [address] Breast screening Social History Tobacco Use Types [...] Contact Info) Description 02/26/2024 Procedure Pass [address] [place] [address] 03/03/2025 9:15 AM EST Appointment [address] [place] [address] Jamaal López, FAVIO [address] [place] [address] [place] [address] documented as of this encounter Results * [...] and compared with multiple prior studies, most vcldmacw98/17/2019, with utilization of computer-aided detection. The breasts [...] are scattered fibroglandular densities. us Jamaal López ATHLETIC COACH IMG MG EXAMS Final Re sult documented in this encounter Visit Diagnoses Diagnosis Breast screening Breast screening, unspecified Breast screening Breast screening, unspecified documented in this encounter Additional Health Concerns Infection Onset Date Last Indicated Resolved Time CoV-Risk 11/07/2021 11/07/2021 11/18/2021 1:22 AM EDT documented as of this encounter Care Teams Assembling Machine Operator Relationship Specialty Start Date End Date Alejandrina Newell NP [address] [place] [address] [place] [address] [place] [address] [email or web address] PCP - General Family Medicine 03/15/18 11/03/19 Jamaal López NP [address] [place] [address] [place] [address] PCP - General Family Medicine 11/04/19 Edwin Segal MD [address] [place] [address] [email or web address] Historical LMR Provider 11/27/16 02/16/21 Allen Melendrez MD 115 [place] [address] Historical LMR Provider 11/27/16 Srini Maxwell DO [address] [place] [address] Historical LMR Provider 11/27/16 Wiliam Griffin MD [address] [place] [address] [email or web address] Historical LMR Provider 11/27/16 documented as of this encounter Additional Source Comments The information contained in this document represents components of the legal health record. It is not the complete legal health record.[facility]
--- OUTSIDE RECORDS SUMMARY | 2025-01-09 06:20 | XMS_ITS | Encounter Summary ---
Author Organization [facility] Address [address] [address] Phone Care Team Providers Care Combination Presser Name Role Phone Edwin Segal MD Unavailable Allen Melendrez MD Unavailable [phone] Srini Maxwell DO Unavailable [phone] Wiliam Griffin MD Unavailable Jamaal López NP Primary Care Provider + Encounter Details Date Type Department Care Team (Late st Contact Info) Description 10/04/2020 Ancillary Orders Virtual Department [address] [place] [address] Jamaal López NP [facility] [place] [address] Breast screening Social History Tobacco Use Types [...] Contact Info) Description 02/26/2024 Procedure Pass [address] Neil [place] JUAN [address] 03/03/2025 9:15 AM EST Appointment [address] Neil [place] [address] Jamaal López, FAVIO [address] [facility] [address] Starkey [place] [address] documented as of this encounter Results * [...] There are scattered fibroglandular densities. Jamaal López PERSONAL LINES UNDERWRITER IMG MG EXAMS Final Re sult documented in this encounter Visit Diagnoses Diagnosis Breast screening Breast screening, unspecified Breast screening Breast screening, unspecified documented in this encounter Additional Health Concerns Infection Onset Date Last Indicated Resolved Time CoV-Risk 11/07/2021 11/07/2021 11/18/2021 1:22 AM EDT documented as of this encounter Care Teams Combination Presser Relationship Specialty Start Date End Date Jamaal López NP [facility] [place] [address] PCP - General Family Medicine 11/04/19 Edwin Segal MD [address] [address] Historical LMR Provider 11/27/16 02/16/21 Allen Melendrez MD 115 [place] [address] Historical LMR Provider 11/27/16 Srini Maxwell DO [address] [place] [address] Historical LMR Provider 11/27/16 Wiliam Griffin MD [address] [address] Historical LMR Provider 11/27/16 documented as of this encounter Additional Source Comments The information contained in this document represents components of the legal health record. It is not the complete legal health record.[facility]
--- OUTSIDE RECORDS SUMMARY | 2025-01-09 06:20 | XMS_ITS | Data Portability ---
Author Organization [facility], [address] Address [address] [place] [address] Assessment No assessment recorded. Plan of Treatment [...] Time OC- Physical completed J CARLOS [facility] 03/14/2022 18:51:15 Imaging Results None recorded. [...] ICD10 Code Diagnosis IMO Codes Diagnosis Note [id number] [facility] [address] [address] [place] [address] 09/22/2015 09:29:34 09/22/2015 10:49:26 [id number] [facility] HUTCHINSON [facility] [address] [place] [address] 03/14/2022 17:29:41 03/14/2022 19:06:51 History and physical examination, pre-employment [id number] Z02.1 Health Concerns Section Related Observation LastModified [...] TIME OF SERVICE Shawna Veilleux 03/14/2022 1 [facility] - OPEN ACCESS PLUS [id number] Shawna Hayes [id number] Shawna Hayes OBGyn Episode No OBEpisode recorded.
--- OUTSIDE RECORDS SUMMARY | 2025-01-09 06:20 | XMS_ITS | Encounter Summary ---
Author Organization [facility] Address [address] [facility] [address] [place] [address] Phone Care Team Providers Care Physical Scientist Name Role Phone Edwin Segal MD Unavailable Allen Melendrez MD Unavailable Srini Maxwell DO Unavailable [phone] Wiliam Griffin MD Unavailable [phone] Fouzia Gil MD Primary Care Provider [phone] Alejandrina Newell IT CONSULTING MANAGER Primary Care Provider Jamaal López IT CONSULTING MANAGER Primary Care Provider + Reason for Referral * MRI/CAT Scan - Closed Specialty Diagnoses / Procedures Referred By Contac t Referred To Contact Procedures CT Abdomen/Pelvis Outside (No Interpretation) System, Provider Not In, PhD [facility] [address] [place] [address] Referral ID Status Reason Start Date Expiration Date Visits Re quested Visits Authorized [id number] Closed 05/14/2017 05/14/2018 1 1 Encounter Details Date Type Department Care Team (Late st Contact Info) Description 05/14/2017 Ancillary Orders [facility],Outside Imaging [address] [place] [address] System, Provider [place] In, [place] [address] Social History Tobacco Use Types Packs/Day Years [...] Contact Info) Description 02/26/2024 Procedure Pass [address] [place] [address] 03/03/2025 9:15 AM EST Appointment [address] [place] [address] Jamaal López NP [address] [facility] [place] [address] documented as of this encounter Results * [...] documented as of this encounter Care Teams Physical Scientist Relationship Specialty Start Date End Date Fouzia Gil MD 1961 [facility] JOSE JUAN [place] [address] PCP - General Internal Medicine 04/17/17 03/14/18 Alejandrina Newell NP [address] [place] [address] [place] [address] [email or web address] PCP - General Family Medicine 03/15/18 11/03/19 Jamaal López NP [address] [place] [address] [place] [address] PCP - General Family Medicine 11/04/19 Edwin Segal MD [address] [address] Historical LMR Provider 11/27/16 02/16/21 Allen Melendrez MD 115 [place] [address] Historical LMR Provider 11/27/16 Srini Maxwell DO [address] [place] [address] Historical LMR Provider 11/27/16 Wiliam Griffin MD [address] [place] [address] Historical LMR Provider 11/27/16 documented as of this encounter Additional Source Comments The information contained in this document represents components of the legal health record. It is not the complete legal health record.[facility]
--- OUTSIDE RECORDS SUMMARY | 2025-01-09 06:20 | XMS_ITS | Encounter Summary ---
Author Organization [facility] Address [address] [address] Phone Care Team Providers Care Manager Payroll Name Role Phone Edwin Segal MD Unavailable Allen Melendrez MD Unavailable Srini Maxwell DO Unavailable [phone] Wiliam Griffin MD Unavailable Fouzia Gil MD Primary Care Provider [phone] Alejandrina Newell KINESIOLOGY PROFESSOR Primary Care Provider Jamaal López KINESIOLOGY PROFESSOR Primary Care Provider + Reason for Referral * Consultation (Within 1 month) - Closed Specialty Diagnoses / Procedures Referred By Jackson cates Referred To Contact Gastroenterology Diagnoses Gastroesophageal reflux disease with esophagitis Yusef Barron MD Phone: tel: fax: mailto:[email or web address] Reynolds MD Phone: tel: fax: mailto:[email or web address] Referral ID Status Reason Start Date Expiration Date Visits Re quested Visits Authorized [id number] Closed 02/16/2018 02/16/2019 1 1 Encounter Details Date Type Department Care Team (Latest Contact Info) Description 02/16/2018 Transcribe Orders [facility] [address] [facility], 5th [place] [address] Fouzia Gil MD [address] [place] [id number] Gastroesophageal reflux disease with esophagitis (Primary Dx) [...] Contact Info) Description 02/26/2024 Procedure Pass [address] [place] [address] 03/03/2025 9:15 AM EST Appointment [address] [place] [address] Jamaal López, FAVIO [address] [place] [address] [place] [address] Scheduled Referrals Name Type Priority Associated Diagnoses Order Schedule Ambulatory referral to [facility] (Consult Requests Only) Outpatient Referral Routine Gastroesophageal reflux disease with esophagitis Ordered: 02/16/2018 documented as of this encounter Visit Diagnoses Diagnosis Gastroesophageal reflux disease with esophagitis- Primary documented in this encounter Additional Health Concerns Infection Onset Date Last Indicated Resolved Time CoV-Risk 11/07/2021 11/07/2021 11/18/2021 1:22 AM EDT documented as of this encounter Care Teams Manager Payroll Relationship Specialty Start Date End Date Fouzia Gil MD [address] [place] [address] [place] [address] PCP - General Internal Medicine 04/17/17 03/14/18 Alejandrina Newell, FAVIO [address] [place] [address] [place] [address] [email or web address] PCP - General Family Medicine 03/15/18 11/03/19 Jamaal López, FAVIO [address] [place] [address] [place] [address] PCP - General Family Medicine 11/04/19 Edwin Segal MD [address] [place] [address] Historical LMR Provider 11/27/16 02/16/21 Allen Melendrez MD [address] [place] [address] Historical LMR Provider 11/27/16 Srini Maxwell DO [address] [place] [address] Historical LMR Provider 11/27/16 Wiliam Griffin MD [address] [place] [address] Historical LMR Provider 11/27/16 documented as of this encounter Additional Source Comments The information contained in this document represents components of the legal health record. It is not the complete legal health record.[facility]
--- OUTSIDE RECORDS SUMMARY | 2025-01-09 06:20 | XMS_ITS | Encounter Summary ---
Author Organization [facility] Address [address] [place] [address] Phone Care Team Providers Care Silk Presser Name Role Phone Edwin Segal MD Unavailable Allen Melendrez MD Unavailable [phone] Srini Maxwell DO Unavailable [phone] Wiliam Griffin MD Unavailable [phone] Fouzia Gil MD Primary Care Provider [phone] Alejandrina Newell STAND UP COMEDIAN Primary Care Provider Jamaal López STAND UP COMEDIAN Primary Care Provider + Encounter Details Date Type Department Care Team (Late st Contact Info) Description 06/15/2017 Ancillary Orders [facility],Outside Imaging [address] [place] [address] System, Provider Not In, PhD [address] [address] Social History Tobacco Use Types Packs/Day Years [...] st Contact Info) Description 02/26/2024 Procedure Pass [address] [place] [address] 03/03/2025 9:15 AM EST Appointment [address] [place] [address] Jamaal López NP [address] [place] [address] Dr Swanson JOSE JUAN [address] documented as of this encounter Results * [...] documented as of this encounter Care Teams Silk Presser Relationship Specialty Start Date End Date Fouzia Gil MD [address] [place] [address] Jocelyn JOSE JUAN SWANSON [address] PCP - General Internal Medicine 04/17/17 03/14/18 Alejandrina Newell NP [address] [place] [address] [place] [id number] [email or web address] PCP - General Family Medicine 03/15/18 11/03/19 Jamaal López, FAVIO [address] [place] [address] Dr Swanson JOSE JUAN [address] PCP - General Family Medicine 11/04/19 Edwin Segal MD 22 [facility], [address] [address] [email or web address] Historical LMR Provider 11/27/16 02/16/21 Allen Melendrez MD [address] [place] [address] Historical LMR Provider 11/27/16 Srini Maxwell DO [address] [place] [address] Historical LMR Provider 11/27/16 Wiliam Griffin MD 22 [facility], [address] [address] [email or web address] Historical LMR Provider 11/27/16 documented as of this encounter Additional Source Comments The information contained in this document represents components of the legal health record. It is not the complete legal health record.[facility]
--- OUTSIDE RECORDS SUMMARY | 2025-01-09 06:20 | XMS_ITS | Patient Health Record ---
[facility] Address [address] [place] [address] Care Team Providers Care Rn Camp Name Role Phone Jamaal Early Primary Care Provider Unav ailable Nurys Miller Unavailable [phone] Allergies Allergen (clinical drug ingredient) Drug/Non Drug [...] a day; Duration: 30 day(s) Active Tiotropium [place] Monohydrate 1.25 MCG/ACT 2 puffs Inhalation Once [...] a day; Duration: 30 day(s) Active Ipratropium [place] Active Immunizations Vaccine Route Administration Date Status [...] W/U Status Risk Notes Problem Plantar wart (94970013) Plantar wart (B07.0) Active confirmed Plan Of Treatment Pending Test Test Name Order Date [id number] NAIL, 6 OR MORE 12/25/2015 [id number] NAIL, 6 OR MORE 01/16/2016 [id number] NAIL, 6 OR MORE 09/19/2016 [id number] Destruction, 1-14 11/20/2020 61849, [id number]/INJECT, JOINT/BURSA 0 08/26/2016 Insurance Providers Payer Name Payer Address Payer Phone Subscriber Number Group Number Insured Name Patient Relationship to Insured Coverage Start Date Coverage End Date [facility] [address] [place] [address] [id number] Shawna Hayes Self - patient is the [...]
--- OUTSIDE RECORDS SUMMARY | 2025-01-09 06:20 | XMS_ITS | Encounter Summary ---
Author Organization [facility] Address [address] [facility] [address] [place] [address] Phone Care Team Providers Care Portfolio Architect Name Role Phone Wiliam Griffin MD Unavailable [phone] Jamaal López NP Primary Care Provider + Encounter Details Date Type Department Care Team (Late st Contact Info) Description 10/13/2023 Procedure Pass [facility] [place] [address] [place] [address] Social History Tobacco Use Types Packs/Day Years [...] st Contact Info) Description 02/26/2024 Procedure Pass [address] [place] [address] 03/03/2025 9:15 AM EST Appointment [address] [place] [address] Jamaal López NP [address] [place] [address] [place] [address] documented as of this encounter Visit Diagnoses Not on filedocumented in this encounter Care Teams Portfolio Architect Relationship Specialty Start Date End Date Jamaal López NP [address] [place] [address] [place] [address] PCP - General Family Medicine 11/04/19 Wiliam Griffin MD [address] [place] [address], [facility] [address] [place] [address] [email or web address] Historical LMR Provider 11/27/16 documented as of this encounter Additional Source Comments The information contained in this document represents components of the legal health record. It is not the complete legal health record.[facility]
--- OUTSIDE RECORDS SUMMARY | 2025-01-09 06:20 | XMS_ITS | Encounter Summary ---
Author Organization [facility] Address [address] [place] [address] Phone Care Team Providers Care Spool Fixer Name Role Phone Edwin Segal MD Unavailable Allen Melendrez MD Unavailable Srini Maxwell DO Unavailable [phone] Wiliam Griffin MD Unavailable [phone] Fouzia Gil MD Primary Care Provider [phone] Alejandrina Newell NURSING PROGRAM COORDINATOR Primary Care Provider Jamaal López NURSING PROGRAM COORDINATOR Primary Care Provider + Encounter Details Date Type Department Care Team (Late st Contact Info) Description 06/15/2017 Ancillary Orders [facility],Outside Imaging 30 [place] [address] System, Provider Not In, PhD [address] [address] Social History Tobacco Use Types Packs/Day Years [...] Contact Info) Description 02/26/2024 Procedure Pass [address] [place] [address] 03/03/2025 9:15 AM EST Appointment [address] [place] [address] Jamaal López NP [address] [place] [address] Dr Swanson JOSE JUAN [address] documented as of this encounter Results * [...] documented as of this encounter Care Teams Spool Fixer Relationship Specialty Start Date End Date Fouzia Gil MD [address] [place] [address] Jocelyn JOSE JUAN SWANSON [address] PCP - General Internal Medicine 04/17/17 03/14/18 Alejandrina Newell NP [address] [place] [address] [place] [email or web address] PCP - General Family Medicine 03/15/18 11/03/19 Jamaal López, FAVIO [address] [place] [address] Dr Swanson JOSE JUAN [address] PCP - General Family Medicine 11/04/19 Edwin Segal MD 22 [facility], [address] [address] [email or web address] Historical LMR Provider 11/27/16 02/16/21 Allen Melendrez MD 115 [place] [address] Historical LMR Provider 11/27/16 Srini Maxwell DO [address] [place] [address] Historical LMR Provider 11/27/16 Wiliam Griffin MD 22 [facility], [address] [address] [email or web address] Historical LMR Provider 11/27/16 documented as of this encounter Additional Source Comments The information contained in this document represents components of the legal health record. It is not the complete legal health record.[facility]
--- OUTSIDE RECORDS SUMMARY | 2025-01-09 06:20 | XMS_ITS | Encounter Summary ---
Author Organization [facility] Address [address] [address] Phone Care Team Providers Care Food Storeroom Clerk Name Role Phone Wiliam Griffin MD Unavailable [phone] Jamaal López NP Primary Care Provider + Encounter Details Date Type Department Care Team (Late st Contact Info) Description 12/27/2021 Procedure Pass [address] [place] [address] Social History Tobacco Use Types Packs/Day Years [...] st Contact Info) Description 02/26/2024 Procedure Pass [address] [place] [address] 03/03/2025 9:15 AM EST Appointment [address] [place] [address] Jamaal López NP [address] [place] [address] Dr Starkey JOSE JUAN [address] documented as of this encounter Visit Diagnoses Not on filedocumented in this encounter Care Teams Food Storeroom Clerk Relationship Specialty Start Date End Date Jamaal López NP [address] [facility] Dr Starkey JOSE JUAN [address] PCP - General Family Medicine 11/04/19 Wiliam Griffin MD [address] [place] [address], [address] [place] [address] [email or web address] Historical LMR Provider 11/27/16 documented as of this encounter Additional Source Comments The information contained in this document represents components of the legal health record. It is not the complete legal health record.[facility]
--- OUTSIDE RECORDS SUMMARY | 2025-01-09 06:20 | XMS_ITS | Encounter Summary ---
Author Organization [facility] Address [address] [place] [address] Phone Care Team Providers Care File Machine Operator Name Role Phone Edwin Segal MD Unavailable Allen Melendrez MD Unavailable Srini Maxwell DO Unavailable [phone] Wiliam Griffin MD Unavailable [phone] Fouzia Gil MD Primary Care Provider [phone] Alejandrina Newell COMMERCIAL ENGINEER Primary Care Provider Jamaal López COMMERCIAL ENGINEER Primary Care Provider + Encounter Details Date Type Department Care Team (Late st Contact Info) Description 06/15/2017 Ancillary Orders [facility],Outside Imaging [address] [place] [address] System, Provider Not In, PhD [address] [address] Social History Tobacco Use Types Packs/Day Years [...] Contact Info) Description 02/26/2024 Procedure Pass [address] [place] [address] 03/03/2025 9:15 AM EST Appointment [address] [place] [address] Jamaal López NP [address] [place] [address] Dr Swanson JOSE JUAN [address] documented as of this encounter Results * [...] documented as of this encounter Care Teams File Machine Operator Relationship Specialty Start Date End Date Fouzia Gil MD [address] [place] [address] Jocelyn JOSE JUAN SWANSON [address] PCP - General Internal Medicine 04/17/17 03/14/18 Alejandrina Newell NP [address] [place] [address] [place] [address] [email or web address] PCP - General Family Medicine 03/15/18 11/03/19 Jamaal López, FAVIO [address] [place] [address] Dr Swanson JOSE JUAN [address] PCP - General Family Medicine 11/04/19 Edwin Sgeal MD 22 [facility], [address] [address] [email or web address] Historical LMR Provider 11/27/16 02/16/21 Allen Melendrez MD [address] [place] [address] Historical LMR Provider 11/27/16 Srini Maxwell DO [address] [place] [address] Historical LMR Provider 11/27/16 Wiliam Griffin MD 22 [facility], [address] [address] [email or web address] Historical LMR Provider 11/27/16 documented as of this encounter Additional Source Comments The information contained in this document represents components of the legal health record. It is not the complete legal health record.[facility]
--- OUTSIDE RECORDS SUMMARY | 2025-01-09 06:20 | XMS_ITS | Encounter Summary ---
Author Organization [facility] Address [address] [address] Phone Care Team Providers Care Fire Suppression Captain Name Role Phone Edwin Segal MD Unavailable Allen Melendrez MD Unavailable Srini Maxwell DO Unavailable [phone] Wiliam Griffin MD Unavailable [phone] Alejandrina Newell MOTORCYCLE ENGINE ASSEMBLER Primary Care Provider Jamaal López MOTORCYCLE ENGINE ASSEMBLER Primary Care Provider + Encounter Details Date Type Department Care Team (Late st Contact Info) Description 10/11/2019 Procedure Pass [address] [address] Social History Tobacco Use Types Packs/Day Years [...] st Contact Info) Description 02/26/2024 Procedure Pass [address] [place] [address] 03/03/2025 9:15 AM EST Appointment [address] [place] [address] Jamaal López NP [address] [facility] [address] Starkey JOSE JUAN [address] documented as of this encounter Visit Diagnoses Not on filedocumented in this encounter Additional Health Concerns Infection Onset Date Last Indicated Resolved Time CoV-Risk 11/07/2021 11/07/2021 11/18/2021 1:22 AM EDT documented as of this encounter Care Teams Fire Suppression Captain Relationship Specialty Start Date End Date Alejandrina Newell NP [address] [place] [address] [place] [id number] [email or web address] PCP - General Family Medicine 03/15/18 11/03/19 Jamaal López, FAVIO [address] [place] [address] Dr Starkey JOSE JUAN [address] PCP - General Family Medicine 11/04/19 Edwin Segal MD [address] [place] [address] [email or web address] Historical LMR Provider 11/27/16 02/16/21 Allen Melnedrez MD [address] [place] [address] Historical LMR Provider 11/27/16 Srini Maxwell DO [address] [place] [address] Historical LMR Provider 11/27/16 Wiilam Griffin MD [address] [place] [address] [email or web address] Historical LMR Provider 11/27/16 documented as of this encounter Additional Source Comments The information contained in this document represents components of the legal health record. It is not the complete legal health record.[facility]
[2025-01-09 10:13] LABS: Appearance Urine Clear; Glucose Urine UA Negative (Negative); PH 5.5 (5.0-9.0); Specific Gravity - Urine 1.015 (1.005-1.025)
[2025-01-09 10:48] LABS: MANUAL DIFF FLAG NO
[2025-01-09 11:12] LABS: Hematocrit 37.2 % (37.0-47.0); Hemoglobin 12.3 g/dl (12.0-16.0); Imm Gran Abs Auto 0.02 X10*3/uL (0.00-0.03); Imm Gran Pct Auto 0.2 % (0.0-0.4); Lymphocytes Absolute Auto 2.9 X10*3/uL (1.2-4.9); Mean Corpuscular HGB Conc 33.1 g/dl (31.0-35.0); Mean Corpuscular Hemoglobin 31.0 pg (27.0-33.0); Mean Corpuscular Volume 93.7 fL (80.0-98.0); NRBC Abs Auto 0.000 X10*3/uL (0.0-0.012); NRBC Pct Auto 0.0 /100WBC (0.0-0.2); Platelet Count 215 X10*3/uL (160-400); Red Blood Count 3.97 X10*6/uL (4.20-5.50); White Blood Count 8.8 X10*3/uL (4.8-10.8)
[2025-01-09 11:42] LABS: Alanine Aminotransferase 19 U/L (0-31); Albumin Level 4.4 g/dL (3.5-5.0); Alkaline Phosphatase 78 U/L (39-117); Anion Gap 14 (12-20); Aspartate Amino Transferase 31 U/L (5-31); Blood Urea Nitrogen 15 mg/dL (9-16); Calcium 9.2 mg/dL (8.4-10.2); Carbon Dioxide 25 mmol/L (22-29); Chloride 107 mmol/L (96-108); Cholesterol 129 mg/dL (<200); Estimated Glomerular Filt Rate > 60; HDL Cholesterol 40 mg/dL (>40); Potassium 4.5 mmol/L (3.3-5.1); Sodium 141 mmol/L (135-145); Total Protein 7.3 g/dL (6.5-8.0); Triglycerides 145 mg/dL (<150)
== END 2025-01-09 06:16 | disposition home or self-care (01) ==
LOC: HO.HMGCLDS 06:15
PROVIDERS: PCP Nurse Practitioner Family; Visit Provider Nurse Practitioner Family
DX: I10 Essential (primary) hypertension (principal); E55.9 Vitamin D deficiency, unspecified
CPT/HCPCS: 36415; 80053; 80061; 81003; 82306; 84443; 85025

== ENCOUNTER 2025-01-10 09:41 | Outpatient (AMB) | payer OTHER, SELFPAY ==
--- OUTSIDE RECORDS SUMMARY | 2011-05-21 23:00 | XMS_ITS | Encounter Summary ---
Author Organization [facility] Address 399 [facility] [address] [place] [address] Phone Care Team Providers Care Rnfa Name Role Phone Unavailable Primary Care Provider Unavailabl e Encounter Details Date Type Department Care Team (Late Contact Info) Description 05/22/2011 Hospital Encounter [facility],Outside Imaging 30 [place] [address] System, Provider Not In, [facility] [address] [address] Social History Tobacco Use Types Packs/Day Years [...] (Late Contact Info) Description 02/26/2024 Procedure Pass [address] [place] [address] 03/03/2025 9:15 AM EST Appointment [address] [place] [address] Jamaal López, FAVIO [address] [place] [address] [place] [address] documented as of this encounter Procedures Procedure [...] It is not the complete legal health record.[facility]
--- OUTSIDE RECORDS SUMMARY | 2011-05-26 23:00 | XMS_ITS | Encounter Summary ---
Author Organization [facility] Address [address] [facility] [address] [place] [address] Phone Care Team Providers Care Juvenile Detention Officer Name Role Phone Unavailable Primary Care Provider Unavailabl e Encounter Details Date Type Department Care Team (Late Contact Info) Description 05/27/2011 Hospital Encounter [facility],Outside Imaging 30 [place] [address] System, Provider Not In, PhD [facility] [address] [address] Social History Tobacco Use Types Packs/Day Years [...] (Late Contact Info) Description 02/26/2024 Procedure Pass [address] [place] [address] 03/03/2025 9:15 AM EST Appointment [address] [place] [address] Jamaal López, FAVOI [address] [place] [address] [place] [address] documented as of this encounter Procedures Procedure [...] It is not the complete legal health record.[facility]
--- OUTSIDE RECORDS SUMMARY | 2011-05-26 23:15 | XMS_ITS | Encounter Summary ---
Author Organization [facility] Address [address] [facility] [address] [place] [address] Phone Care Team Providers Care Hydrant Setter Name Role Phone Unavailable Primary Care Provider Unavailabl e Encounter Details Date Type Department Care Team (Late Contact Info) Description 05/27/2011 12:15 AM EDT Hospital Encounter [facility],Outside Imaging 30 [place] [address] System, Provider Not In, [facility] [address] [address] Social History Tobacco Use Types Packs/Day Years [...] (Late Contact Info) Description 02/26/2024 Procedure Pass [address] [place] [address] 03/03/2025 9:15 AM EST Appointment [address] [place] [address] Jamaal López, FAVIO [address] [place] [address] [place] [address] documented as of this encounter Procedures Procedure [...] It is not the complete legal health record.[facility]
--- OUTSIDE RECORDS SUMMARY | 2012-09-07 23:00 | XMS_ITS | Encounter Summary ---
Author Organization [facility] Address [address] [facility] [address] [place] [address] Phone Care Team Providers Care Station Engineer Main Line Name Role Phone Unavailable Primary Care Provider Unavailabl e Encounter Details Date Type Department Care Team (Late Contact Info) Description 09/08/2012 Hospital Encounter [facility],Outside Imaging 30 [place] [address] System, Provider Not In, PhD Partners [address] [address] Social History Tobacco Use Types Packs/Day Years [...] (Late Contact Info) Description 02/26/2024 Procedure Pass [address] [place] [address] 03/03/2025 9:15 AM EST Appointment [address] [place] [address] Jamaal López, FAVIO [address] [place] [address] [place] [address] documented as of this encounter Procedures Procedure Name Priority Date/Time Associated Diagnosis Comments BI MAMMOGRAM OUTSIDE (NO INTERPRETATION) Routine 09/08/2012 12:00 AM EDT documented in this encounter Results * Mammogram Outside (No Interpretation) (09/08/2012 12:00 AM EDT) Narrative SYSTEMGENERATED, DOCUMENTATION - 06/15/2017 11:44 AM EDT This study is for PACS [...] It is not the complete legal health record.[facility]
--- OUTSIDE RECORDS SUMMARY | 2012-09-13 23:00 | XMS_ITS | Encounter Summary ---
Author Organization [facility] Address [address] [facility] [address] [place] [address] Phone Care Team Providers Care Trust Vault Custodian Name Role Phone Unavailable Primary Care Provider Unavailabl e Encounter Details Date Type Department Care Team (Late Contact Info) Description 09/14/2012 Hospital Encounter [facility],Outside Imaging 30 [place] [address] System, Provider Not In, [facility] [address] [address] Social History Tobacco Use Types Packs/Day Years [...] (Late Contact Info) Description 02/26/2024 Procedure Pass [address] [place] [address] 03/03/2025 9:15 AM EST Appointment [address] [place] [address] Jamaal López, FAVIO [address] [place] [address] [place] [address] documented as of this encounter Procedures Procedure [...] It is not the complete legal health record.[facility]
--- OUTSIDE RECORDS SUMMARY | 2014-02-23 | XMS_ITS | Encounter Summary ---
Author Organization [facility] Address [address] [facility] [address] [place] [address] Phone Care Team Providers Care Senior Consumer Insights Consultant Name Role Phone Unavailable Primary Care Provider Unavailabl e Encounter Details Date Type Department Care Team (Late Contact Info) Description 02/23/2014 Hospital Encounter [facility],Outside Imaging 30 [place] [address] System, Provider Not In, [facility] [address] [address] Social History Tobacco Use Types Packs/Day Years [...] (Late Contact Info) Description 02/26/2024 Procedure Pass [address] [place] [address] 03/03/2025 9:15 AM EST Appointment [address] [place] [address] Jamaal López, FAVIO [address] [place] [address] [place] [address] documented as of this encounter Procedures Procedure Name Priority Date/Time Associated Diagnosis Comments BI MAMMOGRAM OUTSIDE (NO INTERPRETATION) Routine 02/23/2014 12:00 AM EST documented in this encounter Results * Mammogram Outside (No Interpretation) (02/23/2014 12:00 AM EST) Narrative SYSTEMGENERATED, DOCUMENTATION - 06/15/2017 11:48 AM EDT This study is for PACS [...] It is not the complete legal health record.[facility]
--- OUTSIDE RECORDS SUMMARY | 2016-06-03 23:00 | XMS_ITS | Encounter Summary ---
Author Organization [facility] Address [address] [facility] [address] [place] [address] Phone Care Team Providers Care Psych Specialist Name Role Phone Unavailable Primary Care Provider Unavailabl e Encounter Details Date Type Department Care Team (Late Contact Info) Description 06/04/2016 Hospital Encounter [facility],Outside Imaging 30 [place] [address] System, Provider Not In, [facility] [address] [address] Social History Tobacco Use Types Packs/Day Years [...] (Late Contact Info) Description 02/26/2024 Procedure Pass [address] [place] [address] 03/03/2025 9:15 AM EST Appointment [address] [place] [address] Jamaal López, FAVIO [address] [place] [address] [place] [address] documented as of this encounter Procedures Procedure Name Priority Date/Time Associated Diagnosis Comments BI MAMMOGRAM OUTSIDE (NO INTERPRETATION) Routine 06/04/2016 12:00 AM EDT documented in this encounter Results * Mammogram Outside (No Interpretation) (06/04/2016 12:00 AM EDT) Narrative SYSTEMGENERATED, DOCUMENTATION - 06/15/2017 11:42 AM EDT This study is for PACS [...] It is not the complete legal health record.[facility]
--- NOTE | 2025-01-10 09:43 | A.OFFPC_ITS ---
Vital Signs 01/10/25 09:44 Height 5 ft 5 in Weight 178 lb BMI 29.6 BP 138/80 Blood Pressure Location Lt brachial Position Sitting Pulse 107 H Pulse Source Pulse Oximeter Pulse Oximetry (%) 99 Oxygen Delivery Method Room Air Intake Visit Reasons: 6m f/u Station Repairer Required: No Accompanied by: Self / Same As Patient Allergies Sulfa (Sulfonamide Antibiotics) Allergy (Severe, Verified 11/29/24 16:01) ANAPHYLAXIS, angioedema cefuroxime (From CEFTIN) Allergy (Intermediate, Verified 11/29/24 16:01) RASH metronidazole (From FLAGYL) Allergy (Intermediate, Verified 11/29/24 16:01) itch cefotetan Allergy (Unknown, Verified 11/29/24 16:01) rash sulfacetamide Allergy (Unknown, Verified 11/29/24 16:01) oral swelling, rash oxycodone (From OxyContin) Allergy (Verified 11/29/24 16:01) Itching shrimp Allergy (Verified 11/29/24 16:01) Itching nitrofurantoin (From MACROBID) Adverse Reaction (Mild, Verified 11/29/24 16:01) n/v Medication List - Last Reconciled 01/10/25 by PATRICIO Lorenzo- acetaminophen 1,000 mg (2 x 500 mg) PO Q6H PRN albuterol sulfate 2.5 mg (3 mL) inhalation QID PRN albuterol sulfate 90 mcg/actuation (Ventolin HFA) 2 puffs inhalation Q6H PRN amitriptyline 50 mg PO BEDTIME 90 days amoxicillin-pot clavulanate 875-125 mg 1 tab PO BID 10 days apixaban (Eliquis) 5 mg PO Q12H atorvastatin 20 mg PO BEDTIME Bifidobacterium infantis (Align (B.infantis)) 4 mg PO BEDTIME 90 days budesonide-formoterol 160-4.5 mcg/actuation (Symbicort) 2 puffs inhalation BID buspirone 15 mg PO BID 90 days buspirone 20 mg PO BEDTIME buspirone 5 mg PO BEDTIME nqdalwmbgx-mfmkorxuvlqff-spat 50-300-40 mg (Fioricet) 1 cap PO DAILY PRN 5 days cetirizine (All Day Allergy (cetirizine)) 20 mg PO BID cholecalciferol (vitamin D3) 50 mcg PO DAILY 90 days cyanocobalamin (vitamin B-12) 1,000 mcg PO DAILY epinephrine 0.3 mg IM DIRECTED escitalopram oxalate 5 mg PO DAILY famotidine 40 mg PO BEDTIME fluticasone propionate 50 mcg/actuation 2 sprays intranasal DAILY hydroxyzine HCl 50 mg PO BEDTIME hydroxyzine HCl 10 mg PO BEDTIME PRN hyoscyamine sulfate 0.125 mg PO BID-QID inhalational spacing device (Flexichamber spacer) As directed with inhaler lansoprazole 30 mg PO DAILY lidocaine 5% (Lidoderm) 1 patch topical DAILY PRN magnesium oxide 400 mg PO BEDTIME 30 days meloxicam 15 mg PO DAILY meloxicam 15 mg PO DAILY PRN 10 days montelukast 10 mg PO BEDTIME multivitamin with folic acid 400 mcg (Daily-Garrett (with folic acid)) 1 tab PO DAILY [nebulizer tubing and supplies As directed] nebulizers (Compact Compressor Nebulizer) As directed polyethylene glycol 3350 17 grams PO BID prednisone 40 mg (2 x 20 mg) PO DAILY 5 days scopolamine base 1 patch transdermal Q3D PRN tiotropium bromide 2.5 mcg/actuation (Spiriva Respimat) 2 puffs PO DAILY tramadol 50 mg PO BID PRN 7 days vitamin B complex 1 tab PO DAILY Tobacco use date assessed: 01/10/25 Dental Screening Dental Screen Date: 01/10/25 Did you have a dental visit in the last 12 months?: No Did you have a dental problem in the last 6 months where you did not have access to dental care?: No Was dental information given to patient?: Patient declined HPI 6m f/u HPI Details Chief Complaint The patient presents for a follow-up visit for sinusitis symptoms that have persisted for a couple of weeks. History of Present Illness The patient is a 54 year old individual presenting with follow up for sinusitis. The patient has been experiencing symptoms for a couple of weeks, including pressure in the ears, as well as maxillary and frontal pressure. The patient is frequently around smokers. The patient was previously on tramadol and is currently taking escitalopram. Recent laboratory results were within normal limits. Social History - Tobacco Exposure: The patient is frequ ently around smokers. Health Maintenance - Medication Safety: An EKG will be obta ined to monitor for QT prolongation due to use of tramadol and escitalopram. Review of Systems - Constitutional: Denies fevers or chill s. - Head: Reports maxillary and frontal pr essure. - Ears: Reports pressure in the ears. - Cardiovascular: Denies chest pain. - Respiratory: Denies shortness of breat h. Physical Exam General: Cooperative, healthy appearing, comfortable, no acute distress and well developed Orientation: Patient oriented x3 Limitations: No limitations Head: Normal to inspection Ears: Pressure in ears, hearing grossly normal bilaterally Nose: Normal external nose present Face and sinus: Frontal and maxillary pressure, tenderness with pressure Eyes: Appearance normal, both eyes and all related structures Neck: Normal visual inspection and Yes full ROM Respiratory: Normal respiratory effort and able to speak in complete sentences. Clear to auscultation bilaterally Cardiovascular: Regular rate and rhythm. Normal S1 and S2 GI: Normal to inspection. Soft to palpation and nontender Skin: No rashes or lesions noted Neuro: Patient oriented x3 Extremities: Normal to inspection Results - Labs: Recent labs are within normal li mits. Plan 1. Sinusitis The patient reports sinusitis symptoms for a couple of weeks, including maxillary, frontal, and ear pressure. Given the duration of symptoms, an antibiotic will be prescribed. 2. Long-Term (Current) Drug Therapy Fanny toring Due to the patient's past use of tramadol and current use of escitalopram, there is a risk of QT prolongation. An EKG will be ordered to monitor for this potential side effect. 3. educated on elevated FBS Discussion Notes I saw the patient for a follow-up visit for sinusitis that has been present for a couple of weeks. Due to the persistence of symptoms, I will be prescribing an antibiotic. I also discussed ordering an EKG to check for QT prolongation, as the patient was on tramadol and is currently taking escitalopram. I reviewed that recent labs were within normal limits. Patient Instructions - [facility] - We will arrange for you to have an EKG to check your heart rhythm because of the medications you take. - Your recent lab work came back normal. - It is recommended to avoid exposure to smoke. [facility] Medical History Shrimp allergy Small bowel ischemia COVID-19 Paralytic ileus H/O abnormal cervical Papanicolaou smear [place]-menopausal control counseling Migraine with aura Portal vein thrombosis Lupus Right shoulder pain Immunizations incomplete Encounter for screening for COVID-19 Carpal tunnel syndrome Right hand pain Right wrist pain Surgical History Hx of carpal tunnel repair Hx of colonoscopy H/O resection of small bowel History of esophagogastroduodenoscopy (EGD) History of shoulder surgery H/O left knee surgery Hx of cholecystectomy Family History Mother Multiple myeloma Mental health disorder Father Bladder cancer Liver tumor Bile duct cancer Maternal Grandmother Lymphoma Maternal Grandfather Bone cancer Social History Household Members: Significant Other Housing: Apartment Are you a primary child care associate to a significant other at home: No Do you presently have visiting nurse or other home services: No Alcohol intake: never Patient Tobacco Use Status: Former Tobacco user Tobacco use type: Cigarette Cigarette Packs Per Day: 1 e-Cigarette/Vaping Use: Never Used Second Hand Smoke Exposure: Yes Advance Directives Date on File: 05/02/21 service: No 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al status: employed 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 1. Little interest or pleasure in doing things: not at all 2. Feeling down, depressed, or hopeless: not at all 3. Trouble falling or staying asleep, or sleeping too much: not at all 4. Feeling tired or having little energy: not at all 5. Poor appetite or overeating: not at all 6. Feeling bad about yourself - or that you are a failure or have let yourself or your family down: not at all 7. Trouble concentrating on things, such as reading the newspaper or watching television: not at all 8. Moving or speaking so slowly that other people could have noticed. Or the opposite - being so fidgety or restless that you have been moving around a lot more than usual: not at all 9. Thoughts that you would be better off or of hurting yourself in some way: not at all Total score: 0 Depression Screening Interpretation: Negative Depression Screening Done: Yes 26502 - PHQ-9 Billing: Yes Source: Developed by Drs. Tyler Jordan, Marito King and colleagues, with an educational angela from [employer]. Thrive Questionnaire Date Thrive assessed: 06/23/24 I am a: Patient What is your living situation today?: I have a steady place to live Within the past 12 months, did the food you bought not last and you didn't have the money to get more?: Never true Within the past 12 months, did you worry whether your food would run out before you got money to buy more?: Never true Do you have trouble paying for medicines?: No Do you have trouble getting transportation to medical appointments?: No Do you have trouble paying your heating and electricity bill?: No Do you have trouble taking care of your child, family member or friend?: No Do you have trouble with day-to-day activities such as bathing, preparing meals, shopping, managing finances, etc.?: No Are you currently unemployed and looking for a job?: No Are you interested in more education?: No Please select the resources that you would like help with: None Currently or been in a relationship where the following occur: No concerns reported THRIVE Score: 0 TOM-7 AMB Questionnaire TOM-7 Date TOM - 7 assessed: 01/10/25 Feeling nervous, anxious, or on edge: 0 = Not at all Not being able to stop or control worryin = Not at all Worrying too much about different things: 0 = Not at all Trouble relaxin = Not at all Being so restless that it is hard to sit still: 0 = Not at all Becoming easily annoyed or irritable: 0 = Not at all Feeling afraid as if something awful might happen: 0 = Not at all Total TOM-7 score (0-4 normal; 5-9 mild; 10-14 moderate; 15-21 severe): 0 Source: Developed by Ying Cruz Kurt Kroenke and colleagues, with an educational angela from [employer]. TOM-7 Assessment Billing TOM-7 Assessment Tool: TOM-7 Assessment 39999 Physical exam (Primary Care) Vital Signs: Last Vital Signs Pulse 107 H 01/10/25 09:44 BP 138/80 01/10/25 09:44 Pulse Ox 99 01/10/25 09:44 Oxygen Delivery Method Room Air 01/10/25 09:44 BMI result Body Mass Index 29.6 Tobacco/Smoking Status: Tobacco use Status Tobacco use date assessed 01/10/25 01/10/25 09:52 Patient Tobacco Use Status Former Tobacco user 01/10/25 09:48 Tobacco use type Cigarette 01/10/25 09:48 e-Cigarette/Vaping Use Never Used 01/10/25 09:48 PHQ-9: PHQ-9 Score PHQ-9: Total score 0 01/10/25 09:53 Depression Screening Interpretation: Negative Thrive Assessment: Date of Thrive Assessment Date Thrive assessed 06/23/24 01/10/25 09:48 Currently or been in a relationship where the following occur: No concerns reported Coding Level of Care Code Est Pt Level 3 (04840) Diagnoses QT prolongation R94.31 Sinusitis J32.9 Elevated fasting blood sugar R73.01 Additional Codes TOM-7 Assessment Billing - TOM-7 Assessment Tool: TOM-7 Assessment 60736 ([id number]) PHQ-9 - 96483 - PHQ-9 Billing: Yes ([id number]) Assessment & Plan Assessment & Plan (1) QT prolongation: Code(s): R94.31 - Abnormal electrocardiogram [ECG] [EKG] Category: Medical (2) Sinusitis: Code(s): J32.9 - Chronic sinusitis, unspecified Category: Medical (3) Elevated fasting blood sugar: Code(s): R73.01 - Impaired fasting glucose Category: Medical Plan . Orders: Orders AMB EKG-In Office Today J32.9 - Chronic sinusitis, unspecified, R94.31 - Abnormal electrocardiogram [ECG] [EKG] Medications: New amoxicillin-pot clavulanate 875-125 mg 1 tab PO BID 20 tabs 0RF 10 days
[2025-01-10 09:44] VITALS: BP 138/80; PULSE 107; O2SAT 99; BMI 29.6
--- OUTSIDE RECORDS SUMMARY | 2025-01-10 10:39 | XMS_ITS | Encounter Summary ---
Author Organization [facility] Address [address] [place] [address] Phone Care Team Providers Care Conservator Artifacts Name Role Phone Edwin Segal MD Unavailable Allen Melendrez MD Unavailable [phone] Srini Maxwell DO Unavailable [phone] Wiliam Griffin MD Unavailable [phone] Fouzia Gil MD Primary Care Provider [phone] Alejandrina Newell LABORER [employer] Primary Care Provider Jamaal López [employer] Primary Care Provider + Encounter Details Date Type Department Care Team (Late st Contact Info) Description 06/15/2017 Ancillary Orders [facility],Outside Imaging [address] [place] [address] System, Provider Not In, PhD [address] [address] Social History Tobacco Use Types Packs/Day Years [...] st Contact Info) Description 02/26/2024 Procedure Pass [address] [place] [address] 03/03/2025 9:15 AM EST Appointment [address] [place] [address] Jamaal López NP [address] [place] [address] Dr Swanson JOSE JUAN [address] documented as of this encounter Results * [...] documented as of this encounter Care Teams Conservator Artifacts Relationship Specialty Start Date End Date Fouzia Gil MD [address] [place] [address] Jocelyn JOSE JUAN SWANSON [address] PCP - General Internal Medicine 04/17/17 03/14/18 Alejandrina Newell NP [address] [place] [address] [place] [address] [email or web address] PCP - General Family Medicine 03/15/18 11/03/19 Jamaal López, FAVIO [address] [place] [address] Dr Swanson JOSE JUAN [address] PCP - General Family Medicine 11/04/19 Edwin Segal MD 22 [facility], [address] [address] Historical LMR Provider 11/27/16 02/16/21 Allen Melendrez MD [address] [place] [address] Historical LMR Provider 11/27/16 Srini Maxwell DO [address] [place] [address] Historical LMR Provider 11/27/16 Wiliam Griffin MD [address] [place] [address], [address] [address] [email or web address] Historical LMR Provider 11/27/16 documented as of this encounter Additional Source Comments The information contained in this document represents components of the legal health record. It is not the complete legal health record.[facility]
--- OUTSIDE RECORDS SUMMARY | 2025-01-10 10:39 | XMS_ITS | Encounter Summary ---
Author Organization [facility] Address [address] [place] [address] Phone Care Team Providers Care Consolidator Name Role Phone Edwin Segal MD Unavailable Allen Melendrez MD Unavailable [phone] Srini Maxwell DO Unavailable [phone] Wiliam Griffin MD Unavailable [phone] Fouzia Gil MD Primary Care Provider [phone] Alejandrina Newell INDIVIDUAL PENSION ADVISER Primary Care Provider Jamaal López INDIVIDUAL PENSION ADVISER Primary Care Provider + Encounter Details Date Type Department Care Team (Late st Contact Info) Description 06/15/2017 Ancillary Orders [facility],Outside Imaging [address] [place] [address] System, Provider Not In, PhD [address] [address] Social History Tobacco Use Types Packs/Day Years [...] Contact Info) Description 02/26/2024 Procedure Pass [address] [place] [address] 03/03/2025 9:15 AM EST Appointment [address] [place] [address] Jamaal López NP [address] [place] [address] Dr Swanson JOSE JUAN [address] documented as of this encounter Results * [...] documented as of this encounter Care Teams Consolidator Relationship Specialty Start Date End Date Fouzia Gil MD [address] [place] [address] Jocelyn JOSE JUAN SWANSON [address] PCP - General Internal Medicine 04/17/17 03/14/18 Alejandrina Newell NP [address] [place] [address] [place] [address] [email or web address] PCP - General Family Medicine 03/15/18 11/03/19 Jamaal López, FAVIO [address] [place] [address] Dr Swanson JOSE JUAN [address] PCP - General Family Medicine 11/04/19 Edwin Segal MD 22 [facility] [place], [address] [address] [email or web address] Historical LMR Provider 11/27/16 02/16/21 Allen Melendrez MD [address] [place] [address] Historical LMR Provider 11/27/16 Srini Maxwell DO [address] [place] [address] Historical LMR Provider 11/27/16 Wiliam Griffin MD 22 [facility] [place], [address] [address] [email or web address] Historical LMR Provider 11/27/16 documented as of this encounter Additional Source Comments The information contained in this document represents components of the legal health record. It is not the complete legal health record.[facility]
--- OUTSIDE RECORDS SUMMARY | 2025-01-10 10:39 | XMS_ITS | Encounter Summary ---
Author Organization [facility] Address [address] [place] [address] Phone Care Team Providers Care Group Work Program Aide Name Role Phone Edwin Segal MD Unavailable Allen Melendrez MD Unavailable Srini Maxwell DO Unavailable [phone] Wiliam Griffin MD Unavailable [phone] Fouzia Gil MD Primary Care Provider [phone] Alejandrina Newell THERAPIST PHYSICAL Primary Care Provider Jamaal López THERAPIST PHYSICAL Primary Care Provider + Encounter Details Date Type Department Care Team (Late st Contact Info) Description 06/15/2017 Ancillary Orders [facility],Outside Imaging [address] [place] [address] System, Provider Not In, PhD [address] [address] Social History Tobacco Use Types Packs/Day Years [...] Contact Info) Description 02/26/2024 Procedure Pass [address] [place] [address] 03/03/2025 9:15 AM EST Appointment [address] [place] [address] Jamaal López NP [address] [place] [address] Dr Swanson JOSE JUAN [address] documented as of this encounter Results * [...] documented as of this encounter Care Teams Group Work Program Aide Relationship Specialty Start Date End Date Fouzia Gil MD [address] [place] [address] Jocelyn JOSE JUAN SWANSON [address] PCP - General Internal Medicine 04/17/17 03/14/18 Alejandrina Newell NP [address] [place] [address] [place] [address] [email or web address] PCP - General Family Medicine 03/15/18 11/03/19 Jamaal López, FAVIO [address] [place] [address] Dr Swanson JOSE JUAN [address] PCP - General Family Medicine 11/04/19 Edwin Segal MD 22 [facility], [address] [address] [email or web address] Historical LMR Provider 11/27/16 02/16/21 Allen Melendrez MD [address] [place] [address] Historical LMR Provider 11/27/16 Srini Maxwell DO [address] [place] [address] Historical LMR Provider 11/27/16 Wiliam Griffin MD 22 [facility], [address] [address] [email or web address] Historical LMR Provider 11/27/16 documented as of this encounter Additional Source Comments The information contained in this document represents components of the legal health record. It is not the complete legal health record.[facility]
--- OUTSIDE RECORDS SUMMARY | 2025-01-10 10:39 | XMS_ITS | Encounter Summary ---
Author Organization [facility] Address [address] [address] Phone Care Team Providers Care Supervisor Backfilling Name Role Phone Edwin Segal MD Unavailable Allen Melendrez MD Unavailable Srini Maxwell DO Unavailable [phone] Wilaim Griffin MD Unavailable Alejandrina Newell CLOTH DESIZING RANGE TENDER Primary Care Provider Jamaal López CLOTH DESIZING RANGE TENDER Primary Care Provider + Encounter Details Date Type Department Care Team (Late st Contact Info) Description 05/13/2018 Ancillary Orders [facility] [address] [place] [address] Wiliam Griffin MD 22 [facility], [address] [place] [address] Breast screening Social History Tobacco Use Types [...] st Contact Info) Description 02/26/2024 Procedure Pass [address] [place] [address] 03/03/2025 9:15 AM EST Appointment [address] [place] [address] Jamaal López, FAVIO [address] [place] [address] [place] [address] documented as of this encounter Results * BI MAMMOGRAM SCREENING WITH TOMOSYNTHESIS WITH CAD (BILATERAL) (07/26/2018 7:52 AM EDT) Anatomical Region Laterality Modality Breast Left, Breast Right, Breast Bilateral Bila teral Mammography 07/26/2018 2:5 9 PM EDT Impressions 07/26/2018 3:02 PM EDT [...] documented as of this encounter Care Teams Supervisor Backfilling Relationship Specialty Start Date End Date Alejandrina Newell NP [address] [place] [address] [place] [address] [email or web address] PCP - General Family Medicine 03/15/18 11/03/19 Jamaal López NP [address] [facility] [place] [address] PCP - General Family Medicine 11/04/19 Edwin Segal MD [address] [place] [address], [address] [place] [address] [email or web address] Historical LMR Provider 11/27/16 02/16/21 Allen Melendrez MD [address] [place] [address] Historical LMR Provider 11/27/16 Srini Maxwell DO [address] [place] [address] Historical LMR Provider 11/27/16 Wiliam Griffin MD [address] [place] [address], [facility] [address] [place] [address] [email or web address] Historical LMR Provider 11/27/16 documented as of this encounter Additional Source Comments The information contained in this document represents components of the legal health record. It is not the complete legal health record.[facility]
--- OUTSIDE RECORDS SUMMARY | 2025-01-10 10:40 | XMS_ITS | Encounter Summary ---
Author Organization [facility] Address [address] [facility] [address] [place] [address] Phone Care Team Providers Care Glass Unloading Equipment Tender Name Role Phone Edwin Segal MD Unavailable Allen Melendrez MD Unavailable [phone] Srini Maxwell DO Unavailable [phone] Wiliam Griffin MD Unavailable [phone] Jamaal López NP Primary Care Provider + Encounter Details Date Type Department Care Team (Late st Contact Info) Description 10/04/2020 Procedure Pass [address] [place] [address] Social History Tobacco Use Types Packs/Day Years [...] st Contact Info) Description 02/26/2024 Procedure Pass [address] [place] [address] 03/03/2025 9:15 AM EST Appointment [address] [place] [address] Jamaal López NP [address] [facility] [place] [address] documented as of this encounter Visit Diagnoses Not on filedocumented in this encounter Additional Health Concerns Infection Onset Date Last Indicated Resolved Time CoV-Risk 11/07/2021 11/07/2021 11/18/2021 1:22 AM EDT documented as of this encounter Care Teams Glass Unloading Equipment Tender Relationship Specialty Start Date End Date Jamaal López NP [address] [facility] [place] [place] [address] PCP - General Family Medicine 11/04/19 Edwin Segal MD [address] [address] Historical LMR Provider 11/27/16 02/16/21 Allen Melendrez MD 115 [place] [address] Historical LMR Provider 11/27/16 Srini Maxwell DO [address] [place] [address] Historical LMR Provider 11/27/16 Wiliam Griffin MD [address] [address] Historical LMR Provider 11/27/16 documented as of this encounter Additional Source Comments The information contained in this document represents components of the legal health record. It is not the complete legal health record.[facility]
--- OUTSIDE RECORDS SUMMARY | 2025-01-10 10:40 | XMS_ITS | Encounter Summary ---
Author Organization [facility] Address 399 [facility] [address] [place] [address] Phone Care Team Providers Care Resistance Welding Machine Operator Name Role Phone Edwin Segal MD Unavailable Allen Melendrez MD Unavailable Srini Maxwell DO Unavailable [phone] Wiliam Griffin MD Unavailable Fouzia Gil MD Primary Care Provider Alejandrina Newell COACH MECHANIC Primary Care Provider Jamaal López COACH MECHANIC Primary Care Provider + Encounter Details Date Type Department Care Team (Late st Contact Info) Description 06/11/2017 Ancillary Orders Virtual Department 30 [place] [address] Fouzia Gil MD [facility]2 [place] [address] Breast screening Social History Tobacco Use Types [...] st Contact Info) Description 02/26/2024 Procedure Pass [address] [place] [address] 03/03/2025 9:15 AM EST Appointment [address] [place] [address] Jamaal López, FAVIO [address] [place] [address] [place] [address] documented as of this encounter Results * [...] documented as of this encounter Care Teams Resistance Welding Machine Operator Relationship Specialty Start Date End Date Fouzia Gil MD [address] [place] [address] PCP - General Internal Medicine 04/17/17 03/14/18 Alejandrina Newell NP [address] [place] [address] [place] [address] [email or web address] PCP - General Family Medicine 03/15/18 11/03/19 Jamaal López NP [address] [place] [address] Dr [place] PCP - General Family Medicine 11/04/19 Edwin Segal MD [address] [place] [address], [address] [place] [address] [email or web address] Historical LMR Provider 11/27/16 02/16/21 Allen Melendrez MD [address] [place] [address] Historical LMR Provider 11/27/16 Srini Maxwell DO 575 [place] [address] Historical LMR Provider 11/27/16 Wiliam Griffin MD 22 [facility], [facility] 102 [place] [address] [email or web address] Historical LMR Provider 11/27/16 documented as of this encounter Additional Source Comments The information contained in this document represents components of the legal health record. It is not the complete legal health record.[facility]
--- OUTSIDE RECORDS SUMMARY | 2025-01-10 10:40 | XMS_ITS | Encounter Summary ---
Author Organization [facility] Address [address] [address] Phone Care Team Providers Care Synthetic Soil Blocks Pulper Name Role Phone Edwin Segal MD Unavailable Allen Melendrez MD Unavailable [phone] Srini Maxwell DO Unavailable [phone] Wiliam Griffin MD Unavailable Alejandrina Newell PAINTER AND DECORATOR Primary Care Provider Jamaal López PAINTER AND DECORATOR Primary Care Provider + Encounter Details Date Type Department Care Team (Late st Contact Info) Description 09/01/2019 Ancillary Orders Virtual Department 30 [place] [address] Jamaal López NP [facility] [place] [address] Breast screening Social History Tobacco Use Types [...] Contact Info) Description 02/26/2024 Procedure Pass [address] [place] [address] 03/03/2025 9:15 AM EST Appointment [address] [place] [address] Jamaal López, FAVIO [address] [place] [address] [place] [address] documented as of this encounter Results * [...] and compared with multiple prior studies, most mhghtiey76/17/2019, with utilization of computer-aided detection. The breasts [...] are scattered fibroglandular densities. us Jamaal López PAINTER AND DECORATOR IMG MG EXAMS Final Re sult documented in this encounter Visit Diagnoses Diagnosis Breast screening Breast screening, unspecified Breast screening Breast screening, unspecified documented in this encounter Additional Health Concerns Infection Onset Date Last Indicated Resolved Time CoV-Risk 11/07/2021 11/07/2021 11/18/2021 1:22 AM EDT documented as of this encounter Care Teams Synthetic Soil Blocks Pulper Relationship Specialty Start Date End Date Alejandrina Newell NP [address] [place] [address] [place] [address] [place] [address] [email or web address] PCP - General Family Medicine 03/15/18 11/03/19 Jamaal López NP [address] [place] [address] [place] [address] PCP - General Family Medicine 11/04/19 Edwin Segal MD [address] [place] [address] [email or web address] Historical LMR Provider 11/27/16 02/16/21 Allen Melendrez MD 115 [place] [address] Historical LMR Provider 11/27/16 Srini Maxwell DO 5 [place] [address] Historical LMR Provider 11/27/16 Wiliam Griffin MD [address] [place] [address] [email or web address] Historical LMR Provider 11/27/16 documented as of this encounter Additional Source Comments The information contained in this document represents components of the legal health record. It is not the complete legal health record.[facility]
--- OUTSIDE RECORDS SUMMARY | 2025-01-10 10:40 | XMS_ITS | Encounter Summary ---
Author Organization [facility] Address [address] [address] Phone Care Team Providers Care Clinical Rehabilitation Aide Name Role Phone Edwin Segal MD Unavailable Allen Melendrez MD Unavailable Srini Maxwell DO Unavailable [phone] Wiliam Griffin MD Unavailable [phone] Alejandrina Newell PRODUCT SPECIALIST Primary Care Provider Jamaal López PRODUCT SPECIALIST Primary Care Provider + Encounter Details Date Type Department Care Team (Late st Contact Info) Description 10/11/2019 Procedure Pass [address] [address] Social History Tobacco Use Types Packs/Day Years [...] st Contact Info) Description 02/26/2024 Procedure Pass [place] [place] [address] 03/03/2025 9:15 AM EST Appointment [address] [place] [address] Jamaal López NP [address] [facility] [address] [place] [address] documented as of this encounter Visit Diagnoses Not on filedocumented in this encounter Additional Health Concerns Infection Onset Date Last Indicated Resolved Time CoV-Risk 11/07/2021 11/07/2021 11/18/2021 1:22 AM EDT documented as of this encounter Care Teams Clinical Rehabilitation Aide Relationship Specialty Start Date End Date Alejandrina Newell NP [address] [place] [address] [place] [address] [email or web address] PCP - General Family Medicine 03/15/18 11/03/19 Jamaal López, FAVIO [address] [place] [address] Dr [place]key [place] [address] PCP - General Family Medicine 11/04/19 Edwin Segal MD [address] [place] [address] [email or web address] Historical LMR Provider 11/27/16 02/16/21 Allen Melendrez MD 115 [place] [address] Historical LMR Provider 11/27/16 Srini Maxwell DO [address] [place] [address] Historical LMR Provider 11/27/16 Wiliam Griffin MD [address] [place] [address] [email or web address] Historical LMR Provider 11/27/16 documented as of this encounter Additional Source Comments The information contained in this document represents components of the legal health record. It is not the complete legal health record.[facility]
--- OUTSIDE RECORDS SUMMARY | 2025-01-10 10:40 | XMS_ITS | Encounter Summary ---
Author Organization [facility] Address [address] [address] Phone Care Team Providers Care Factory Assembler Name Role Phone Edwin Segal MD Unavailable Allen Melendrez MD Unavailable [phone] Srini Maxwell DO Unavailable [phone] Wiliam Griffin MD Unavailable [phone] Fouzia Gil MD Primary Care Provider [phone] Alejandrina Newell SKI INSTRUCTOR Primary Care Provider Jamaal López SKI INSTRUCTOR Primary Care Provider + Encounter Details Date Type Department Care Team (Late st Contact Info) Description 05/14/2017 Procedure Pass [facility],Outside Imaging 30 [place] [address] Social History Tobacco Use Types Packs/Day Years [...] Contact Info) Description 02/26/2024 Procedure Pass [address] Neil [place] [address] 03/03/2025 9:15 AM EST Appointment [address] [place] [address] Jamaal López, FAVIO [address] [place] [address] [place] [address] documented as of this encounter Visit Diagnoses Not on filedocumented in this encounter Additional Health Concerns Infection Onset Date Last Indicated Resolved Time CoV-Risk 11/07/2021 11/07/2021 11/18/2021 1:22 AM EDT documented as of this encounter Care Teams Factory Assembler Relationship Specialty Start Date End Date Fouzia Gil MD [address] [place], [place] [address] PCP - General Internal Medicine 04/17/17 03/14/18 Alejandrina Newell NP [address] [place] [address] [place] [address] [email or web address] PCP - General Family Medicine 03/15/18 11/03/19 Jamaal López, FAVIO [address] [place] [address] [place] [address] PCP - General Family Medicine 11/04/19 Edwin Segal MD [address] [place] [address], [facility] 102 [place] [address] [email or web address] Historical LMR Provider 11/27/16 02/16/21 Allen Melendrez MD [address] [place] [address] Historical LMR Provider 11/27/16 Srini Maxwell DO [address] [place] [address] Historical LMR Provider 11/27/16 Wiliam Griffin MD [address] [place] [address] 102 [place] [address] [email or web address] Historical LMR Provider 11/27/16 documented as of this encounter Additional Source Comments The information contained in this document represents components of the legal health record. It is not the complete legal health record.[facility]
--- OUTSIDE RECORDS SUMMARY | 2025-01-10 10:40 | XMS_ITS | Encounter Summary ---
Author Organization [facility] Address [address] [address] Phone Care Team Providers Care Car Framer Name Role Phone Edwin Segal MD Unavailable Allen Melendrez MD Unavailable Srini Maxwell DO Unavailable [phone] Wiliam Griffin MD Unavailable Jamaal López NP Primary Care Provider + Encounter Details Date Type Department Care Team (Late st Contact Info) Description 10/04/2020 Ancillary Orders Virtual Department [address] [place] [address] Jamaal López NP [facility] [place] [address] Breast screening Social History Tobacco Use Types [...] st Contact Info) Description 02/26/2024 Procedure Pass [address] Neil [place] [address] 03/03/2025 9:15 AM EST Appointment [address] Neil [place] [address] Jamaal López, FAVIO 2 [facility] Dr Starkey [place] [address] documented as of this encounter Results * [...] There are scattered fibroglandular densities. Jamaal López CHASER TAR IMG MG EXAMS Final Re sult documented in this encounter Visit Diagnoses Diagnosis Breast screening Breast screening, unspecified Breast screening Breast screening, unspecified documented in this encounter Additional Health Concerns Infection Onset Date Last Indicated Resolved Time CoV-Risk 11/07/2021 11/07/2021 11/18/2021 1:22 AM EDT documented as of this encounter Care Teams Car Framer Relationship Specialty Start Date End Date Jamaal López NP [facility] [place] [address] PCP - General Family Medicine 11/04/19 Edwin Segal MD [address] [address] Historical LMR Provider 11/27/16 02/16/21 Allen Melendrez MD 115 [place] [address] Historical LMR Provider 11/27/16 Srini Maxwell DO [address] [place] [address] Historical LMR Provider 11/27/16 Wiliam Griffin MD [address] [address] Historical LMR Provider 11/27/16 documented as of this encounter Additional Source Comments The information contained in this document represents components of the legal health record. It is not the complete legal health record.[facility]
--- OUTSIDE RECORDS SUMMARY | 2025-01-10 10:40 | XMS_ITS | Encounter Summary ---
Author Organization [facility] Address [address] [address] Phone Care Team Providers Care Carbon Paste Mixer Operator Name Role Phone Wiliam Griffin MD Unavailable [phone] Jamaal López NP Primary Care Provider + Encounter Details Date Type Department Care Team (Late st Contact Info) Description 12/27/2021 Procedure Pass [address] [place] [address] Social History Tobacco Use Types Packs/Day Years [...] Contact Info) Description 02/26/2024 Procedure Pass [address] [place] [address] 03/03/2025 9:15 AM EST Appointment [address] [place] [address] Jamaal López NP [address] [place] [address] Dr [place] [address] documented as of this encounter Visit Diagnoses Not on filedocumented in this encounter Care Teams Carbon Paste Mixer Operator Relationship Specialty Start Date End Date Jamaal López NP [address] [facility] [address] [place]key [place] [address] PCP - General Family Medicine 11/04/19 Wiliam Griffin MD [address] [place] [address], [address] [place] [address] [email or web address] Historical LMR Provider 11/27/16 documented as of this encounter Additional Source Comments The information contained in this document represents components of the legal health record. It is not the complete legal health record.[facility]
--- OUTSIDE RECORDS SUMMARY | 2025-01-10 10:40 | XMS_ITS | Encounter Summary ---
Author Organization [facility] Address 399 [facility] [address] [place] [address] Phone Care Team Providers Care Sr Solutions Consultant Name Role Phone Edwin Segal MD Unavailable Allen Melendrez MD Unavailable Srini Maxwell DO Unavailable [phone] Wiliam Griffin MD Unavailable [phone] Fouzia Gil MD Primary Care Provider Alejandrina Newell MINE INSPECTOR Primary Care Provider Jamaal López MINE INSPECTOR Primary Care Provider + Reason for Referral * MRI/CAT Scan - Closed Specialty Diagnoses / Procedures Referred By Contac t Referred To Contact Procedures CT Abdomen/Pelvis Outside (No Interpretation) System, Provider Not In, PhD [employer] [address] [place] [address] Referral ID Status Reason Start Date Expiration Date Visits Re quested Visits Authorized [id number] Closed 05/14/2017 05/14/2018 1 1 Encounter Details Date Type Department Care Team (Late st Contact Info) Description 05/14/2017 Ancillary Orders [facility],Outside Imaging 30 [place] [address] System, Provider [place] In, [place] [address] Social History Tobacco Use Types Packs/Day Years [...] st Contact Info) Description 02/26/2024 Procedure Pass [address] [place] [address] 03/03/2025 9:15 AM EST Appointment [address] [place] [address] Jamaal López NP [address] [place] [address] documented as of this encounter Results * [...] documented as of this encounter Care Teams Sr Solutions Consultant Relationship Specialty Start Date End Date Fouzia Gil MD 1961 [facility] [place] [address] PCP - General Internal Medicine 04/17/17 03/14/18 Alejandrina Newell NP [address] [place] [address] [place] [address] [email or web address] PCP - General Family Medicine 03/15/18 11/03/19 Jamaal López NP [address] [place] [address] [place] [address] PCP - General Family Medicine 11/04/19 Edwin Segal MD [address] [address] Historical LMR Provider 11/27/16 02/16/21 Allen Melendrez MD 115 [place] [address] Historical LMR Provider 11/27/16 Srini Maxwell DO [address] [place] [address] Historical LMR Provider 11/27/16 Wiliam Griffin MD [address] [place] [address] Historical LMR Provider 11/27/16 documented as of this encounter Additional Source Comments The information contained in this document represents components of the legal health record. It is not the complete legal health record.[facility]
--- OUTSIDE RECORDS SUMMARY | 2025-01-10 10:40 | XMS_ITS | Encounter Summary ---
Author Organization [facility] Address [address] [address] Phone Care Team Providers Care Surface Logging Systems Logger Name Role Phone Edwin Segal MD Unavailable Allen Melendrez MD Unavailable [phone] Srini Maxwell DO Unavailable [phone] Wiliam Griffin MD Unavailable [phone] Fouzia Gil MD Primary Care Provider [phone] Alejandrina Newell BRAND AMBASSADOR Primary Care Provider Jamaal López BRAND AMBASSADOR Primary Care Provider + Reason for Referral * Outpatient Procedure - Closed Specialty Diagnoses / Procedures Referred By Jackson cates Referred To Contact Radiology Diagnoses Pyrosis Weight loss Nausea Procedures NM Gastric Emptying Yusef Barron MD Phone: tel: fax: mailto:[email or web address] Referral ID Status Reason Start Date Expiration Date Visits Re quested Visits Authorized [id number] Closed 04/28/2017 04/28/2018 1 1 Encounter Details Date Type Department Care Team (Late st Contact Info) Description 04/28/2017 Ancillary Orders Virtual Department 30 [place] [address] Yusef Barron MD [address] [address] [email or web address] Pyrosis; Weight loss; Nausea Social History [...] st Contact Info) Description 02/26/2024 Procedure Pass [address] [place] [address] 03/03/2025 9:15 AM EST Appointment [address] [place] [address] Jamaal López NP [address] [place] [address] [place] [address] documented as of this encounter Results * [...] documented as of this encounter Care Teams Surface Logging Systems Logger Relationship Specialty Start Date End Date Fouzia Gil MD 1961 [place] [address] PCP - General Internal Medicine 04/17/17 03/14/18 Alejandrina Newell NP [address] [place] [address] [place] [address] [email or web address] PCP - General Family Medicine 03/15/18 11/03/19 Jamaal Lóepz NP [facility] [place] [address] PCP - General Family Medicine 11/04/19 Edwin Segal MD [address] [address] Historical LMR Provider 11/27/16 02/16/21 Allen Melendrez MD 115 [place] [address] Historical LMR Provider 11/27/16 Srini Maxwell DO [address] [place] [address] Historical LMR Provider 11/27/16 Wiliam Griffin MD [address] [place] [address] Historical LMR Provider 11/27/16 documented as of this encounter Additional Source Comments The information contained in this document represents components of the legal health record. It is not the complete legal health record.[facility]
--- OUTSIDE RECORDS SUMMARY | 2025-01-10 10:40 | XMS_ITS | Encounter Summary ---
Author Organization [facility] Address [address] [address] Phone Care Team Providers Care Heat Treater Head Name Role Phone Edwin Segal MD Unavailable Allen Melendrez MD Unavailable Srini Maxwell DO Unavailable [phone] Wiliam Griffin MD Unavailable [phone] Fouzia Gil MD Primary Care Provider [phone] Alejandrina Newell CHIN STRAP CUTTER Primary Care Provider Jamaal López CHIN STRAP CUTTER Primary Care Provider + Encounter Details Date Type Department Care Team (Late st Contact Info) Description 04/21/2017 Procedure Pass [facility] Admitting Dept Virtual Department [address] [place] [address] Social History Tobacco Use Types Packs/Day Years [...] (Late Contact Info) Description 02/26/2024 Procedure Pass [address] [place] [address] 03/03/2025 9:15 AM EST Appointment [address] [place] [address] Jamaal López, FAVIO [address] [place] [address] [place] [address] documented as of this encounter Visit Diagnoses Not on filedocumented in this encounter Additional Health Concerns Infection Onset Date Last Indicated Resolved Time CoV-Risk 11/07/2021 11/07/2021 11/18/2021 1:22 AM EDT documented as of this encounter Care Teams Heat Treater Head Relationship Specialty Start Date End Date Fouzia Gil MD [address] [place] [address] [facility] [place] PCP - General Internal Medicine 04/17/17 03/14/18 Alejandrina Newell NP [address] [place] [address] [place] [address] [email or web address] PCP - General Family Medicine 03/15/18 11/03/19 Jamaal López, FAVIO [address] [place] [address] [place] [address] PCP - General Family Medicine 11/04/19 Edwin Segal MD [address] [place] [address], [facility] 102 [place] [address] [email or web address] Historical LMR Provider 11/27/16 02/16/21 Allen Melendrez MD [address] [place] [address] Historical LMR Provider 11/27/16 Srini Maxwell DO 5 [place] [address] Historical LMR Provider 11/27/16 Wiliam Griffin MD [address] [place] [address], [facility] 102 [place] [address] [email or web address] Historical LMR Provider 11/27/16 documented as of this encounter Additional Source Comments The information contained in this document represents components of the legal health record. It is not the complete legal health record.[facility]
--- OUTSIDE RECORDS SUMMARY | 2025-01-10 10:40 | XMS_ITS | Encounter Summary ---
Author Organization [facility] Address [address] [place] [address] Phone Care Team Providers Care Wind Turbine Erector Name Role Phone Edwin Segal MD Unavailable Allen Melendrez MD Unavailable Srini Maxwell DO Unavailable [phone] Wiliam Griffin MD Unavailable [phone] Fouzia Gil MD Primary Care Provider [phone] Alejandrina Newell FENCE MAKER Primary Care Provider Jamaal López FENCE MAKER Primary Care Provider + Encounter Details Date Type Department Care Team (Late st Contact Info) Description 06/15/2017 Ancillary Orders [facility],Outside Imaging 30 [place] [address] System, Provider Not In, PhD [address] [address] Social History Tobacco Use Types Packs/Day Years [...] st Contact Info) Description 02/26/2024 Procedure Pass [address] [place] [address] 03/03/2025 9:15 AM EST Appointment [address] [place] [address] Jamaal López NP [address] [place] [address] Dr [place] [address] documented as of this encounter Results * [...] documented as of this encounter Care Teams Wind Turbine Erector Relationship Specialty Start Date End Date Fouzia Gil MD [address] [place] [address] Jocelyn [place] [address] PCP - General Internal Medicine 04/17/17 03/14/18 Alejandrina Newell NP [address] [place] [address] [place] [address] [email or web address] PCP - General Family Medicine 03/15/18 11/03/19 Jamaal López, FAVIO [address] [place] [address] Dr [place] [address] PCP - General Family Medicine 11/04/19 Edwin Segal MD 22 [facility], [address] [address] [email or web address] Historical LMR Provider 11/27/16 02/16/21 Allen Melendrez MD 115 [place] [address] Historical LMR Provider 11/27/16 Srini Maxwell DO [address] [place] [address] Historical LMR Provider 11/27/16 Wiliam Griffin MD 22 [facility], [address] [address] [email or web address] Historical LMR Provider 11/27/16 documented as of this encounter Additional Source Comments The information contained in this document represents components of the legal health record. It is not the complete legal health record.[facility]
--- OUTSIDE RECORDS SUMMARY | 2025-01-10 10:40 | XMS_ITS | Encounter Summary ---
Author Organization [facility] Address [address] [place] [address] Phone Care Team Providers Care Fiber Product Cutting Machine Operator Name Role Phone Edwin Segal MD Unavailable Allen Melendrez MD Unavailable Srini Maxwell DO Unavailable [phone] Wiliam Griffin MD Unavailable [phone] Fouzia Gil MD Primary Care Provider [phone] Alejandrina Newell CORPORATION OFFICER Primary Care Provider Jamaal López CORPORATION OFFICER Primary Care Provider + Encounter Details Date Type Department Care Team (Late st Contact Info) Description 06/15/2017 Ancillary Orders [facility],Outside Imaging [address] [place] [address] System, Provider Not In, PhD [address] [address] Social History Tobacco Use Types Packs/Day Years [...] st Contact Info) Description 02/26/2024 Procedure Pass [address] [place] [address] 03/03/2025 9:15 AM EST Appointment [address] [place] [address] Jamaal López NP [address] [place] [address] Dr Swanson JOSE JUAN [address] documented as of this encounter Results * [...] documented as of this encounter Care Teams Fiber Product Cutting Machine Operator Relationship Specialty Start Date End Date Fozuia Gil MD [address] [place] [address] Jocelyn JOSE JUAN SWANSON [address] PCP - General Internal Medicine 04/17/17 03/14/18 Alejandrina Newell NP [address] [place] [address] [place] [address] [email or web address] PCP - General Family Medicine 03/15/18 11/03/19 Jamaal López, FAVIO [address] [place] [address] Dr Swanson JOSE JUAN [address] PCP - General Family Medicine 11/04/19 Edwin Segal MD 22 [facility], [address] [address] [email or web address] Historical LMR Provider 11/27/16 02/16/21 Allen Melendrez MD [address] [place] [address] Historical LMR Provider 11/27/16 Srini Maxwell DO [address] [place] [address] Historical LMR Provider 11/27/16 Wiliam Griffin MD 22 [facility], [address] [address] [email or web address] Historical LMR Provider 11/27/16 documented as of this encounter Additional Source Comments The information contained in this document represents components of the legal health record. It is not the complete legal health record.[facility]
--- OUTSIDE RECORDS SUMMARY | 2025-01-10 10:40 | XMS_ITS | Encounter Summary ---
Author Organization [facility] Address [address] [place] [address] Phone Care Team Providers Care Sewer System Supervisor Name Role Phone Edwin Segal MD Unavailable Allen Melendrez MD Unavailable Srini Maxwell DO Unavailable [phone] Wiliam Griffin MD Unavailable [phone] Fouzia Gil MD Primary Care Provider [phone] Alejandrina Newell PSYCHIATRIC AIDE Primary Care Provider Jamaal López PSYCHIATRIC AIDE Primary Care Provider + Encounter Details Date Type Department Care Team (Late st Contact Info) Description 06/15/2017 Ancillary Orders [facility],Outside Imaging [address] [place] [address] System, Provider Not In, PhD [address] [address] Social History Tobacco Use Types Packs/Day Years [...] st Contact Info) Description 02/26/2024 Procedure Pass [address] [place] [address] 03/03/2025 9:15 AM EST Appointment [address] [place] [address] Jamaal López NP [address] [place] [address] Dr Swanson JOSE JUAN [address] documented as of this encounter Results * [...] documented as of this encounter Care Teams Sewer System Supervisor Relationship Specialty Start Date End Date Fouzia Gil MD [address] [place] [address] Jocelyn JOSE JUAN SWANSON [address] PCP - General Internal Medicine 04/17/17 03/14/18 Alejandrina Newell NP [address] [place] [address] [place] [address] [email or web address] PCP - General Family Medicine 03/15/18 11/03/19 Jamaal López, FAVIO [address] [place] [address] Dr Swanson JOSE JUAN [address] PCP - General Family Medicine 11/04/19 Edwin Segal MD 22 [facility], [address] [address] [email or web address] Historical LMR Provider 11/27/16 02/16/21 Allen Melendrez MD [address] [place] [address] Historical LMR Provider 11/27/16 Srini Maxwell DO [address] [place] [address] Historical LMR Provider 11/27/16 Wiliam Griffin MD 22 [facility], [address] [address] [email or web address] Historical LMR Provider 11/27/16 documented as of this encounter Additional Source Comments The information contained in this document represents components of the legal health record. It is not the complete legal health record.[facility]
--- OUTSIDE RECORDS SUMMARY | 2025-01-10 10:40 | XMS_ITS | Clinical Summary ---
Author Organization [facility] Address [address] [address] Phone Care Team Providers Care Public Transit Specialist Name Role Phone Wiliam Griffin MD Unavailable [phone] Jamaal López NP Primary Care Provider [...] Pass [address] [place] [address] 03/03/2025 9:15 AM EST Appointment [address] [place] [address] Jamaal López NP [address] [place] [address] [place] [address] Health Maintenance Due Date Last Done Comments [...] the results and recommendations. us Jamaal López SUPERVISOR CIGARETTE MAKING DEPARTMENT IMG MG EXAMS Final Re sult * Pap Test (03/04/2022 12:00 AM EST) 03/04/2022 03/05/2022 10: 16 AM EST Narrative SEE NARRATIVE - 03/12/2022 4:21 [place] [address] Medical Case Manager: Ronit sEpinoza MD CHIEF PROCUREMENT OFFICER Cytology Report FINAL DIAGNOSIS A. PAP SMEAR [...] 59, 66, 68) Note: Testing performed by [employer] HR-HPV analysis. Clinical correlation is advised. This HPV test was performed at [facility], [address] [place] [address]. This test has been FDA approved for [employer] cervical cytology specimens. The accuracy and precision of this test for all other specimen sources has been verified in the Cytopathology Laboratory of the [facility] and has not been cleared or [...] : 1970 (Age: 51) Sex: F Institution: [facility] Location: [facility] Date of Collection: 03/04/2022 Date of Reported: 03/12/2022 16:21 Results to: Wiliam Griffin MD, BS Wiliam Griffin MD CYTOLOGY ORDERABLES Final Res ult SEE NARRATIVE * COLONOSCOPY FOR RESULT ENTRY ONLY (04/01/2018) Colonoscopy External Historical Provider HEALTH MAINTENANCE Final Result from Last 3 Months or Most Recently Relevant to Health Maintenance Insurance [facility] Care Teams Public Transit Specialist Relationship Specialty Start Date End Date Jamaal López NP [facility] [place] [address] PCP - General Family Medicine 11/04/19 Wiliam Griffin MD [address] [place] [address], [address] [place] [address] [email or web address] Historical LMR Provider 11/27/16 Additional Source Comments The information contained in this document represents components of the legal health record. It is not the complete legal health record.[facility]
--- OUTSIDE RECORDS SUMMARY | 2025-01-10 10:40 | XMS_ITS | Encounter Summary ---
Author Organization [facility] Address [address] [address] Phone Care Team Providers Care Sales Facilitator Name Role Phone Edwin Segal MD Unavailable Allen Melendrez MD Unavailable Srini Maxwell DO Unavailable [phone] Wiliam Griffin MD Unavailable [phone] Fouzia Gil MD Primary Care Provider [phone] Alejandrina Newell TENSILE TESTER Primary Care Provider Jamaal López TENSILE TESTER Primary Care Provider + Reason for Referral * Consultation (Within 1 month) - Closed Specialty Diagnoses / Procedures Referred By Jackson cates Referred To Contact Gastroenterology Diagnoses Gastroesophageal reflux disease with esophagitis Yusef Barron MD Phone: tel: fax: mailto:[email or web address] Reynolds MD Phone: tel: fax: mailto:[email or web address] Referral ID Status Reason Start Date Expiration Date Visits Re quested Visits Authorized [id number] Closed 02/16/2018 02/16/2019 1 1 Encounter Details Date Type Department Care Team (Latest Contact Info) Description 02/16/2018 Transcribe Orders [facility] [address] [facility], 5th [place] [address] Fouzia Gil MD [address] [place] [address] Gastroesophageal reflux disease with esophagitis (Primary Dx) [...] Contact Info) Description 02/26/2024 Procedure Pass [address] [place] [address] 03/03/2025 9:15 AM EST Appointment [address] [place] [address] Jamaal López, FAVIO [address] [place] [address] [place] [address] Scheduled Referrals Name Type Priority Associated Diagnoses Order Schedule Ambulatory referral to [facility] G[facility] (Consult Requests Only) Outpatient Referral Routine Gastroesophageal reflux disease with esophagitis Ordered: 02/16/2018 documented as of this encounter Visit Diagnoses Diagnosis Gastroesophageal reflux disease with esophagitis- Primary documented in this encounter Additional Health Concerns Infection Onset Date Last Indicated Resolved Time CoV-Risk 11/07/2021 11/07/2021 11/18/2021 1:22 AM EDT documented as of this encounter Care Teams Sales Facilitator Relationship Specialty Start Date End Date Fouzia Gil MD [address] [place] [address] [place] [address] PCP - General Internal Medicine 04/17/17 03/14/18 Alejandrina Newell, FAVIO [address] [place] [address] [place] [address] [email or web address] PCP - General Family Medicine 03/15/18 11/03/19 Jamaal López, FAVIO [address] [place] [address] [place] [address] PCP - General Family Medicine 11/04/19 Edwin Segal MD [address] [place] [address] Historical LMR Provider 11/27/16 02/16/21 Allen Melendrez MD [address] [place] [address] Historical LMR Provider 11/27/16 Srini Maxwell DO [address] [place] [address] Historical LMR Provider 11/27/16 Wiliam Griffin MD [address] [place] [address] Historical LMR Provider 11/27/16 documented as of this encounter Additional Source Comments The information contained in this document represents components of the legal health record. It is not the complete legal health record.[facility]
--- OUTSIDE RECORDS SUMMARY | 2025-01-10 10:40 | XMS_ITS | Encounter Summary ---
Author Organization [facility] Address [address] [facility] [address] [place] [address] Phone Care Team Providers Care Nail Tech Name Role Phone Wiliam Griffin MD Unavailable [phone] Jamaal López NP Primary Care Provider + Encounter Details Date Type Department Care Team (Late st Contact Info) Description 10/13/2023 Procedure Pass [facility] [address] [place] [address] Social History Tobacco Use Types Packs/Day Years [...] Contact Info) Description 02/26/2024 Procedure Pass [address] [place] [address] 03/03/2025 9:15 AM EST Appointment [address] [place] [address] Jamaal López NP [address] [place] [address] [place] [address] documented as of this encounter Visit Diagnoses Not on filedocumented in this encounter Care Teams Nail Tech Relationship Specialty Start Date End Date Jamaal López NP [address] [place] [address] [place] [address] PCP - General Family Medicine 11/04/19 Wiliam Griffin MD [address] [place] [address], [facility] [address] [place] [address] [email or web address] Historical LMR Provider 11/27/16 documented as of this encounter Additional Source Comments The information contained in this document represents components of the legal health record. It is not the complete legal health record.[facility]
--- OUTSIDE RECORDS SUMMARY | 2025-01-10 10:40 | XMS_ITS | Encounter Summary ---
Author Organization [facility] Address [address] [place] [address] Phone Care Team Providers Care Hand Tube Bender Name Role Phone Edwin Segal MD Unavailable Allen Melendrez MD Unavailable Srini Maxwell DO Unavailable [phone] Wiliam Griffin MD Unavailable [phone] Fouzia Gil MD Primary Care Provider Alejandrina Newell MANAGEMENT CONSULTING Primary Care Provider Jamaal López MANAGEMENT CONSULTING Primary Care Provider + Encounter Details Date Type Department Care Team (Late st Contact Info) Description 06/15/2017 Ancillary Orders [facility],Outside Imaging [address] [place] [address] System, Provider Not In, PhD [address] [address] Social History Tobacco Use Types Packs/Day Years [...] Contact Info) Description 02/26/2024 Procedure Pass [address] [place] [address] 03/03/2025 9:15 AM EST Appointment [address] [place] [address] Jamaal López NP [address] [place] [address] Dr Swanson JOSE JUAN [address] documented as of this encounter Results * [...] documented as of this encounter Care Teams Hand Tube Bender Relationship Specialty Start Date End Date Fouzia Gil MD [address] [place] [address] Jocelyn JOSE JUAN SWANSON [address] PCP - General Internal Medicine 04/17/17 03/14/18 Alejandrina Newell NP [address] [place] [address] [place] [address] [email or web address] PCP - General Family Medicine 03/15/18 11/03/19 Jamaal López, FAVIO [address] [place] [address] Dr Swanson JOSE JUAN [address] PCP - General Family Medicine 11/04/19 Edwin Segal MD 22 [facility], [address] [address] [email or web address] Historical LMR Provider 11/27/16 02/16/21 Allen Melendrez MD [address] [place] [address] Historical LMR Provider 11/27/16 Srini Maxwell DO [address] [place] [address] Historical LMR Provider 11/27/16 Wiliam Griffin MD 22 [facility], [address] [address] [email or web address] Historical LMR Provider 11/27/16 documented as of this encounter Additional Source Comments The information contained in this document represents components of the legal health record. It is not the complete legal health record.[facility]
== END 2025-01-10 10:46 | disposition home or self-care (01) ==
LOC: HO.HMCC 09:42
PROVIDERS: PCP Nurse Practitioner Family; Visit Provider Nurse Practitioner Family
DX: R94.31 Abnormal electrocardiogram [ECG] [EKG] (principal); J32.9 Chronic sinusitis, unspecified; R73.01 Impaired fasting glucose

== ENCOUNTER → 2025-01-10 09:41 | Outpatient (BNVA) | payer OTHER, SELFPAY | PROVIDERS: PCP Nurse Practitioner Family; Visit Provider Nurse Practitioner Family | DX: R94.31 Abnormal electrocardiogram [ECG] [EKG] (principal); R73.01 Impaired fasting glucose; J32.9 Chronic sinusitis, unspecified; Z79.899 Other long term (current) drug therapy | CPT/HCPCS: 96127 ==